=== PATIENT | male | born 1940 | race Caucasian/White ===

== ENCOUNTER 2016-03-19 05:48 | Inpatient (IN) | payer MEDICARE, BC ==
[~2016-03-19] VITALS: Ht 172.7 cm; Wt 49.9 kg
[2016-03-19] VITALS (36 sets, daily range): BP systolic 84–161; BP diastolic 51–104
[2016-03-19] MEDS ORDERED: NS 1000ml 1,900 ML IVLG ONE (06:00)
--- NOTE | 2016-03-19 06:05 | Emergency Room Report ---
History of Present Illness General Chief Complaint: Dyspnea/Respdistress Source: Medical Record, EMS Present Illness HPI Is a 76-year-old male coming from a long-term. He had recent abdominal surgery. He presents with chief complaint of first or distress and altered mental status. Unable to get any history from this patient. Per EMS, he was very toxic. They placed him on a nonrebreather and assists his breathing. No other history from patient Allergies: Coded Allergies: PENICILLINS (Verified Allergy, Unknown, 03/19/16) SULFA (SULFONAMIDE ANTIBIOTICS) (Verified Allergy, Unknown, 03/19/16) Patient History Past Medical History: see triage record, old chart reviewed Past Surgical History: other Pertinent Family History: none Social History: Denies: smoking Immunizations: other Reviewed Nursing Documentation: PMH: Agreed, PSxH: Agreed Nursing Documentation-PMH Hx Hypertension: Yes - Fall, osteoarthritis, vp corporate development shunt, cad, s/p 3 stents Review of Systems Respiratory: Reports: shortness of breath All Other Systems: limited - Secondary to his condition Physical Exam Vital Signs Date Time Temp Pulse Resp B/P Pulse Ox O2 Delivery O2 Flow Rate FiO2 03/19/16 05:37 133 41 86/63 93 Ambu-Bag 15.0 vitals with fever and tachycardia Sp02 EP Interpretation: reviewed, abnormal General Appearance: severe distress, cachetic, Chronically Ill Head: normocephalic, atraumatic Eyes: bilateral eye EOMI, bilateral eye PERRL ENT: dry mucus membranes Neck: full range of motion, supple, no meningismus Respiratory: chest non-tender, respiratory distress, decreased breath sounds, accessory muscle use, crackles Cardiovascular #1: regular rate, rhythm, no murmur, tachycardia Gastrointestinal: normal bowel sounds, non tender, no organomegaly, no bruit, non-distended, other - Midline abdominal surgical wound Musculoskeletal: normal range of motion Psychiatric: mood/affect normal Skin: warm/dry Procedures Critical Care Time Critical Care Time Critical care is mandated in this patient who presented with respiratory failure and septic shock from pneumonia. Patient require my urgent intervention to attenuate the risks of metabolic collapse which may lead to cardiovascular collapse and . Critical care time is 75 minutes excluding any reportable procedure. Critical care time included evaluation, multiple reevaluation, looking at old charts, interpreting laboratory and diagnostic data , discussing case with patient and family and consultants, and charting. Intubation Intubation : Consent: Emergent Intubation Method: orotracheal Tube Size (cm): 7.5 Breath Sounds after Intubation: equal Intubation Complications: no complications Post Intubation Xray: Yes Progress/Xray Impression: ETT in good position Attempts: One Patient Tolerated: Well Complications: None Medical Decision Making Diagnostic Impression: Primary Impression: Respiratory failure requiring intubation Additional Impressions: Septic shock Pneumonia Qualified Codes: J18.9 - Pneumonia, unspecified organism Renal failure Dehydration Multiple organ system failure ER Course Patient presents with severe sepsis/septic shock secondary to pneumonia. He is in renal failure also. He is intubated. Extremely cachectic. Patient will be admitted to ICU. Prognosis is very poor. Lab Results Impression labs showed multiple abnormality. EKG Diagnostic Results Rate: tachycardiac Rhythm: NSR, other - diffuse ST changes ST Segments: no acute changes Rhythm Strip Diag. Results EP Interpretation: yes Rate: 120 Rhythm: NSR, no PVC's, no ectopy Chest X-Ray Diagnostic Results EP Interpretation: Yes Findings: no effusion, no pneumothorax, other - Bilateral infiltrates Number of Views: 1 Last Vital Signs Date Time Temp Pulse Resp B/P Pulse Ox O2 Delivery O2 Flow Rate FiO2 03/19/16 05:37 133 41 86/63 93 Ambu-Bag 15.0 Status: improved Disposition: ADMITTED INPATIENT Condition: Critical MERLENE ROSE M.D. Mar 19, 2016 06:05
[2016-03-19 06:24] LABS: MEAN CORPUSCULAR HEMOGLOBIN 29.7 PG (27.0-31.0); MEAN CORPUSCULAR HGB CONC 31.8 G/DL (32.0-36.0); MEAN CORPUSCULAR VOLUME 93 FL (80-99); MEAN PLATELET VOLUME 8.8 FL (6.5-10.1); PLATELET COUNT 296 K/UL (150-450); RED BLOOD COUNT 6.28 M/UL (4.70-6.10); RED CELL DISTRIBUTION WIDTH 13.1 % (11.6-14.8); WHITE BLOOD COUNT 16.3 K/UL (4.8-10.8)
[2016-03-19 06:27] LABS: ALANINE AMINOTRANSFERASE 102 U/L (3-41); ALBUMIN/GLOBULIN RATIO 0.7 (1.0-2.7); ANION GAP 26 (5-15); ASPARTATE AMINO TRANSFERASE 153 U/L (5-40); CARBON DIOXIDE 27 mEQ/L (20-30); CHLORIDE 105 mEQ/L (98-107); CREATININE 3.1 mg/dL (0.7-1.2); HEMOLYSIS 7; POTASSIUM 3.7 mEQ/L (3.4-4.9); SODIUM 158 mEQ/L (135-145); TOTAL PROTEIN 8.3 g/dL (6.6-8.7)
[2016-03-19 06:32] LABS: REFLEX LACTIC ACID YES OR NO YES
[2016-03-19 06:37] LABS: INR 1.3 (0.9-1.1); PROTHROMBIN TIME 13.2 SEC (9.30-11.50)
[2016-03-19] MEDS ORDERED: Tubing IV Cassette IV ONE (06:39)
[2016-03-19] MEDS ORDERED: Cefepime 1gm vial ONE (06:39)
[2016-03-19] MEDS ORDERED: NS 55 ML IV ONE (06:39)
[2016-03-19] MEDS ORDERED: Cefepime HCl 1 GM in D5W 55 ML IVPB ONE (06:45)
[2016-03-19] MEDS ORDERED: ASPIRIN81 MG ORAL (06:59)
[2016-03-19] MEDS ORDERED: CLOPIDOGREL75 MG ORAL (06:59)
[2016-03-19] MEDS ORDERED: TYLENOL EXTRA500 MG ORAL ×2 (06:59)
[2016-03-19 07:08] LABS: BILIRUBIN,DIRECT 0.4 mg/dL (0.1-0.3)
[2016-03-19] MEDS ORDERED: LOVENOX10 MG SUBQ (07:13)
[2016-03-19] MEDS ORDERED: KADIAN60 MG PO (07:13)
[2016-03-19] MEDS ORDERED: LASIX80 MG ORAL (07:13)
[2016-03-19] MEDS ORDERED: NORCO 5-325 TA1 EAC1 ORAL (07:13)
[2016-03-19] MEDS ORDERED: GABAPENTIN600 MG ORAL (07:13)
[2016-03-19] MEDS ORDERED: METOPROLOL SUCC25 MG ORAL (07:13)
[2016-03-19] MEDS ORDERED: NORCO 10-325 T1 EACH ORAL (07:13)
[2016-03-19] MEDS ORDERED: Acetaminophen 650 MG SUPP RECTAL ONE (07:15)
[2016-03-19 07:19] LABS: ABG PCO2 48.9 mmHg (35.0-45.0)
[2016-03-19 07:20] LABS: ABG ALLEN TEST POSITIVE; ABG BASE EXCESS 0.9
[2016-03-19 07:30] LABS: CKMB < 1.5 ng/mL (< 6.7)
[2016-03-19] MEDS ORDERED: Levophed 4mg/4mL Inj IV ONE (07:50)
[2016-03-19] MEDS ORDERED: Lidocaine 1% MPF 10mg/ml 5ml ONE (07:51)
[2016-03-19 08:15] LABS: APPEARANCE,URINE SLIGHTLY CLOUDY; KETONES,URINE NEGATIVE (NEGATIVE); LEUKOCYTE ESTERASE ,URINE NEGATIVE (NEGATIVE); NITRITE,URINE NEGATIVE (NEGATIVE); PH,URINE 5 (4.5-8.0); PROTEIN,URINE 2+ (NEGATIVE); UROBILINOGEN,URINE NORMAL MG/DL (0.0-1.0)
[2016-03-19 08:27] LABS: AMORPHOUS SEDIMENT,UR FEW /LPF; BACTERIA,URINE FEW /HPF; HYALINE CASTS, URINE 0-2 /LPF; SQUAMOUS EPITHELIAL CELL,UR OCCASIONAL /LPF (NONE/OCC); WBC,URINE 0-2 /HPF (0 - 0)
--- NOTE | 2016-03-19 08:30 | Diagnostic Imaging Report ---
Indications: Shortness of breath Technique: Portable AP chest Findings: Comparison: None Endotracheal tube has been placed, tip 5 cm above maximino. Ventriculoperitoneal shunt tube descends over the mediastinum and midline upper abdomen. Catheter appears focally kinked just above and discontinuous just below the level of the right clavicle. Increased interstitial markings are present throughout both lungs. Focal hazy alveolar opacity medial right lung base. No pleural abnormalities. Heart size within normal limits. Pulmonary vasculature obscured. Aortic arch calcified and mildly elongated. IMPRESSION: Endotracheal tube in good position Ventricular peritoneal shunt tube in place, apparently fractured Bilateral interstitial infiltrates, nonspecific, acuity indeterminate Right lung base alveolar opacity may represent same process as interstitial infiltrate. Superimposed pneumonia must be considered Aortosclerosis
[2016-03-19 08:49] LABS: BAND NEUTROPHILS % (MANUAL) 2 % (0-8); BASOPHILS % (MANUAL) 0 % (0-2); EOSINOPHILS % (MANUAL) 0 % (0-3); LYMPHOCYTES % (MANUAL) 8 % (20-45); NEUTROPHILS % (MANUAL) 87 % (45-75); PLATELET ESTIMATE ADEQUATE; PLATELET MORPHOLOGY NORMAL; TOTAL CELLS COUNTED 100
--- NOTE | 2016-03-19 08:52 | Emergency Room Report ---
History of Present Illness General Chief Complaint: Dyspnea/Respdistress Source: Medical Record, EMS Present Illness Allergies: Coded Allergies: PENICILLINS (Verified Allergy, Unknown, 03/19/16) SULFA (SULFONAMIDE ANTIBIOTICS) (Verified Allergy, Unknown, 03/19/16) Nursing Documentation-PMH Hx Hypertension: Yes - Fall, osteoarthritis, vp respiratory shunt, cad, s/p 3 stents Physical Exam Vital Signs Date Time Temp Pulse Resp B/P Pulse Ox O2 Delivery O2 Flow Rate FiO2 03/19/16 05:37 101.8 133 41 86/63 93 Ambu-Bag 15.0 03/19/16 06:05 100 Procedures Critical Care Time Critical Care Time 75 minutes of critical care time, to include time with review of labs, records, discussion with attending emergency physician, evaluation of treatment and resuscitation. As well as discussion with family. This excludes time for procedures. Central Line Central Line : Consent: Emergent Central Line Lumen: triple Maximal Sterile Barrier Tech: yes cap, yes mask, yes sterile gown, yes sterile gloves, yes large sterile sheet, yes hand hygiene, yes chlorhexidine prep Central Line Postion: internal jugular (R) Complications: none Central Line Post Position: sutured, good blood return, position confirmed w / CXR Attempts: One Patient Tolerated: Well Complications: None Medical Decision Making Diagnostic Impression: Primary Impression: Respiratory failure requiring intubation Additional Impressions: Multiple organ system failure Septic shock Renal failure Pneumonia Qualified Codes: J18.9 - Pneumonia, unspecified organism Dehydration ER Course Patient signed out to me by ENT for sepsis, respiratory failure. Reviewing of labs and trending lactate is performed. Critical care as required, patient lost access of EJ and I placed a central line in the right internal jugular. Patient given and ICU level care, I initiated the beginning of IV pressors for blood pressure support. Last Vital Signs Date Time Temp Pulse Resp B/P Pulse Ox O2 Delivery O2 Flow Rate FiO2 03/19/16 08:30 91 20 40 03/19/16 07:56 94/59 97 Room Air 03/19/16 07:54 99.0 03/19/16 07:35 15.0 Disposition: ADMITTED INPATIENT Condition: Critical Referrals: MAURO NOLAN (PCP) [place] MD Mar 19, 2016 08:52
--- NOTE | 2016-03-19 09:27 | Infectious Diseases Prog Note ---
Assessment/Plan Problems: (1) HCAP (healthcare-associated pneumonia) Assessment & Plan: with RLL infiltrates, will start zyvox and meropenem empiric therapy, send blood and sputum culture, will screen for influenza (2) Respiratory failure requiring intubation Assessment & Plan: due to pneumonia and sepsis, pulmonary is following (3) Septic shock Assessment & Plan: due to pneumonia, complicated with organs failure, will start wide spectrum antibiotics , and send blood culture (4) Elevated transaminase level Assessment & Plan: suspect liver shock due to sepsis , avoid hepatotoxic meds, monitor LFT, screen for hepatitis (5) Dehydration Assessment & Plan: continue IVF monitor UOP (6) Renal failure Assessment & Plan: due to sepsis, continue IVF and pressors, to keep SBP >100, nephrology is following (7) Multiple organ system failure Assessment & Plan: due to sepsis (8) ICH (intracerebral hemorrhage) Assessment & Plan: unclear whether he had recent trauma or fall, recommend neurology eval, and surgical consultation Subjective Allergies: Coded Allergies: PENICILLINS (Verified Allergy, Unknown, 03/19/16) SULFA (SULFONAMIDE ANTIBIOTICS) (Verified Allergy, Unknown, 03/19/16) Objective Vital Signs Last 24 Hour Vital Signs Date Time Temp Pulse Resp B/P Pulse Ox O2 Delivery O2 Flow Rate FiO2 03/19/16 08:54 98.2 96 20 129/83 96 Room Air 03/19/16 08:30 91 20 40 03/19/16 07:56 93 22 94/59 97 Room Air 03/19/16 07:54 99.0 109 20 84/51 96 Mechanical Ventilator 41 03/19/16 07:50 99.5 03/19/16 07:35 15.0 40 03/19/16 07:30 100 22 120/74 99 Mechanical Ventilator 03/19/16 07:10 94 24 100 03/19/16 06:48 101.9 97 15 139/81 100 Endotracheal Tube 100 03/19/16 06:20 90 15 100 03/19/16 06:05 100 03/19/16 05:50 133 41 Ambu-Bag 15.0 03/19/16 05:37 101.8 133 41 86/63 93 Ambu-Bag 15.0 Height (Feet): 5 Height (Inches): 9.00 Weight (Pounds): 140 Laboratory Tests Test 03/19/16 05:50 03/19/16 07:54 03/19/16 08:12 White Blood Count 16.3 K/UL (4.8-10.8) H Red Blood Count 6.28 M/UL (4.70-6.10) H Hemoglobin 18.6 G/DL (14.2-18.0) *H Hematocrit 58.6 % (42.0-52.0) H Mean Corpuscular Volume 93 FL (80-99) Mean Corpuscular Hemoglobin 29.7 PG (27.0-31.0) Mean Corpuscular Hemoglobin Concent 31.8 G/DL (32.0-36.0) L Red Cell Distribution Width 13.1 % (11.6-14.8) Platelet Count 296 K/UL (150-450) Mean Platelet Volume 8.8 FL (6.5-10.1) Neutrophils (%) (Auto) % (45.0-75.0) Lymphocytes (%) (Auto) % (20.0-45.0) Monocytes (%) (Auto) % (1.0-10.0) Eosinophils (%) (Auto) % (0.0-3.0) Basophils (%) (Auto) % (0.0-2.0) Differential Total Cells Counted 100 Neutrophils % (Manual) 87 % (45-75) H Lymphocytes % (Manual) 8 % (20-45) L Monocytes % (Manual) 3 % (1-10) Eosinophils % (Manual) 0 % (0-3) Basophils % (Manual) 0 % (0-2) Band Neutrophils 2 % (0-8) Platelet Estimate Adequate Platelet Morphology Normal Red Blood Cell Morphology Normal Prothrombin Time 13.2 SEC (9.30-11.50) H Prothromb Time International Ratio 1.3 (0.9-1.1) H Activated Partial Thromboplast Time 31 SEC (23-33) Arterial Blood pH 7.362 (7.350-7.450) Arterial Blood Partial Pressure CO2 48.9 mmHg (35.0-45.0) H Arterial Blood Partial Pressure O2 223.3 mmHg (75.0-100.0) H Arterial Blood HCO3 27.1 mmol/L (22.0-26.0) H Arterial Blood Oxygen Saturation 98.8 % (92.0-98.0) H Arterial Blood Base Excess 0.9 Vicente Test Positive Sodium Level 158 mEQ/L (135-145) H Potassium Level 3.7 mEQ/L (3.4-4.9) Chloride Level 105 mEQ/L (98-107) Carbon Dioxide Level 27 mEQ/L (20-30) Anion Gap 26 (5-15) H Blood Urea Nitrogen 119 mg/dL (7-23) H Creatinine 3.1 mg/dL (0.7-1.2) H Estimat Glomerular Filtration Rate mL/min (>60) Glucose Level 185 mg/dL (74-106) H Lactic Acid Level 5.70 mmol/L (0.66-2.22) H 1.50 mmol/L (0.66-2.22) Calcium Level 11.0 mg/dL (8.6-10.2) H Total Bilirubin 1.3 mg/dL (0.0-1.2) H Direct Bilirubin 0.4 mg/dL (0.1-0.3) H Aspartate Amino Transf (AST/SGOT) 153 U/L (5-40) H Alanine Aminotransferase (ALT/SGPT) 102 U/L (3-41) H Alkaline Phosphatase 98 U/L (40-129) Total Creatine Kinase 19 U/L (38-174) L Creatine Kinase MB < 1.5 ng/mL (< 6.7) Creatine Kinase MB Relative Index Troponin I 0.40 ng/mL (<=0.30) *H Pro-B-Type Natriuretic Peptide 7150 pg/mL (0-450) H Total Protein 8.3 g/dL (6.6-8.7) Albumin 3.6 g/dL (3.5-5.2) Globulin 4.7 g/dL Albumin/Globulin Ratio 0.7 (1.0-2.7) L Urine Color Yellow Urine Appearance Slightly cloudy Urine pH 5 (4.5-8.0) Urine Specific [place] 1.015 (1.005-1.035) Urine Protein 2+ (NEGATIVE) H Urine Glucose (UA) Negative (NEGATIVE) Urine Ketones Negative (NEGATIVE) Urine Occult Blood 1+ (NEGATIVE) H Urine Nitrite Negative (NEGATIVE) Urine Bilirubin Negative (NEGATIVE) Urine Urobilinogen Normal MG/DL (0.0-1.0) Urine Leukocyte Esterase Negative (NEGATIVE) Urine RBC 2-4 /HPF (0 - 0) H Urine WBC 0-2 /HPF (0 - 0) Urine Squamous Epithelial Cells Occasional /LPF Urine Amorphous Sediment Few /LPF (NONE) H Urine Bacteria Few /HPF (NONE) Urine Hyaline Casts 0-2 /LPF (NONE) H Urine Granular Casts 2-4 /LPF (NONE) H Current Medications Medications (Trade) Dose Ordered Sig/Lovely Route PRN Reason Start Time Stop Time Status Last Admin Dose Admin Acetaminophen (Tylenol) 650 mg Q4H PRN ORAL fever 03/19/16 07:15 04/18/16 07:14 UNV Albuterol/ Ipratropium (DuoNeb 0.5-3(2.5)mg/3ml) 3 ml EVERY 4 HOURS PRN HHN Shortness of Breath 03/19/16 07:15 03/24/16 07:14 UNV Heparin Sodium (Porcine) (Heparin 5000 units/ml) 5,000 units EVERY 12 HOURS SUBQ 03/19/16 09:00 04/18/16 08:59 UNV Linezolid 300 ml @ 300 mls/hr Q12HR IVPB 03/19/16 09:00 03/26/16 08:59 UNV Lorazepam 2 mg 2 mg EVERY 2 HOURS PRN IV For Anxiety 03/19/16 07:15 03/26/16 07:14 UNV Meropenem 1 gm/ Sodium Chloride 110 ml @ 220 mls/hr Q24HRS IVPB 03/19/16 08:45 03/24/16 08:44 UNV Morphine Sulfate (Morphine Sulfate) 4 mg EVERY 4 HOURS PRN IVP Severe Pain (Pain Scale 7-10) 03/19/16 07:15 03/26/16 07:14 UNV Norepinephrine Bitartrate 4 mg/ Dextrose 250 ml @ 0 mls/hr Q24H IV 03/19/16 09:15 04/18/16 09:14 Norepinephrine Bitartrate 4 mg/ Dextrose 254 ml @ 0 mls/hr Q24H IV 03/19/16 07:15 04/18/16 07:14 UNV Ondansetron HCl (Zofran) 4 mg Q6H PRN IVP Nausea & Vomiting 03/19/16 07:15 04/18/16 07:14 UNV Polyethylene Glycol (Miralax) 17 gm DAILYPRN PRN ORAL Constipation 2/8/17 07:15 04/18/16 07:14 UNV Sodium Chloride (Sodium Chloride 1000ml bag) 1,000 ml @ 100 mls/hr Q10H IVLG 03/19/16 23:39 04/18/16 23:38 UNV Sodium Chloride (Sodium Chloride 1000ml bag) 1,000 ml @ 999 mls/hr Q1H1M ONCE IV 03/19/16 09:15 03/19/16 10:15 Chantell Vera M.D. Mar 19, 2016 09:27
--- NOTE | 2016-03-19 11:17 | History and Physical Report ---
DATE OF ADMISSION: 03/19/2016 History Of Present Illness: I saw the patient this morning around 9:15 a.m. The patient is intubated, , septic shock most likely hypernatremia, severe dehydration, elevated LFTs, very critical patient at this point. The patient is also cachetic. Very poor prognosis. PAST MEDICAL HISTORY: Organic brain syndrome and GERD. History of BPH. History of hypertension. PAST SURGICAL HISTORY: Unable to obtain. MEDICATIONS: Unable to obtain. [facility] to sent the list of medications to the hospital. ALLERGIES: Unable to obtain. SOCIAL HISTORY: Unable to obtain. REVIEW OF SYSTEMS: Unable to obtain. PHYSICAL EXAMINATION: VITAL SIGNS: Temperature is 97.2 degrees, pulse is 72, and blood pressure is 95/55. HEENT: Pupils are reactive. CHEST: Bibasilar rales. CARDIOVASCULAR: Regular rate. GASTROINTESTINAL: Soft. Positive bowel sounds. No organomegaly. NEUROLOGIC: The patient is cachetic, unable to neurological examination. The patient is intubated. Reflexes are equal on both sides. LABORATORY AND DIAGNOSTIC DATA: WBC of 16.3, hemoglobin 18.6, and platelets 296,000. Sodium 158, potassium 3.7, chloride 105, BUN 119, creatinine 3.1, and glucose 185. Total bilirubin 1.3. AST of 153, ALT of 101, and alkaline phosphatase of 98. Troponin 0.4. ASSESSMENT AND PLAN: 1. Elevated troponin most likely due to renal leak from kidney failure. 2. Septic shock. 3. Severe dehydration. 4. Respiratory failure. 5. Elevated liver function tests. 6. Rule out pneumonia. 7. Sepsis. 8. Acute renal failure. 9. Benign prostatic hypertrophy. PLAN: I have asked Dr. Murray, Dr. Crews, Dr. Mcleod, , Dr. Vera, , and will see the patient for the malnutrition and the above-mentioned diagnosis and treatment. Nahed Pizarro M.D. DR: Nereyda JOB#: [id number] CC:
[2016-03-19] MEDS ORDERED: LORazepam Inj 2mg/ml 1ml IV PRN (12:00)
[2016-03-19] MEDS ORDERED: DuoNeb 0.5-3(2.5)mg/3ml neb HHN PRN (12:00)
[2016-03-19] MEDS ORDERED: Miralax 17gm pkt ORAL PRN (12:00)
[2016-03-19] MEDS ORDERED: Morphine Sulfate 4mg/ml Inj IVP PRN (12:00)
--- NOTE | 2016-03-19 12:38 | Diagnostic Imaging Report ---
Indications: Altered level of consciousness Technique: Continuous helical CT imaging of the brain was performed with automatic exposure control on a Siemens sensation [address] scanner. Axial and coronal images were reconstructed at 5 mm slice thickness and interval. CTDI volume(s): 70 mGy Total DLP: 1386 mGy-cm Findings: Comparison: None. 1.7 cm mildly hyperattenuating hematoma surrounds a portion of the intraparenchymal segment of the indwelling ventriculoperitoneal shunt tube. The hematoma surrounded by a small amount of edema. Hyperattenuating blood is also present within the left lateral ventricle. The intracranial portion of the ventriculoperitoneal shunt traverses the frontal horn and body of the left lateral ventricle, tip in the left thalamus. Small focus of low attenuation resides adjacent to the tube tip. Confluent low attenuation bilateral cerebral periventricular white matter. Ventricles, cisterns, sulci are diffusely prominent. Lateral ventricles appear mildly dilated out of proportion to peripheral sulci.. No evidence of mass, other attenuation abnormality, mass effect, midline shift, or increased intracranial pressure. Bone window images demonstrate right frontal craniotomy defect in association with ventricular peritoneal shunt, are otherwise unremarkable. Visualized paranasal sinuses and mastoid air cells are clear. IMPRESSION: Small acute to subacute intraparenchymal hematoma right frontal deep white matter surrounding ventriculoperitoneal shunt tube. Additional small amount of left lateral intraventricular hemorrhage with mild hydrocephalus. Ventriculoperitoneal shunt tube tip in left thalamus. Adjacent focal low-attenuation likely chronic encephalomalacia Bilateral cerebral periventricular white matter low attenuation, nonspecific, likely chronic microvascular ischemic in nature Atrophy Critical results discussed with ER physician, , by telephone at time of this dictation The CT scanner at [facility] is accredited by the [employer] and the scans are performed using protocols designed to limit radiation exposure to as low as reasonably achievable to attain images of sufficient resolution adequate for diagnostic evaluation.
[2016-03-19 12:57] LABS: PATH BLOOD SMEAR/OMC SENT TO PATHOLOGIST
--- NOTE | 2016-03-19 13:52 | Cardiac Electrophysiology PN ---
Subjective Subjective [id number] Objective Last 24 Hour Vital Signs Date Time Temp Pulse Resp B/P Pulse Ox O2 Delivery O2 Flow Rate FiO2 03/19/16 12:51 88 22 50 03/19/16 12:49 98.4 85 23 126/79 96 Mechanical Ventilator 15.0 50 03/19/16 12:48 85 23 126/79 96 Mechanical Ventilator 50 03/19/16 11:55 88 22 120/74 96 Mechanical Ventilator 50 03/19/16 11:33 98.4 90 24 128/83 97 Mechanical Ventilator 50 03/19/16 11:01 98.4 85 22 129/85 99 Mechanical Ventilator 50 03/19/16 10:50 118/75 03/19/16 10:40 121/81 03/19/16 10:32 93 24 40 03/19/16 10:30 133/78 03/19/16 10:20 134/87 03/19/16 10:10 134/87 03/19/16 10:00 113/78 03/19/16 10:00 98.2 102 22 117/80 99 Mechanical Ventilator 40 03/19/16 09:45 94/71 03/19/16 09:40 111/66 03/19/16 09:30 106/70 03/19/16 09:20 113/71 03/19/16 09:10 124/76 03/19/16 09:00 140/80 03/19/16 08:55 142/85 03/19/16 08:54 98.2 96 20 129/83 96 Room Air 03/19/16 08:45 72/48 03/19/16 08:39 77/49 03/19/16 08:30 91 20 40 03/19/16 07:56 93 22 94/59 97 Room Air 03/19/16 07:54 99.0 109 20 84/51 96 Mechanical Ventilator 41 03/19/16 07:50 99.5 03/19/16 07:35 15.0 40 03/19/16 07:30 100 22 120/74 99 Mechanical Ventilator 03/19/16 07:10 94 24 100 03/19/16 06:48 101.9 97 15 139/81 100 Endotracheal Tube 100 03/19/16 06:20 90 15 100 03/19/16 06:05 100 03/19/16 05:50 133 41 Ambu-Bag 15.0 03/19/16 05:37 101.8 133 41 86/63 93 Ambu-Bag 15.0 Laboratory Tests Test 03/19/16 05:50 03/19/16 07:54 03/19/16 08:12 White Blood Count 16.3 K/UL (4.8-10.8) H Red Blood Count 6.28 M/UL (4.70-6.10) H Hemoglobin 18.6 G/DL (14.2-18.0) *H Hematocrit 58.6 % (42.0-52.0) H Mean Corpuscular Volume 93 FL (80-99) Mean Corpuscular Hemoglobin 29.7 PG (27.0-31.0) Mean Corpuscular Hemoglobin Concent 31.8 G/DL (32.0-36.0) L Red Cell Distribution Width 13.1 % (11.6-14.8) Platelet Count 296 K/UL (150-450) Mean Platelet Volume 8.8 FL (6.5-10.1) Neutrophils (%) (Auto) % (45.0-75.0) Lymphocytes (%) (Auto) % (20.0-45.0) Monocytes (%) (Auto) % (1.0-10.0) Eosinophils (%) (Auto) % (0.0-3.0) Basophils (%) (Auto) % (0.0-2.0) Differential Total Cells Counted 100 Neutrophils % (Manual) 87 % (45-75) H Lymphocytes % (Manual) 8 % (20-45) L Monocytes % (Manual) 3 % (1-10) Eosinophils % (Manual) 0 % (0-3) Basophils % (Manual) 0 % (0-2) Band Neutrophils 2 % (0-8) Platelet Estimate Adequate Platelet Morphology Normal Red Blood Cell Morphology Normal Prothrombin Time 13.2 SEC (9.30-11.50) H Prothromb Time International Ratio 1.3 (0.9-1.1) H Activated Partial Thromboplast Time 31 SEC (23-33) Jak2 V617F Mutation Detection Pending JAK2 V617F Mutation Background Pending JAK2 V617F Reviewed By Pending Arterial Blood pH 7.362 (7.350-7.450) Arterial Blood Partial Pressure CO2 48.9 mmHg (35.0-45.0) H Arterial Blood Partial Pressure O2 223.3 mmHg (75.0-100.0) H Arterial Blood HCO3 27.1 mmol/L (22.0-26.0) H Arterial Blood Oxygen Saturation 98.8 % (92.0-98.0) H Arterial Blood Base Excess 0.9 Vicente Test Positive Sodium Level 158 mEQ/L (135-145) H Potassium Level 3.7 mEQ/L (3.4-4.9) Chloride Level 105 mEQ/L (98-107) Carbon Dioxide Level 27 mEQ/L (20-30) Anion Gap 26 (5-15) H Blood Urea Nitrogen 119 mg/dL (7-23) H Creatinine 3.1 mg/dL (0.7-1.2) H Estimat Glomerular Filtration Rate mL/min (>60) Glucose Level 185 mg/dL (74-106) H Lactic Acid Level 5.70 mmol/L (0.66-2.22) H 1.50 mmol/L (0.66-2.22) Calcium Level 11.0 mg/dL (8.6-10.2) H Total Bilirubin 1.3 mg/dL (0.0-1.2) H Direct Bilirubin 0.4 mg/dL (0.1-0.3) H Aspartate Amino Transf (AST/SGOT) 153 U/L (5-40) H Alanine Aminotransferase (ALT/SGPT) 102 U/L (3-41) H Alkaline Phosphatase 98 U/L (40-129) Total Creatine Kinase 19 U/L (38-174) L Creatine Kinase MB < 1.5 ng/mL (< 6.7) Creatine Kinase MB Relative Index Troponin I 0.40 ng/mL (<=0.30) *H Pro-B-Type Natriuretic Peptide 7150 pg/mL (0-450) H Total Protein 8.3 g/dL (6.6-8.7) Albumin 3.6 g/dL (3.5-5.2) Globulin 4.7 g/dL Albumin/Globulin Ratio 0.7 (1.0-2.7) L Urine Color Yellow Urine Appearance Slightly cloudy Urine pH 5 (4.5-8.0) Urine Specific [place] 1.015 (1.005-1.035) Urine Protein 2+ (NEGATIVE) H Urine Glucose (UA) Negative (NEGATIVE) Urine Ketones Negative (NEGATIVE) Urine Occult Blood 1+ (NEGATIVE) H Urine Nitrite Negative (NEGATIVE) Urine Bilirubin Negative (NEGATIVE) Urine Urobilinogen Normal MG/DL (0.0-1.0) Urine Leukocyte Esterase Negative (NEGATIVE) Urine RBC 2-4 /HPF (0 - 0) H Urine WBC 0-2 /HPF (0 - 0) Urine Squamous Epithelial Cells Occasional /LPF Urine Amorphous Sediment Few /LPF (NONE) H Urine Bacteria Few /HPF (NONE) Urine Hyaline Casts 0-2 /LPF (NONE) H Urine Granular Casts 2-4 /LPF (NONE) H Microbiology Date/Time Source Procedure Growth Status 03/19/16 11:09 Nasopharynx Influenza Types A,B Antigen (YANELY) - Final Complete ESTEE BREEN Mar 19, 2016 13:52
[2016-03-19] MEDS ORDERED: Meropenem 1 GM in NS 110 ML IVPB ONE (14:00)
[2016-03-19] MEDS ORDERED: Digoxin 0.5mg/2ml Inj IVP ONE (14:15)
--- NOTE | 2016-03-19 17:52 | Pulmonolgy Critical Care Note ---
Critical Care - Asmt/Plan Problems: (1) Septic shock (2) Dehydration (3) Renal failure (4) Pneumonia (5) Multiple organ system failure (6) HCAP (healthcare-associated pneumonia) Respiratory: monitor respiratory rate, adjust FIO2 Cardiac: continue to monitor HR/BP Renal: F/U I&O, keep IV fluid, check electrolytes Infectious Disease: check cultures, continue antibiotics Gastrointestinal: continue feedings/current rate Endocrine: monitor blood sugar, continue sliding scale insulin Hematologic: monitor H/H, transfuse if hgb<8.5 Neurologic: PRN Ativan, keep patient comfortable Affect: PRN ativan Prophylaxis: Protonix, Heparin Time Spent (Minutes): 40 Notes Reviewed: battery container finishing hand, cardio Discussed with: nurses, consultants, cyanide case hardenermanager banquet - Objective Last 24 Hour Vital Signs Date Time Temp Pulse Resp B/P Pulse Ox O2 Delivery O2 Flow Rate FiO2 03/19/16 17:30 83 22 151/88 97 Mechanical Ventilator 50 03/19/16 17:15 86 22 130/82 97 Mechanical Ventilator 50 03/19/16 17:00 87 22 132/81 97 Mechanical Ventilator 50 03/19/16 16:45 89 24 119/81 97 Mechanical Ventilator 50 03/19/16 16:30 89 25 135/83 97 Mechanical Ventilator 50 03/19/16 16:30 84 23 50 03/19/16 16:15 86 21 144/89 98 Mechanical Ventilator 50 03/19/16 16:00 97.4 85 20 158/91 98 Mechanical Ventilator 50 03/19/16 16:00 50 03/19/16 16:00 83 03/19/16 15:45 86 21 161/86 98 Mechanical Ventilator 50 03/19/16 15:30 85 21 135/76 97 Mechanical Ventilator 50 03/19/16 15:15 85 21 125/78 97 Mechanical Ventilator 50 03/19/16 15:00 84 21 138/79 97 Mechanical Ventilator 50 03/19/16 15:00 121/76 03/19/16 14:45 83 22 128/77 97 Mechanical Ventilator 50 03/19/16 14:30 85 21 50 03/19/16 14:30 82 22 111/78 97 Mechanical Ventilator 50 03/19/16 14:15 82 22 131/83 97 Mechanical Ventilator 50 03/19/16 14:11 81 03/19/16 14:11 131/104 03/19/16 14:00 82 21 111/75 96 Mechanical Ventilator 50 03/19/16 13:45 83 22 131/104 96 Mechanical Ventilator 50 03/19/16 13:30 82 22 114/75 96 Mechanical Ventilator 50 03/19/16 13:15 83 22 131/65 95 Mechanical Ventilator 50 03/19/16 13:00 97.4 83 22 122/74 95 Mechanical Ventilator 50 03/19/16 12:51 88 22 50 03/19/16 12:49 98.4 85 23 126/79 96 Mechanical Ventilator 15.0 50 03/19/16 12:48 85 23 126/79 96 Mechanical Ventilator 50 03/19/16 11:55 88 22 120/74 96 Mechanical Ventilator 50 03/19/16 11:33 98.4 90 24 128/83 97 Mechanical Ventilator 50 03/19/16 11:01 98.4 85 22 129/85 99 Mechanical Ventilator 50 03/19/16 10:50 118/75 03/19/16 10:40 121/81 03/19/16 10:32 93 24 40 03/19/16 10:30 133/78 03/19/16 10:20 134/87 03/19/16 10:10 134/87 03/19/16 10:00 113/78 03/19/16 10:00 98.2 102 22 117/80 99 Mechanical Ventilator 40 03/19/16 09:45 94/71 03/19/16 09:40 111/66 03/19/16 09:30 106/70 03/19/16 09:20 113/71 03/19/16 09:10 124/76 03/19/16 09:00 140/80 03/19/16 08:55 142/85 03/19/16 08:54 98.2 96 20 129/83 96 Room Air 03/19/16 08:45 72/48 03/19/16 08:39 77/49 03/19/16 08:30 91 20 40 03/19/16 07:56 93 22 94/59 97 Room Air 03/19/16 07:54 99.0 109 20 84/51 96 Mechanical Ventilator 41 03/19/16 07:50 99.5 03/19/16 07:35 15.0 40 03/19/16 07:30 100 22 120/74 99 Mechanical Ventilator 03/19/16 07:10 94 24 100 03/19/16 06:48 101.9 97 15 139/81 100 Endotracheal Tube 100 03/19/16 06:20 90 15 100 03/19/16 06:05 100 03/19/16 05:50 133 41 Ambu-Bag 15.0 03/19/16 05:37 101.8 133 41 86/63 93 Ambu-Bag 15.0 Status: awake Condition: critical HEENT: atraumatic Lungs: clear, chest wall tender Heart: HR/BP unstable Abdomen: non-tender, active bowel sounds Extremities: edema Decubiti: location Micro: Microbiology Date/Time Source Procedure Growth Status 03/19/16 11:09 Nasopharynx Influenza Types A,B Antigen (YANELY) - Final Complete Critical Care - Subjective ROS Limited/Unobtainable: Yes ICU Day: 1 Intubation Day: 1 Interval Events: 76-year-old male coming from a [facility] with WRAPPING MACHINE TENDER shunt, recent abdominal surgery presented with chief complaint of respiratory distress and altered mental status. Patient was in respiratory failure in ER and was intubated. His cxr showed right lower lobe infiltrate. He is urrently sedated and can't give any history. His base line mental status in unclear. FI02: 50 Vent Support Breath Rate: 16 Vent Support Mode: AC Vent Tidal Volume: 500 Sputum Amount: None PEEP: 5.0 PIP: 20 Fluids: d5 w 100 cc.hour CXR: Rll infiltrate ET-Tube: 7.5 ET Position: 22 Labs: Laboratory Tests Test 03/19/16 05:50 03/19/16 07:54 03/19/16 08:12 White Blood Count 16.3 K/UL (4.8-10.8) H Red Blood Count 6.28 M/UL (4.70-6.10) H Hemoglobin 18.6 G/DL (14.2-18.0) *H Hematocrit 58.6 % (42.0-52.0) H Mean Corpuscular Volume 93 FL (80-99) Mean Corpuscular Hemoglobin 29.7 PG (27.0-31.0) Mean Corpuscular Hemoglobin Concent 31.8 G/DL (32.0-36.0) L Red Cell Distribution Width 13.1 % (11.6-14.8) Platelet Count 296 K/UL (150-450) Mean Platelet Volume 8.8 FL (6.5-10.1) Neutrophils (%) (Auto) % (45.0-75.0) Lymphocytes (%) (Auto) % (20.0-45.0) Monocytes (%) (Auto) % (1.0-10.0) Eosinophils (%) (Auto) % (0.0-3.0) Basophils (%) (Auto) % (0.0-2.0) Differential Total Cells Counted 100 Neutrophils % (Manual) 87 % (45-75) H Lymphocytes % (Manual) 8 % (20-45) L Monocytes % (Manual) 3 % (1-10) Eosinophils % (Manual) 0 % (0-3) Basophils % (Manual) 0 % (0-2) Band Neutrophils 2 % (0-8) Platelet Estimate Adequate Platelet Morphology Normal Red Blood Cell Morphology Normal Prothrombin Time 13.2 SEC (9.30-11.50) H Prothromb Time International Ratio 1.3 (0.9-1.1) H Activated Partial Thromboplast Time 31 SEC (23-33) Jak2 V617F Mutation Detection Pending JAK2 V617F Mutation Background Pending JAK2 V617F Reviewed By Pending Arterial Blood pH 7.362 (7.350-7.450) Arterial Blood Partial Pressure CO2 48.9 mmHg (35.0-45.0) H Arterial Blood Partial Pressure O2 223.3 mmHg (75.0-100.0) H Arterial Blood HCO3 27.1 mmol/L (22.0-26.0) H Arterial Blood Oxygen Saturation 98.8 % (92.0-98.0) H Arterial Blood Base Excess 0.9 Vicente Test Positive Sodium Level 158 mEQ/L (135-145) H Potassium Level 3.7 mEQ/L (3.4-4.9) Chloride Level 105 mEQ/L (98-107) Carbon Dioxide Level 27 mEQ/L (20-30) Anion Gap 26 (5-15) H Blood Urea Nitrogen 119 mg/dL (7-23) H Creatinine 3.1 mg/dL (0.7-1.2) H Estimat Glomerular Filtration Rate mL/min (>60) Glucose Level 185 mg/dL (74-106) H Lactic Acid Level 5.70 mmol/L (0.66-2.22) H 1.50 mmol/L (0.66-2.22) Calcium Level 11.0 mg/dL (8.6-10.2) H Total Bilirubin 1.3 mg/dL (0.0-1.2) H Direct Bilirubin 0.4 mg/dL (0.1-0.3) H Aspartate Amino Transf (AST/SGOT) 153 U/L (5-40) H Alanine Aminotransferase (ALT/SGPT) 102 U/L (3-41) H Alkaline Phosphatase 98 U/L (40-129) Total Creatine Kinase 19 U/L (38-174) L Creatine Kinase MB < 1.5 ng/mL (< 6.7) Creatine Kinase MB Relative Index Troponin I 0.40 ng/mL (<=0.30) *H Pro-B-Type Natriuretic Peptide 7150 pg/mL (0-450) H Total Protein 8.3 g/dL (6.6-8.7) Albumin 3.6 g/dL (3.5-5.2) Globulin 4.7 g/dL Albumin/Globulin Ratio 0.7 (1.0-2.7) L Urine Color Yellow Urine Appearance Slightly cloudy Urine pH 5 (4.5-8.0) Urine Specific Apollo 1.015 (1.005-1.035) Urine Protein 2+ (NEGATIVE) H Urine Glucose (UA) Negative (NEGATIVE) Urine Ketones Negative (NEGATIVE) Urine Occult Blood 1+ (NEGATIVE) H Urine Nitrite Negative (NEGATIVE) Urine Bilirubin Negative (NEGATIVE) Urine Urobilinogen Normal MG/DL (0.0-1.0) Urine Leukocyte Esterase Negative (NEGATIVE) Urine RBC 2-4 /HPF (0 - 0) H Urine WBC 0-2 /HPF (0 - 0) Urine Squamous Epithelial Cells Occasional /LPF Urine Amorphous Sediment Few /LPF (NONE) H Urine Bacteria Few /HPF (NONE) Urine Hyaline Casts 0-2 /LPF (NONE) H Urine Granular Casts 2-4 /LPF (NONE) H CAROLINA TORREZ Mar 19, 2016 17:52
--- NOTE | 2016-03-19 20:57 | Consultation ---
DATE OF CONSULTATION: 03/19/2016 CARDIOLOGY CONSULTATION CONSULTING PHYSICIAN: Zander Chinchilla M.D. REFERRING PHYSICIAN: Nahed Pizarro M.D. REASON FOR CONSULTATION: Shock, atrial fibrillation, and rapid ventricular response. HISTORY OF PRESENT ILLNESS: The patient is a 76-year-old, gentleman with history of coronary artery disease with history of prior three stents placement, who was brought to the emergency room from [facility] for altered mental status. Per EMS, the patient was very hypoxic and placed him on non-rebreather as he has difficulty breathing. The patient reported he had recent abdominal surgery. The patient's blood pressure in the ER was 86/63 with a pulse of 133. He was in atrial fibrillation with rapid ventricular response. Due to respiratory failure, the patient was then subsequently intubated and was brought to intensive care unit. The patient's EKG by paramedics showed atrial fibrillation with rapid ventricular response of 177 beats per minute with underlying right bundle-branch block. Chest x-ray in the emergency room showed no pneumothorax or effusion, however, showed bilateral infiltrate. The patient was also evaluated by Dr. Vera from Infectious Disease and was started on broad-spectrum IV antibiotics. PAST MEDICAL HISTORY: Includes, 1. Hypertension. 2. Coronary artery disease. 3. History of three prior stents placement. 4. Osteoarthritis. 5. Status post INTEGRATION SPECIALIST shunt. 6. Right rib fracture. PHYSICAL EXAMINATION: VITAL SIGNS: Shows blood pressure of 126/79, pulse is 96, respirations are 22, and temperature 98.4 degrees. HEENT: He is orally intubated with NG tube. LUNGS: Coarse rhonchi bilaterally. CARDIOVASCULAR: Shows regular S1 and S2 with no gallop or murmur. ABDOMEN: Soft. EXTREMITIES: No pitting edema. REVIEW OF SYSTEMS: Cannot be obtained. DIAGNOSTIC DATA: His EKG as mentioned, atrial fibrillation with rapid ventricular response of 177 beats per minute. LABORATORY DATA: White count of 16.2, hemoglobin 18.6, hematocrit 58.6, and platelet count of 296,000. Sodium is 158, potassium 3.7, BUN of 19, creatinine 3.1, and glucose of 185. Troponin is 0.4. BNP 7150. INR is 1.3. His blood gas showed a pH of 7.3, pCO2 of 48, pO2 of 223, and bicarbonate of 27. ASSESSMENT AND PLAN: 1. Troponin elevation in a patient with three coronary stents in the past. We will completely rule out myocardial infarction protocol. The elevated troponin is likely due to demand ischemia in view of the patient's atrial fibrillation, rapid ventricular response, as well as the patients severe dehydration and azotemia. Obviously in view of the patient's hypotension and septic shock, not a candidate for beta fallon. We will hydrate the patient for now. When blood pressure stabilizes, we may be able to give small dose of beta-fallon, but not at this time. 2. Septic shock. The patient is on Levophed, on broad-spectrum intravenous antibiotic with Linezolid and meropenem and managed by Dr. Vera. 3. Atrial fibrillation with rapid ventricular response. I will treat the patient with 0.25 mg intravenous digoxin. Cannot use beta fallon or calcium channel fallon. We will get an echocardiogram to evaluate for ejection fraction and wall motion abnormality. 4. Severe dehydration with hypernatremia and azotemia. The patient is on intravenous fluid per Dr. Mcleod. 5. Respiratory failure, on the ventilator. 6. Healthcare-associated pneumonia with right lower lobe infiltrate, on meropenem and Zyvox antibiotic therapy and the patient will be screened for influenza. Intravenous antibiotics managed by Dr. Vera. 7. Elevated transaminase level. 8. Multiorgan failure due to sepsis. Thank you very much, Dr. Pizarro, for allowing me to participate in the care of this critical patient. Please do not hesitate to contact me for any questions regarding my evaluation. Time spent in management of this critical patient was for one hour. Zander Chinchilla M.D. DR: OPAL JOB#: [id number] CC:
[2016-03-19] MEDS: Heparin 5000 units/ml inj SUBQ SCH (21:01)
--- NOTE | 2016-03-19 21:28 | Consultation ---
DATE OF CONSULTATION: INFECTIOUS DISEASE CONSULTATION REQUESTING PHYSICIAN: Nahed Pizarro M.D. REASON FOR CONSULTATION: Sepsis, pneumonia, acute respiratory failure. Recommendation for antibiotics therapy. The patient is allergic to penicillin and sulfa. HISTORY OF PRESENT ILLNESS: The patient is a 76-year-old male with history of ADVERTISING COPY WRITER shunt and coronary artery disease status post stents x3, was sent from senior care due to altered mental status and shortness of breath. The patient was encephalopathic in the emergency room, desaturating on nonrebreathable mask, so he was intubated in the emergency room. Chest x-ray showed right lower lobe infiltration. The patient was septic and tachycardic with leukocytosis. He was admitted to the intensive cardiac care unit for further evaluation and management. No other history obtained since the patient is intubated. History was mainly obtained from the medical record and the nursing staff. PAST MEDICAL HISTORY: Significant for failure to thrive, hypertension, osteoarthritis, ADVERTISING COPY WRITER shunt, and coronary artery disease status post three stents. PAST SURGICAL HISTORY: He had ADVERTISING COPY WRITER shunt placement and cardiac bypass surgery x3. MEDICATIONS: The patient received levofloxacin and cefepime in the emergency room. For the rest of his medications, please refer to the MAR. ALLERGIES: He is allergic to penicillin and sulfa. SOCIAL HISTORY: He was in senior care. No recent drugs, tobacco, or alcohol. FAMILY HISTORY: Unable to obtain. REVIEW OF SYSTEMS: Unable to obtain at this point. PHYSICAL EXAMINATION: GENERAL: The patient is an elderly male, lying in bed, intubated on mechanical ventilation, not in distress, on pressor. VITAL SIGNS: Temperature 97.4 degrees, pulse 84, respirations 21, blood pressure 121/76, and O2 saturation 97% on ventilator with FiO2 of 50%. HEENT: Normocephalic and atraumatic. Pupils reactive to light. Pale sclera. Moist oral mucosa. No exudate or thrush. NECK: Supple. No lymphadenopathy. CARDIOVASCULAR: Tachycardic. S1 and S2 positive. No gallop. LUNGS: He had diminished breathing sound at the bases. No wheezing or rhonchi. Positive crackles. ABDOMEN: Soft, nontender, and nondistended. Positive bowel sounds. No hepatosplenomegaly. No ascites. EXTREMITIES: Atrophy in both upper and lower extremities. SKIN: No rash. No hives. LABORATORY AND DIAGNOSTIC DATA: White count 14, hemoglobin 18.6, and platelet count 296,000. BUN 119 and creatinine 3.1. Lactic acid 5.7. AST of 153 and ALT of 102. Troponin 0.40. Urinalysis showed few bacteria. Negative leukocyte esterase. Microbiology, influenza screening was negative. Imaging, chest x-ray showed endotracheal tube in good position. Ventricular peritoneal shunt tube in place, apparently fractured bilateral interstitial infiltrates, nonspecific right lung base alveolar opacity represents interstitial infiltrate superimposed pneumonia can be considered. Head CT scan showed small acute to subacute intraparenchymal hematoma, right frontal deep white matter surrounding ventricular peritoneal shunt tube, additional small amount of left lateral intraventricular hemorrhage with mild hydrocephalus. Ventricular peritoneal shunt tube tip in left thalamus. Bilateral cerebral periventricular white matter low attenuation, nonspecific and atrophy. ASSESSMENT AND PLAN: 1. Healthcare-acquired pneumonia with right lower lobe infiltrate. We will start Zyvox and meropenem, empiric treatment. Send blood and sputum culture. We will screen for influenza. 2. Respiratory failure, required intubation. The patient on mechanical ventilation due to pneumonia with sepsis. Continue weaning trials. Pulmonary is following. 3. Septic shock due to pneumonia with multiple organ failure. Continue wide-spectrum antibiotics with meropenem and Zyvox, and await culture results. 4. Elevated transaminase level due to the sepsis and liver shock. Monitor liver function test. Screen for hepatitis. Avoid hepatotoxic medicine. 5. Dehydration due to poor oral intake. Continue intravenous fluids. Monitor urine output. 6. Acute renal failure due to sepsis. Continue hydration, intravenous fluid to keep systolic more than 100, and Nephrology is following. 7. Multiple organ failure due to sepsis. Avoid toxic medication. Maintain blood pressure with systolic more than 100. Continue pressor as needed. Thank you. Chantell Vera M.D. DR: VAHID JOB#: [id number] CC: JB
[2016-03-19] MEDS: Meropenem 500mg/NS 55ml IVPB SCH ×2 (22:44)
[2016-03-19] MEDS ORDERED: Ertapenem 1 GM in NS 55 ML IV SCH (23:45)
[2016-03-19] MEDS ORDERED: Vancomycin 1 GM in D5W 275 ML IV SCH (23:45)
[2016-03-19] MEDS ORDERED: Amikacin 0 MG in NS 110 ML IV SCH (23:45)
[2016-03-20] VITALS (35 sets, daily range): BP systolic 89–174; BP diastolic 58–91
[2016-03-20 03:48] LABS: ABG ALLEN TEST POSITIVE; ABG BASE EXCESS 7.4; ABG PCO2 39.1 mmHg (35.0-45.0)
[2016-03-20 06:02] LABS: MEAN CORPUSCULAR HGB CONC 33.3 G/DL (32.0-36.0); MEAN CORPUSCULAR VOLUME 93 FL (80-99); MEAN PLATELET VOLUME 9.8 FL (6.5-10.1); PLATELET COUNT 170 K/UL (150-450); RED BLOOD COUNT 4.62 M/UL (4.70-6.10); RED CELL DISTRIBUTION WIDTH 13.1 % (11.6-14.8); WHITE BLOOD COUNT 18.5 K/UL (4.8-10.8)
[2016-03-20 06:55] LABS: ALANINE AMINOTRANSFERASE 120 U/L (3-41); ALBUMIN/GLOBULIN RATIO 0.6 (1.0-2.7); ASPARTATE AMINO TRANSFERASE 137 U/L (5-40); CALCIUM 9.6 mg/dL (8.6-10.2); CARBON DIOXIDE 30 mEQ/L (20-30); CHLORIDE 114 mEQ/L (98-107); CREATININE 1.6 mg/dL (0.7-1.2); HEMOLYSIS 7; SODIUM 159 mEQ/L (135-145); TOTAL PROTEIN 6.1 g/dL (6.6-8.7)
[2016-03-20 07:02] LABS: ANION GAP 15 (5-15)
[2016-03-20 07:12] LABS: POTASSIUM 2.4 mEQ/L (3.4-4.9)
[2016-03-20 07:18] LABS: BILIRUBIN,DIRECT 0.2 mg/dL (0.1-0.3)
[2016-03-20 07:28] LABS: DIGOXIN 0.8 ng/mL (0.5-2.0); THYROID STIMULATING HORMONE 1.15 uIU/mL (0.300-4.500); TROPONIN I < 0.30 ng/mL (<=0.30)
[2016-03-20 07:31] LABS: ABG BASE EXCESS 7
[2016-03-20 08:21] LABS: BAND NEUTROPHILS % (MANUAL) 6 % (0-8); BASOPHILS % (MANUAL) 0 % (0-2); EOSINOPHILS % (MANUAL) 0 % (0-3); LYMPHOCYTES % (MANUAL) 4 % (20-45); NEUTROPHILS % (MANUAL) 88 % (45-75); PLATELET ESTIMATE ADEQUATE; PLATELET MORPHOLOGY NORMAL; TOTAL CELLS COUNTED 100
[2016-03-20] MEDS ORDERED: Digoxin 0.5mg/2ml Inj IVP ONE (08:45)
[2016-03-20] MEDS: Meropenem 500mg/NS 55ml IVPB SCH ×4 (08:49→21:20)
[2016-03-20] MEDS: Heparin 5000 units/ml inj SUBQ SCH ×2 (08:50→21:21)
--- NOTE | 2016-03-20 10:52 | Diagnostic Imaging Report ---
Indication: Post nasogastric tube placement Technique: Supine view of the abdomen Comparison: none Findings: There is a Dobbhoff weighted feeding tube, which is coiled above the diaphragm behind the heart, presumably within a hiatal hernia. There is a right jugular central venous catheter again demonstrated, tip deep within the right atrium. There is ventriculoperitoneal shunt tubing noted the right of midline. Bowel gas pattern is unremarkable. Right hip surgical hardware is noted Impression: Weighted feeding tube is coiled within presumably a hiatal hernia above the diaphragm Deep position of central venous catheter again demonstrated. Ventriculoperitoneal shunt tubing incidentally noted Findings discussed by phone with nurse Gee in the ICU at the time of interpretation
--- NOTE | 2016-03-20 10:56 | General Progress Note ---
Assessment/Plan Problem List: (1) Septic shock ICD Codes: A41.9 - Sepsis, unspecified organism; R65.21 - Severe sepsis with septic shock SNOMED: 98325748 (2) Dehydration ICD Codes: E86.0 - Dehydration SNOMED: 85101042 (3) Renal failure ICD Codes: N19 - Unspecified kidney failure; R65.21 - Severe sepsis with septic shock SNOMED: 38174532 (4) Pneumonia ICD Codes: J18.9 - Pneumonia, unspecified organism SNOMED: 606269113 Qualifiers: Qualified Codes: J18.9 - Pneumonia, unspecified organism (5) Multiple organ system failure SNOMED: 25622821 (6) Respiratory failure requiring intubation ICD Codes: J96.90 - Respiratory failure, unspecified, unspecified whether with hypoxia or hypercapnia; R65.21 - Severe sepsis with septic shock SNOMED: 274871379 (7) Elevated transaminase level ICD Codes: R74.0 - Nonspecific elevation of levels of transaminase and lactic acid dehydrogenase [LDH] SNOMED: 052032279, 970407355 Status: unchanged Assessment/Plan resp failure intubated septic shock severe dehyration hypernatremia arf multi organ failure very poor prognosis Subjective ROS Limited/Unobtainable: Yes Allergies: Coded Allergies: PENICILLINS (Verified Allergy, Unknown, 03/19/16) SULFA (SULFONAMIDE ANTIBIOTICS) (Verified Allergy, Unknown, 03/19/16) Objective Last 24 Hour Vital Signs Date Time Temp Pulse Resp B/P Pulse Ox O2 Delivery O2 Flow Rate FiO2 03/20/16 10:41 132 100/62 03/20/16 10:01 135 19 89/63 98 Nasal Cannula 3.0 03/20/16 09:00 138 18 116/67 99 Nasal Cannula 3.0 03/20/16 08:45 152 03/20/16 08:00 97.4 145 17 103/77 97 Nasal Cannula 3.0 03/20/16 08:00 145 03/20/16 07:02 74 20 Nasal Cannula 3.0 32 03/20/16 07:02 98 Nasal Cannula 3.0 32 03/20/16 07:02 Nasal Cannula 3.0 32 03/20/16 07:00 74 19 160/86 98 Nasal Cannula 3.0 03/20/16 06:00 81 18 142/72 100 Nasal Cannula 3.0 03/20/16 05:24 57 20 32 03/20/16 05:00 69 14 141/91 100 Nasal Cannula 3.0 03/20/16 04:00 97.9 75 15 174/86 100 Nasal Cannula 3.0 03/20/16 04:00 50 03/20/16 04:00 65 03/20/16 03:07 Nasal Cannula 3.0 32 03/20/16 03:00 77 16 149/83 99 Nasal Cannula 3.0 03/20/16 02:00 78 18 148/85 99 Mechanical Ventilator 50 03/20/16 01:24 72 18 50 03/20/16 01:00 74 18 159/87 99 Mechanical Ventilator 50 03/20/16 00:00 80 21 142/89 99 Mechanical Ventilator 50 03/20/16 00:00 50 03/20/16 00:00 77 03/19/16 23:00 97.4 80 20 134/82 98 Mechanical Ventilator 50 03/19/16 22:58 84 25 50 03/19/16 22:00 77 21 105/62 99 Mechanical Ventilator 50 03/19/16 21:11 79 23 50 03/19/16 21:00 77 17 133/73 100 Mechanical Ventilator 50 03/19/16 20:00 97.7 84 20 145/89 98 Mechanical Ventilator 50 03/19/16 20:00 50 03/19/16 20:00 84 03/19/16 19:30 82 23 50 03/19/16 19:00 77 20 102/64 98 Mechanical Ventilator 50 03/19/16 18:00 86 18 113/88 97 Mechanical Ventilator 50 03/19/16 17:45 81 19 117/65 97 Mechanical Ventilator 50 03/19/16 17:30 83 22 151/88 97 Mechanical Ventilator 50 03/19/16 17:15 86 22 130/82 97 Mechanical Ventilator 50 03/19/16 17:00 87 22 132/81 97 Mechanical Ventilator 50 03/19/16 16:45 89 24 119/81 97 Mechanical Ventilator 50 03/19/16 16:30 89 25 135/83 97 Mechanical Ventilator 50 03/19/16 16:30 84 23 50 03/19/16 16:15 86 21 144/89 98 Mechanical Ventilator 50 03/19/16 16:00 97.4 85 20 158/91 98 Mechanical Ventilator 50 03/19/16 16:00 50 03/19/16 16:00 83 03/19/16 15:45 86 21 161/86 98 Mechanical Ventilator 50 03/19/16 15:30 85 21 135/76 97 Mechanical Ventilator 50 03/19/16 15:15 85 21 125/78 97 Mechanical Ventilator 50 03/19/16 15:00 84 21 138/79 97 Mechanical Ventilator 50 03/19/16 15:00 121/76 03/19/16 14:45 83 22 128/77 97 Mechanical Ventilator 50 03/19/16 14:30 85 21 50 03/19/16 14:30 82 22 111/78 97 Mechanical Ventilator 50 03/19/16 14:15 82 22 131/83 97 Mechanical Ventilator 50 03/19/16 14:11 81 03/19/16 14:11 131/104 03/19/16 14:00 82 21 111/75 96 Mechanical Ventilator 50 03/19/16 13:45 83 22 131/104 96 Mechanical Ventilator 50 03/19/16 13:30 82 22 114/75 96 Mechanical Ventilator 50 03/19/16 13:15 83 22 131/65 95 Mechanical Ventilator 50 03/19/16 13:00 97.4 83 22 122/74 95 Mechanical Ventilator 50 03/19/16 12:51 88 22 50 03/19/16 12:49 98.4 85 23 126/79 96 Mechanical Ventilator 15.0 50 03/19/16 12:48 85 23 126/79 96 Mechanical Ventilator 50 03/19/16 11:55 88 22 120/74 96 Mechanical Ventilator 50 03/19/16 11:33 98.4 90 24 128/83 97 Mechanical Ventilator 50 03/19/16 11:01 98.4 85 22 129/85 99 Mechanical Ventilator 50 Intake and Output 03/19/16 03/20/16 19:00 07:00 Intake Total 3818.26 ml 1400 ml Output Total 580 ml 940 ml Balance 3238.26 ml 460 ml Intake IV Total 3818.26 ml 1400 ml Output Urine Total 580 ml 940 ml # Bowel Movements 2 Laboratory Tests 03/20/16 03:30: Arterial Blood pH 7.514H, Arterial Blood Partial Pressure CO2 39.1, Arterial Blood Partial Pressure O2 111.4H, Arterial Blood HCO3 30.8H, Arterial Blood Oxygen Saturation 98.2H, Arterial Blood Base Excess 7.4, Vicente Test Positive 03/20/16 04:00: White Blood Count 18.5H, Red Blood Count 4.62L, Hemoglobin 14.3, Hematocrit 43.0 , Mean Corpuscular Volume 93, Mean Corpuscular Hemoglobin 31.0, Mean Corpuscular Hemoglobin Concent 33.3, Red Cell Distribution Width 13.1, Platelet Count 170, Mean Platelet Volume 9.8, Neutrophils (%) (Auto) , Lymphocytes (%) ( Auto) , Monocytes (%) (Auto) , Eosinophils (%) (Auto) , Basophils (%) (Auto) , Differential Total Cells Counted 100, Neutrophils % (Manual) 88H, Lymphocytes % (Manual) 4L, Monocytes % (Manual) 2, Eosinophils % (Manual) 0, Basophils % ( Manual) 0, Band Neutrophils 6, Platelet Estimate Adequate, Platelet Morphology Normal, Red Blood Cell Morphology Normal, Sodium Level 159H, Potassium Level 2.4 *L, Chloride Level 114H, Carbon Dioxide Level 30, Anion Gap 15, Blood Urea Nitrogen 93#H, Creatinine 1.6H, Estimat Glomerular Filtration Rate , Glucose Level 170H, Calcium Level 9.6, Total Bilirubin 1.0, Direct Bilirubin 0.2, Aspartate Amino Transf (AST/SGOT) 137H, Alanine Aminotransferase (ALT/SGPT) 120H , Alkaline Phosphatase 133H, Troponin I < 0.30, Pro-B-Type Natriuretic Peptide 2654H, Total Protein 6.1L, Albumin 2.4L, Globulin 3.7, Albumin/Globulin Ratio 0.6L, Thyroid Stimulating Hormone (TSH) 1.150, Free Thyroxine 0.89, Digoxin Level 0.8 03/20/16 07:19: Arterial Blood pH 7.510H, Arterial Blood Partial Pressure CO2 39.0, Arterial Blood Partial Pressure O2 103.0H, Arterial Blood HCO3 30.2H, Arterial Blood Oxygen Saturation 98.0, Arterial Blood Base Excess 7, Vicente Test Height (Feet): 5 Height (Inches): 9.00 Weight (Pounds): 140 General Appearance: lethargic Respiratory/Chest: crackles/rales Abdomen: soft Nahed Pizarro MD Mar 20, 2016 10:56
--- NOTE | 2016-03-20 11:02 | Pulmonolgy Critical Care Note ---
Critical Care - Asmt/Plan Problems: (1) Septic shock (2) Dehydration (3) Renal failure (4) Pneumonia (5) Multiple organ system failure (6) HCAP (healthcare-associated pneumonia) Respiratory: monitor respiratory rate, adjust FIO2 Cardiac: continue to monitor HR/BP Renal: F/U I&O, decrease IV fluid, check electrolytes - k supplement Infectious Disease: check cultures Gastrointestinal: continue feedings/current rate Endocrine: monitor blood sugar, check TSH, continue sliding scale insulin Hematologic: monitor H/H, transfuse if hgb<8.5 Neurologic: PRN Ativan, keep patient comfortable Affect: PRN ativan Prophylaxis: Protonix Time Spent (Minutes): 40 Notes Reviewed: stapler hand, cardio Discussed with: nurses, consultants, window caserfinance effectiveness manager - Objective Last 24 Hour Vital Signs Date Time Temp Pulse Resp B/P Pulse Ox O2 Delivery O2 Flow Rate FiO2 03/20/16 10:41 132 100/62 03/20/16 10:01 135 19 89/63 98 Nasal Cannula 3.0 03/20/16 09:00 138 18 116/67 99 Nasal Cannula 3.0 03/20/16 08:45 152 03/20/16 08:00 97.4 145 17 103/77 97 Nasal Cannula 3.0 03/20/16 08:00 145 03/20/16 07:02 74 20 Nasal Cannula 3.0 32 03/20/16 07:02 98 Nasal Cannula 3.0 32 03/20/16 07:02 Nasal Cannula 3.0 32 03/20/16 07:00 74 19 160/86 98 Nasal Cannula 3.0 03/20/16 06:00 81 18 142/72 100 Nasal Cannula 3.0 03/20/16 05:24 57 20 32 03/20/16 05:00 69 14 141/91 100 Nasal Cannula 3.0 03/20/16 04:00 97.9 75 15 174/86 100 Nasal Cannula 3.0 03/20/16 04:00 50 03/20/16 04:00 65 03/20/16 03:07 Nasal Cannula 3.0 32 03/20/16 03:00 77 16 149/83 99 Nasal Cannula 3.0 03/20/16 02:00 78 18 148/85 99 Mechanical Ventilator 50 03/20/16 01:24 72 18 50 03/20/16 01:00 74 18 159/87 99 Mechanical Ventilator 50 03/20/16 00:00 80 21 142/89 99 Mechanical Ventilator 50 17 00:00 50 17 00:00 77 03/19/16 23:00 97.4 80 20 134/82 98 Mechanical Ventilator 50 8/17 22:58 84 25 50 8/17 22:00 77 21 105/62 99 Mechanical Ventilator 50 817 21:11 79 23 50 8/17 21:00 77 17 133/73 100 Mechanical Ventilator 50 817 20:00 97.7 84 20 145/89 98 Mechanical Ventilator 50 03/19/16 20:00 50 8 20:00 84 03/19/16 19:30 82 23 50 03/19/16 19:00 77 20 102/64 98 Mechanical Ventilator 50 817 18:00 86 18 113/88 97 Mechanical Ventilator 50 17 17:45 81 19 117/65 97 Mechanical Ventilator 50 17 17:30 83 22 151/88 97 Mechanical Ventilator 50 03/19/16 17:15 86 22 130/82 97 Mechanical Ventilator 50 03/19/16 17:00 87 22 132/81 97 Mechanical Ventilator 50 17 16:45 89 24 119/81 97 Mechanical Ventilator 50 17 16:30 89 25 135/83 97 Mechanical Ventilator 50 817 16:30 84 23 50 8/17 16:15 86 21 144/89 98 Mechanical Ventilator 50 17 16:00 97.4 85 20 158/91 98 Mechanical Ventilator 50 17 16:00 50 817 16:00 83 8/17 15:45 86 21 161/86 98 Mechanical Ventilator 50 8/17 15:30 85 21 135/76 97 Mechanical Ventilator 50 8/17 15:15 85 21 125/78 97 Mechanical Ventilator 50 8/17 15:00 84 21 138/79 97 Mechanical Ventilator 50 8/17 15:00 121/76 2817 14:45 83 22 128/77 97 Mechanical Ventilator 50 28/17 14:30 85 21 50 8/17 14:30 82 22 111/78 97 Mechanical Ventilator 50 8/17 14:15 82 22 131/83 97 Mechanical Ventilator 50 03/19/16 14:11 81 03/19/16 14:11 131/104 03/19/16 14:00 82 21 111/75 96 Mechanical Ventilator 50 03/19/16 13:45 83 22 131/104 96 Mechanical Ventilator 50 03/19/16 13:30 82 22 114/75 96 Mechanical Ventilator 50 03/19/16 13:15 83 22 131/65 95 Mechanical Ventilator 50 03/19/16 13:00 97.4 83 22 122/74 95 Mechanical Ventilator 50 03/19/16 12:51 88 22 50 03/19/16 12:49 98.4 85 23 126/79 96 Mechanical Ventilator 15.0 50 03/19/16 12:48 85 23 126/79 96 Mechanical Ventilator 50 03/19/16 11:55 88 22 120/74 96 Mechanical Ventilator 50 03/19/16 11:33 98.4 90 24 128/83 97 Mechanical Ventilator 50 03/19/16 11:01 98.4 85 22 129/85 99 Mechanical Ventilator 50 Status: awake Condition: critical HEENT: atraumatic Neck: full ROM Lungs: clear Heart: HR/BP stable, HR/BP unstable Abdomen: soft, non-tender, feeding tube Extremities: no C/C/E, edema Micro: Microbiology Date/Time Source Procedure Growth Status 03/19/16 11:09 Nasopharynx Influenza Types A,B Antigen (YANELY) - Final Complete Critical Care - Subjective ROS Limited/Unobtainable: Yes ICU Day: 2 Intubation Day: self extubated EKG Rhythm: Atrial Fibrillation FI02: 32 Vent Support Breath Rate: 16 Vent Support Mode: AC Vent Tidal Volume: 500 Sputum Amount: None PEEP: 5.0 PIP: 18 Fluids: 1/2 NS at 100 cc/hour Drips: cardizem drip I&O: Intake and Output 03/19/16 03/20/16 19:00 07:00 Intake Total 3818.26 ml 1400 ml Output Total 580 ml 940 ml Balance 3238.26 ml 460 ml Intake IV Total 3818.26 ml 1400 ml Output Urine Total 580 ml 940 ml # Bowel Movements 2 CXR: RLL infiltrate ET-Tube: 7.5 ET Position: 22 Labs: Laboratory Tests Test 03/20/16 03:30 03/20/16 04:03/20/16 07:19 Arterial Blood pH 7.514 (7.350-7.450) 7.510 (7.350-7.450) Arterial Blood Partial Pressure CO2 39.1 mmHg (35.0-45.0) 39.0 mmHg (35.0-45.0) Arterial Blood Partial Pressure O2 111.4 mmHg (75.0-100.0) H 103.0 mmHg (75.0-100.0) H Arterial Blood HCO3 30.8 mmol/L (22.0-26.0) H 30.2 mmol/L (22.0-26.0) H Arterial Blood Oxygen Saturation 98.2 % (92.0-98.0) H 98.0 % (92.0-98.0) Arterial Blood Base Excess 7.4 7 Vicente Test Positive White Blood Count 18.5 K/UL (4.8-10.8) H Red Blood Count 4.62 M/UL (4.70-6.10) L Hemoglobin 14.3 G/DL (14.2-18.0) Hematocrit 43.0 % (42.0-52.0) Mean Corpuscular Volume 93 FL (80-99) Mean Corpuscular Hemoglobin 31.0 PG (27.0-31.0) Mean Corpuscular Hemoglobin Concent 33.3 G/DL (32.0-36.0) Red Cell Distribution Width 13.1 % (11.6-14.8) Platelet Count 170 K/UL (150-450) Mean Platelet Volume 9.8 FL (6.5-10.1) Neutrophils (%) (Auto) % (45.0-75.0) Lymphocytes (%) (Auto) % (20.0-45.0) Monocytes (%) (Auto) % (1.0-10.0) Eosinophils (%) (Auto) % (0.0-3.0) Basophils (%) (Auto) % (0.0-2.0) Differential Total Cells Counted 100 Neutrophils % (Manual) 88 % (45-75) H Lymphocytes % (Manual) 4 % (20-45) L Monocytes % (Manual) 2 % (1-10) Eosinophils % (Manual) 0 % (0-3) Basophils % (Manual) 0 % (0-2) Band Neutrophils 6 % (0-8) Platelet Estimate Adequate Platelet Morphology Normal Red Blood Cell Morphology Normal Sodium Level 159 mEQ/L (135-145) H Potassium Level 2.4 mEQ/L (3.4-4.9) *L Chloride Level 114 mEQ/L (98-107) H Carbon Dioxide Level 30 mEQ/L (20-30) Anion Gap 15 (5-15) Blood Urea Nitrogen 93 mg/dL (7-23) #H Creatinine 1.6 mg/dL (0.7-1.2) H Estimat Glomerular Filtration Rate mL/min (>60) Glucose Level 170 mg/dL (74-106) H Calcium Level 9.6 mg/dL (8.6-10.2) Total Bilirubin 1.0 mg/dL (0.0-1.2) Direct Bilirubin 0.2 mg/dL (0.1-0.3) Aspartate Amino Transf (AST/SGOT) 137 U/L (5-40) H Alanine Aminotransferase (ALT/SGPT) 120 U/L (3-41) H Alkaline Phosphatase 133 U/L (40-129) H Troponin I < 0.30 ng/mL (<=0.30) Pro-B-Type Natriuretic Peptide 2654 pg/mL (0-450) H Total Protein 6.1 g/dL (6.6-8.7) L Albumin 2.4 g/dL (3.5-5.2) L Globulin 3.7 g/dL Albumin/Globulin Ratio 0.6 (1.0-2.7) L Thyroid Stimulating Hormone (TSH) 1.150 uIU/mL (0.300-4.500) Free Thyroxine 0.89 ng/dL (0.86-1.85) Digoxin Level 0.8 ng/mL (0.5-2.0) CAROLINA TORREZ Mar 20, 2016 11:02
--- NOTE | 2016-03-20 12:07 | Consultation ---
Consult Note Consult Note asked to evaluate for renal failure The patient is a 76-year-old male with history of YEAST PUMPER shunt and coronary artery disease status post stents x3, was sent from residential due to altered mental status and shortness of breath. The patient was encephalopathic in the emergency room, desaturating on nonrebreathable mask, so he was intubated in the emergency room. Chest x-ray showed right lower lobe infiltration. The patient was septic and tachycardic with leukocytosis. He was admitted to the intensive cardiac care unit for further evaluation and management. No other history obtained since the patient is intubated. History was mainly obtained from the medical record and the nursing staff. PAST MEDICAL HISTORY: failure to thrive, hypertension, osteoarthritis, YEAST PUMPER shunt, and coronary artery disease status post three stents. PAST SURGICAL HISTORY: He had YEAST PUMPER shunt placement and cardiac bypass surgery x3. . Assessment/Plan Status; - Acute Renal Failure- - Septic shock - Dehydration - Pneumonia - Multiple organ system failure - HCAP (healthcare-associated pneumonia) Plan: Hydrate- D5W Albumin bollous Antibiotics- Monitor renal parameters- Avoid nephrotoxics urine studies CLINT CARMEN Mar 20, 2016 12:07
[2016-03-20] MEDS ORDERED: Tubing IV Secondary IV ONE (14:27)
--- NOTE | 2016-03-20 15:12 | General Progress Note ---
Assessment/Plan Assessment/Plan Assessment: # Leukocytosis - is likely related to medication v underlying infection # Erythrocytosis was likely related to dehydration # Healthcare-acquired pneumonia with right lower lobe infiltrate. On abx # Respiratory failure, required intubation. on a mechanical ventilator-->self- extubated # Septic shock due to pneumonia # Multiorgan system failure # Elevated transaminase level due to the sepsis and liver shock. # Dehydration due to poor oral intake. # Acute renal failure due to sepsis. Recommendations: - Monitor counts - Peripheral smear reviewed - Followup on ID, pulm, nephro recs - Abx as needed - DVT ppx with SCDs - GI ppx as needed - Vasopressor support - JAK2 pending - DW Staff Thank you, Jarod Keller MD Subjective Allergies: Coded Allergies: PENICILLINS (Verified Allergy, Unknown, 03/19/16) SULFA (SULFONAMIDE ANTIBIOTICS) (Verified Allergy, Unknown, 03/19/16) Subjective no events overnight, hands/fingers covered in fecal material, nonverbal.self- extubated Objective Last 24 Hour Vital Signs Date Time Temp Pulse Resp B/P Pulse Ox O2 Delivery O2 Flow Rate FiO2 03/20/16 15:00 83 15 117/76 100 Nasal Cannula 3.0 03/20/16 14:30 86 16 134/64 100 Nasal Cannula 3.0 03/20/16 14:00 132 16 123/84 100 Nasal Cannula 3.0 03/20/16 13:55 106/47 03/20/16 13:30 129 14 94/67 100 Nasal Cannula 3.0 03/20/16 13:00 132 14 113/67 100 Nasal Cannula 3.0 03/20/16 12:30 134 17 105/65 99 Nasal Cannula 3.0 03/20/16 12:00 131 03/20/16 12:00 97.3 130 19 103/66 100 Nasal Cannula 3.0 03/20/16 11:30 138 19 117/58 99 Nasal Cannula 3.0 03/20/16 11:00 137 18 89/62 100 Nasal Cannula 3.0 03/20/16 10:41 132 100/62 03/20/16 10:01 135 19 89/63 98 Nasal Cannula 3.0 03/20/16 09:00 138 18 116/67 99 Nasal Cannula 3.0 03/20/16 08:45 152 03/20/16 08:00 97.4 145 17 103/77 97 Nasal Cannula 3.0 03/20/16 08:00 145 03/20/16 07:02 74 20 Nasal Cannula 3.0 32 03/20/16 07:02 98 Nasal Cannula 3.0 32 03/20/16 07:02 Nasal Cannula 3.0 32 03/20/16 07:00 74 19 160/86 98 Nasal Cannula 3.0 03/20/16 06:00 81 18 142/72 100 Nasal Cannula 3.0 03/20/16 05:24 57 20 32 03/20/16 05:00 69 14 141/91 100 Nasal Cannula 3.0 03/20/16 04:00 97.9 75 15 174/86 100 Nasal Cannula 3.0 03/20/16 04:00 50 03/20/16 04:00 65 03/20/16 03:07 Nasal Cannula 3.0 32 03/20/16 03:00 77 16 149/83 99 Nasal Cannula 3.0 03/20/16 02:00 78 18 148/85 99 Mechanical Ventilator 50 03/20/16 01:24 72 18 50 03/20/16 01:00 74 18 159/87 99 Mechanical Ventilator 50 03/20/16 00:00 80 21 142/89 99 Mechanical Ventilator 50 03/20/16 00:00 50 03/20/16 00:00 77 03/19/16 23:00 97.4 80 20 134/82 98 Mechanical Ventilator 50 03/19/16 22:58 84 25 50 03/19/16 22:00 77 21 105/62 99 Mechanical Ventilator 50 03/19/16 21:11 79 23 50 03/19/16 21:00 77 17 133/73 100 Mechanical Ventilator 50 03/19/16 20:00 97.7 84 20 145/89 98 Mechanical Ventilator 50 03/19/16 20:00 50 03/19/16 20:00 84 03/19/16 19:30 82 23 50 03/19/16 19:00 77 20 102/64 98 Mechanical Ventilator 50 03/19/16 18:00 86 18 113/88 97 Mechanical Ventilator 50 03/19/16 17:45 81 19 117/65 97 Mechanical Ventilator 50 03/19/16 17:30 83 22 151/88 97 Mechanical Ventilator 50 03/19/16 17:15 86 22 130/82 97 Mechanical Ventilator 50 03/19/16 17:00 87 22 132/81 97 Mechanical Ventilator 50 03/19/16 16:45 89 24 119/81 97 Mechanical Ventilator 50 03/19/16 16:30 89 25 135/83 97 Mechanical Ventilator 50 03/19/16 16:30 84 23 50 03/19/16 16:15 86 21 144/89 98 Mechanical Ventilator 50 03/19/16 16:00 97.4 85 20 158/91 98 Mechanical Ventilator 50 03/19/16 16:00 50 03/19/16 16:00 83 03/19/16 15:45 86 21 161/86 98 Mechanical Ventilator 50 03/19/16 15:30 85 21 135/76 97 Mechanical Ventilator 50 03/19/16 15:15 85 21 125/78 97 Mechanical Ventilator 50 Intake and Output 03/19/16 03/20/16 19:00 07:00 Intake Total 3818.26 ml 1400 ml Output Total 580 ml 940 ml Balance 3238.26 ml 460 ml Intake IV Total 3818.26 ml 1400 ml Output Urine Total 580 ml 940 ml # Bowel Movements 2 Laboratory Tests 03/20/16 03:30: Arterial Blood pH 7.514H, Arterial Blood Partial Pressure CO2 39.1, Arterial Blood Partial Pressure O2 111.4H, Arterial Blood HCO3 30.8H, Arterial Blood Oxygen Saturation 98.2H, Arterial Blood Base Excess 7.4, Vicente Test Positive 03/20/16 04:00: White Blood Count 18.5H, Red Blood Count 4.62L, Hemoglobin 14.3, Hematocrit 43.0 , Mean Corpuscular Volume 93, Mean Corpuscular Hemoglobin 31.0, Mean Corpuscular Hemoglobin Concent 33.3, Red Cell Distribution Width 13.1, Platelet Count 170, Mean Platelet Volume 9.8, Neutrophils (%) (Auto) , Lymphocytes (%) ( Auto) , Monocytes (%) (Auto) , Eosinophils (%) (Auto) , Basophils (%) (Auto) , Differential Total Cells Counted 100, Neutrophils % (Manual) 88H, Lymphocytes % (Manual) 4L, Monocytes % (Manual) 2, Eosinophils % (Manual) 0, Basophils % ( Manual) 0, Band Neutrophils 6, Platelet Estimate Adequate, Platelet Morphology Normal, Red Blood Cell Morphology Normal, Sodium Level 159H, Potassium Level 2.4 *L, Chloride Level 114H, Carbon Dioxide Level 30, Anion Gap 15, Blood Urea Nitrogen 93#H, Creatinine 1.6H, Estimat Glomerular Filtration Rate , Glucose Level 170H, Calcium Level 9.6, Total Bilirubin 1.0, Direct Bilirubin 0.2, Aspartate Amino Transf (AST/SGOT) 137H, Alanine Aminotransferase (ALT/SGPT) 120H , Alkaline Phosphatase 133H, Troponin I < 0.30, Pro-B-Type Natriuretic Peptide 2654H, Total Protein 6.1L, Albumin 2.4L, Globulin 3.7, Albumin/Globulin Ratio 0.6L, Thyroid Stimulating Hormone (TSH) 1.150, Free Thyroxine 0.89, Digoxin Level 0.8 03/20/16 07:19: Arterial Blood pH 7.510H, Arterial Blood Partial Pressure CO2 39.0, Arterial Blood Partial Pressure O2 103.0H, Arterial Blood HCO3 30.2H, Arterial Blood Oxygen Saturation 98.0, Arterial Blood Base Excess 7, Vicente Test Height (Feet): 5 Height (Inches): 9.00 Weight (Pounds): 140 General Appearance: no apparent distress EENT: TMs normal Neck: supple Cardiovascular: regular rhythm Respiratory/Chest: normal breath sounds Abdomen: no organomegaly Extremities: non-tender Edema: 1+ Leg (L), 1+ Leg (R) Edema: mild edema Neurologic: alert Skin: warm/dry Jarod Keller Mar 20, 2016 15:12
--- NOTE | 2016-03-20 16:54 | Cardiac Electrophysiology PN ---
Assessment/Plan Assessment/Plan 1. Troponin elevation in a patient with three coronary stents in the past. Follow up troponin is negative. 2. Septic shock. Now off Levophed, on broad-spectrum abx 3. Atrial fibrillation with rapid ventricular response. Got total of 0.75 mg iv Digoxin. Now on Cardizem drip 2.5 mg/hr. Dig level tomorrow pending. Echo EF 60- 65% 4. Severe dehydration with hypernatremia and azotemia. D5W at 100 cc/hr 5. Respiratory failure, on the ventilator.Self extubated. 6. Healthcare-associated pneumonia with right lower lobe infiltrate, on meropenem and Zyvox by Dr. Vera. 7. Elevated transaminase level. 8. Multiorgan failure due to sepsis. HEATHER RN Subjective Subjective In ICU on Cardizem drip now. Self extubated at 3 am today. Off Levophed since 6 pm yesterday.Lethargic but off vent. Objective Last 24 Hour Vital Signs Date Time Temp Pulse Resp B/P Pulse Ox O2 Delivery O2 Flow Rate FiO2 03/20/16 16:30 68 14 119/64 100 Nasal Cannula 3.0 03/20/16 16:00 97.1 61 13 137/68 100 Nasal Cannula 3.0 03/20/16 16:00 65 03/20/16 15:30 76 16 120/63 100 Nasal Cannula 3.0 03/20/16 15:00 83 15 117/76 100 Nasal Cannula 3.0 03/20/16 14:30 86 16 134/64 100 Nasal Cannula 3.0 03/20/16 14:00 132 16 123/84 100 Nasal Cannula 3.0 03/20/16 13:55 106/47 03/20/16 13:30 129 14 94/67 100 Nasal Cannula 3.0 03/20/16 13:00 132 14 113/67 100 Nasal Cannula 3.0 03/20/16 12:30 134 17 105/65 99 Nasal Cannula 3.0 03/20/16 12:00 131 03/20/16 12:00 97.3 130 19 103/66 100 Nasal Cannula 3.0 03/20/16 11:30 138 19 117/58 99 Nasal Cannula 3.0 03/20/16 11:00 137 18 89/62 100 Nasal Cannula 3.0 03/20/16 10:41 132 100/62 03/20/16 10:01 135 19 89/63 98 Nasal Cannula 3.0 03/20/16 09:00 138 18 116/67 99 Nasal Cannula 3.0 03/20/16 08:45 152 03/20/16 08:00 97.4 145 17 103/77 97 Nasal Cannula 3.0 03/20/16 08:00 145 03/20/16 07:02 74 20 Nasal Cannula 3.0 32 03/20/16 07:02 98 Nasal Cannula 3.0 32 03/20/16 07:02 Nasal Cannula 3.0 32 03/20/16 07:00 74 19 160/86 98 Nasal Cannula 3.0 03/20/16 06:00 81 18 142/72 100 Nasal Cannula 3.0 03/20/16 05:24 57 20 32 03/20/16 05:00 69 14 141/91 100 Nasal Cannula 3.0 03/20/16 04:00 97.9 75 15 174/86 100 Nasal Cannula 3.0 03/20/16 04:00 50 03/20/16 04:00 65 03/20/16 03:07 Nasal Cannula 3.0 32 03/20/16 03:00 77 16 149/83 99 Nasal Cannula 3.0 03/20/16 02:00 78 18 148/85 99 Mechanical Ventilator 50 03/20/16 01:24 72 18 50 03/20/16 01:00 74 18 159/87 99 Mechanical Ventilator 50 03/20/16 00:00 80 21 142/89 99 Mechanical Ventilator 50 03/20/16 00:00 50 03/20/16 00:00 77 03/19/16 23:00 97.4 80 20 134/82 98 Mechanical Ventilator 50 03/19/16 22:58 84 25 50 03/19/16 22:00 77 21 105/62 99 Mechanical Ventilator 50 03/19/16 21:11 79 23 50 03/19/16 21:00 77 17 133/73 100 Mechanical Ventilator 50 03/19/16 20:00 97.7 84 20 145/89 98 Mechanical Ventilator 50 03/19/16 20:00 50 03/19/16 20:00 84 03/19/16 19:30 82 23 50 03/19/16 19:00 77 20 102/64 98 Mechanical Ventilator 50 03/19/16 18:00 86 18 113/88 97 Mechanical Ventilator 50 03/19/16 17:45 81 19 117/65 97 Mechanical Ventilator 50 03/19/16 17:30 83 22 151/88 97 Mechanical Ventilator 50 03/19/16 17:15 86 22 130/82 97 Mechanical Ventilator 50 03/19/16 17:00 87 22 132/81 97 Mechanical Ventilator 50 03/19/16 16:45 89 24 119/81 97 Mechanical Ventilator 50 Intake and Output 03/19/16 03/20/16 19:00 07:00 Intake Total 3818.26 ml 1400 ml Output Total 580 ml 940 ml Balance 3238.26 ml 460 ml Intake IV Total 3818.26 ml 1400 ml Output Urine Total 580 ml 940 ml # Bowel Movements 2 Laboratory Tests Test 03/20/16 03:30 03/20/16 04:00 03/20/16 07:19 Arterial Blood pH 7.514 (7.350-7.450) 7.510 (7.350-7.450) Arterial Blood Partial Pressure CO2 39.1 mmHg (35.0-45.0) 39.0 mmHg (35.0-45.0) Arterial Blood Partial Pressure O2 111.4 mmHg (75.0-100.0) H 103.0 mmHg (75.0-100.0) H Arterial Blood HCO3 30.8 mmol/L (22.0-26.0) H 30.2 mmol/L (22.0-26.0) H Arterial Blood Oxygen Saturation 98.2 % (92.0-98.0) H 98.0 % (92.0-98.0) Arterial Blood Base Excess 7.4 7 Vicente Test Positive White Blood Count 18.5 K/UL (4.8-10.8) H Red Blood Count 4.62 M/UL (4.70-6.10) L Hemoglobin 14.3 G/DL (14.2-18.0) Hematocrit 43.0 % (42.0-52.0) Mean Corpuscular Volume 93 FL (80-99) Mean Corpuscular Hemoglobin 31.0 PG (27.0-31.0) Mean Corpuscular Hemoglobin Concent 33.3 G/DL (32.0-36.0) Red Cell Distribution Width 13.1 % (11.6-14.8) Platelet Count 170 K/UL (150-450) Mean Platelet Volume 9.8 FL (6.5-10.1) Neutrophils (%) (Auto) % (45.0-75.0) Lymphocytes (%) (Auto) % (20.0-45.0) Monocytes (%) (Auto) % (1.0-10.0) Eosinophils (%) (Auto) % (0.0-3.0) Basophils (%) (Auto) % (0.0-2.0) Differential Total Cells Counted 100 Neutrophils % (Manual) 88 % (45-75) H Lymphocytes % (Manual) 4 % (20-45) L Monocytes % (Manual) 2 % (1-10) Eosinophils % (Manual) 0 % (0-3) Basophils % (Manual) 0 % (0-2) Band Neutrophils 6 % (0-8) Platelet Estimate Adequate Platelet Morphology Normal Red Blood Cell Morphology Normal Sodium Level 159 mEQ/L (135-145) H Potassium Level 2.4 mEQ/L (3.4-4.9) *L Chloride Level 114 mEQ/L (98-107) H Carbon Dioxide Level 30 mEQ/L (20-30) Anion Gap 15 (5-15) Blood Urea Nitrogen 93 mg/dL (7-23) #H Creatinine 1.6 mg/dL (0.7-1.2) H Estimat Glomerular Filtration Rate mL/min (>60) Glucose Level 170 mg/dL (74-106) H Calcium Level 9.6 mg/dL (8.6-10.2) Total Bilirubin 1.0 mg/dL (0.0-1.2) Direct Bilirubin 0.2 mg/dL (0.1-0.3) Aspartate Amino Transf (AST/SGOT) 137 U/L (5-40) H Alanine Aminotransferase (ALT/SGPT) 120 U/L (3-41) H Alkaline Phosphatase 133 U/L (40-129) H Troponin I < 0.30 ng/mL (<=0.30) Pro-B-Type Natriuretic Peptide 2654 pg/mL (0-450) H Total Protein 6.1 g/dL (6.6-8.7) L Albumin 2.4 g/dL (3.5-5.2) L Globulin 3.7 g/dL Albumin/Globulin Ratio 0.6 (1.0-2.7) L Thyroid Stimulating Hormone (TSH) 1.150 uIU/mL (0.300-4.500) Free Thyroxine 0.89 ng/dL (0.86-1.85) Digoxin Level 0.8 ng/mL (0.5-2.0) Microbiology Date/Time Source Procedure Growth Status 03/19/16 11:09 Nasopharynx Influenza Types A,B Antigen (YANELY) - Final Complete Objective HEENT: NG tube but no feeding. LUNGS: Coarse rhonchi bilaterally. CARDIOVASCULAR: Regular S1 and S2 with no gallop or murmur. ABDOMEN: Soft. EXTREMITIES: No pitting edema. ESTEE BREEN Mar 20, 2016 16:54
--- NOTE | 2016-03-20 17:29 | Infectious Diseases Prog Note ---
Assessment/Plan Problems: (1) HCAP (healthcare-associated pneumonia) Assessment & Plan: with RLL infiltrates, will continue zyvox and meropenem empiric therapy, await blood and sputum culture, screening for influenza is negative (2) Respiratory failure requiring intubation Assessment & Plan: due to pneumonia and sepsis, pulmonary is following (3) Septic shock Assessment & Plan: due to pneumonia, complicated with organs failure, will start wide spectrum antibiotics , and send blood culture (4) Elevated transaminase level Assessment & Plan: suspect liver shock due to sepsis , avoid hepatotoxic meds, monitor LFT, screen for hepatitis (5) Dehydration Assessment & Plan: continue IVF monitor UOP (6) Renal failure Assessment & Plan: due to sepsis, continue IVF and pressors, to keep SBP >100, nephrology is following (7) Multiple organ system failure Assessment & Plan: due to sepsis (8) ICH (intracerebral hemorrhage) Assessment & Plan: unclear whether he had recent trauma or fall, recommend neurology eval, and surgical consultation Subjective ROS Limited/Unobtainable: Yes Allergies: Coded Allergies: PENICILLINS (Verified Allergy, Unknown, 03/19/16) SULFA (SULFONAMIDE ANTIBIOTICS) (Verified Allergy, Unknown, 03/19/16) Subjective he self extubated himself, nen verbal, lying in bed, afebrile. Objective Vital Signs Last 24 Hour Vital Signs Date Time Temp Pulse Resp B/P Pulse Ox O2 Delivery O2 Flow Rate FiO2 03/20/16 17:00 78 15 108/65 99 Nasal Cannula 3.0 03/20/16 16:30 68 14 119/64 100 Nasal Cannula 3.0 03/20/16 16:00 97.1 61 13 137/68 100 Nasal Cannula 3.0 03/20/16 16:00 65 03/20/16 15:30 76 16 120/63 100 Nasal Cannula 3.0 03/20/16 15:00 83 15 117/76 100 Nasal Cannula 3.0 03/20/16 14:30 86 16 134/64 100 Nasal Cannula 3.0 03/20/16 14:00 132 16 123/84 100 Nasal Cannula 3.0 03/20/16 13:55 106/47 03/20/16 13:30 129 14 94/67 100 Nasal Cannula 3.0 03/20/16 13:00 132 14 113/67 100 Nasal Cannula 3.0 03/20/16 12:30 134 17 105/65 99 Nasal Cannula 3.0 03/20/16 12:00 131 03/20/16 12:00 97.3 130 19 103/66 100 Nasal Cannula 3.0 03/20/16 11:30 138 19 117/58 99 Nasal Cannula 3.0 03/20/16 11:00 137 18 89/62 100 Nasal Cannula 3.0 03/20/16 10:41 132 100/62 03/20/16 10:01 135 19 89/63 98 Nasal Cannula 3.0 03/20/16 09:00 138 18 116/67 99 Nasal Cannula 3.0 03/20/16 08:45 152 03/20/16 08:00 97.4 145 17 103/77 97 Nasal Cannula 3.0 03/20/16 08:00 145 03/20/16 07:02 74 20 Nasal Cannula 3.0 32 03/20/16 07:02 98 Nasal Cannula 3.0 32 03/20/16 07:02 Nasal Cannula 3.0 32 03/20/16 07:00 74 19 160/86 98 Nasal Cannula 3.0 03/20/16 06:00 81 18 142/72 100 Nasal Cannula 3.0 03/20/16 05:24 57 20 32 03/20/16 05:00 69 14 141/91 100 Nasal Cannula 3.0 03/20/16 04:00 97.9 75 15 174/86 100 Nasal Cannula 3.0 03/20/16 04:00 50 03/20/16 04:00 65 03/20/16 03:07 Nasal Cannula 3.0 32 03/20/16 03:00 77 16 149/83 99 Nasal Cannula 3.0 03/20/16 02:00 78 18 148/85 99 Mechanical Ventilator 50 03/20/16 01:24 72 18 50 03/20/16 01:00 74 18 159/87 99 Mechanical Ventilator 50 03/20/16 00:00 80 21 142/89 99 Mechanical Ventilator 50 03/20/16 00:00 50 03/20/16 00:00 77 03/19/16 23:00 97.4 80 20 134/82 98 Mechanical Ventilator 50 03/19/16 22:58 84 25 50 03/19/16 22:00 77 21 105/62 99 Mechanical Ventilator 50 03/19/16 21:11 79 23 50 03/19/16 21:00 77 17 133/73 100 Mechanical Ventilator 50 03/19/16 20:00 97.7 84 20 145/89 98 Mechanical Ventilator 50 03/19/16 20:00 50 03/19/16 20:00 84 03/19/16 19:30 82 23 50 03/19/16 19:00 77 20 102/64 98 Mechanical Ventilator 50 03/19/16 18:00 86 18 113/88 97 Mechanical Ventilator 50 03/19/16 17:45 81 19 117/65 97 Mechanical Ventilator 50 03/19/16 17:30 83 22 151/88 97 Mechanical Ventilator 50 Height (Feet): 5 Height (Inches): 9.00 Weight (Pounds): 140 General Appearance: WD/WN, no acute distress HEENT: normocephalic, atraumatic, anicteric Respiratory/Chest: chest wall non-tender, normal breath sounds, no respiratory distress, no accessory muscle use, decreased breath sounds, crackles/rales Cardiovascular: normal peripheral pulses, normal rate, regular rhythm, no gallop/murmur Abdomen: normal bowel sounds, soft, non tender, no organomegaly, non distended , no mass, no scars Extremities: no cyanosis, no clubbing Skin: no rash, no lesions Microbiology Date/Time Source Procedure Growth Status 03/19/16 11:09 Nasopharynx Influenza Types A,B Antigen (YANELY) - Final Complete Laboratory Tests Test 03/20/16 03:30 03/20/16 04:00 03/20/16 07:19 Arterial Blood pH 7.514 (7.350-7.450) 7.510 (7.350-7.450) Arterial Blood Partial Pressure CO2 39.1 mmHg (35.0-45.0) 39.0 mmHg (35.0-45.0) Arterial Blood Partial Pressure O2 111.4 mmHg (75.0-100.0) H 103.0 mmHg (75.0-100.0) H Arterial Blood HCO3 30.8 mmol/L (22.0-26.0) H 30.2 mmol/L (22.0-26.0) H Arterial Blood Oxygen Saturation 98.2 % (92.0-98.0) H 98.0 % (92.0-98.0) Arterial Blood Base Excess 7.4 7 Vicente Test Positive White Blood Count 18.5 K/UL (4.8-10.8) H Red Blood Count 4.62 M/UL (4.70-6.10) L Hemoglobin 14.3 G/DL (14.2-18.0) Hematocrit 43.0 % (42.0-52.0) Mean Corpuscular Volume 93 FL (80-99) Mean Corpuscular Hemoglobin 31.0 PG (27.0-31.0) Mean Corpuscular Hemoglobin Concent 33.3 G/DL (32.0-36.0) Red Cell Distribution Width 13.1 % (11.6-14.8) Platelet Count 170 K/UL (150-450) Mean Platelet Volume 9.8 FL (6.5-10.1) Neutrophils (%) (Auto) % (45.0-75.0) Lymphocytes (%) (Auto) % (20.0-45.0) Monocytes (%) (Auto) % (1.0-10.0) Eosinophils (%) (Auto) % (0.0-3.0) Basophils (%) (Auto) % (0.0-2.0) Differential Total Cells Counted 100 Neutrophils % (Manual) 88 % (45-75) H Lymphocytes % (Manual) 4 % (20-45) L Monocytes % (Manual) 2 % (1-10) Eosinophils % (Manual) 0 % (0-3) Basophils % (Manual) 0 % (0-2) Band Neutrophils 6 % (0-8) Platelet Estimate Adequate Platelet Morphology Normal Red Blood Cell Morphology Normal Sodium Level 159 mEQ/L (135-145) H Potassium Level 2.4 mEQ/L (3.4-4.9) *L Chloride Level 114 mEQ/L (98-107) H Carbon Dioxide Level 30 mEQ/L (20-30) Anion Gap 15 (5-15) Blood Urea Nitrogen 93 mg/dL (7-23) #H Creatinine 1.6 mg/dL (0.7-1.2) H Estimat Glomerular Filtration Rate mL/min (>60) Glucose Level 170 mg/dL (74-106) H Calcium Level 9.6 mg/dL (8.6-10.2) Total Bilirubin 1.0 mg/dL (0.0-1.2) Direct Bilirubin 0.2 mg/dL (0.1-0.3) Aspartate Amino Transf (AST/SGOT) 137 U/L (5-40) H Alanine Aminotransferase (ALT/SGPT) 120 U/L (3-41) H Alkaline Phosphatase 133 U/L (40-129) H Troponin I < 0.30 ng/mL (<=0.30) Pro-B-Type Natriuretic Peptide 2654 pg/mL (0-450) H Total Protein 6.1 g/dL (6.6-8.7) L Albumin 2.4 g/dL (3.5-5.2) L Globulin 3.7 g/dL Albumin/Globulin Ratio 0.6 (1.0-2.7) L Thyroid Stimulating Hormone (TSH) 1.150 uIU/mL (0.300-4.500) Free Thyroxine 0.89 ng/dL (0.86-1.85) Digoxin Level 0.8 ng/mL (0.5-2.0) Current Medications Medications (Trade) Dose Ordered Sig/Lovely Route PRN Reason Start Time Stop Time Status Last Admin Dose Admin Acetaminophen (Tylenol) 650 mg Q4H PRN ORAL T>100.5 03/19/16 12:00 04/18/16 11:59 Albuterol/ Ipratropium (DuoNeb 0.5-3(2.5)mg/3ml) 3 ml Q4H PRN HHN Shortness of Breath 03/19/16 12:00 03/24/16 11:59 Diltiazem HCl 125 mg/Dextrose 125 ml @ 0 mls/hr Q24H IV 03/20/16 10:00 03/21/16 09:59 03/20/16 10:41 Heparin Sodium (Porcine) (Heparin 5000 units/ml) 5,000 units EVERY 12 HOURS SUBQ 03/19/16 21:00 04/18/16 20:59 03/20/16 08:50 Linezolid 300 ml @ 300 mls/hr Q12HR@0500,1700 IVPB 03/19/16 15:00 03/26/16 14:59 03/20/16 17:14 Lorazepam 2 mg 2 mg Q2H PRN IV For Anxiety 03/19/16 12:00 03/26/16 11:59 Meropenem 500 mg/ Sodium Chloride 55 ml @ 110 mls/hr Q12HR IVPB 03/19/16 23:00 03/24/16 22:59 03/20/16 08:49 Morphine Sulfate (Morphine Sulfate) 4 mg Q4H PRN IVP Severe Pain (Pain Scale 7-10) 03/19/16 12:00 03/26/16 11:59 Norepinephrine Bitartrate 4 mg/ Dextrose 254 ml @ 0 mls/hr Q24H IV 03/19/16 14:00 04/18/16 13:59 03/19/16 14:11 Ondansetron HCl (Zofran) 4 mg Q6H PRN IVP Nausea & Vomiting 03/19/16 12:00 04/18/16 11:59 Polyethylene Glycol (Miralax) 17 gm DAILYPRN PRN ORAL Constipation 03/19/16 12:00 04/18/16 11:59 Potassium Chloride/Dextrose (KCl/D5W 1000ml) 1,010 ml @ 100 mls/hr Q10H6M IV 03/20/16 14:00 04/19/16 13:59 03/20/16 14:01 Potassium Chloride 100 ml @ 50 mls/hr Q2H IVPB 03/20/16 08:00 03/20/16 19:59 03/20/16 16:13 Chantell Vera M.D. Mar 20, 2016 17:29
--- NOTE | 2016-03-20 19:38 | Consultation ---
DATE OF CONSULTATION: 03/20/2016 GASTROLOGY CONSULTATION CONSULTING PHYSICIAN: Mayelin Rodriguez M.D. CHIEF COMPLAINT: I was asked to see this patient for evaluation of cachexia. HISTORY OF PRESENT ILLNESS: The patient is a debilitated 76-year-old man with multiple medical problems, who [place] in a state of dehydration and altered mental status. The patient was hypoxic and was transferred to ICU. He has been seen by multiple consultants. He has had a recent abdominal surgery with a scar on his abdomen, but the chart records did not have any clarity as to what the procedure was. The patient is somewhat hypertensive and tachycardic with atrial fibrillation. He has had an order for nasogastric tube, which I placed myself at bedside given the difficulties nurses had yesterday and last night. The patient himself is unable to provide any history. Most of the information is only available from the chart. PAST MEDICAL HISTORY: History of hypertension, coronary artery disease, status post three prior cardiac stents, osteoarthritis, status post ventriculoperitoneal shunt, and history of right hip fracture. MEDICATIONS: See chart for details. SOCIAL HISTORY: The patient resides in a jail. There has been no recent history of smoking or drinking. FAMILY HISTORY: Noncontributory. REVIEW OF SYSTEMS: Otherwise negative. PHYSICAL EXAMINATION: GENERAL: The patient is a debilitated cachectic white man, seen in ICU with the nurse at bedside. HEENT: Normocephalic and atraumatic. There is temporal wasting. The ventriculoperitoneal shunt is seen. NECK: Supple. Central line was put in place. CHEST: Coarse breath sounds. CARDIOVASCULAR: Revealed a tachycardic heart rate. ABDOMEN: Soft and flat. Good bowel sounds. There is a horizontal surgical incision noted. EXTREMITIES: With no edema. LABORATORY DATA: Laboratory data were noted. ASSESSMENT: This patient presents with hypotension, dehydration, and tachycardia. He has been well hydrated and he is improving. The type and nature of the abdominal surgery is unclear. I will ask the primary physician whether there is any more data on this. In the meantime, the nasogastric tube can be used for medications. In addition, the patient also can have a CT scan with contrast given that there is . Should his condition worsen, a further evaluation will be necessary. I will order a CT scan of the abdomen and pelvis as well. RECOMMENDATIONS: Per above discussion and per orders written in the chart. Thank you for asking me to participate in the care of this patient. Mayelin Rodriguez M.D. DR: ANANDA JOB#: [id number] CC:
[2016-03-21] VITALS (28 sets, daily range): BP systolic 101–180; BP diastolic 63–95
[2016-03-21 06:16] LABS: MEAN CORPUSCULAR HEMOGLOBIN 30.7 PG (27.0-31.0); MEAN CORPUSCULAR VOLUME 93 FL (80-99); MEAN PLATELET VOLUME 10.5 FL (6.5-10.1); PLATELET COUNT 153 K/UL (150-450); RED BLOOD COUNT 4.33 M/UL (4.70-6.10); RED CELL DISTRIBUTION WIDTH 12.9 % (11.6-14.8); WHITE BLOOD COUNT 17.6 K/UL (4.8-10.8)
[2016-03-21 06:54] LABS: HEMOGLOBIN A1C 5.8 % (< 6.0)
[2016-03-21 07:01] LABS: CRP QUANT 9.3 mg/dL (< 0.5); URIC ACID 7.9 mg/dL (3.0-7.5)
[2016-03-21 07:02] LABS: ALANINE AMINOTRANSFERASE 145 U/L (3-41); ALBUMIN/GLOBULIN RATIO 0.9 (1.0-2.7); ANION GAP 13 (5-15); ASPARTATE AMINO TRANSFERASE 157 U/L (5-40); CARBON DIOXIDE 27 mEQ/L (20-30); CHLORIDE 109 mEQ/L (98-107); CREATININE 0.9 mg/dL (0.7-1.2); HEMOLYSIS 8; POTASSIUM 3.8 mEQ/L (3.4-4.9); SODIUM 149 mEQ/L (135-145); TOTAL PROTEIN 5.9 g/dL (6.6-8.7)
[2016-03-21 07:06] LABS: DIGOXIN 1.1 ng/mL (0.5-2.0)
[2016-03-21 07:24] LABS: PHOSPHORUS 0.9 mg/dL (2.5-4.8)
[2016-03-21 07:27] LABS: ABG ALLEN TEST POSITIVE; ABG BASE EXCESS 5.7; ABG PCO2 37.5 mmHg (35.0-45.0)
[2016-03-21] MEDS: Meropenem 500mg/NS 55ml IVPB SCH ×2 (09:15)
[2016-03-21] MEDS: Heparin 5000 units/ml inj SUBQ SCH ×2 (09:17→21:25)
[2016-03-21] MEDS ORDERED: Sodium Phosphate 30 MM in NS 275 ML IVPB ONE ×2 (10:00→17:00)
--- NOTE | 2016-03-21 10:54 | Diagnostic Imaging Report ---
Indication: DYSPNEA Technique: One view of the chest Comparison: 03/20/2016 Findings: Weighted Dobbhoff feeding tube is now in deeper in the stomach, loops within the subdiaphragmatic portion of stomach although the tip may still be supradiaphragmatic, within hiatal hernia sac. There is slightly decreased consolidation in the right lung base. Consolidation persists, however, as does bilateral generalized interstitial disease. The heart remains borderline enlarged. Right jugular central venous catheter is again demonstrated, tip projected deep within the right atrium. Right-sided ventriculoperitoneal shunt tubing is again demonstrated Impression: Improved position of Dobbhoff weighted feeding tube, although suspect tip is still supra-diaphragmatic within intrathoracic portion of the hiatal hernia Persistent malposition of central venous catheter, deep within the right atrium. Recommend withdrawal by about 4 cm. This was discussed with patient's nurse at the time of interpretation Slight improvement of pulmonary parenchymal disease, over one day
--- NOTE | 2016-03-21 11:27 | Pulmonolgy Critical Care Note ---
Critical Care - Asmt/Plan Problems: (1) Septic shock (2) Dehydration (3) Renal failure (4) Pneumonia (5) Multiple organ system failure (6) HCAP (healthcare-associated pneumonia) Respiratory: monitor respiratory rate, adjust FIO2, CXR Cardiac: continue to monitor HR/BP Renal: F/U I&O, keep IV fluid, check electrolytes Infectious Disease: check cultures, continue antibiotics Gastrointestinal: continue feedings/current rate Endocrine: monitor blood sugar, check TSH, check HgA1C Hematologic: monitor H/H Neurologic: PRN Ativan, PRN Morphine Affect: PRN ativan Prophylaxis: Protonix Disposition: transfer to Notes Reviewed: cassandra developer, cardio Discussed with: nurses, consultants - telemetry Critical Care - Objective Last 24 Hour Vital Signs Date Time Temp Pulse Resp B/P Pulse Ox O2 Delivery O2 Flow Rate FiO2 03/21/16 10:00 67 15 142/82 98 Nasal Cannula 3.0 03/21/16 09:30 62 17 140/93 98 Nasal Cannula 3.0 03/21/16 09:00 68 17 146/77 98 Nasal Cannula 3.0 03/21/16 08:30 67 16 124/77 98 Nasal Cannula 3.0 03/21/16 08:00 97.7 62 15 180/79 98 Nasal Cannula 3.0 03/21/16 08:00 70 03/21/16 07:30 69 17 158/78 96 Nasal Cannula 3.0 03/21/16 07:00 65 15 149/77 98 Nasal Cannula 3.0 03/21/16 06:30 71 16 113/95 97 Nasal Cannula 3.0 03/21/16 06:00 73 16 101/75 97 Nasal Cannula 3.0 03/21/16 05:30 73 16 101/75 97 Nasal Cannula 3.0 03/21/16 05:00 63 16 129/90 99 Nasal Cannula 3.0 03/21/16 04:30 58 14 117/78 100 Nasal Cannula 3.0 03/21/16 04:00 56 13 133/91 100 Nasal Cannula 3.0 03/21/16 04:00 59 03/21/16 03:30 57 14 155/70 100 Nasal Cannula 3.0 03/21/16 03:00 60 16 149/78 100 Nasal Cannula 3.0 03/21/16 02:30 60 16 149/78 100 Nasal Cannula 3.0 03/21/16 02:00 61 16 140/74 98 Nasal Cannula 3.0 03/21/16 01:30 66 16 123/70 98 Nasal Cannula 3.0 03/21/16 01:00 64 15 123/70 99 Nasal Cannula 3.0 03/21/16 00:30 55 15 111/68 100 Nasal Cannula 3.0 03/21/16 00:00 97.9 58 14 135/75 93 Nasal Cannula 3.0 03/21/16 00:00 86 03/20/16 23:30 64 16 135/75 99 Nasal Cannula 3.0 03/20/16 23:00 58 14 135/75 93 Nasal Cannula 3.0 03/20/16 22:00 63 14 135/69 93 Nasal Cannula 3.0 03/20/16 21:30 72 15 114/67 99 Nasal Cannula 3.0 03/20/16 21:00 60 15 135/61 99 Nasal Cannula 3.0 03/20/16 20:30 59 15 129/63 100 Nasal Cannula 3.0 03/20/16 20:00 78 18 133/77 99 Nasal Cannula 3.0 03/20/16 20:00 86 03/20/16 19:41 Nasal Cannula 3.0 32 03/20/16 19:41 98 Nasal Cannula 3.0 32 03/20/16 19:40 77 20 Nasal Cannula 3.0 32 03/20/16 19:30 80 18 127/71 99 Nasal Cannula 3.0 03/20/16 19:00 98.4 76 18 130/67 99 Nasal Cannula 3.0 03/20/16 18:30 69 16 122/64 97 Nasal Cannula 3.0 03/20/16 18:00 74 15 132/66 97 Nasal Cannula 3.0 03/20/16 17:00 78 15 108/65 99 Nasal Cannula 3.0 03/20/16 16:30 68 14 119/64 100 Nasal Cannula 3.0 03/20/16 16:00 97.1 61 13 137/68 100 Nasal Cannula 3.0 03/20/16 16:00 65 03/20/16 15:30 76 16 120/63 100 Nasal Cannula 3.0 03/20/16 15:00 83 15 117/76 100 Nasal Cannula 3.0 03/20/16 14:30 86 16 134/64 100 Nasal Cannula 3.0 03/20/16 14:00 132 16 123/84 100 Nasal Cannula 3.0 03/20/16 13:55 106/47 03/20/16 13:30 129 14 94/67 100 Nasal Cannula 3.0 03/20/16 13:00 132 14 113/67 100 Nasal Cannula 3.0 03/20/16 12:30 134 17 105/65 99 Nasal Cannula 3.0 03/20/16 12:00 131 03/20/16 12:00 97.3 130 19 103/66 100 Nasal Cannula 3.0 03/20/16 11:30 138 19 117/58 99 Nasal Cannula 3.0 Status: awake, sedated Condition: critical HEENT: atraumatic Neck: full ROM Lungs: clear, chest wall tender Heart: HR/BP stable, HR/BP unstable Abdomen: soft, non-tender Extremities: no C/C/E, edema Micro: Microbiology Date/Time Source Procedure Growth Status 03/19/16 05:50 Blood Blood Culture - Preliminary NO GROWTH AFTER 48 HOURS Resulted 03/19/16 05:35 Blood Blood Culture - Preliminary NO GROWTH AFTER 48 HOURS Resulted 03/19/16 11:09 Nasopharynx Influenza Types A,B Antigen (YANELY) - Final Complete 03/19/16 06:55 Nasal Nares MRSA Culture - Final NO METHICILLIN RESISTANT STAPH AUREUS... Complete 03/19/16 06:55 Rectum VRE Culture - Final NO VANCOMYCIN RESISTANT ENTEROCOCCUS ... Complete Critical Care - Subjective ROS Limited/Unobtainable: Yes ICU Day: 3 Intubation Day: 3 FI02: 32 Vent Support Breath Rate: 16 Vent Support Mode: AC Vent Tidal Volume: 500 Sputum Amount: None PEEP: 5.0 PIP: 18 Fluids: ns100 cc/hour I&O: Intake and Output 03/20/16 03/21/16 19:00 07:00 Intake Total 1330.0 ml 1330.0 ml Output Total 960 ml 735 ml Balance 370.0 ml 595.0 ml Intake IV Total 1330.0 ml 1330.0 ml Output Urine Total 960 ml 735 ml # Bowel Movements 2 2 CXR: RLL infiltrate ET-Tube: 7.5 ET Position: 22 Labs: Laboratory Tests Test 03/21/16 05:10 03/21/16 06:00 03/21/16 07:20 White Blood Count 17.6 K/UL (4.8-10.8) H Red Blood Count 4.33 M/UL (4.70-6.10) L Hemoglobin 13.3 G/DL (14.2-18.0) L Hematocrit 40.3 % (42.0-52.0) L Mean Corpuscular Volume 93 FL (80-99) Mean Corpuscular Hemoglobin 30.7 PG (27.0-31.0) Mean Corpuscular Hemoglobin Concent 33.0 G/DL (32.0-36.0) Red Cell Distribution Width 12.9 % (11.6-14.8) Platelet Count 153 K/UL (150-450) Mean Platelet Volume 10.5 FL (6.5-10.1) H Neutrophils (%) (Auto) % (45.0-75.0) Lymphocytes (%) (Auto) % (20.0-45.0) Monocytes (%) (Auto) % (1.0-10.0) Eosinophils (%) (Auto) % (0.0-3.0) Basophils (%) (Auto) % (0.0-2.0) Sodium Level 149 mEQ/L (135-145) H Potassium Level 3.8 mEQ/L (3.4-4.9) # Chloride Level 109 mEQ/L (98-107) H Carbon Dioxide Level 27 mEQ/L (20-30) Anion Gap 13 (5-15) Blood Urea Nitrogen 49 mg/dL (7-23) #H Creatinine 0.9 mg/dL (0.7-1.2) Estimat Glomerular Filtration Rate mL/min (>60) Glucose Level 108 mg/dL (74-106) H Hemoglobin A1c 5.8 % (< 6.0) Uric Acid 7.9 mg/dL (3.0-7.5) H Calcium Level 9.0 mg/dL (8.6-10.2) Phosphorus Level 0.9 mg/dL (2.5-4.8) *L Magnesium Level 2.0 mg/dL (1.7-2.5) Total Bilirubin 1.0 mg/dL (0.0-1.2) Gamma Glutamyl Transpeptidase 15 U/L (8-61) Aspartate Amino Transf (AST/SGOT) 157 U/L (5-40) H Alanine Aminotransferase (ALT/SGPT) 145 U/L (3-41) H Alkaline Phosphatase 97 U/L (40-129) Total Creatine Kinase 49 U/L (38-174) C-Reactive Protein, Quantitative 9.3 mg/dL (< 0.5) H Pro-B-Type Natriuretic Peptide 2289 pg/mL (0-450) H Total Protein 5.9 g/dL (6.6-8.7) L Albumin 2.8 g/dL (3.5-5.2) L Globulin 3.1 g/dL Albumin/Globulin Ratio 0.9 (1.0-2.7) L Thyroid Stimulating Hormone (TSH) 2.070 uIU/mL (0.300-4.500) Digoxin Level 1.1 ng/mL (0.5-2.0) Urine Random Sodium 41 mmol/L Arterial Blood pH 7.505 (7.350-7.450) Arterial Blood Partial Pressure CO2 37.5 mmHg (35.0-45.0) Arterial Blood Partial Pressure O2 84.7 mmHg (75.0-100.0) Arterial Blood HCO3 28.9 mmol/L (22.0-26.0) H Arterial Blood Oxygen Saturation 96.8 % (92.0-98.0) Arterial Blood Base Excess 5.7 Vicente Test Positive CAROLINA TORREZ Mar 21, 2016 11:26
[2016-03-21] MEDS ORDERED: D5W w/KCl 20mEq 1,000 ML IV SCH (12:00)
[2016-03-21] MEDS ORDERED: LORazepam Inj 2mg/ml 1ml IV PRN (14:00)
[2016-03-21] MEDS ORDERED: DuoNeb 0.5-3(2.5)mg/3ml neb HHN PRN (14:00)
[2016-03-21] MEDS ORDERED: Miralax 17gm pkt ORAL PRN (14:00)
--- NOTE | 2016-03-21 14:47 | General Progress Note ---
Assessment/Plan Status: stable Assessment/Plan Status; - Acute Renal Failure- improved - Septic shock - Dehydration - Pneumonia - Multiple organ system failure - HCAP (healthcare-associated pneumonia) Plan: Phos supplement- Lower Hydrate- D5W Albumin bollous Antibiotics- Monitor renal parameters- Avoid nephrotoxics urine studies Subjective ROS Limited/Unobtainable: No Constitutional: Reports: malaise, weakness Allergies: Coded Allergies: PENICILLINS (Verified Allergy, Unknown, 03/19/16) SULFA (SULFONAMIDE ANTIBIOTICS) (Verified Allergy, Unknown, 03/19/16) Objective Last 24 Hour Vital Signs Date Time Temp Pulse Resp B/P Pulse Ox O2 Delivery O2 Flow Rate FiO2 03/21/16 13:00 98.8 69 20 132/78 93 Nasal Cannula 2.0 66 03/21/16 12:20 98.8 69 20 132/78 93 Nasal Cannula 2.0 66 03/21/16 12:03 60 03/21/16 12:00 97.8 60 14 159/70 100 Nasal Cannula 3.0 03/21/16 11:30 62 15 155/73 100 Nasal Cannula 3.0 03/21/16 10:00 67 15 142/82 98 Nasal Cannula 3.0 03/21/16 09:30 62 17 140/93 98 Nasal Cannula 3.0 03/21/16 09:00 68 17 146/77 98 Nasal Cannula 3.0 03/21/16 08:30 67 16 124/77 98 Nasal Cannula 3.0 03/21/16 08:00 97.7 62 15 180/79 98 Nasal Cannula 3.0 03/21/16 08:00 70 03/21/16 07:30 69 17 158/78 96 Nasal Cannula 3.0 03/21/16 07:15 Nasal Cannula 3.0 32 03/21/16 07:15 97 Nasal Cannula 3.0 32 03/21/16 07:15 68 18 Nasal Cannula 3.0 32 03/21/16 07:00 65 15 149/77 98 Nasal Cannula 3.0 03/21/16 06:30 71 16 113/95 97 Nasal Cannula 3.0 03/21/16 06:00 73 16 101/75 97 Nasal Cannula 3.0 03/21/16 05:30 73 16 101/75 97 Nasal Cannula 3.0 03/21/16 05:00 63 16 129/90 99 Nasal Cannula 3.0 03/21/16 04:30 58 14 117/78 100 Nasal Cannula 3.0 03/21/16 04:00 56 13 133/91 100 Nasal Cannula 3.0 03/21/16 04:00 59 03/21/16 03:30 57 14 155/70 100 Nasal Cannula 3.0 03/21/16 03:00 60 16 149/78 100 Nasal Cannula 3.0 03/21/16 02:30 60 16 149/78 100 Nasal Cannula 3.0 03/21/16 02:00 61 16 140/74 98 Nasal Cannula 3.0 03/21/16 01:30 66 16 123/70 98 Nasal Cannula 3.0 03/21/16 01:00 64 15 123/70 99 Nasal Cannula 3.0 03/21/16 00:30 55 15 111/68 100 Nasal Cannula 3.0 03/21/16 00:00 97.9 58 14 135/75 93 Nasal Cannula 3.0 03/21/16 00:00 86 03/20/16 23:30 64 16 135/75 99 Nasal Cannula 3.0 03/20/16 23:00 58 14 135/75 93 Nasal Cannula 3.0 03/20/16 22:00 63 14 135/69 93 Nasal Cannula 3.0 03/20/16 21:30 72 15 114/67 99 Nasal Cannula 3.0 03/20/16 21:00 60 15 135/61 99 Nasal Cannula 3.0 03/20/16 20:30 59 15 129/63 100 Nasal Cannula 3.0 03/20/16 20:00 78 18 133/77 99 Nasal Cannula 3.0 03/20/16 20:00 86 03/20/16 19:41 Nasal Cannula 3.0 32 03/20/16 19:41 98 Nasal Cannula 3.0 32 03/20/16 19:40 77 20 Nasal Cannula 3.0 32 03/20/16 19:30 80 18 127/71 99 Nasal Cannula 3.0 03/20/16 19:00 98.4 76 18 130/67 99 Nasal Cannula 3.0 03/20/16 18:30 69 16 122/64 97 Nasal Cannula 3.0 03/20/16 18:00 74 15 132/66 97 Nasal Cannula 3.0 03/20/16 17:00 78 15 108/65 99 Nasal Cannula 3.0 03/20/16 16:30 68 14 119/64 100 Nasal Cannula 3.0 03/20/16 16:00 97.1 61 13 137/68 100 Nasal Cannula 3.0 03/20/16 16:00 65 03/20/16 15:30 76 16 120/63 100 Nasal Cannula 3.0 03/20/16 15:00 83 15 117/76 100 Nasal Cannula 3.0 Intake and Output 03/20/16 03/21/16 19:00 07:00 Intake Total 1330.0 ml 1330.0 ml Output Total 960 ml 735 ml Balance 370.0 ml 595.0 ml Intake IV Total 1330.0 ml 1330.0 ml Output Urine Total 960 ml 735 ml # Bowel Movements 2 2 Laboratory Tests 03/21/16 05:10: White Blood Count 17.6H, Red Blood Count 4.33L, Hemoglobin 13.3L, Hematocrit 40.3L, Mean Corpuscular Volume 93, Mean Corpuscular Hemoglobin 30.7, Mean Corpuscular Hemoglobin Concent 33.0, Red Cell Distribution Width 12.9, Platelet Count 153, Mean Platelet Volume 10.5H, Neutrophils (%) (Auto) , Lymphocytes (%) (Auto) , Monocytes (%) (Auto) , Eosinophils (%) (Auto) , Basophils (%) (Auto) , Sodium Level 149H, Potassium Level 3.8#, Chloride Level 109H, Carbon Dioxide Level 27, Anion Gap 13, Blood Urea Nitrogen 49#H, Creatinine 0.9, Estimat Glomerular Filtration Rate , Glucose Level 108H, Hemoglobin A1c 5.8, Uric Acid 7.9H, Calcium Level 9.0, Phosphorus Level 0.9*L, Magnesium Level 2.0, Total Bilirubin 1.0, Gamma Glutamyl Transpeptidase 15, Aspartate Amino Transf (AST/ SGOT) 157H, Alanine Aminotransferase (ALT/SGPT) 145H, Alkaline Phosphatase 97, Total Creatine Kinase 49, C-Reactive Protein, Quantitative 9.3H, Pro-B-Type Natriuretic Peptide 2289H, Total Protein 5.9L, Albumin 2.8L, Globulin 3.1, Albumin/Globulin Ratio 0.9L, Thyroid Stimulating Hormone (TSH) 2.070, Digoxin Level 1.1 03/21/16 06:00: Urine Random Sodium 41 2/10/17 07:20: Arterial Blood pH 7.505H, Arterial Blood Partial Pressure CO2 37.5, Arterial Blood Partial Pressure O2 84.7, Arterial Blood HCO3 28.9H, Arterial Blood Oxygen Saturation 96.8, Arterial Blood Base Excess 5.7, Vicente Test Positive Height (Feet): 5 Height (Inches): 9.00 Weight (Pounds): 140 General Appearance: no apparent distress Cardiovascular: normal rate Respiratory/Chest: decreased breath sounds Objective physical exam not changed CLINT CARMEN Mar 21, 2016 14:47
[2016-03-21] MEDS: D5W w/KCl 20mEq 1,000 ML IV SCH (14:59)
--- NOTE | 2016-03-21 16:54 | Infectious Diseases Prog Note ---
Assessment/Plan Problems: (1) HCAP (healthcare-associated pneumonia) Assessment & Plan: with RLL infiltrates, continue zyvox and meropenem for now empiric therapy, await blood and sputum culture, screening for influenza is negative (2) Respiratory failure requiring intubation Assessment & Plan: due to pneumonia and sepsis, pulmonary is following (3) Septic shock Assessment & Plan: due to pneumonia, complicated with organs failure, will start wide spectrum antibiotics , and send blood culture (4) Elevated transaminase level Assessment & Plan: suspect liver shock due to sepsis , avoid hepatotoxic meds, monitor LFT, screen for hepatitis (5) Dehydration Assessment & Plan: continue IVF monitor UOP (6) Renal failure Assessment & Plan: due to sepsis, continue IVF and pressors, to keep SBP >100, nephrology is following (7) Multiple organ system failure Assessment & Plan: due to sepsis (8) ICH (intracerebral hemorrhage) Assessment & Plan: unclear whether he had recent trauma or fall, recommend neurology eval, and surgical consultation Subjective ROS Limited/Unobtainable: Yes Allergies: Coded Allergies: PENICILLINS (Verified Allergy, Unknown, 03/19/16) SULFA (SULFONAMIDE ANTIBIOTICS) (Verified Allergy, Unknown, 03/19/16) Subjective he was up in bed, nonverbal, dosen't follow commands, not in distress , afebrile. Objective Vital Signs Last 24 Hour Vital Signs Date Time Temp Pulse Resp B/P Pulse Ox O2 Delivery O2 Flow Rate FiO2 03/21/16 14:00 68 136/74 03/21/16 14:00 98.0 72 20 136/74 93 Nasal Cannula 2.0 68 03/21/16 13:00 98.8 69 20 132/78 93 Nasal Cannula 2.0 66 03/21/16 12:20 98.8 69 20 132/78 93 Nasal Cannula 2.0 66 03/21/16 12:03 60 03/21/16 12:00 97.8 60 14 159/70 100 Nasal Cannula 3.0 03/21/16 11:30 62 15 155/73 100 Nasal Cannula 3.0 03/21/16 10:00 67 15 142/82 98 Nasal Cannula 3.0 03/21/16 09:30 62 17 140/93 98 Nasal Cannula 3.0 03/21/16 09:00 68 17 146/77 98 Nasal Cannula 3.0 03/21/16 08:30 67 16 124/77 98 Nasal Cannula 3.0 03/21/16 08:00 97.7 62 15 180/79 98 Nasal Cannula 3.0 03/21/16 08:00 70 03/21/16 07:30 69 17 158/78 96 Nasal Cannula 3.0 03/21/16 07:15 Nasal Cannula 3.0 32 03/21/16 07:15 97 Nasal Cannula 3.0 32 03/21/16 07:15 68 18 Nasal Cannula 3.0 32 03/21/16 07:00 65 15 149/77 98 Nasal Cannula 3.0 03/21/16 06:30 71 16 113/95 97 Nasal Cannula 3.0 03/21/16 06:00 73 16 101/75 97 Nasal Cannula 3.0 03/21/16 05:30 73 16 101/75 97 Nasal Cannula 3.0 03/21/16 05:00 63 16 129/90 99 Nasal Cannula 3.0 03/21/16 04:30 58 14 117/78 100 Nasal Cannula 3.0 03/21/16 04:00 56 13 133/91 100 Nasal Cannula 3.0 03/21/16 04:00 59 03/21/16 03:30 57 14 155/70 100 Nasal Cannula 3.0 03/21/16 03:00 60 16 149/78 100 Nasal Cannula 3.0 03/21/16 02:30 60 16 149/78 100 Nasal Cannula 3.0 03/21/16 02:00 61 16 140/74 98 Nasal Cannula 3.0 03/21/16 01:30 66 16 123/70 98 Nasal Cannula 3.0 03/21/16 01:00 64 15 123/70 99 Nasal Cannula 3.0 03/21/16 00:30 55 15 111/68 100 Nasal Cannula 3.0 03/21/16 00:00 97.9 58 14 135/75 93 Nasal Cannula 3.0 03/21/16 00:00 86 03/20/16 23:30 64 16 135/75 99 Nasal Cannula 3.0 03/20/16 23:00 58 14 135/75 93 Nasal Cannula 3.0 03/20/16 22:00 63 14 135/69 93 Nasal Cannula 3.0 03/20/16 21:30 72 15 114/67 99 Nasal Cannula 3.0 03/20/16 21:00 60 15 135/61 99 Nasal Cannula 3.0 03/20/16 20:30 59 15 129/63 100 Nasal Cannula 3.0 03/20/16 20:00 78 18 133/77 99 Nasal Cannula 3.0 03/20/16 20:00 86 03/20/16 19:41 Nasal Cannula 3.0 32 03/20/16 19:41 98 Nasal Cannula 3.0 32 03/20/16 19:40 77 20 Nasal Cannula 3.0 32 03/20/16 19:30 80 18 127/71 99 Nasal Cannula 3.0 03/20/16 19:00 98.4 76 18 130/67 99 Nasal Cannula 3.0 03/20/16 18:30 69 16 122/64 97 Nasal Cannula 3.0 03/20/16 18:00 74 15 132/66 97 Nasal Cannula 3.0 03/20/16 17:00 78 15 108/65 99 Nasal Cannula 3.0 Height (Feet): 5 Height (Inches): 9.00 Weight (Pounds): 140 General Appearance: WD/WN, no acute distress HEENT: normocephalic, atraumatic, anicteric Respiratory/Chest: lungs clear, normal breath sounds, no respiratory distress, no accessory muscle use Cardiovascular: normal peripheral pulses, normal rate, regular rhythm, no gallop/murmur, no JVD Abdomen: normal bowel sounds, soft, non tender, no organomegaly, non distended , no mass, no scars Extremities: no cyanosis, no clubbing Skin: no rash, no lesions, no ulcers Microbiology Date/Time Source Procedure Growth Status 03/19/16 05:50 Blood Blood Culture - Preliminary NO GROWTH AFTER 48 HOURS Resulted 03/19/16 05:35 Blood Blood Culture - Preliminary NO GROWTH AFTER 48 HOURS Resulted 03/19/16 11:09 Nasopharynx Influenza Types A,B Antigen (YANELY) - Final Complete 03/19/16 06:55 Nasal Nares MRSA Culture - Final NO METHICILLIN RESISTANT STAPH AUREUS... Complete 03/19/16 06:55 Rectum VRE Culture - Final NO VANCOMYCIN RESISTANT ENTEROCOCCUS ... Complete Laboratory Tests Test 03/21/16 05:10 03/21/16 06:00 03/21/16 07:20 White Blood Count 17.6 K/UL (4.8-10.8) H Red Blood Count 4.33 M/UL (4.70-6.10) L Hemoglobin 13.3 G/DL (14.2-18.0) L Hematocrit 40.3 % (42.0-52.0) L Mean Corpuscular Volume 93 FL (80-99) Mean Corpuscular Hemoglobin 30.7 PG (27.0-31.0) Mean Corpuscular Hemoglobin Concent 33.0 G/DL (32.0-36.0) Red Cell Distribution Width 12.9 % (11.6-14.8) Platelet Count 153 K/UL (150-450) Mean Platelet Volume 10.5 FL (6.5-10.1) H Neutrophils (%) (Auto) % (45.0-75.0) Lymphocytes (%) (Auto) % (20.0-45.0) Monocytes (%) (Auto) % (1.0-10.0) Eosinophils (%) (Auto) % (0.0-3.0) Basophils (%) (Auto) % (0.0-2.0) Sodium Level 149 mEQ/L (135-145) H Potassium Level 3.8 mEQ/L (3.4-4.9) # Chloride Level 109 mEQ/L (98-107) H Carbon Dioxide Level 27 mEQ/L (20-30) Anion Gap 13 (5-15) Blood Urea Nitrogen 49 mg/dL (7-23) #H Creatinine 0.9 mg/dL (0.7-1.2) Estimat Glomerular Filtration Rate mL/min (>60) Glucose Level 108 mg/dL (74-106) H Hemoglobin A1c 5.8 % (< 6.0) Uric Acid 7.9 mg/dL (3.0-7.5) H Calcium Level 9.0 mg/dL (8.6-10.2) Phosphorus Level 0.9 mg/dL (2.5-4.8) *L Magnesium Level 2.0 mg/dL (1.7-2.5) Total Bilirubin 1.0 mg/dL (0.0-1.2) Gamma Glutamyl Transpeptidase 15 U/L (8-61) Aspartate Amino Transf (AST/SGOT) 157 U/L (5-40) H Alanine Aminotransferase (ALT/SGPT) 145 U/L (3-41) H Alkaline Phosphatase 97 U/L (40-129) Total Creatine Kinase 49 U/L (38-174) C-Reactive Protein, Quantitative 9.3 mg/dL (< 0.5) H Pro-B-Type Natriuretic Peptide 2289 pg/mL (0-450) H Total Protein 5.9 g/dL (6.6-8.7) L Albumin 2.8 g/dL (3.5-5.2) L Globulin 3.1 g/dL Albumin/Globulin Ratio 0.9 (1.0-2.7) L Thyroid Stimulating Hormone (TSH) 2.070 uIU/mL (0.300-4.500) Digoxin Level 1.1 ng/mL (0.5-2.0) Urine Random Sodium 41 mmol/L Arterial Blood pH 7.505 (7.350-7.450) Arterial Blood Partial Pressure CO2 37.5 mmHg (35.0-45.0) Arterial Blood Partial Pressure O2 84.7 mmHg (75.0-100.0) Arterial Blood HCO3 28.9 mmol/L (22.0-26.0) H Arterial Blood Oxygen Saturation 96.8 % (92.0-98.0) Arterial Blood Base Excess 5.7 Vicente Test Positive Current Medications Medications (Trade) Dose Ordered Sig/Lovely Route PRN Reason Start Time Stop Time Status Last Admin Dose Admin Acetaminophen (Tylenol) 650 mg Q4H PRN ORAL T>100.5 03/21/16 14:00 04/20/16 13:59 Albuterol/ Ipratropium (DuoNeb 0.5-3(2.5)mg/3ml) 3 ml Q4H PRN HHN Shortness of Breath 03/21/16 14:00 03/26/16 13:59 Dextrose/ Electrolytes 1,000 ml @ 50 mls/hr Q20H IV 03/21/16 14:30 04/20/16 14:29 03/21/16 14:59 Diltiazem HCl (Cardizem) 30 mg Q8HR NG 03/21/16 14:00 04/20/16 13:59 Heparin Sodium (Porcine) (Heparin 5000 units/ml) 5,000 units EVERY 12 HOURS SUBQ 03/21/16 21:00 04/20/16 20:59 Linezolid 300 ml @ 300 mls/hr Q12HR@0500,1700 IVPB 03/21/16 17:00 03/28/16 16:59 Lorazepam (Ativan 2mg/ml 1ml) 2 mg Q2H PRN IV For Anxiety 03/21/16 14:00 03/28/16 13:59 Meropenem/Sodium Chloride (Merrem/Sodium Chloride) 110 ml @ 220 mls/hr Q12HR IVPB 03/21/16 21:00 03/26/16 20:59 Morphine Sulfate (Morphine Sulfate) 4 mg Q4H PRN IVP Severe Pain (Pain Scale 7-10) 03/21/16 14:00 03/28/16 13:59 Ondansetron HCl (Zofran) 4 mg Q6H PRN IVP Nausea & Vomiting 03/21/16 14:00 04/20/16 13:59 Polyethylene Glycol 17 gm 17 gm DAILYPRN PRN ORAL Constipation 03/21/16 14:00 04/20/16 13:59 Sodium Phosphate/ Sodium Chloride (NaPO4/Sodium Chloride) 285 ml @ 47.5 mls/hr ONCE ONCE IVPB 03/21/16 17:00 03/21/16 22:59 Chantell Vera M.D. Mar 21, 2016 16:53
--- NOTE | 2016-03-21 17:19 | Cardiac Electrophysiology PN ---
Assessment/Plan Assessment/Plan 1. Troponin elevation in a patient with three coronary stents. Follow up troponins are negative. 2. Septic shock. Off pressors, on broad-spectrum abx 3. Atrial fibrillation with rapid ventricular response. Cardizem drip changed to Cardizem 30 mg NG q 8hours. Echo EF 60-65% 4. Severe dehydration with hypernatremia and azotemia. Better on D5W and KCL. 5. Respiratory failure, on the ventilator.Self extubated. 6. Healthcare-associated pneumonia with right lower lobe infiltrate, on meropenem and Zyvox by Dr. Vera. 7. Elevated transaminase level. 8. Dysphagia. Failed swallow eval and getting Video swallow Thursday. HEATHER RN Subjective Subjective Transferred out of ICU.Cardizem drip DCed. Converted to SR.Lethargic in restraint. NG was removed as it was not in good position. Objective Last 24 Hour Vital Signs Date Time Temp Pulse Resp B/P Pulse Ox O2 Delivery O2 Flow Rate FiO2 03/21/16 16:00 97.7 65 19 150/75 Nasal Cannula 2.0 93 03/21/16 14:00 68 136/74 03/21/16 14:00 98.0 72 20 136/74 93 Nasal Cannula 2.0 68 03/21/16 13:00 98.8 69 20 132/78 93 Nasal Cannula 2.0 66 03/21/16 12:20 98.8 69 20 132/78 93 Nasal Cannula 2.0 66 03/21/16 12:03 60 03/21/16 12:00 97.8 60 14 159/70 100 Nasal Cannula 3.0 03/21/16 11:30 62 15 155/73 100 Nasal Cannula 3.0 03/21/16 10:00 67 15 142/82 98 Nasal Cannula 3.0 03/21/16 09:30 62 17 140/93 98 Nasal Cannula 3.0 03/21/16 09:00 68 17 146/77 98 Nasal Cannula 3.0 03/21/16 08:30 67 16 124/77 98 Nasal Cannula 3.0 03/21/16 08:00 97.7 62 15 180/79 98 Nasal Cannula 3.0 03/21/16 08:00 70 03/21/16 07:30 69 17 158/78 96 Nasal Cannula 3.0 03/21/16 07:15 Nasal Cannula 3.0 32 2/10/17 07:15 97 Nasal Cannula 3.0 32 03/21/16 07:15 68 18 Nasal Cannula 3.0 32 03/21/16 07:00 65 15 149/77 98 Nasal Cannula 3.0 03/21/16 06:30 71 16 113/95 97 Nasal Cannula 3.0 03/21/16 06:00 73 16 101/75 97 Nasal Cannula 3.0 03/21/16 05:30 73 16 101/75 97 Nasal Cannula 3.0 03/21/16 05:00 63 16 129/90 99 Nasal Cannula 3.0 03/21/16 04:30 58 14 117/78 100 Nasal Cannula 3.0 03/21/16 04:00 56 13 133/91 100 Nasal Cannula 3.0 03/21/16 04:00 59 03/21/16 03:30 57 14 155/70 100 Nasal Cannula 3.0 03/21/16 03:00 60 16 149/78 100 Nasal Cannula 3.0 03/21/16 02:30 60 16 149/78 100 Nasal Cannula 3.0 03/21/16 02:00 61 16 140/74 98 Nasal Cannula 3.0 03/21/16 01:30 66 16 123/70 98 Nasal Cannula 3.0 03/21/16 01:00 64 15 123/70 99 Nasal Cannula 3.0 03/21/16 00:30 55 15 111/68 100 Nasal Cannula 3.0 03/21/16 00:00 97.9 58 14 135/75 93 Nasal Cannula 3.0 03/21/16 00:00 86 03/20/16 23:30 64 16 135/75 99 Nasal Cannula 3.0 03/20/16 23:00 58 14 135/75 93 Nasal Cannula 3.0 03/20/16 22:00 63 14 135/69 93 Nasal Cannula 3.0 03/20/16 21:30 72 15 114/67 99 Nasal Cannula 3.0 03/20/16 21:00 60 15 135/61 99 Nasal Cannula 3.0 03/20/16 20:30 59 15 129/63 100 Nasal Cannula 3.0 03/20/16 20:00 78 18 133/77 99 Nasal Cannula 3.0 03/20/16 20:00 86 03/20/16 19:41 Nasal Cannula 3.0 32 03/20/16 19:41 98 Nasal Cannula 3.0 32 03/20/16 19:40 77 20 Nasal Cannula 3.0 32 03/20/16 19:30 80 18 127/71 99 Nasal Cannula 3.0 03/20/16 19:00 98.4 76 18 130/67 99 Nasal Cannula 3.0 03/20/16 18:30 69 16 122/64 97 Nasal Cannula 3.0 03/20/16 18:00 74 15 132/66 97 Nasal Cannula 3.0 Intake and Output 03/20/16 03/21/16 19:00 07:00 Intake Total 1330.0 ml 1330.0 ml Output Total 960 ml 735 ml Balance 370.0 ml 595.0 ml Intake IV Total 1330.0 ml 1330.0 ml Output Urine Total 960 ml 735 ml # Bowel Movements 2 2 Laboratory Tests Test 03/21/16 05:10 03/21/16 06:00 03/21/16 07:20 White Blood Count 17.6 K/UL (4.8-10.8) H Red Blood Count 4.33 M/UL (4.70-6.10) L Hemoglobin 13.3 G/DL (14.2-18.0) L Hematocrit 40.3 % (42.0-52.0) L Mean Corpuscular Volume 93 FL (80-99) Mean Corpuscular Hemoglobin 30.7 PG (27.0-31.0) Mean Corpuscular Hemoglobin Concent 33.0 G/DL (32.0-36.0) Red Cell Distribution Width 12.9 % (11.6-14.8) Platelet Count 153 K/UL (150-450) Mean Platelet Volume 10.5 FL (6.5-10.1) H Neutrophils (%) (Auto) % (45.0-75.0) Lymphocytes (%) (Auto) % (20.0-45.0) Monocytes (%) (Auto) % (1.0-10.0) Eosinophils (%) (Auto) % (0.0-3.0) Basophils (%) (Auto) % (0.0-2.0) Sodium Level 149 mEQ/L (135-145) H Potassium Level 3.8 mEQ/L (3.4-4.9) # Chloride Level 109 mEQ/L (98-107) H Carbon Dioxide Level 27 mEQ/L (20-30) Anion Gap 13 (5-15) Blood Urea Nitrogen 49 mg/dL (7-23) #H Creatinine 0.9 mg/dL (0.7-1.2) Estimat Glomerular Filtration Rate mL/min (>60) Glucose Level 108 mg/dL (74-106) H Hemoglobin A1c 5.8 % (< 6.0) Uric Acid 7.9 mg/dL (3.0-7.5) H Calcium Level 9.0 mg/dL (8.6-10.2) Phosphorus Level 0.9 mg/dL (2.5-4.8) *L Magnesium Level 2.0 mg/dL (1.7-2.5) Total Bilirubin 1.0 mg/dL (0.0-1.2) Gamma Glutamyl Transpeptidase 15 U/L (8-61) Aspartate Amino Transf (AST/SGOT) 157 U/L (5-40) H Alanine Aminotransferase (ALT/SGPT) 145 U/L (3-41) H Alkaline Phosphatase 97 U/L (40-129) Total Creatine Kinase 49 U/L (38-174) C-Reactive Protein, Quantitative 9.3 mg/dL (< 0.5) H Pro-B-Type Natriuretic Peptide 2289 pg/mL (0-450) H Total Protein 5.9 g/dL (6.6-8.7) L Albumin 2.8 g/dL (3.5-5.2) L Globulin 3.1 g/dL Albumin/Globulin Ratio 0.9 (1.0-2.7) L Thyroid Stimulating Hormone (TSH) 2.070 uIU/mL (0.300-4.500) Digoxin Level 1.1 ng/mL (0.5-2.0) Urine Random Sodium 41 mmol/L Arterial Blood pH 7.505 (7.350-7.450) Arterial Blood Partial Pressure CO2 37.5 mmHg (35.0-45.0) Arterial Blood Partial Pressure O2 84.7 mmHg (75.0-100.0) Arterial Blood HCO3 28.9 mmol/L (22.0-26.0) H Arterial Blood Oxygen Saturation 96.8 % (92.0-98.0) Arterial Blood Base Excess 5.7 Vicente Test Positive Microbiology Date/Time Source Procedure Growth Status 03/19/16 05:50 Blood Blood Culture - Preliminary NO GROWTH AFTER 48 HOURS Resulted 03/19/16 05:35 Blood Blood Culture - Preliminary NO GROWTH AFTER 48 HOURS Resulted 03/19/16 11:09 Nasopharynx Influenza Types A,B Antigen (YANELY) - Final Complete 03/19/16 06:55 Nasal Nares MRSA Culture - Final NO METHICILLIN RESISTANT STAPH AUREUS... Complete 03/19/16 06:55 Rectum VRE Culture - Final NO VANCOMYCIN RESISTANT ENTEROCOCCUS ... Complete Objective HEENT: NG tube but no feeding. LUNGS: Coarse rhonchi bilaterally. CARDIOVASCULAR: Regular S1 and S2 with no gallop or murmur. ABDOMEN: Soft. EXTREMITIES: No pitting edema. ESTEE BREEN Mar 21, 2016 17:19
[2016-03-21] MEDS ORDERED: Meropenem 500 MG in NS 110 ML IVPB SCH (21:00)
[2016-03-21] MEDS: Meropenem 500 MG in NS 110 ML IVPB SCH (21:20)
[2016-03-21] MEDS: Metoprolol 5mg/5ml Inj IVP SCH (21:20)
--- NOTE | 2016-03-21 23:04 | General Progress Note ---
Assessment/Plan Assessment/Plan Assessment - Malnutrition - cachexia - dysphagia - dehydration , low phos - PNA - Large HH --> difficult NGT placement Recommendations - Hold po diet - video swallow Thursday - May need PEG, if fails swallow - Abx - IVF - replace lytes - per renal Subjective Allergies: Coded Allergies: PENICILLINS (Verified Allergy, Unknown, 03/19/16) SULFA (SULFONAMIDE ANTIBIOTICS) (Verified Allergy, Unknown, 03/19/16) Subjective out of ICU did not pass bedside swallow video swallow scheduled for Thursday Objective Last 24 Hour Vital Signs Date Time Temp Pulse Resp B/P Pulse Ox O2 Delivery O2 Flow Rate FiO2 03/21/16 21:20 87 124/63 03/21/16 20:00 95.9 87 19 124/63 95 Room Air 03/21/16 19:40 70 18 Nasal Cannula 3.0 32 03/21/16 19:40 98 Nasal Cannula 3.0 32 03/21/16 19:40 Nasal Cannula 3.0 32 03/21/16 19:02 76 03/21/16 16:00 60 03/21/16 16:00 97.7 65 19 150/75 Nasal Cannula 2.0 93 03/21/16 14:00 68 136/74 03/21/16 14:00 98.0 72 20 136/74 93 Nasal Cannula 2.0 68 03/21/16 13:00 98.8 69 20 132/78 93 Nasal Cannula 2.0 66 03/21/16 12:20 98.8 69 20 132/78 93 Nasal Cannula 2.0 66 03/21/16 12:03 60 03/21/16 12:00 97.8 60 14 159/70 100 Nasal Cannula 3.0 03/21/16 11:30 62 15 155/73 100 Nasal Cannula 3.0 03/21/16 10:00 67 15 142/82 98 Nasal Cannula 3.0 03/21/16 09:30 62 17 140/93 98 Nasal Cannula 3.0 03/21/16 09:00 68 17 146/77 98 Nasal Cannula 3.0 03/21/16 08:30 67 16 124/77 98 Nasal Cannula 3.0 03/21/16 08:00 97.7 62 15 180/79 98 Nasal Cannula 3.0 03/21/16 08:00 70 03/21/16 07:30 69 17 158/78 96 Nasal Cannula 3.0 03/21/16 07:15 Nasal Cannula 3.0 32 03/21/16 07:15 97 Nasal Cannula 3.0 32 03/21/16 07:15 68 18 Nasal Cannula 3.0 32 03/21/16 07:00 65 15 149/77 98 Nasal Cannula 3.0 03/21/16 06:30 71 16 113/95 97 Nasal Cannula 3.0 03/21/16 06:00 73 16 101/75 97 Nasal Cannula 3.0 03/21/16 05:30 73 16 101/75 97 Nasal Cannula 3.0 03/21/16 05:00 63 16 129/90 99 Nasal Cannula 3.0 03/21/16 04:30 58 14 117/78 100 Nasal Cannula 3.0 03/21/16 04:00 56 13 133/91 100 Nasal Cannula 3.0 03/21/16 04:00 59 03/21/16 03:30 57 14 155/70 100 Nasal Cannula 3.0 03/21/16 03:00 60 16 149/78 100 Nasal Cannula 3.0 03/21/16 02:30 60 16 149/78 100 Nasal Cannula 3.0 03/21/16 02:00 61 16 140/74 98 Nasal Cannula 3.0 03/21/16 01:30 66 16 123/70 98 Nasal Cannula 3.0 03/21/16 01:00 64 15 123/70 99 Nasal Cannula 3.0 03/21/16 00:30 55 15 111/68 100 Nasal Cannula 3.0 03/21/16 00:00 97.9 58 14 135/75 93 Nasal Cannula 3.0 03/21/16 00:00 86 03/20/16 23:30 64 16 135/75 99 Nasal Cannula 3.0 Intake and Output 03/20/16 03/21/16 19:00 07:00 Intake Total 1330.0 ml 1330.0 ml Output Total 960 ml 735 ml Balance 370.0 ml 595.0 ml Intake IV Total 1330.0 ml 1330.0 ml Output Urine Total 960 ml 735 ml # Bowel Movements 2 2 Laboratory Tests 03/21/16 05:10: White Blood Count 17.6H, Red Blood Count 4.33L, Hemoglobin 13.3L, Hematocrit 40.3L, Mean Corpuscular Volume 93, Mean Corpuscular Hemoglobin 30.7, Mean Corpuscular Hemoglobin Concent 33.0, Red Cell Distribution Width 12.9, Platelet Count 153, Mean Platelet Volume 10.5H, Neutrophils (%) (Auto) , Lymphocytes (%) (Auto) , Monocytes (%) (Auto) , Eosinophils (%) (Auto) , Basophils (%) (Auto) , Sodium Level 149H, Potassium Level 3.8#, Chloride Level 109H, Carbon Dioxide Level 27, Anion Gap 13, Blood Urea Nitrogen 49#H, Creatinine 0.9, Estimat Glomerular Filtration Rate , Glucose Level 108H, Hemoglobin A1c 5.8, Uric Acid 7.9H, Calcium Level 9.0, Phosphorus Level 0.9*L, Magnesium Level 2.0, Total Bilirubin 1.0, Gamma Glutamyl Transpeptidase 15, Aspartate Amino Transf (AST/ SGOT) 157H, Alanine Aminotransferase (ALT/SGPT) 145H, Alkaline Phosphatase 97, Total Creatine Kinase 49, C-Reactive Protein, Quantitative 9.3H, Pro-B-Type Natriuretic Peptide 2289H, Total Protein 5.9L, Albumin 2.8L, Globulin 3.1, Albumin/Globulin Ratio 0.9L, Thyroid Stimulating Hormone (TSH) 2.070, Digoxin Level 1.1 03/21/16 06:00: Urine Random Sodium 41 03/21/16 07:20: Arterial Blood pH 7.505H, Arterial Blood Partial Pressure CO2 37.5, Arterial Blood Partial Pressure O2 84.7, Arterial Blood HCO3 28.9H, Arterial Blood Oxygen Saturation 96.8, Arterial Blood Base Excess 5.7, Vicente Test Positive Height (Feet): 5 Height (Inches): 9.00 Weight (Pounds): 140 Objective Thin WM NCAT supple CTA RRR Soft NT ND No edema OBS MAHNAZ GRIMES Mar 21, 2016 23:04
[2016-03-22] VITALS: BP 143/74
[2016-03-22 04:00] VITALS: BP 145/90
[2016-03-22 07:29] LABS: MEAN CORPUSCULAR HEMOGLOBIN 30.6 PG (27.0-31.0); MEAN CORPUSCULAR HGB CONC 33.4 G/DL (32.0-36.0); MEAN CORPUSCULAR VOLUME 92 FL (80-99); MEAN PLATELET VOLUME 9.5 FL (6.5-10.1); PLATELET COUNT 154 K/UL (150-450); RED CELL DISTRIBUTION WIDTH 12.3 % (11.6-14.8); WHITE BLOOD COUNT 14.3 K/UL (4.8-10.8)
[2016-03-22 07:43] LABS: ABG ALLEN TEST POSITIVE; ABG BASE EXCESS 5.1
[2016-03-22 07:56] LABS: ALANINE AMINOTRANSFERASE 130 U/L (3-41); ALBUMIN/GLOBULIN RATIO 0.9 (1.0-2.7); ANION GAP 13 (5-15); ASPARTATE AMINO TRANSFERASE 105 U/L (5-40); CALCIUM 8.4 mg/dL (8.6-10.2); CARBON DIOXIDE 29 mEQ/L (20-30); CHLORIDE 104 mEQ/L (98-107); CREATININE 0.7 mg/dL (0.7-1.2); HEMOLYSIS 7; MAGNESIUM 1.8 mg/dL (1.7-2.5); PHOSPHORUS 2.5 mg/dL (2.5-4.8); SODIUM 146 mEQ/L (135-145); TOTAL PROTEIN 5.7 g/dL (6.6-8.7)
[2016-03-22 07:57] LABS: CRP QUANT 6.3 mg/dL (< 0.5); URIC ACID 5.3 mg/dL (3.0-7.5)
[2016-03-22 08:05] VITALS: BP 178/80
[2016-03-22] MEDS: Meropenem 500 MG in NS 110 ML IVPB SCH (08:35)
[2016-03-22] MEDS: D5W w/KCl 20mEq 1,000 ML IV SCH (08:35)
[2016-03-22] MEDS: Metoprolol 5mg/5ml Inj IVP SCH ×3 (08:36→20:55)
[2016-03-22] MEDS: Heparin 5000 units/ml inj SUBQ SCH ×2 (08:37→20:58)
--- NOTE | 2016-03-22 08:37 | General Progress Note ---
Assessment/Plan Status: stable - from renal stand Status Narrative Renal parameters normalized Assessment/Plan Status; - Acute Renal Failure- improved - Septic shock - Dehydration - Pneumonia - Multiple organ system failure - HCAP (healthcare-associated pneumonia) Plan: K supplement- Lower Hydrate- D5W Antibiotics- Monitor renal parameters- Avoid nephrotoxics urine studies per consultants- Subjective ROS Limited/Unobtainable: No Constitutional: Reports: malaise, weakness Allergies: Coded Allergies: PENICILLINS (Verified Allergy, Unknown, 03/19/16) SULFA (SULFONAMIDE ANTIBIOTICS) (Verified Allergy, Unknown, 03/19/16) Objective Last 24 Hour Vital Signs Date Time Temp Pulse Resp B/P Pulse Ox O2 Delivery O2 Flow Rate FiO2 03/22/16 08:05 97.2 72 20 178/80 98 Nasal Cannula 2.0 03/22/16 07:37 Nasal Cannula 3.0 03/22/16 07:34 96 Nasal Cannula 3.0 03/22/16 07:32 73 16 Nasal Cannula 3.0 03/22/16 04:00 60 03/22/16 04:00 97.6 64 16 145/90 97 Nasal Cannula 03/22/16 00:00 63 03/22/16 00:00 98.0 59 18 143/74 95 Room Air 03/21/16 21:20 87 124/63 03/21/16 20:00 95.9 87 19 124/63 95 Room Air 03/21/16 19:40 70 18 Nasal Cannula 3.0 32 03/21/16 19:40 98 Nasal Cannula 3.0 32 03/21/16 19:40 Nasal Cannula 3.0 32 03/21/16 19:02 76 03/21/16 16:00 60 03/21/16 16:00 97.7 65 19 150/75 Nasal Cannula 2.0 93 03/21/16 14:00 68 136/74 03/21/16 14:00 98.0 72 20 136/74 93 Nasal Cannula 2.0 68 03/21/16 13:00 98.8 69 20 132/78 93 Nasal Cannula 2.0 66 03/21/16 12:20 98.8 69 20 132/78 93 Nasal Cannula 2.0 66 03/21/16 12:03 60 03/21/16 12:00 97.8 60 14 159/70 100 Nasal Cannula 3.0 03/21/16 11:30 62 15 155/73 100 Nasal Cannula 3.0 03/21/16 10:00 67 15 142/82 98 Nasal Cannula 3.0 03/21/16 09:30 62 17 140/93 98 Nasal Cannula 3.0 03/21/16 09:00 68 17 146/77 98 Nasal Cannula 3.0 Intake and Output 03/21/16 03/22/16 19:00 07:00 Intake Total 255 ml 1695 ml Output Total 817 ml 400 ml Balance -562 ml 1295 ml Intake IV Total 255 ml 1695 ml Output Urine Total 815 ml 400 ml Stool Total 2 ml # Bowel Movements 20 2 Laboratory Tests 03/22/16 06:15: White Blood Count 14.3H, Red Blood Count 4.70, Hemoglobin 14.4, Hematocrit 43.1 , Mean Corpuscular Volume 92, Mean Corpuscular Hemoglobin 30.6, Mean Corpuscular Hemoglobin Concent 33.4, Red Cell Distribution Width 12.3, Platelet Count 154, Mean Platelet Volume 9.5, Neutrophils (%) (Auto) , Lymphocytes (%) ( Auto) , Monocytes (%) (Auto) , Eosinophils (%) (Auto) , Basophils (%) (Auto) , Neutrophils % (Manual) [Pending], Lymphocytes % (Manual) [Pending], Platelet Estimate [Pending], Platelet Morphology [Pending], Sodium Level 146H, Potassium Level 3.0L, Chloride Level 104, Carbon Dioxide Level 29, Anion Gap 13, Blood Urea Nitrogen 23#, Creatinine 0.7, Estimat Glomerular Filtration Rate , Glucose Level 132H, Uric Acid 5.3, Calcium Level 8.4L, Phosphorus Level 2.5, Magnesium Level 1.8, Total Bilirubin 0.9, Gamma Glutamyl Transpeptidase 13, Aspartate Amino Transf (AST/SGOT) 105H, Alanine Aminotransferase (ALT/SGPT) 130H, Alkaline Phosphatase 91, C-Reactive Protein, Quantitative 6.3H, Pro-B-Type Natriuretic Peptide 3030H, Total Protein 5.7L, Albumin 2.7L, Globulin 3.0, Albumin/Globulin Ratio 0.9L, Digoxin Level 0.7 03/22/16 07:35: Arterial Blood pH 7.530H, Arterial Blood Partial Pressure CO2 33.0L, Arterial Blood Partial Pressure O2 67.5L, Arterial Blood HCO3 27.3H, Arterial Blood Oxygen Saturation 94.5, Arterial Blood Base Excess 5.1, Vicente Test Positive Height (Feet): 5 Height (Inches): 9.00 Weight (Pounds): 140 General Appearance: no apparent distress Cardiovascular: arrhythmia, other - variable rate Respiratory/Chest: decreased breath sounds Abdomen: soft Objective physical exam not changed CLINT CARMEN Mar 22, 2016 08:37
[2016-03-22] MEDS ORDERED: Digoxin 0.5mg/2ml Inj IVP SCH (09:00)
[2016-03-22] MEDS ORDERED: Sodium Phosphate 30 MM in NS 275 ML IVPB ONE (10:00)
[2016-03-22 10:56] LABS: BAND NEUTROPHILS % (MANUAL) 0 % (0-8); BASOPHILS % (MANUAL) 0 % (0-2); EOSINOPHILS % (MANUAL) 0 % (0-3); LYMPHOCYTES % (MANUAL) 9 % (20-45); NEUTROPHILS % (MANUAL) 86 % (45-75); PLATELET ESTIMATE ADEQUATE; PLATELET MORPHOLOGY NORMAL; TOTAL CELLS COUNTED 100
--- NOTE | 2016-03-22 11:35 | Pulmonology Progress Note ---
Assessment/Plan Problems: (1) Respiratory failure requiring intubation (2) Pneumonia (3) Atrial fibrillation (4) Hypertension (5) Septic shock (6) Dehydration Assessment/Plan improving bc negative no sputum yet npo swallow study pending in and out of Afib on digoxin Subjective ROS Limited/Unobtainable: Yes Interval Events: awake, not communicating Allergies: Coded Allergies: PENICILLINS (Verified Allergy, Unknown, 03/19/16) SULFA (SULFONAMIDE ANTIBIOTICS) (Verified Allergy, Unknown, 03/19/16) Objective Last 24 Hour Vital Signs Date Time Temp Pulse Resp B/P Pulse Ox O2 Delivery O2 Flow Rate FiO2 03/22/16 09:10 72 178/80 03/22/16 08:36 72 03/22/16 08:05 97.2 72 20 178/80 98 Nasal Cannula 2.0 03/22/16 08:00 69 03/22/16 07:37 Nasal Cannula 3.0 03/22/16 07:34 96 Nasal Cannula 3.0 03/22/16 07:32 73 16 Nasal Cannula 3.0 03/22/16 04:00 60 03/22/16 04:00 97.6 64 16 145/90 97 Nasal Cannula 03/22/16 00:00 63 03/22/16 00:00 98.0 59 18 143/74 95 Room Air 03/21/16 21:20 87 124/63 03/21/16 20:00 95.9 87 19 124/63 95 Room Air 03/21/16 19:40 70 18 Nasal Cannula 3.0 32 03/21/16 19:40 98 Nasal Cannula 3.0 32 03/21/16 19:40 Nasal Cannula 3.0 32 03/21/16 19:02 76 03/21/16 16:00 60 03/21/16 16:00 97.7 65 19 150/75 Nasal Cannula 2.0 93 03/21/16 14:00 68 136/74 03/21/16 14:00 98.0 72 20 136/74 93 Nasal Cannula 2.0 68 03/21/16 13:00 98.8 69 20 132/78 93 Nasal Cannula 2.0 66 03/21/16 12:20 98.8 69 20 132/78 93 Nasal Cannula 2.0 66 03/21/16 12:03 60 03/21/16 12:00 97.8 60 14 159/70 100 Nasal Cannula 3.0 Intake and Output 03/21/16 03/22/16 19:00 07:00 Intake Total 255 ml 1695 ml Output Total 817 ml 400 ml Balance -562 ml 1295 ml Intake IV Total 255 ml 1695 ml Output Urine Total 815 ml 400 ml Stool Total 2 ml # Bowel Movements 20 2 General Appearance: WD/WN HEENT: normocephalic Respiratory/Chest: chest wall non-tender, lungs clear Cardiovascular: normal peripheral pulses, normal rate Abdomen: normal bowel sounds, no organomegaly Genitourinary: normal external genitalia Extremities: no cyanosis Neurologic/Psychiatric: surgical aide II-XII grossly normal Laboratory Tests 03/22/16 06:15: White Blood Count 14.3H, Red Blood Count 4.70, Hemoglobin 14.4, Hematocrit 43.1 , Mean Corpuscular Volume 92, Mean Corpuscular Hemoglobin 30.6, Mean Corpuscular Hemoglobin Concent 33.4, Red Cell Distribution Width 12.3, Platelet Count 154, Mean Platelet Volume 9.5, Neutrophils (%) (Auto) , Lymphocytes (%) ( Auto) , Monocytes (%) (Auto) , Eosinophils (%) (Auto) , Basophils (%) (Auto) , Differential Total Cells Counted 100, Neutrophils % (Manual) 86H, Lymphocytes % (Manual) 9L, Monocytes % (Manual) 5, Eosinophils % (Manual) 0, Basophils % ( Manual) 0, Band Neutrophils 0, Platelet Estimate Adequate, Platelet Morphology Normal, Red Blood Cell Morphology Normal, Sodium Level 146H, Potassium Level 3.0L, Chloride Level 104, Carbon Dioxide Level 29, Anion Gap 13, Blood Urea Nitrogen 23#, Creatinine 0.7, Estimat Glomerular Filtration Rate , Glucose Level 132H, Uric Acid 5.3, Calcium Level 8.4L, Phosphorus Level 2.5, Magnesium Level 1.8, Total Bilirubin 0.9, Gamma Glutamyl Transpeptidase 13, Aspartate Amino Transf (AST/SGOT) 105H, Alanine Aminotransferase (ALT/SGPT) 130H, Alkaline Phosphatase 91, C-Reactive Protein, Quantitative 6.3H, Pro-B-Type Natriuretic Peptide 3030H, Total Protein 5.7L, Albumin 2.7L, Globulin 3.0, Albumin/Globulin Ratio 0.9L, Digoxin Level 0.7 03/22/16 07:35: Arterial Blood pH 7.530H, Arterial Blood Partial Pressure CO2 33.0L, Arterial Blood Partial Pressure O2 67.5L, Arterial Blood HCO3 27.3H, Arterial Blood Oxygen Saturation 94.5, Arterial Blood Base Excess 5.1, Vicente Test Positive Current Medications Medications (Trade) Dose Ordered Sig/Lovely Route PRN Reason Start Time Stop Time Status Last Admin Dose Admin Acetaminophen (Tylenol) 650 mg Q4H PRN ORAL T>100.5 03/21/16 14:00 04/20/16 13:59 Albuterol/ Ipratropium (DuoNeb 0.5-3(2.5)mg/3ml) 3 ml Q4H PRN HHN Shortness of Breath 03/21/16 14:00 03/26/16 13:59 Dextrose/ Electrolytes 1,000 ml @ 50 mls/hr Q20H IV 03/21/16 14:30 04/20/16 14:29 03/22/16 08:35 Digoxin (Lanoxin) 0.125 mg DAILY IVP 03/22/16 09:00 04/21/16 08:59 03/22/16 08:36 Heparin Sodium (Porcine) (Heparin 5000 units/ml) 5,000 units EVERY 12 HOURS SUBQ 03/21/16 21:00 04/20/16 20:59 03/22/16 08:37 Linezolid 300 ml @ 300 mls/hr Q12HR@0500,1700 IVPB 03/21/16 17:00 03/28/16 16:59 03/22/16 04:49 Lorazepam (Ativan 2mg/ml 1ml) 2 mg Q2H PRN IV For Anxiety 03/21/16 14:00 03/28/16 13:59 Meropenem/Sodium Chloride (Merrem/Sodium Chloride) 110 ml @ 220 mls/hr Q12HR IVPB 03/21/16 21:00 03/26/16 20:59 03/22/16 08:35 Metoprolol Tartrate 5 mg 5 mg EVERY 12 HOURS IVP 03/21/16 21:00 04/20/16 20:59 03/22/16 09:10 Morphine Sulfate (Morphine Sulfate) 4 mg Q4H PRN IVP Severe Pain (Pain Scale 7-10) 03/21/16 14:00 03/28/16 13:59 Ondansetron HCl (Zofran) 4 mg Q6H PRN IVP Nausea & Vomiting 03/21/16 14:00 04/20/16 13:59 Polyethylene Glycol (Miralax) 17 gm DAILYPRN PRN ORAL Constipation 03/21/16 14:00 04/20/16 13:59 Potassium Chloride/Sodium Chloride (KCl/NS) 520 ml @ 130 mls/hr ONCE ONCE IV 03/22/16 10:00 03/22/16 13:59 03/22/16 10:02 CAROLINA TORREZ Mar 22, 2016 11:35
[2016-03-22 12:08] VITALS: BP 142/78
--- NOTE | 2016-03-22 12:35 | General Progress Note ---
Assessment/Plan Problem List: (1) Septic shock ICD Codes: A41.9 - Sepsis, unspecified organism; R65.21 - Severe sepsis with septic shock SNOMED: 41423414 (2) Dehydration ICD Codes: E86.0 - Dehydration SNOMED: 80890125 (3) Renal failure ICD Codes: N19 - Unspecified kidney failure; R65.21 - Severe sepsis with septic shock SNOMED: 25608528 (4) Pneumonia ICD Codes: J18.9 - Pneumonia, unspecified organism SNOMED: 596529806 Qualifiers: Qualified Codes: J18.9 - Pneumonia, unspecified organism (5) Multiple organ system failure SNOMED: 90349809 (6) Respiratory failure requiring intubation ICD Codes: J96.90 - Respiratory failure, unspecified, unspecified whether with hypoxia or hypercapnia; R65.21 - Severe sepsis with septic shock SNOMED: 273413367 (7) Elevated transaminase level ICD Codes: R74.0 - Nonspecific elevation of levels of transaminase and lactic acid dehydrogenase [LDH] SNOMED: 376767815, 356355941 Status: progressing Assessment/Plan resp failure extubated feeding route decision per dr espinosa septic shock severe dehyration hypernatremia arf Subjective ROS Limited/Unobtainable: Yes Allergies: Coded Allergies: PENICILLINS (Verified Allergy, Unknown, 03/19/16) SULFA (SULFONAMIDE ANTIBIOTICS) (Verified Allergy, Unknown, 03/19/16) Objective Last 24 Hour Vital Signs Date Time Temp Pulse Resp B/P Pulse Ox O2 Delivery O2 Flow Rate FiO2 03/22/16 12:08 98.1 61 20 142/78 96 Nasal Cannula 2.0 03/22/16 09:10 72 178/80 03/22/16 08:36 72 03/22/16 08:05 97.2 72 20 178/80 98 Nasal Cannula 2.0 03/22/16 08:00 69 03/22/16 07:37 Nasal Cannula 3.0 03/22/16 07:34 96 Nasal Cannula 3.0 03/22/16 07:32 73 16 Nasal Cannula 3.0 03/22/16 04:00 60 03/22/16 04:00 97.6 64 16 145/90 97 Nasal Cannula 03/22/16 00:00 63 03/22/16 00:00 98.0 59 18 143/74 95 Room Air 03/21/16 21:20 87 124/63 03/21/16 20:00 95.9 87 19 124/63 95 Room Air 03/21/16 19:40 70 18 Nasal Cannula 3.0 32 03/21/16 19:40 98 Nasal Cannula 3.0 32 03/21/16 19:40 Nasal Cannula 3.0 32 03/21/16 19:02 76 03/21/16 16:00 60 03/21/16 16:00 97.7 65 19 150/75 Nasal Cannula 2.0 93 03/21/16 14:00 68 136/74 03/21/16 14:00 98.0 72 20 136/74 93 Nasal Cannula 2.0 68 03/21/16 13:00 98.8 69 20 132/78 93 Nasal Cannula 2.0 66 Intake and Output 03/21/16 03/22/16 18:59 06:59 Intake Total 355 ml 1645 ml Output Total 897 ml 400 ml Balance -542 ml 1245 ml Intake IV Total 355 ml 1645 ml Output Urine Total 895 ml 400 ml Stool Total 2 ml # Bowel Movements 20 2 Laboratory Tests 03/22/16 06:15: White Blood Count 14.3H, Red Blood Count 4.70, Hemoglobin 14.4, Hematocrit 43.1 , Mean Corpuscular Volume 92, Mean Corpuscular Hemoglobin 30.6, Mean Corpuscular Hemoglobin Concent 33.4, Red Cell Distribution Width 12.3, Platelet Count 154, Mean Platelet Volume 9.5, Neutrophils (%) (Auto) , Lymphocytes (%) ( Auto) , Monocytes (%) (Auto) , Eosinophils (%) (Auto) , Basophils (%) (Auto) , Differential Total Cells Counted 100, Neutrophils % (Manual) 86H, Lymphocytes % (Manual) 9L, Monocytes % (Manual) 5, Eosinophils % (Manual) 0, Basophils % ( Manual) 0, Band Neutrophils 0, Platelet Estimate Adequate, Platelet Morphology Normal, Red Blood Cell Morphology Normal, Sodium Level 146H, Potassium Level 3.0L, Chloride Level 104, Carbon Dioxide Level 29, Anion Gap 13, Blood Urea Nitrogen 23#, Creatinine 0.7, Estimat Glomerular Filtration Rate , Glucose Level 132H, Uric Acid 5.3, Calcium Level 8.4L, Phosphorus Level 2.5, Magnesium Level 1.8, Total Bilirubin 0.9, Gamma Glutamyl Transpeptidase 13, Aspartate Amino Transf (AST/SGOT) 105H, Alanine Aminotransferase (ALT/SGPT) 130H, Alkaline Phosphatase 91, C-Reactive Protein, Quantitative 6.3H, Pro-B-Type Natriuretic Peptide 3030H, Total Protein 5.7L, Albumin 2.7L, Globulin 3.0, Albumin/Globulin Ratio 0.9L, Digoxin Level 0.7 03/22/16 07:35: Arterial Blood pH 7.530H, Arterial Blood Partial Pressure CO2 33.0L, Arterial Blood Partial Pressure O2 67.5L, Arterial Blood HCO3 27.3H, Arterial Blood Oxygen Saturation 94.5, Arterial Blood Base Excess 5.1, Vicente Test Positive Height (Feet): 5 Height (Inches): 9.00 Weight (Pounds): 140 General Appearance: confused Respiratory/Chest: rhonchi - bilaterally Abdomen: soft Nahed Pizarro MD Mar 22, 2016 12:35
--- NOTE | 2016-03-22 14:32 | Cardiac Electrophysiology PN ---
Assessment/Plan Assessment/Plan 1. Troponin elevation in a patient with three coronary stents. Follow up troponins are negative. No chest pain. On Betablocker. 2. Septic shock. Off pressors, on broad-spectrum abx 3. Atrial fibrillation with rapid ventricular response. NPO. DC IV Digoxin as was bradycardic. Continue Lopressor 5 mg iv q12 hr.Echo EF 60-65% 4. Severe dehydration with hypernatremia and azotemia. Better on D5W and KCL. 5. Respiratory failure, on the ventilator.Self extubated. 6. Healthcare-associated pneumonia with right lower lobe infiltrate, on meropenem and Zyvox by Dr. Vera. 7. Elevated transaminase level. 8. Dysphagia. Failed swallow eval and getting Video swallow Thursday. HEATHER RN Subjective Subjective Remained in SR.Lethargic in restraint. Getting iv dig and Metoprolol. Objective Last 24 Hour Vital Signs Date Time Temp Pulse Resp B/P Pulse Ox O2 Delivery O2 Flow Rate FiO2 03/22/16 12:08 98.1 61 20 142/78 96 Nasal Cannula 2.0 03/22/16 12:00 59 03/22/16 09:10 72 178/80 03/22/16 08:36 72 03/22/16 08:05 97.2 72 20 178/80 98 Nasal Cannula 2.0 03/22/16 08:00 69 03/22/16 07:37 Nasal Cannula 3.0 03/22/16 07:34 96 Nasal Cannula 3.0 03/22/16 07:32 73 16 Nasal Cannula 3.0 03/22/16 04:00 60 03/22/16 04:00 97.6 64 16 145/90 97 Nasal Cannula 03/22/16 00:00 63 03/22/16 00:00 98.0 59 18 143/74 95 Room Air 03/21/16 21:20 87 124/63 03/21/16 20:00 95.9 87 19 124/63 95 Room Air 03/21/16 19:40 70 18 Nasal Cannula 3.0 32 03/21/16 19:40 98 Nasal Cannula 3.0 32 03/21/16 19:40 Nasal Cannula 3.0 32 03/21/16 19:02 76 03/21/16 16:00 60 03/21/16 16:00 97.7 65 19 150/75 Nasal Cannula 2.0 93 Intake and Output 03/21/16 03/22/16 19:00 07:00 Intake Total 255 ml 1695 ml Output Total 817 ml 400 ml Balance -562 ml 1295 ml Intake IV Total 255 ml 1695 ml Output Urine Total 815 ml 400 ml Stool Total 2 ml # Bowel Movements 20 2 Laboratory Tests Test 03/22/16 06:15 03/22/16 07:35 White Blood Count 14.3 K/UL (4.8-10.8) H Red Blood Count 4.70 M/UL (4.70-6.10) Hemoglobin 14.4 G/DL (14.2-18.0) Hematocrit 43.1 % (42.0-52.0) Mean Corpuscular Volume 92 FL (80-99) Mean Corpuscular Hemoglobin 30.6 PG (27.0-31.0) Mean Corpuscular Hemoglobin Concent 33.4 G/DL (32.0-36.0) Red Cell Distribution Width 12.3 % (11.6-14.8) Platelet Count 154 K/UL (150-450) Mean Platelet Volume 9.5 FL (6.5-10.1) Neutrophils (%) (Auto) % (45.0-75.0) Lymphocytes (%) (Auto) % (20.0-45.0) Monocytes (%) (Auto) % (1.0-10.0) Eosinophils (%) (Auto) % (0.0-3.0) Basophils (%) (Auto) % (0.0-2.0) Differential Total Cells Counted 100 Neutrophils % (Manual) 86 % (45-75) H Lymphocytes % (Manual) 9 % (20-45) L Monocytes % (Manual) 5 % (1-10) Eosinophils % (Manual) 0 % (0-3) Basophils % (Manual) 0 % (0-2) Band Neutrophils 0 % (0-8) Platelet Estimate Adequate Platelet Morphology Normal Red Blood Cell Morphology Normal Sodium Level 146 mEQ/L (135-145) H Potassium Level 3.0 mEQ/L (3.4-4.9) L Chloride Level 104 mEQ/L (98-107) Carbon Dioxide Level 29 mEQ/L (20-30) Anion Gap 13 (5-15) Blood Urea Nitrogen 23 mg/dL (7-23) # Creatinine 0.7 mg/dL (0.7-1.2) Estimat Glomerular Filtration Rate mL/min (>60) Glucose Level 132 mg/dL (74-106) H Uric Acid 5.3 mg/dL (3.0-7.5) Calcium Level 8.4 mg/dL (8.6-10.2) L Phosphorus Level 2.5 mg/dL (2.5-4.8) Magnesium Level 1.8 mg/dL (1.7-2.5) Total Bilirubin 0.9 mg/dL (0.0-1.2) Gamma Glutamyl Transpeptidase 13 U/L (8-61) Aspartate Amino Transf (AST/SGOT) 105 U/L (5-40) H Alanine Aminotransferase (ALT/SGPT) 130 U/L (3-41) H Alkaline Phosphatase 91 U/L (40-129) C-Reactive Protein, Quantitative 6.3 mg/dL (< 0.5) H Pro-B-Type Natriuretic Peptide 3030 pg/mL (0-450) H Total Protein 5.7 g/dL (6.6-8.7) L Albumin 2.7 g/dL (3.5-5.2) L Globulin 3.0 g/dL Albumin/Globulin Ratio 0.9 (1.0-2.7) L Digoxin Level 0.7 ng/mL (0.5-2.0) Arterial Blood pH 7.530 (7.350-7.450) Arterial Blood Partial Pressure CO2 33.0 mmHg (35.0-45.0) L Arterial Blood Partial Pressure O2 67.5 mmHg (75.0-100.0) L Arterial Blood HCO3 27.3 mmol/L (22.0-26.0) H Arterial Blood Oxygen Saturation 94.5 % (92.0-98.0) Arterial Blood Base Excess 5.1 Vicente Test Positive Objective HEENT: NG tube out. No JVD LUNGS: Coarse rhonchi bilaterally. CARDIOVASCULAR: Regular S1 and S2 with no gallop or murmur. ABDOMEN: Soft. EXTREMITIES: No pitting edema. ESTEE BREEN Mar 22, 2016 14:32
--- NOTE | 2016-03-22 15:27 | Infectious Diseases Prog Note ---
Assessment/Plan Problems: (1) HCAP (healthcare-associated pneumonia) Assessment & Plan: with RLL infiltrates, improving on zyvox and meropenem empiric therapy, await blood and sputum culture, screening for influenza is negative (2) Respiratory failure requiring intubation Assessment & Plan: improving, S/P self extubation , due to pneumonia and sepsis , pulmonary is following (3) Septic shock Assessment & Plan: due to pneumonia, complicated with organs failure, will start wide spectrum antibiotics , and send blood culture (4) Elevated transaminase level Assessment & Plan: suspect liver shock due to sepsis , avoid hepatotoxic meds, monitor LFT, screen for hepatitis (5) Renal failure Assessment & Plan: due to sepsis, continue IVF and pressors, to keep SBP >100, nephrology is following (6) Multiple organ system failure Assessment & Plan: due to sepsis (7) ICH (intracerebral hemorrhage) Assessment & Plan: unclear whether he had recent trauma or fall, recommend neurology eval, and surgical consultation Subjective Constitutional: Denies: anorexia, chills, drenching sweats, fatigue, fever, no symptoms, other HEENT: Denies: congestion, coryza, dysphagia, hearing change, no symptoms, other, visual change Respiratory: Reports: dry cough Cardiovascular: Denies: chest pain, dyspnea on exertion, no symptoms, other, palpitations Gastrointestinal/Abdominal: Reports: constipation Genitourinary: Denies: dysuria, frequency, hematuria, no symptoms, nocturia, other Neurologic: Reports: confusion, weakness Allergies: Coded Allergies: PENICILLINS (Verified Allergy, Unknown, 03/19/16) SULFA (SULFONAMIDE ANTIBIOTICS) (Verified Allergy, Unknown, 03/19/16) Subjective more awake and alert, family st the bedside Objective Vital Signs Last 24 Hour Vital Signs Date Time Temp Pulse Resp B/P Pulse Ox O2 Delivery O2 Flow Rate FiO2 03/22/16 12:08 98.1 61 20 142/78 96 Nasal Cannula 2.0 03/22/16 12:00 59 03/22/16 09:10 72 178/80 03/22/16 08:36 72 03/22/16 08:05 97.2 72 20 178/80 98 Nasal Cannula 2.0 03/22/16 08:00 69 03/22/16 07:37 Nasal Cannula 3.0 03/22/16 07:34 96 Nasal Cannula 3.0 03/22/16 07:32 73 16 Nasal Cannula 3.0 03/22/16 04:00 60 03/22/16 04:00 97.6 64 16 145/90 97 Nasal Cannula 03/22/16 00:00 63 03/22/16 00:00 98.0 59 18 143/74 95 Room Air 03/21/16 21:20 87 124/63 03/21/16 20:00 95.9 87 19 124/63 95 Room Air 03/21/16 19:40 70 18 Nasal Cannula 3.0 32 03/21/16 19:40 98 Nasal Cannula 3.0 32 03/21/16 19:40 Nasal Cannula 3.0 32 03/21/16 19:02 76 03/21/16 16:00 60 03/21/16 16:00 97.7 65 19 150/75 Nasal Cannula 2.0 93 Height (Feet): 5 Height (Inches): 9.00 Weight (Pounds): 140 General Appearance: WD/WN, no acute distress HEENT: normocephalic, atraumatic, anicteric, mucous membranes moist Respiratory/Chest: chest wall non-tender, no respiratory distress, no accessory muscle use, decreased breath sounds, crackles/rales Cardiovascular: normal peripheral pulses, normal rate, regular rhythm, no gallop/murmur Abdomen: normal bowel sounds, soft, non tender, no organomegaly, non distended , no mass Extremities: no cyanosis, no clubbing Skin: no rash, no lesions Laboratory Tests Test 03/22/16 06:15 03/22/16 07:35 White Blood Count 14.3 K/UL (4.8-10.8) H Red Blood Count 4.70 M/UL (4.70-6.10) Hemoglobin 14.4 G/DL (14.2-18.0) Hematocrit 43.1 % (42.0-52.0) Mean Corpuscular Volume 92 FL (80-99) Mean Corpuscular Hemoglobin 30.6 PG (27.0-31.0) Mean Corpuscular Hemoglobin Concent 33.4 G/DL (32.0-36.0) Red Cell Distribution Width 12.3 % (11.6-14.8) Platelet Count 154 K/UL (150-450) Mean Platelet Volume 9.5 FL (6.5-10.1) Neutrophils (%) (Auto) % (45.0-75.0) Lymphocytes (%) (Auto) % (20.0-45.0) Monocytes (%) (Auto) % (1.0-10.0) Eosinophils (%) (Auto) % (0.0-3.0) Basophils (%) (Auto) % (0.0-2.0) Differential Total Cells Counted 100 Neutrophils % (Manual) 86 % (45-75) H Lymphocytes % (Manual) 9 % (20-45) L Monocytes % (Manual) 5 % (1-10) Eosinophils % (Manual) 0 % (0-3) Basophils % (Manual) 0 % (0-2) Band Neutrophils 0 % (0-8) Platelet Estimate Adequate Platelet Morphology Normal Red Blood Cell Morphology Normal Sodium Level 146 mEQ/L (135-145) H Potassium Level 3.0 mEQ/L (3.4-4.9) L Chloride Level 104 mEQ/L (98-107) Carbon Dioxide Level 29 mEQ/L (20-30) Anion Gap 13 (5-15) Blood Urea Nitrogen 23 mg/dL (7-23) # Creatinine 0.7 mg/dL (0.7-1.2) Estimat Glomerular Filtration Rate mL/min (>60) Glucose Level 132 mg/dL (74-106) H Uric Acid 5.3 mg/dL (3.0-7.5) Calcium Level 8.4 mg/dL (8.6-10.2) L Phosphorus Level 2.5 mg/dL (2.5-4.8) Magnesium Level 1.8 mg/dL (1.7-2.5) Total Bilirubin 0.9 mg/dL (0.0-1.2) Gamma Glutamyl Transpeptidase 13 U/L (8-61) Aspartate Amino Transf (AST/SGOT) 105 U/L (5-40) H Alanine Aminotransferase (ALT/SGPT) 130 U/L (3-41) H Alkaline Phosphatase 91 U/L (40-129) C-Reactive Protein, Quantitative 6.3 mg/dL (< 0.5) H Pro-B-Type Natriuretic Peptide 3030 pg/mL (0-450) H Total Protein 5.7 g/dL (6.6-8.7) L Albumin 2.7 g/dL (3.5-5.2) L Globulin 3.0 g/dL Albumin/Globulin Ratio 0.9 (1.0-2.7) L Digoxin Level 0.7 ng/mL (0.5-2.0) Arterial Blood pH 7.530 (7.350-7.450) Arterial Blood Partial Pressure CO2 33.0 mmHg (35.0-45.0) L Arterial Blood Partial Pressure O2 67.5 mmHg (75.0-100.0) L Arterial Blood HCO3 27.3 mmol/L (22.0-26.0) H Arterial Blood Oxygen Saturation 94.5 % (92.0-98.0) Arterial Blood Base Excess 5.1 Vicente Test Positive Current Medications Medications (Trade) Dose Ordered Sig/Lovely Route PRN Reason Start Time Stop Time Status Last Admin Dose Admin Acetaminophen (Tylenol) 650 mg Q4H PRN ORAL T>100.5 03/21/16 14:00 04/20/16 13:59 Albuterol/ Ipratropium (DuoNeb 0.5-3(2.5)mg/3ml) 3 ml Q4H PRN HHN Shortness of Breath 03/21/16 14:00 03/26/16 13:59 Dextrose/ Electrolytes 1,000 ml @ 50 mls/hr Q20H IV 03/21/16 14:30 04/20/16 14:29 03/22/16 08:35 Heparin Sodium (Porcine) (Heparin 5000 units/ml) 5,000 units EVERY 12 HOURS SUBQ 03/21/16 21:00 04/20/16 20:59 03/22/16 08:37 Linezolid (Zyvox) 300 ml @ 300 mls/hr Q12HR@0500,1700 IVPB 03/21/16 17:00 03/28/16 16:59 03/22/16 04:49 Lorazepam (Ativan 2mg/ml 1ml) 2 mg Q2H PRN IV For Anxiety 03/21/16 14:00 03/28/16 13:59 Meropenem/Sodium Chloride (Merrem/Sodium Chloride) 110 ml @ 220 mls/hr Q12HR IVPB 03/22/16 21:00 03/27/16 20:59 Metoprolol Tartrate 5 mg 5 mg EVERY 12 HOURS IVP 03/21/16 21:00 04/20/16 20:59 03/22/16 09:10 Morphine Sulfate (Morphine Sulfate) 4 mg Q4H PRN IVP Severe Pain (Pain Scale 7-10) 03/21/16 14:00 03/28/16 13:59 Ondansetron HCl (Zofran) 4 mg Q6H PRN IVP Nausea & Vomiting 03/21/16 14:00 04/20/16 13:59 Polyethylene Glycol (Miralax) 17 gm DAILYPRN PRN ORAL Constipation 03/21/16 14:00 04/20/16 13:59 Chantell Vera M.D. Mar 22, 2016 15:27
[2016-03-22 16:14] VITALS: BP 154/88
--- NOTE | 2016-03-22 16:21 | General Progress Note ---
Assessment/Plan Assessment/Plan Assessment: # Leukocytosis - is likely related to medication v underlying infection # Erythrocytosis was likely related to dehydration # Healthcare-acquired pneumonia with right lower lobe infiltrate. On abx # Respiratory failure, required intubation. on a mechanical ventilator-->self- extubated # Septic shock due to pneumonia # Multiorgan system failure # Elevated transaminase level due to the sepsis and liver shock. # Dehydration due to poor oral intake. # Acute renal failure due to sepsis. Recommendations: - Monitor counts - Peripheral smear reviewed - Followup on ID, pulm, nephro recs - Abx as needed - DVT ppx with SCDs - GI ppx as needed - Vasopressor support - JAK2 pending - DW Staff Thank you, Tyrone Keller MD Subjective Constitutional: Reports: no symptoms HEENT: Reports: no symptoms Cardiovascular: Reports: no symptoms Respiratory: Reports: no symptoms Gastrointestinal/Abdominal: Reports: no symptoms Genitourinary: Reports: no symptoms Neurologic/Psychiatric: Reports: no symptoms Endocrine: Reports: no symptoms Hematologic/Lymphatic: Reports: no symptoms Allergies: Coded Allergies: PENICILLINS (Verified Allergy, Unknown, 03/19/16) SULFA (SULFONAMIDE ANTIBIOTICS) (Verified Allergy, Unknown, 03/19/16) Objective Last 24 Hour Vital Signs Date Time Temp Pulse Resp B/P Pulse Ox O2 Delivery O2 Flow Rate FiO2 03/22/16 12:08 98.1 61 20 142/78 96 Nasal Cannula 2.0 03/22/16 12:00 59 03/22/16 09:10 72 178/80 03/22/16 08:36 72 03/22/16 08:05 97.2 72 20 178/80 98 Nasal Cannula 2.0 03/22/16 08:00 69 03/22/16 07:37 Nasal Cannula 3.0 03/22/16 07:34 96 Nasal Cannula 3.0 03/22/16 07:32 73 16 Nasal Cannula 3.0 03/22/16 04:00 60 03/22/16 04:00 97.6 64 16 145/90 97 Nasal Cannula 03/22/16 00:00 63 03/22/16 00:00 98.0 59 18 143/74 95 Room Air 03/21/16 21:20 87 124/63 03/21/16 20:00 95.9 87 19 124/63 95 Room Air 03/21/16 19:40 70 18 Nasal Cannula 3.0 32 03/21/16 19:40 98 Nasal Cannula 3.0 32 03/21/16 19:40 Nasal Cannula 3.0 32 03/21/16 19:02 76 Intake and Output 03/21/16 03/22/16 19:00 07:00 Intake Total 255 ml 1695 ml Output Total 817 ml 400 ml Balance -562 ml 1295 ml Intake IV Total 255 ml 1695 ml Output Urine Total 815 ml 400 ml Stool Total 2 ml # Bowel Movements 20 2 Laboratory Tests 03/22/16 06:15: White Blood Count 14.3H, Red Blood Count 4.70, Hemoglobin 14.4, Hematocrit 43.1 , Mean Corpuscular Volume 92, Mean Corpuscular Hemoglobin 30.6, Mean Corpuscular Hemoglobin Concent 33.4, Red Cell Distribution Width 12.3, Platelet Count 154, Mean Platelet Volume 9.5, Neutrophils (%) (Auto) , Lymphocytes (%) ( Auto) , Monocytes (%) (Auto) , Eosinophils (%) (Auto) , Basophils (%) (Auto) , Differential Total Cells Counted 100, Neutrophils % (Manual) 86H, Lymphocytes % (Manual) 9L, Monocytes % (Manual) 5, Eosinophils % (Manual) 0, Basophils % ( Manual) 0, Band Neutrophils 0, Platelet Estimate Adequate, Platelet Morphology Normal, Red Blood Cell Morphology Normal, Sodium Level 146H, Potassium Level 3.0L, Chloride Level 104, Carbon Dioxide Level 29, Anion Gap 13, Blood Urea Nitrogen 23#, Creatinine 0.7, Estimat Glomerular Filtration Rate , Glucose Level 132H, Uric Acid 5.3, Calcium Level 8.4L, Phosphorus Level 2.5, Magnesium Level 1.8, Total Bilirubin 0.9, Gamma Glutamyl Transpeptidase 13, Aspartate Amino Transf (AST/SGOT) 105H, Alanine Aminotransferase (ALT/SGPT) 130H, Alkaline Phosphatase 91, C-Reactive Protein, Quantitative 6.3H, Pro-B-Type Natriuretic Peptide 3030H, Total Protein 5.7L, Albumin 2.7L, Globulin 3.0, Albumin/Globulin Ratio 0.9L, Digoxin Level 0.7 03/22/16 07:35: Arterial Blood pH 7.530H, Arterial Blood Partial Pressure CO2 33.0L, Arterial Blood Partial Pressure O2 67.5L, Arterial Blood HCO3 27.3H, Arterial Blood Oxygen Saturation 94.5, Arterial Blood Base Excess 5.1, Vicente Test Positive Height (Feet): 5 Height (Inches): 9.00 Weight (Pounds): 140 General Appearance: no apparent distress EENT: normal ENT inspection Neck: normal alignment Cardiovascular: regular rhythm Respiratory/Chest: normal breath sounds Abdomen: soft Genitourinary/Rectal: normal rectal exam Edema: no edema noted Arm (L), no edema noted Arm (R), no edema noted Leg (L), no edema noted Leg (R), no edema noted Pedal (L), no edema noted Pedal (R), no edema noted Generalized Edema: mild edema Neurologic: oriented x 3 Skin: warm/dry Lymphatic: normal anterior cervical (L), normal anterior cervical (R), normal axillary (L), normal axillary (R), normal inguinal (L), normal inguinal (R), normal other, normal posterior cervical (L), normal posterior cervical (R), normal submandibular (L), normal submandibular (R), normal supraclavicular (L), normal supraclavicular (R) TYRONE KELLER Mar 22, 2016 16:21
--- NOTE | 2016-03-22 19:33 | General Progress Note ---
Assessment/Plan Assessment/Plan Assessment - Malnutrition - cachexia - dysphagia - dehydration , low phos - PNA - Large HH --> difficult NGT placement Recommendations - Hold po diet - video swallow Thursday - May need PEG, if fails swallow - Abx - IVF - replace lytes - per renal Subjective Allergies: Coded Allergies: PENICILLINS (Verified Allergy, Unknown, 03/19/16) SULFA (SULFONAMIDE ANTIBIOTICS) (Verified Allergy, Unknown, 03/19/16) Subjective non interactive video swallow scheduled for Thursday discussed with DTR at bedside Objective Last 24 Hour Vital Signs Date Time Temp Pulse Resp B/P Pulse Ox O2 Delivery O2 Flow Rate FiO2 03/22/16 16:14 98.2 63 20 154/88 97 Nasal Cannula 2.0 03/22/16 12:08 98.1 61 20 142/78 96 Nasal Cannula 2.0 03/22/16 12:00 59 03/22/16 09:10 72 178/80 03/22/16 08:36 72 03/22/16 08:05 97.2 72 20 178/80 98 Nasal Cannula 2.0 03/22/16 08:00 69 03/22/16 07:37 Nasal Cannula 3.0 03/22/16 07:34 96 Nasal Cannula 3.0 03/22/16 07:32 73 16 Nasal Cannula 3.0 03/22/16 04:00 60 03/22/16 04:00 97.6 64 16 145/90 97 Nasal Cannula 03/22/16 00:00 63 03/22/16 00:00 98.0 59 18 143/74 95 Room Air 03/21/16 21:20 87 124/63 03/21/16 20:00 95.9 87 19 124/63 95 Room Air 03/21/16 19:40 70 18 Nasal Cannula 3.0 32 03/21/16 19:40 98 Nasal Cannula 3.0 32 03/21/16 19:40 Nasal Cannula 3.0 32 Intake and Output 03/21/16 03/22/16 19:00 07:00 Intake Total 255 ml 1695 ml Output Total 817 ml 400 ml Balance -562 ml 1295 ml Intake IV Total 255 ml 1695 ml Output Urine Total 815 ml 400 ml Stool Total 2 ml # Bowel Movements 20 2 Laboratory Tests 03/22/16 06:15: White Blood Count 14.3H, Red Blood Count 4.70, Hemoglobin 14.4, Hematocrit 43.1 , Mean Corpuscular Volume 92, Mean Corpuscular Hemoglobin 30.6, Mean Corpuscular Hemoglobin Concent 33.4, Red Cell Distribution Width 12.3, Platelet Count 154, Mean Platelet Volume 9.5, Neutrophils (%) (Auto) , Lymphocytes (%) ( Auto) , Monocytes (%) (Auto) , Eosinophils (%) (Auto) , Basophils (%) (Auto) , Differential Total Cells Counted 100, Neutrophils % (Manual) 86H, Lymphocytes % (Manual) 9L, Monocytes % (Manual) 5, Eosinophils % (Manual) 0, Basophils % ( Manual) 0, Band Neutrophils 0, Platelet Estimate Adequate, Platelet Morphology Normal, Red Blood Cell Morphology Normal, Sodium Level 146H, Potassium Level 3.0L, Chloride Level 104, Carbon Dioxide Level 29, Anion Gap 13, Blood Urea Nitrogen 23#, Creatinine 0.7, Estimat Glomerular Filtration Rate , Glucose Level 132H, Uric Acid 5.3, Calcium Level 8.4L, Phosphorus Level 2.5, Magnesium Level 1.8, Total Bilirubin 0.9, Gamma Glutamyl Transpeptidase 13, Aspartate Amino Transf (AST/SGOT) 105H, Alanine Aminotransferase (ALT/SGPT) 130H, Alkaline Phosphatase 91, C-Reactive Protein, Quantitative 6.3H, Pro-B-Type Natriuretic Peptide 3030H, Total Protein 5.7L, Albumin 2.7L, Globulin 3.0, Albumin/Globulin Ratio 0.9L, Digoxin Level 0.7 03/22/16 07:35: Arterial Blood pH 7.530H, Arterial Blood Partial Pressure CO2 33.0L, Arterial Blood Partial Pressure O2 67.5L, Arterial Blood HCO3 27.3H, Arterial Blood Oxygen Saturation 94.5, Arterial Blood Base Excess 5.1, Vicente Test Positive Height (Feet): 5 Height (Inches): 9.00 Weight (Pounds): 140 Objective Thin WM NCAT supple CTA RRR Soft NT ND No edema OBS MAHNAZ GRIMES Mar 22, 2016 19:33
[2016-03-22 20:00] VITALS: BP 159/94
[2016-03-22] MEDS: Meropenem 1gm in NS 110ml IVPB SCH (20:56)
[2016-03-23] VITALS: BP 163/83
[2016-03-23 04:25] VITALS: BP 146/90
[2016-03-23] MEDS: D5W w/KCl 20mEq 1,000 ML IV SCH (05:31)
[2016-03-23 08:08] VITALS: BP 117/76
[2016-03-23] MEDS: Meropenem 1gm in NS 110ml IVPB SCH ×2 (08:24→21:00)
[2016-03-23] MEDS: Metoprolol 5mg/5ml Inj IVP SCH ×2 (08:24→20:15)
[2016-03-23] MEDS: Heparin 5000 units/ml inj SUBQ SCH ×2 (08:26→23:05)
[2016-03-23 11:29] VITALS: BP 144/71
--- NOTE | 2016-03-23 13:00 | General Progress Note ---
Assessment/Plan Assessment/Plan Assessment: # Leukocytosis - is likely related to medication v underlying infection, better # Erythrocytosis was likely related to dehydration # Healthcare-acquired pneumonia with right lower lobe infiltrate. On abx # Respiratory failure, required intubation. on a mechanical ventilator-->self- extubated # Septic shock due to pna # Multiorgan system failure # Elevated transaminase level due to the sepsis and liver shock. # Dehydration due to poor oral intake. # Acute renal failure due to sepsis. Recommendations: - Monitor counts - Peripheral smear reviewed - Followup on ID, pulm, nephro recs - Abx as needed - DVT ppx with SCDs - GI ppx as needed - Now in tele, transferred out of ICU - JAK2 pending - Staff Thank you, Jarod Keller MD Subjective Constitutional: Reports: no symptoms HEENT: Reports: no symptoms Cardiovascular: Reports: no symptoms Respiratory: Reports: no symptoms Gastrointestinal/Abdominal: Reports: poor appetite Genitourinary: Reports: no symptoms Neurologic/Psychiatric: Reports: no symptoms Endocrine: Reports: no symptoms Hematologic/Lymphatic: Reports: anemia Allergies: Coded Allergies: PENICILLINS (Verified Allergy, Unknown, 03/19/16) SULFA (SULFONAMIDE ANTIBIOTICS) (Verified Allergy, Unknown, 03/19/16) Subjective no events overnight, in tele now, cbc better Objective Last 24 Hour Vital Signs Date Time Temp Pulse Resp B/P Pulse Ox O2 Delivery O2 Flow Rate FiO2 03/23/16 11:29 97.9 53 20 144/71 94 Nasal Cannula 2.0 03/23/16 08:24 63 117/76 03/23/16 08:08 98.1 63 20 117/76 94 Nasal Cannula 2.0 03/23/16 08:00 63 03/23/16 07:51 97 Nasal Cannula 3.0 32 03/23/16 07:51 69 16 Nasal Cannula 3.0 32 03/23/16 07:51 Nasal Cannula 3.0 32 03/23/16 04:25 97.0 92 20 146/90 94 Nasal Cannula 2.0 03/23/16 04:00 63 03/23/16 00:00 61 03/23/16 00:00 97.6 60 20 163/83 92 Room Air 03/22/16 20:30 97 Nasal Cannula 3.0 32 03/22/16 20:30 63 16 Nasal Cannula 3.0 32 03/22/16 20:30 Nasal Cannula 3.0 32 03/22/16 20:00 97.9 67 20 159/94 94 03/22/16 16:14 98.2 63 20 154/88 97 Nasal Cannula 2.0 03/22/16 16:00 63 Intake and Output 03/22/16 03/23/16 19:00 07:00 Intake Total 1590 ml 1045 ml Output Total 450 ml Balance 1140 ml 1045 ml Intake IV Total 1590 ml 1045 ml Output Urine Total 450 ml # Bowel Movements 1 Height (Feet): 5 Height (Inches): 9.00 Weight (Pounds): 140 General Appearance: no apparent distress EENT: TMs normal Neck: supple Cardiovascular: regular rhythm Respiratory/Chest: normal breath sounds Abdomen: no organomegaly Extremities: non-tender Edema: 1+ Arm (L), 1+ Arm (R), 1+ Leg (L), 1+ Leg (R) Edema: mild edema Neurologic: alert Skin: warm/dry Jarod Keller Mar 23, 2016 13:00
--- NOTE | 2016-03-23 13:17 | Pulmonology Progress Note ---
Assessment/Plan Problems: (1) Respiratory failure requiring intubation (2) Pneumonia (3) Atrial fibrillation (4) Hypertension (5) Septic shock (6) Dehydration Assessment/Plan improving bc negative no sputum yet, ordered induction again npo swallow study pending in and out of Afib on digoxin keep in teli Subjective ROS Limited/Unobtainable: No Interval Events: rhythym is sinus now, but was rapid afib earlier this morning Constitutional: Reports: no symptoms HEENT: Repors: no symptoms Allergies: Coded Allergies: PENICILLINS (Verified Allergy, Unknown, 03/19/16) SULFA (SULFONAMIDE ANTIBIOTICS) (Verified Allergy, Unknown, 03/19/16) Objective Last 24 Hour Vital Signs Date Time Temp Pulse Resp B/P Pulse Ox O2 Delivery O2 Flow Rate FiO2 03/23/16 11:29 97.9 53 20 144/71 94 Nasal Cannula 2.0 03/23/16 08:24 63 117/76 03/23/16 08:08 98.1 63 20 117/76 94 Nasal Cannula 2.0 03/23/16 08:00 63 03/23/16 07:51 97 Nasal Cannula 3.0 32 03/23/16 07:51 69 16 Nasal Cannula 3.0 32 03/23/16 07:51 Nasal Cannula 3.0 32 03/23/16 04:25 97.0 92 20 146/90 94 Nasal Cannula 2.0 03/23/16 04:00 63 03/23/16 00:00 61 03/23/16 00:00 97.6 60 20 163/83 92 Room Air 03/22/16 20:30 97 Nasal Cannula 3.0 32 03/22/16 20:30 63 16 Nasal Cannula 3.0 32 03/22/16 20:30 Nasal Cannula 3.0 32 03/22/16 20:00 97.9 67 20 159/94 94 03/22/16 16:14 98.2 63 20 154/88 97 Nasal Cannula 2.0 03/22/16 16:00 63 Intake and Output 03/22/16 03/23/16 19:00 07:00 Intake Total 1590 ml 1045 ml Output Total 450 ml Balance 1140 ml 1045 ml Intake IV Total 1590 ml 1045 ml Output Urine Total 450 ml # Bowel Movements 1 General Appearance: WD/WN HEENT: normocephalic, atraumatic Respiratory/Chest: chest wall non-tender, lungs clear Cardiovascular: normal peripheral pulses, normal rate Abdomen: normal bowel sounds, no organomegaly Genitourinary: normal external genitalia Extremities: no cyanosis Skin: no rash 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, no motor/sensory deficits Lymphatic: no neck adenopathy Current Medications Medications (Trade) Dose Ordered Sig/Lovely Route PRN Reason Start Time Stop Time Status Last Admin Dose Admin Acetaminophen (Tylenol) 650 mg Q4H PRN ORAL T>100.5 03/21/16 14:00 04/20/16 13:59 Albuterol/ Ipratropium (DuoNeb 0.5-3(2.5)mg/3ml) 3 ml Q4H PRN HHN Shortness of Breath 03/21/16 14:00 03/26/16 13:59 Dextrose/ Electrolytes 1,000 ml @ 50 mls/hr Q20H IV 03/21/16 14:30 04/20/16 14:29 03/23/16 05:31 Heparin Sodium (Porcine) (Heparin 5000 units/ml) 5,000 units EVERY 12 HOURS SUBQ 03/21/16 21:00 04/20/16 20:59 03/23/16 08:26 Hydralazine HCl (Apresoline) 10 mg Q4H PRN IV For High Blood Pressure 03/22/16 21:30 04/21/16 21:29 Linezolid (Zyvox) 300 ml @ 300 mls/hr Q12HR@0500,1700 IVPB 03/21/16 17:00 03/28/16 16:59 03/23/16 04:46 Lorazepam (Ativan 2mg/ml 1ml) 2 mg Q2H PRN IV For Anxiety 03/21/16 14:00 03/28/16 13:59 Meropenem/Sodium Chloride (Merrem/Sodium Chloride) 110 ml @ 220 mls/hr Q12HR IVPB 03/22/16 21:00 03/27/16 20:59 03/23/16 08:24 Metoprolol Tartrate 5 mg 5 mg EVERY 12 HOURS IVP 03/21/16 21:00 04/20/16 20:59 03/23/16 08:24 Morphine Sulfate (Morphine Sulfate) 4 mg Q4H PRN IVP Severe Pain (Pain Scale 7-10) 03/21/16 14:00 03/28/16 13:59 Ondansetron HCl (Zofran) 4 mg Q6H PRN IVP Nausea & Vomiting 03/21/16 14:00 04/20/16 13:59 Polyethylene Glycol (Miralax) 17 gm DAILYPRN PRN ORAL Constipation 03/21/16 14:00 04/20/16 13:59 CAROLINA TORREZ Mar 23, 2016 13:17
--- NOTE | 2016-03-23 14:12 | General Progress Note ---
Assessment/Plan Status: stable Assessment/Plan Status; - Acute Renal Failure- improved - Septic shock - Dehydration - Pneumonia - Multiple organ system failure - HCAP (healthcare-associated pneumonia) Plan: no labs today K supplement- Lower Hydrate- D5W Antibiotics- Monitor renal parameters- Avoid nephrotoxics urine studies per consultants- Subjective ROS Limited/Unobtainable: No Constitutional: Reports: malaise Allergies: Coded Allergies: PENICILLINS (Verified Allergy, Unknown, 03/19/16) SULFA (SULFONAMIDE ANTIBIOTICS) (Verified Allergy, Unknown, 03/19/16) Objective Last 24 Hour Vital Signs Date Time Temp Pulse Resp B/P Pulse Ox O2 Delivery O2 Flow Rate FiO2 03/23/16 12:00 60 03/23/16 11:29 97.9 53 20 144/71 94 Nasal Cannula 2.0 03/23/16 08:24 63 117/76 03/23/16 08:08 98.1 63 20 117/76 94 Nasal Cannula 2.0 03/23/16 08:00 63 03/23/16 07:51 97 Nasal Cannula 3.0 32 03/23/16 07:51 69 16 Nasal Cannula 3.0 32 03/23/16 07:51 Nasal Cannula 3.0 32 03/23/16 04:25 97.0 92 20 146/90 94 Nasal Cannula 2.0 03/23/16 04:00 63 03/23/16 00:00 61 03/23/16 00:00 97.6 60 20 163/83 92 Room Air 03/22/16 20:30 97 Nasal Cannula 3.0 32 03/22/16 20:30 63 16 Nasal Cannula 3.0 32 03/22/16 20:30 Nasal Cannula 3.0 32 03/22/16 20:00 97.9 67 20 159/94 94 03/22/16 16:14 98.2 63 20 154/88 97 Nasal Cannula 2.0 03/22/16 16:00 63 Intake and Output 03/22/16 03/23/16 19:00 07:00 Intake Total 1590 ml 1045 ml Output Total 450 ml Balance 1140 ml 1045 ml Intake IV Total 1590 ml 1045 ml Output Urine Total 450 ml # Bowel Movements 1 Height (Feet): 5 Height (Inches): 9.00 Weight (Pounds): 140 General Appearance: no apparent distress Objective physical exam not changed FOULADIAN,CLINT Mar 23, 2016 14:12
--- NOTE | 2016-03-23 15:25 | General Progress Note ---
Assessment/Plan Assessment/Plan Assessment - Malnutrition - cachexia - dysphagia - dehydration , low phos - PNA - Large HH --> difficult NGT placement Recommendations - Hold po diet - video swallow Thursday - May need PEG, if fails swallow - Abx - IVF - replace lytes - per renal Subjective Allergies: Coded Allergies: PENICILLINS (Verified Allergy, Unknown, 03/19/16) SULFA (SULFONAMIDE ANTIBIOTICS) (Verified Allergy, Unknown, 03/19/16) Subjective non interactive video swallow scheduled for Thursday Objective Last 24 Hour Vital Signs Date Time Temp Pulse Resp B/P Pulse Ox O2 Delivery O2 Flow Rate FiO2 03/23/16 12:00 60 03/23/16 11:29 97.9 53 20 144/71 94 Nasal Cannula 2.0 03/23/16 08:24 63 117/76 03/23/16 08:08 98.1 63 20 117/76 94 Nasal Cannula 2.0 03/23/16 08:00 63 03/23/16 07:51 97 Nasal Cannula 3.0 32 03/23/16 07:51 69 16 Nasal Cannula 3.0 32 03/23/16 07:51 Nasal Cannula 3.0 32 03/23/16 04:25 97.0 92 20 146/90 94 Nasal Cannula 2.0 03/23/16 04:00 63 03/23/16 00:00 61 03/23/16 00:00 97.6 60 20 163/83 92 Room Air 03/22/16 20:30 97 Nasal Cannula 3.0 32 03/22/16 20:30 63 16 Nasal Cannula 3.0 32 03/22/16 20:30 Nasal Cannula 3.0 32 03/22/16 20:00 97.9 67 20 159/94 94 03/22/16 16:14 98.2 63 20 154/88 97 Nasal Cannula 2.0 03/22/16 16:00 63 Intake and Output 03/22/16 03/23/16 19:00 07:00 Intake Total 1590 ml 1045 ml Output Total 450 ml Balance 1140 ml 1045 ml Intake IV Total 1590 ml 1045 ml Output Urine Total 450 ml # Bowel Movements 1 Height (Feet): 5 Height (Inches): 9.00 Weight (Pounds): 140 Objective Thin WM NCAT supple CTA RRR Soft NT ND No edema OBS MAHNAZ GRIMES Mar 23, 2016 15:25
[2016-03-23 16:31] VITALS: BP 151/78
[2016-03-23] MEDS ORDERED: Tubing IV Secondary IV ONE ×2 (17:42→22:29)
[2016-03-23 20:00] VITALS: BP 154/79
[2016-03-23] MEDS ORDERED: NS 275ml ONE (22:29)
[2016-03-24 00:05] VITALS: BP 137/77
[2016-03-24] MEDS: D5W w/KCl 20mEq 1,000 ML IV SCH ×2 (02:31→22:29)
[2016-03-24 04:10] VITALS: BP 147/77
[2016-03-24 08:00] VITALS: BP 152/75
[2016-03-24 08:21] LABS: MEAN CORPUSCULAR HEMOGLOBIN 30.4 PG (27.0-31.0); MEAN CORPUSCULAR HGB CONC 33.5 G/DL (32.0-36.0); MEAN CORPUSCULAR VOLUME 91 FL (80-99); MEAN PLATELET VOLUME 8.3 FL (6.5-10.1); PLATELET COUNT 158 K/UL (150-450); RED BLOOD COUNT 4.94 M/UL (4.70-6.10); RED CELL DISTRIBUTION WIDTH 12.2 % (11.6-14.8); WHITE BLOOD COUNT 14.3 K/UL (4.8-10.8)
[2016-03-24] MEDS: Meropenem 1gm in NS 110ml IVPB SCH ×2 (08:31→22:29)
[2016-03-24] MEDS: Metoprolol 5mg/5ml Inj IVP SCH ×2 (08:35→22:29)
[2016-03-24] MEDS: Heparin 5000 units/ml inj SUBQ SCH ×2 (08:37→22:34)
[2016-03-24 08:39] LABS: ALANINE AMINOTRANSFERASE 70 U/L (3-41); ALBUMIN/GLOBULIN RATIO 0.7 (1.0-2.7); ANION GAP 14 (5-15); ASPARTATE AMINO TRANSFERASE 56 U/L (5-40); CALCIUM 8.4 mg/dL (8.6-10.2); CARBON DIOXIDE 28 mEQ/L (20-30); CHLORIDE 97 mEQ/L (98-107); CREATININE 0.6 mg/dL (0.7-1.2); HEMOLYSIS 7; MAGNESIUM 1.7 mg/dL (1.7-2.5); PHOSPHORUS 1.8 mg/dL (2.5-4.8); POTASSIUM 3.5 mEQ/L (3.4-4.9); SODIUM 139 mEQ/L (135-145); TOTAL PROTEIN 6.1 g/dL (6.6-8.7); URIC ACID 3.2 mg/dL (3.0-7.5)
[2016-03-24] MEDS: Morphine Sulfate 4mg/ml Inj IVP PRN (08:50)
[2016-03-24 09:36] LABS: BILIRUBIN,DIRECT 0.2 mg/dL (0.1-0.3)
--- NOTE | 2016-03-24 10:59 | General Progress Note ---
Assessment/Plan Assessment/Plan Assessment: # Leukocytosis - is likely related to medication v underlying infection, improved # Erythrocytosis was likely related to dehydration # Healthcare-acquired pneumonia with right lower lobe infiltrate. On abx # Respiratory failure, required intubation. on a mechanical ventilator --> self- extubated # Septic shock due to pna # Multiorgan system failure # Elevated transaminase level due to the sepsis and liver shock. # Dehydration due to poor oral intake. # Acute renal failure due to sepsis. Recommendations: - Monitor counts - Peripheral smear reviewed - Followup on ID, pulm, nephro recs - Abx as needed - DVT ppx with SCDs - GI ppx as needed - JAK2 pending - DW Staff Thank you, Jarod Keller MD Subjective Constitutional: Reports: no symptoms HEENT: Reports: no symptoms Cardiovascular: Reports: no symptoms Respiratory: Reports: no symptoms Gastrointestinal/Abdominal: Reports: no symptoms Genitourinary: Reports: no symptoms Neurologic/Psychiatric: Reports: anxiety Endocrine: Reports: no symptoms Hematologic/Lymphatic: Reports: anemia Allergies: Coded Allergies: PENICILLINS (Verified Allergy, Unknown, 03/19/16) SULFA (SULFONAMIDE ANTIBIOTICS) (Verified Allergy, Unknown, 03/19/16) Subjective no events overnight, no bleeding, no hematochezia Objective Last 24 Hour Vital Signs Date Time Temp Pulse Resp B/P Pulse Ox O2 Delivery O2 Flow Rate FiO2 03/24/16 08:35 62 03/24/16 08:00 96.1 64 20 152/75 92 Room Air 03/24/16 06:40 65 18 Nasal Cannula 2.0 28 03/24/16 06:40 95 Nasal Cannula 2.0 28 03/24/16 06:40 Nasal Cannula 2.0 28 03/24/16 04:10 97.0 61 20 147/77 91 Nasal Cannula 2.0 03/24/16 03:55 72 03/24/16 00:13 60 03/24/16 00:05 97.0 64 18 137/77 92 Nasal Cannula 2.0 03/23/16 20:15 59 151/78 03/23/16 20:00 61 03/23/16 20:00 97.0 66 18 154/79 Room Air 94 03/23/16 16:31 98.9 59 20 151/78 97 Nasal Cannula 2.0 03/23/16 16:00 61 03/23/16 12:00 60 03/23/16 11:29 97.9 53 20 144/71 94 Nasal Cannula 2.0 Intake and Output 03/23/16 03/24/16 19:00 07:00 Intake Total 620 ml 450 ml Output Total 700 ml 450 ml Balance -80 ml 0 ml Intake IV Total 620 ml 450 ml Output Urine Total 700 ml 450 ml # Bowel Movements 2 Laboratory Tests 03/24/16 08:05: White Blood Count 14.3H, Red Blood Count 4.94, Hemoglobin 15.0, Hematocrit 44.9 , Mean Corpuscular Volume 91, Mean Corpuscular Hemoglobin 30.4, Mean Corpuscular Hemoglobin Concent 33.5, Red Cell Distribution Width 12.2, Platelet Count 158, Mean Platelet Volume 8.3, Neutrophils (%) (Auto) , Lymphocytes (%) ( Auto) , Monocytes (%) (Auto) , Eosinophils (%) (Auto) , Basophils (%) (Auto) , Neutrophils % (Manual) [Pending], Lymphocytes % (Manual) [Pending], Platelet Estimate [Pending], Platelet Morphology [Pending], Sodium Level 139, Potassium Level 3.5, Chloride Level 97L, Carbon Dioxide Level 28, Anion Gap 14, Blood Urea Nitrogen 11, Creatinine 0.6L, Estimat Glomerular Filtration Rate , Glucose Level 106, Uric Acid 3.2, Calcium Level 8.4L, Phosphorus Level 1.8L, Magnesium Level 1.7, Total Bilirubin 1.2, Direct Bilirubin 0.2, Gamma Glutamyl Transpeptidase 20, Aspartate Amino Transf (AST/SGOT) 56H, Alanine Aminotransferase (ALT/SGPT) 70H, Alkaline Phosphatase 87, Total Creatine Kinase 31L, Total Protein 6.1L, Albumin 2.7L, Globulin 3.4, Albumin/Globulin Ratio 0.7L Height (Feet): 5 Height (Inches): 9.00 Weight (Pounds): 140 General Appearance: no apparent distress EENT: TMs normal Neck: normal alignment Cardiovascular: regular rhythm Respiratory/Chest: lungs clear Abdomen: soft Extremities: non-tender Edema: 1+ Leg (L), 1+ Leg (R) Edema: mild edema Neurologic: alert Skin: warm/dry Jarod Keller Mar 24, 2016 10:59
[2016-03-24] MEDS ORDERED: Potassium Phosphate 30 MM in NS 275 ML IV ONE (11:00)
--- NOTE | 2016-03-24 11:03 | Diagnostic Imaging Report ---
Indication: Chest pain Technique: XRAY CHEST 1 V Comparison: 03/21/16 Findings: Right internal jugular central line is unchanged. Cardiomediastinal silhouette is stable. Mixed perihilar and basilar interstitial and airspace opacities are again noted, right greater than left. Osseous structures are stable. Impression: No significant change from 03/21/16.
--- NOTE | 2016-03-24 11:03 | Cardiology Report ---
APPROVED REPORT EXAM: Two-dimensional and M-mode echocardiogram with Doppler and color Doppler. INDICATION Left ventricular function Technically difficult study due to poor acoustic windows. Limited study due to lack of parasternal and apical windows. M-mode measurements not obtainable due to cardiac structure. Study quality precludes accurate assessment of regional wall motion. Normal left ventricular chamber size, systolic function and wall motion. Left ventricular ejection fraction estimated to be 60-65 % to extend visualized. No evidence of pericardial fat or effusion.
--- NOTE | 2016-03-24 11:25 | General Progress Note ---
Assessment/Plan Status: stable - from renal stand Assessment/Plan Status: - Acute Renal Failure- improved - Septic shock - Dehydration - Pneumonia - Multiple organ system failure - HCAP (healthcare-associated pneumonia) Plan: K & Phos supplement- as needed Lower Hydrate- D5W Antibiotics- Monitor renal parameters- Avoid nephrotoxics urine studies per consultants- Subjective ROS Limited/Unobtainable: No Constitutional: Reports: malaise, weakness Allergies: Coded Allergies: PENICILLINS (Verified Allergy, Unknown, 03/19/16) SULFA (SULFONAMIDE ANTIBIOTICS) (Verified Allergy, Unknown, 03/19/16) Objective Last 24 Hour Vital Signs Date Time Temp Pulse Resp B/P Pulse Ox O2 Delivery O2 Flow Rate FiO2 03/24/16 08:35 62 03/24/16 08:00 96.1 64 20 152/75 92 Room Air 03/24/16 08:00 69 03/24/16 06:40 65 18 Nasal Cannula 2.0 28 03/24/16 06:40 95 Nasal Cannula 2.0 28 03/24/16 06:40 Nasal Cannula 2.0 28 03/24/16 04:10 97.0 61 20 147/77 91 Nasal Cannula 2.0 03/24/16 03:55 72 03/24/16 00:13 60 03/24/16 00:05 97.0 64 18 137/77 92 Nasal Cannula 2.0 03/23/16 20:15 59 151/78 03/23/16 20:00 61 03/23/16 20:00 97.0 66 18 154/79 Room Air 94 03/23/16 16:31 98.9 59 20 151/78 97 Nasal Cannula 2.0 03/23/16 16:00 61 03/23/16 12:00 60 03/23/16 11:29 97.9 53 20 144/71 94 Nasal Cannula 2.0 Intake and Output 03/23/16 03/24/16 19:00 07:00 Intake Total 620 ml 450 ml Output Total 700 ml 450 ml Balance -80 ml 0 ml Intake IV Total 620 ml 450 ml Output Urine Total 700 ml 450 ml # Bowel Movements 2 Laboratory Tests 03/24/16 08:05: White Blood Count 14.3H, Red Blood Count 4.94, Hemoglobin 15.0, Hematocrit 44.9 , Mean Corpuscular Volume 91, Mean Corpuscular Hemoglobin 30.4, Mean Corpuscular Hemoglobin Concent 33.5, Red Cell Distribution Width 12.2, Platelet Count 158, Mean Platelet Volume 8.3, Neutrophils (%) (Auto) , Lymphocytes (%) ( Auto) , Monocytes (%) (Auto) , Eosinophils (%) (Auto) , Basophils (%) (Auto) , Neutrophils % (Manual) [Pending], Lymphocytes % (Manual) [Pending], Platelet Estimate [Pending], Platelet Morphology [Pending], Sodium Level 139, Potassium Level 3.5, Chloride Level 97L, Carbon Dioxide Level 28, Anion Gap 14, Blood Urea Nitrogen 11, Creatinine 0.6L, Estimat Glomerular Filtration Rate , Glucose Level 106, Uric Acid 3.2, Calcium Level 8.4L, Phosphorus Level 1.8L, Magnesium Level 1.7, Total Bilirubin 1.2, Direct Bilirubin 0.2, Gamma Glutamyl Transpeptidase 20, Aspartate Amino Transf (AST/SGOT) 56H, Alanine Aminotransferase (ALT/SGPT) 70H, Alkaline Phosphatase 87, Total Creatine Kinase 31L, Total Protein 6.1L, Albumin 2.7L, Globulin 3.4, Albumin/Globulin Ratio 0.7L Height (Feet): 5 Height (Inches): 9.00 Weight (Pounds): 140 General Appearance: no apparent distress Objective physical exam not changed CLINT CARMEN Mar 24, 2016 11:25
[2016-03-24 12:00] VITALS: BP 108/62
[2016-03-24 12:16] LABS: EOSINOPHILS % (MANUAL) 1 % (0-3); LYMPHOCYTES % (MANUAL) 3 % (20-45); NEUTROPHILS % (MANUAL) 92 % (45-75); TOTAL CELLS COUNTED 100
[2016-03-24 12:17] LABS: BAND NEUTROPHILS % (MANUAL) 0 % (0-8); BASOPHILS % (MANUAL) 0 % (0-2); PLATELET ESTIMATE ADEQUATE; PLATELET MORPHOLOGY NORMAL
--- NOTE | 2016-03-24 12:29 | General Progress Note ---
Assessment/Plan Problem List: (1) Septic shock ICD Codes: A41.9 - Sepsis, unspecified organism; R65.21 - Severe sepsis with septic shock SNOMED: 05649846 (2) Dehydration ICD Codes: E86.0 - Dehydration SNOMED: 96462456 (3) Renal failure ICD Codes: N19 - Unspecified kidney failure; R65.21 - Severe sepsis with septic shock SNOMED: 19818999 (4) Pneumonia ICD Codes: J18.9 - Pneumonia, unspecified organism SNOMED: 397808409 Qualifiers: Qualified Codes: J18.9 - Pneumonia, unspecified organism (5) Multiple organ system failure SNOMED: 91412873 (6) Respiratory failure requiring intubation ICD Codes: J96.90 - Respiratory failure, unspecified, unspecified whether with hypoxia or hypercapnia; R65.21 - Severe sepsis with septic shock SNOMED: 527404307 (7) Elevated transaminase level ICD Codes: R74.0 - Nonspecific elevation of levels of transaminase and lactic acid dehydrogenase [LDH] SNOMED: 597297943, 997405027 Status: progressing Assessment/Plan resp failure pna and sepsis abx per id agitated ordered sitter arf lyte abnormality sepsis uti bph Subjective ROS Limited/Unobtainable: Yes Constitutional: Reports: no symptoms Allergies: Coded Allergies: PENICILLINS (Verified Allergy, Unknown, 03/19/16) SULFA (SULFONAMIDE ANTIBIOTICS) (Verified Allergy, Unknown, 03/19/16) Objective Last 24 Hour Vital Signs Date Time Temp Pulse Resp B/P Pulse Ox O2 Delivery O2 Flow Rate FiO2 03/24/16 08:35 62 03/24/16 08:00 96.1 64 20 152/75 92 Room Air 03/24/16 08:00 69 03/24/16 06:40 65 18 Nasal Cannula 2.0 28 03/24/16 06:40 95 Nasal Cannula 2.0 28 03/24/16 06:40 Nasal Cannula 2.0 28 03/24/16 04:10 97.0 61 20 147/77 91 Nasal Cannula 2.0 03/24/16 03:55 72 03/24/16 00:13 60 03/24/16 00:05 97.0 64 18 137/77 92 Nasal Cannula 2.0 03/23/16 20:15 59 151/78 03/23/16 20:00 61 03/23/16 20:00 97.0 66 18 154/79 Room Air 94 03/23/16 16:31 98.9 59 20 151/78 97 Nasal Cannula 2.0 03/23/16 16:00 61 Intake and Output 03/23/16 03/24/16 19:00 07:00 Intake Total 620 ml 450 ml Output Total 700 ml 450 ml Balance -80 ml 0 ml Intake IV Total 620 ml 450 ml Output Urine Total 700 ml 450 ml # Bowel Movements 2 Laboratory Tests 03/24/16 08:05: White Blood Count 14.3H, Red Blood Count 4.94, Hemoglobin 15.0, Hematocrit 44.9 , Mean Corpuscular Volume 91, Mean Corpuscular Hemoglobin 30.4, Mean Corpuscular Hemoglobin Concent 33.5, Red Cell Distribution Width 12.2, Platelet Count 158, Mean Platelet Volume 8.3, Neutrophils (%) (Auto) , Lymphocytes (%) ( Auto) , Monocytes (%) (Auto) , Eosinophils (%) (Auto) , Basophils (%) (Auto) , Differential Total Cells Counted 100, Neutrophils % (Manual) 92H, Lymphocytes % (Manual) 3L, Monocytes % (Manual) 4, Eosinophils % (Manual) 1, Basophils % ( Manual) 0, Band Neutrophils 0, Platelet Estimate Adequate, Platelet Morphology Normal, Red Blood Cell Morphology Normal, Sodium Level 139, Potassium Level 3.5 , Chloride Level 97L, Carbon Dioxide Level 28, Anion Gap 14, Blood Urea Nitrogen 11, Creatinine 0.6L, Estimat Glomerular Filtration Rate , Glucose Level 106, Uric Acid 3.2, Calcium Level 8.4L, Phosphorus Level 1.8L, Magnesium Level 1.7, Total Bilirubin 1.2, Direct Bilirubin 0.2, Gamma Glutamyl Transpeptidase 20, Aspartate Amino Transf (AST/SGOT) 56H, Alanine Aminotransferase (ALT/SGPT) 70H, Alkaline Phosphatase 87, Total Creatine Kinase 31L, Total Protein 6.1L, Albumin 2.7L, Globulin 3.4, Albumin/Globulin Ratio 0.7L Height (Feet): 5 Height (Inches): 9.00 Weight (Pounds): 140 EENT: PERRL/EOMI Neck: supple Cardiovascular: normal rate Respiratory/Chest: lungs clear Abdomen: soft Nahed Pizarro MD Mar 24, 2016 12:29
--- NOTE | 2016-03-24 12:41 | Cardiology Report ---
APPROVED REPORT EKG Measurement Heart [id number] HI 100P [id number] Sinus tachycardia with short HI with premature atrial complexes Right bundle branch block Marked ST abnormality, possible anterior subendocardial injury Abnormal ECG
--- NOTE | 2016-03-24 13:55 | Cardiac Electrophysiology PN ---
Assessment/Plan Assessment/Plan 1. Troponin elevation , s/p three coronary stents. Follow up troponins were negative. No chest pain. On Betablocker. 2. Septic shock. Off pressors, on broad-spectrum abx 3. Atrial fibrillation with rapid ventricular response. NPO. Continue Lopressor 5 mg iv q12 hr.Echo EF 60-65% 4. Severe dehydration with hypernatremia and azotemia. Better on D5W and KCL. 5. Respiratory failure, on the ventilator.Self extubated. 6. Healthcare-associated pneumonia with right lower lobe infiltrate, on meropenem and Zyvox by Dr. Vera. 7. Elevated transaminase level. 8. Dysphagia. Failed swallow eval and getting Video swallow today pending. HEATHER RN Subjective Subjective Remained in SR in restraint. On iv dig and Metoprolol. Objective Last 24 Hour Vital Signs Date Time Temp Pulse Resp B/P Pulse Ox O2 Delivery O2 Flow Rate FiO2 03/24/16 12:00 98.2 71 16 108/62 95 Room Air 03/24/16 08:35 62 03/24/16 08:00 96.1 64 20 152/75 92 Room Air 03/24/16 08:00 69 03/24/16 06:40 65 18 Nasal Cannula 2.0 28 03/24/16 06:40 95 Nasal Cannula 2.0 28 03/24/16 06:40 Nasal Cannula 2.0 28 03/24/16 04:10 97.0 61 20 147/77 91 Nasal Cannula 2.0 03/24/16 03:55 72 03/24/16 00:13 60 03/24/16 00:05 97.0 64 18 137/77 92 Nasal Cannula 2.0 03/23/16 20:15 59 151/78 03/23/16 20:00 61 03/23/16 20:00 97.0 66 18 154/79 Room Air 94 03/23/16 16:31 98.9 59 20 151/78 97 Nasal Cannula 2.0 03/23/16 16:00 61 Intake and Output 03/23/16 03/24/16 18:59 06:59 Intake Total 670 ml 400 ml Output Total 700 ml 450 ml Balance -30 ml -50 ml Intake IV Total 670 ml 400 ml Output Urine Total 700 ml 450 ml # Bowel Movements 2 Laboratory Tests Test 03/24/16 08:05 White Blood Count 14.3 K/UL (4.8-10.8) H Red Blood Count 4.94 M/UL (4.70-6.10) Hemoglobin 15.0 G/DL (14.2-18.0) Hematocrit 44.9 % (42.0-52.0) Mean Corpuscular Volume 91 FL (80-99) Mean Corpuscular Hemoglobin 30.4 PG (27.0-31.0) Mean Corpuscular Hemoglobin Concent 33.5 G/DL (32.0-36.0) Red Cell Distribution Width 12.2 % (11.6-14.8) Platelet Count 158 K/UL (150-450) Mean Platelet Volume 8.3 FL (6.5-10.1) Neutrophils (%) (Auto) % (45.0-75.0) Lymphocytes (%) (Auto) % (20.0-45.0) Monocytes (%) (Auto) % (1.0-10.0) Eosinophils (%) (Auto) % (0.0-3.0) Basophils (%) (Auto) % (0.0-2.0) Differential Total Cells Counted 100 Neutrophils % (Manual) 92 % (45-75) H Lymphocytes % (Manual) 3 % (20-45) L Monocytes % (Manual) 4 % (1-10) Eosinophils % (Manual) 1 % (0-3) Basophils % (Manual) 0 % (0-2) Band Neutrophils 0 % (0-8) Platelet Estimate Adequate Platelet Morphology Normal Red Blood Cell Morphology Normal Sodium Level 139 mEQ/L (135-145) Potassium Level 3.5 mEQ/L (3.4-4.9) Chloride Level 97 mEQ/L (98-107) L Carbon Dioxide Level 28 mEQ/L (20-30) Anion Gap 14 (5-15) Blood Urea Nitrogen 11 mg/dL (7-23) Creatinine 0.6 mg/dL (0.7-1.2) L Estimat Glomerular Filtration Rate mL/min (>60) Glucose Level 106 mg/dL (74-106) Uric Acid 3.2 mg/dL (3.0-7.5) Calcium Level 8.4 mg/dL (8.6-10.2) L Phosphorus Level 1.8 mg/dL (2.5-4.8) L Magnesium Level 1.7 mg/dL (1.7-2.5) Total Bilirubin 1.2 mg/dL (0.0-1.2) Direct Bilirubin 0.2 mg/dL (0.1-0.3) Gamma Glutamyl Transpeptidase 20 U/L (8-61) Aspartate Amino Transf (AST/SGOT) 56 U/L (5-40) H Alanine Aminotransferase (ALT/SGPT) 70 U/L (3-41) H Alkaline Phosphatase 87 U/L (40-129) Total Creatine Kinase 31 U/L (38-174) L Total Protein 6.1 g/dL (6.6-8.7) L Albumin 2.7 g/dL (3.5-5.2) L Globulin 3.4 g/dL Albumin/Globulin Ratio 0.7 (1.0-2.7) L Objective HEENT: NG tube out. No JVD LUNGS: Coarse rhonchi bilaterally. CARDIOVASCULAR: Regular S1 and S2 with no gallop or murmur. ABDOMEN: Soft. EXTREMITIES: No pitting edema. ESTEE BREEN Mar 24, 2016 13:55
[2016-03-24] MEDS ORDERED: Tubing IV Secondary IV ONE (14:19)
[2016-03-24] MEDS ORDERED: NS 275ml ONE (14:19)
--- NOTE | 2016-03-24 14:56 | Pulmonology Progress Note ---
Assessment/Plan Problems: (1) Respiratory failure requiring intubation (2) Pneumonia (3) Atrial fibrillation (4) Hypertension (5) Septic shock (6) Dehydration Assessment/Plan improving bc negative no sputum yet, ordered induction again npo wideow swallow study in and out of Afib on IV lopresor on digoxin keep in teli Subjective ROS Limited/Unobtainable: No Interval Events: more alert, still npo Allergies: Coded Allergies: PENICILLINS (Verified Allergy, Unknown, 03/19/16) SULFA (SULFONAMIDE ANTIBIOTICS) (Verified Allergy, Unknown, 03/19/16) Objective Last 24 Hour Vital Signs Date Time Temp Pulse Resp B/P Pulse Ox O2 Delivery O2 Flow Rate FiO2 03/24/16 12:00 66 03/24/16 12:00 98.2 71 16 108/62 95 Room Air 03/24/16 08:35 62 03/24/16 08:00 96.1 64 20 152/75 92 Room Air 03/24/16 08:00 69 03/24/16 06:40 65 18 Nasal Cannula 2.0 28 03/24/16 06:40 95 Nasal Cannula 2.0 28 03/24/16 06:40 Nasal Cannula 2.0 28 03/24/16 04:10 97.0 61 20 147/77 91 Nasal Cannula 2.0 03/24/16 03:55 72 03/24/16 00:13 60 03/24/16 00:05 97.0 64 18 137/77 92 Nasal Cannula 2.0 03/23/16 20:15 59 151/78 03/23/16 20:00 61 03/23/16 20:00 97.0 66 18 154/79 Room Air 94 03/23/16 16:31 98.9 59 20 151/78 97 Nasal Cannula 2.0 03/23/16 16:00 61 Intake and Output 03/23/16 03/24/16 19:00 07:00 Intake Total 620 ml 450 ml Output Total 700 ml 450 ml Balance -80 ml 0 ml Intake IV Total 620 ml 450 ml Output Urine Total 700 ml 450 ml # Bowel Movements 2 General Appearance: cachetic HEENT: normocephalic, atraumatic Respiratory/Chest: chest wall non-tender, lungs clear Cardiovascular: normal peripheral pulses, normal rate Abdomen: normal bowel sounds, soft, non tender Genitourinary: normal external genitalia Skin: no rash, no ulcers Laboratory Tests 03/24/16 08:05: White Blood Count 14.3H, Red Blood Count 4.94, Hemoglobin 15.0, Hematocrit 44.9 , Mean Corpuscular Volume 91, Mean Corpuscular Hemoglobin 30.4, Mean Corpuscular Hemoglobin Concent 33.5, Red Cell Distribution Width 12.2, Platelet Count 158, Mean Platelet Volume 8.3, Neutrophils (%) (Auto) , Lymphocytes (%) ( Auto) , Monocytes (%) (Auto) , Eosinophils (%) (Auto) , Basophils (%) (Auto) , Differential Total Cells Counted 100, Neutrophils % (Manual) 92H, Lymphocytes % (Manual) 3L, Monocytes % (Manual) 4, Eosinophils % (Manual) 1, Basophils % ( Manual) 0, Band Neutrophils 0, Platelet Estimate Adequate, Platelet Morphology Normal, Red Blood Cell Morphology Normal, Sodium Level 139, Potassium Level 3.5 , Chloride Level 97L, Carbon Dioxide Level 28, Anion Gap 14, Blood Urea Nitrogen 11, Creatinine 0.6L, Estimat Glomerular Filtration Rate , Glucose Level 106, Uric Acid 3.2, Calcium Level 8.4L, Phosphorus Level 1.8L, Magnesium Level 1.7, Total Bilirubin 1.2, Direct Bilirubin 0.2, Gamma Glutamyl Transpeptidase 20, Aspartate Amino Transf (AST/SGOT) 56H, Alanine Aminotransferase (ALT/SGPT) 70H, Alkaline Phosphatase 87, Total Creatine Kinase 31L, Total Protein 6.1L, Albumin 2.7L, Globulin 3.4, Albumin/Globulin Ratio 0.7L Current Medications Medications (Trade) Dose Ordered Sig/Lovely Route PRN Reason Start Time Stop Time Status Last Admin Dose Admin Acetaminophen (Tylenol) 650 mg Q4H PRN ORAL T>100.5 03/21/16 14:00 04/20/16 13:59 Albuterol/ Ipratropium (DuoNeb 0.5-3(2.5)mg/3ml) 3 ml Q4H PRN HHN Shortness of Breath 03/21/16 14:00 03/26/16 13:59 Dextrose/ Electrolytes (D5W w/KCl 20mEq) 1,000 ml @ 50 mls/hr Q20H IV 03/21/16 14:30 04/20/16 14:29 03/24/16 02:31 Heparin Sodium (Porcine) (Heparin 5000 units/ml) 5,000 units EVERY 12 HOURS SUBQ 03/21/16 21:00 04/20/16 20:59 03/24/16 08:37 Hydralazine HCl 10 mg 10 mg Q4H PRN IV For High Blood Pressure 03/22/16 21:30 04/21/16 21:29 Linezolid 300 ml @ 300 mls/hr Q12HR@0800,2000 IVPB 03/23/16 20:00 03/30/16 19:59 03/24/16 08:31 Lorazepam (Ativan 2mg/ml 1ml) 2 mg Q2H PRN IV For Anxiety 03/21/16 14:00 03/28/16 13:59 Meropenem/Sodium Chloride (Merrem/Sodium Chloride) 110 ml @ 220 mls/hr Q12HR IVPB 03/22/16 21:00 03/27/16 20:59 03/24/16 08:31 Metoprolol Tartrate 5 mg 5 mg EVERY 12 HOURS IVP 03/21/16 21:00 04/20/16 20:59 03/23/16 20:15 Morphine Sulfate (Morphine Sulfate) 4 mg Q4H PRN IVP Severe Pain (Pain Scale 7-10) 03/21/16 14:00 03/28/16 13:59 03/24/16 08:50 Ondansetron HCl (Zofran) 4 mg Q6H PRN IVP Nausea & Vomiting 03/21/16 14:00 04/20/16 13:59 Polyethylene Glycol (Miralax) 17 gm DAILYPRN PRN ORAL Constipation 03/21/16 14:00 04/20/16 13:59 Potassium Phosphate/Sodium Chloride (Potassium Phosphate/Sodium Chloride) 285 ml @ 47.5 mls/hr ONCE ONCE IV 03/24/16 11:00 03/24/16 16:59 03/24/16 10:45 CAROLINA TORREZ Mar 24, 2016 14:56
[2016-03-24 16:00] VITALS: BP 169/73
--- NOTE | 2016-03-24 16:15 | Infectious Diseases Prog Note ---
Assessment/Plan Problems: (1) HCAP (healthcare-associated pneumonia) Assessment & Plan: with RLL infiltrates, improving on zyvox and meropenem empiric therapy, will treat for 10 days , blood culture and sputum culture are nrgative so far , screening for influenza is negative (2) Respiratory failure requiring intubation Assessment & Plan: improving, S/P self extubation , due to pneumonia and sepsis , pulmonary is following (3) Septic shock Assessment & Plan: due to pneumonia, complicated with organs failure, improved , on wide spectrum antibiotics therapy, blood culture is negative (4) Elevated transaminase level Assessment & Plan: improving, suspect liver shock due to sepsis , avoid hepatotoxic meds, monitor LFT, screen for hepatitis (5) Renal failure Assessment & Plan: due to sepsis, continue IVF and pressors, to keep SBP >100, nephrology is following (6) Multiple organ system failure Assessment & Plan: due to sepsis (7) ICH (intracerebral hemorrhage) Assessment & Plan: unclear whether he had recent trauma or fall, recommend neurology eval, and surgical consultation Subjective ROS Limited/Unobtainable: Yes Allergies: Coded Allergies: PENICILLINS (Verified Allergy, Unknown, 03/19/16) SULFA (SULFONAMIDE ANTIBIOTICS) (Verified Allergy, Unknown, 03/19/16) Subjective he was comfortable, up in bed, on restrains , more awake and alert, not in distress Objective Vital Signs Last 24 Hour Vital Signs Date Time Temp Pulse Resp B/P Pulse Ox O2 Delivery O2 Flow Rate FiO2 03/24/16 12:00 66 03/24/16 12:00 98.2 71 16 108/62 95 Room Air 03/24/16 08:35 62 03/24/16 08:00 96.1 64 20 152/75 92 Room Air 03/24/16 08:00 69 03/24/16 06:40 65 18 Nasal Cannula 2.0 28 03/24/16 06:40 95 Nasal Cannula 2.0 28 03/24/16 06:40 Nasal Cannula 2.0 28 03/24/16 04:10 97.0 61 20 147/77 91 Nasal Cannula 2.0 03/24/16 03:55 72 03/24/16 00:13 60 03/24/16 00:05 97.0 64 18 137/77 92 Nasal Cannula 2.0 03/23/16 20:15 59 151/78 03/23/16 20:00 61 03/23/16 20:00 97.0 66 18 154/79 Room Air 94 03/23/16 16:31 98.9 59 20 151/78 97 Nasal Cannula 2.0 Height (Feet): 5 Height (Inches): 9.00 Weight (Pounds): 140 General Appearance: WD/WN, no acute distress HEENT: normocephalic, atraumatic, anicteric, mucous membranes moist Respiratory/Chest: chest wall non-tender, normal breath sounds, no respiratory distress, no accessory muscle use, decreased breath sounds, crackles/rales Cardiovascular: normal peripheral pulses, normal rate, regular rhythm, no gallop/murmur, no JVD Abdomen: normal bowel sounds, soft, non tender, no organomegaly, non distended , no mass Extremities: no cyanosis, no clubbing Skin: no rash, no lesions Laboratory Tests Test 03/24/16 08:05 White Blood Count 14.3 K/UL (4.8-10.8) H Red Blood Count 4.94 M/UL (4.70-6.10) Hemoglobin 15.0 G/DL (14.2-18.0) Hematocrit 44.9 % (42.0-52.0) Mean Corpuscular Volume 91 FL (80-99) Mean Corpuscular Hemoglobin 30.4 PG (27.0-31.0) Mean Corpuscular Hemoglobin Concent 33.5 G/DL (32.0-36.0) Red Cell Distribution Width 12.2 % (11.6-14.8) Platelet Count 158 K/UL (150-450) Mean Platelet Volume 8.3 FL (6.5-10.1) Neutrophils (%) (Auto) % (45.0-75.0) Lymphocytes (%) (Auto) % (20.0-45.0) Monocytes (%) (Auto) % (1.0-10.0) Eosinophils (%) (Auto) % (0.0-3.0) Basophils (%) (Auto) % (0.0-2.0) Differential Total Cells Counted 100 Neutrophils % (Manual) 92 % (45-75) H Lymphocytes % (Manual) 3 % (20-45) L Monocytes % (Manual) 4 % (1-10) Eosinophils % (Manual) 1 % (0-3) Basophils % (Manual) 0 % (0-2) Band Neutrophils 0 % (0-8) Platelet Estimate Adequate Platelet Morphology Normal Red Blood Cell Morphology Normal Sodium Level 139 mEQ/L (135-145) Potassium Level 3.5 mEQ/L (3.4-4.9) Chloride Level 97 mEQ/L (98-107) L Carbon Dioxide Level 28 mEQ/L (20-30) Anion Gap 14 (5-15) Blood Urea Nitrogen 11 mg/dL (7-23) Creatinine 0.6 mg/dL (0.7-1.2) L Estimat Glomerular Filtration Rate mL/min (>60) Glucose Level 106 mg/dL (74-106) Uric Acid 3.2 mg/dL (3.0-7.5) Calcium Level 8.4 mg/dL (8.6-10.2) L Phosphorus Level 1.8 mg/dL (2.5-4.8) L Magnesium Level 1.7 mg/dL (1.7-2.5) Total Bilirubin 1.2 mg/dL (0.0-1.2) Direct Bilirubin 0.2 mg/dL (0.1-0.3) Gamma Glutamyl Transpeptidase 20 U/L (8-61) Aspartate Amino Transf (AST/SGOT) 56 U/L (5-40) H Alanine Aminotransferase (ALT/SGPT) 70 U/L (3-41) H Alkaline Phosphatase 87 U/L (40-129) Total Creatine Kinase 31 U/L (38-174) L Total Protein 6.1 g/dL (6.6-8.7) L Albumin 2.7 g/dL (3.5-5.2) L Globulin 3.4 g/dL Albumin/Globulin Ratio 0.7 (1.0-2.7) L Current Medications Medications (Trade) Dose Ordered Sig/Lovely Route PRN Reason Start Time Stop Time Status Last Admin Dose Admin Acetaminophen (Tylenol) 650 mg Q4H PRN ORAL T>100.5 03/21/16 14:00 04/20/16 13:59 Albuterol/ Ipratropium (DuoNeb 0.5-3(2.5)mg/3ml) 3 ml Q4H PRN HHN Shortness of Breath 03/21/16 14:00 03/26/16 13:59 Dextrose/ Electrolytes (D5W w/KCl 20mEq) 1,000 ml @ 50 mls/hr Q20H IV 03/21/16 14:30 04/20/16 14:29 03/24/16 02:31 Heparin Sodium (Porcine) (Heparin 5000 units/ml) 5,000 units EVERY 12 HOURS SUBQ 03/21/16 21:00 04/20/16 20:59 03/24/16 08:37 Hydralazine HCl 10 mg 10 mg Q4H PRN IV For High Blood Pressure 03/22/16 21:30 04/21/16 21:29 Linezolid 300 ml @ 300 mls/hr Q12HR@0800,2000 IVPB 03/23/16 20:00 03/30/16 19:59 03/24/16 08:31 Lorazepam (Ativan 2mg/ml 1ml) 2 mg Q2H PRN IV For Anxiety 03/21/16 14:00 03/28/16 13:59 Meropenem/Sodium Chloride (Merrem/Sodium Chloride) 110 ml @ 220 mls/hr Q12HR IVPB 03/22/16 21:00 03/27/16 20:59 03/24/16 08:31 Metoprolol Tartrate 5 mg 5 mg EVERY 12 HOURS IVP 03/21/16 21:00 04/20/16 20:59 03/23/16 20:15 Morphine Sulfate (Morphine Sulfate) 4 mg Q4H PRN IVP Severe Pain (Pain Scale 7-10) 03/21/16 14:00 03/28/16 13:59 03/24/16 08:50 Ondansetron HCl (Zofran) 4 mg Q6H PRN IVP Nausea & Vomiting 03/21/16 14:00 04/20/16 13:59 Polyethylene Glycol (Miralax) 17 gm DAILYPRN PRN ORAL Constipation 03/21/16 14:00 04/20/16 13:59 Potassium Phosphate/Sodium Chloride (Potassium Phosphate/Sodium Chloride) 285 ml @ 47.5 mls/hr ONCE ONCE IV 03/24/16 11:00 03/24/16 16:59 03/24/16 10:45 Chantell Vera M.D. Mar 24, 2016 16:15
[2016-03-24 20:00] VITALS: BP 133/73
--- NOTE | 2016-03-24 22:48 | General Progress Note ---
Assessment/Plan Assessment/Plan Assessment - Malnutrition - cachexia - dysphagia - dehydration , low phos - PNA - Large HH --> difficult NGT placement Recommendations - Hold po diet - video swallow - await results - May need PEG, if fails swallow - Abx - IVF - replace lytes - per renal Subjective Allergies: Coded Allergies: PENICILLINS (Verified Allergy, Unknown, 03/19/16) SULFA (SULFONAMIDE ANTIBIOTICS) (Verified Allergy, Unknown, 03/19/16) Subjective non interactive video swallow not yet done Objective Last 24 Hour Vital Signs Date Time Temp Pulse Resp B/P Pulse Ox O2 Delivery O2 Flow Rate FiO2 03/24/16 22:29 72 133/73 03/24/16 20:00 97.5 72 19 133/73 100 Room Air 03/24/16 19:30 98 Nasal Cannula 3.0 32 03/24/16 19:30 70 20 Nasal Cannula 3.0 32 03/24/16 19:30 Nasal Cannula 3.0 32 03/24/16 16:00 97.3 82 18 169/73 96 Room Air 03/24/16 12:00 66 03/24/16 12:00 98.2 71 16 108/62 95 Room Air 03/24/16 08:35 62 03/24/16 08:00 96.1 64 20 152/75 92 Room Air 03/24/16 08:00 69 03/24/16 06:40 65 18 Nasal Cannula 2.0 28 03/24/16 06:40 95 Nasal Cannula 2.0 28 03/24/16 06:40 Nasal Cannula 2.0 28 03/24/16 04:10 97.0 61 20 147/77 91 Nasal Cannula 2.0 03/24/16 03:55 72 03/24/16 00:13 60 03/24/16 00:05 97.0 64 18 137/77 92 Nasal Cannula 2.0 Intake and Output 03/23/16 03/24/16 19:00 07:00 Intake Total 620 ml 450 ml Output Total 700 ml 450 ml Balance -80 ml 0 ml Intake IV Total 620 ml 450 ml Output Urine Total 700 ml 450 ml # Bowel Movements 2 Laboratory Tests 03/24/16 08:05: White Blood Count 14.3H, Red Blood Count 4.94, Hemoglobin 15.0, Hematocrit 44.9 , Mean Corpuscular Volume 91, Mean Corpuscular Hemoglobin 30.4, Mean Corpuscular Hemoglobin Concent 33.5, Red Cell Distribution Width 12.2, Platelet Count 158, Mean Platelet Volume 8.3, Neutrophils (%) (Auto) , Lymphocytes (%) ( Auto) , Monocytes (%) (Auto) , Eosinophils (%) (Auto) , Basophils (%) (Auto) , Differential Total Cells Counted 100, Neutrophils % (Manual) 92H, Lymphocytes % (Manual) 3L, Monocytes % (Manual) 4, Eosinophils % (Manual) 1, Basophils % ( Manual) 0, Band Neutrophils 0, Platelet Estimate Adequate, Platelet Morphology Normal, Red Blood Cell Morphology Normal, Sodium Level 139, Potassium Level 3.5 , Chloride Level 97L, Carbon Dioxide Level 28, Anion Gap 14, Blood Urea Nitrogen 11, Creatinine 0.6L, Estimat Glomerular Filtration Rate , Glucose Level 106, Uric Acid 3.2, Calcium Level 8.4L, Phosphorus Level 1.8L, Magnesium Level 1.7, Total Bilirubin 1.2, Direct Bilirubin 0.2, Gamma Glutamyl Transpeptidase 20, Aspartate Amino Transf (AST/SGOT) 56H, Alanine Aminotransferase (ALT/SGPT) 70H, Alkaline Phosphatase 87, Total Creatine Kinase 31L, Total Protein 6.1L, Albumin 2.7L, Globulin 3.4, Albumin/Globulin Ratio 0.7L Height (Feet): 5 Height (Inches): 9.00 Weight (Pounds): 140 Objective Thin WM NCAT supple CTA RRR Soft NT ND No edema OBS MAHNAZ GRIMES Mar 24, 2016 22:48
[2016-03-25] VITALS: BP 137/71
[2016-03-25 04:00] VITALS: BP 130/62
[2016-03-25] MEDS: Meropenem 1gm in NS 110ml IVPB SCH ×2 (08:28→21:48)
[2016-03-25] MEDS: Metoprolol 5mg/5ml Inj IVP SCH ×2 (08:39→21:48)
[2016-03-25] MEDS: Heparin 5000 units/ml inj SUBQ SCH ×2 (08:40→21:50)
[2016-03-25 08:46] VITALS: BP 137/75
[2016-03-25 11:49] VITALS: BP 135/75
--- NOTE | 2016-03-25 11:55 | General Progress Note ---
Assessment/Plan Problem List: (1) Septic shock ICD Codes: A41.9 - Sepsis, unspecified organism; R65.21 - Severe sepsis with septic shock SNOMED: 93655012 (2) Dehydration ICD Codes: E86.0 - Dehydration SNOMED: 93245449 (3) Renal failure ICD Codes: N19 - Unspecified kidney failure; R65.21 - Severe sepsis with septic shock SNOMED: 29614298 (4) Pneumonia ICD Codes: J18.9 - Pneumonia, unspecified organism SNOMED: 061200646 Qualifiers: Qualified Codes: J18.9 - Pneumonia, unspecified organism (5) Multiple organ system failure SNOMED: 11030414 (6) Respiratory failure requiring intubation ICD Codes: J96.90 - Respiratory failure, unspecified, unspecified whether with hypoxia or hypercapnia; R65.21 - Severe sepsis with septic shock SNOMED: 933396395 (7) Elevated transaminase level ICD Codes: R74.0 - Nonspecific elevation of levels of transaminase and lactic acid dehydrogenase [LDH] SNOMED: 784901802, 293576001 Status: progressing Assessment/Plan resp failure pna and sepsis no change lyte abnormality is improved afebrile sepsis uti bph Subjective ROS Limited/Unobtainable: Yes Constitutional: Reports: no symptoms Allergies: Coded Allergies: PENICILLINS (Verified Allergy, Unknown, 03/19/16) SULFA (SULFONAMIDE ANTIBIOTICS) (Verified Allergy, Unknown, 03/19/16) Objective Last 24 Hour Vital Signs Date Time Temp Pulse Resp B/P Pulse Ox O2 Delivery O2 Flow Rate FiO2 03/25/16 11:49 97.5 69 20 135/75 95 Room Air 03/25/16 08:46 97.0 58 20 137/75 95 Room Air 03/25/16 08:00 57 03/25/16 07:45 96 Room Air 21 03/25/16 07:44 58 20 Room Air 21 03/25/16 07:43 Room Air 03/25/16 04:00 97.5 65 18 130/62 94 Nasal Cannula 03/25/16 00:12 54 03/25/16 00:00 97.9 57 19 137/71 100 Room Air 03/24/16 22:29 72 133/73 03/24/16 20:00 97.5 72 19 133/73 100 Room Air 03/24/16 20:00 70 03/24/16 19:30 98 Nasal Cannula 3.0 32 03/24/16 19:30 70 20 Nasal Cannula 3.0 32 03/24/16 19:30 Nasal Cannula 3.0 32 03/24/16 16:00 61 03/24/16 16:00 97.3 82 18 169/73 96 Room Air 03/24/16 12:00 66 03/24/16 12:00 98.2 71 16 108/62 95 Room Air Intake and Output 03/24/16 03/25/16 19:00 07:00 Intake Total 950.0 ml 300 ml Balance 950.0 ml 300 ml Intake IV Total 950.0 ml 300 ml Height (Feet): 5 Height (Inches): 9.00 Weight (Pounds): 140 EENT: PERRL/EOMI Neck: supple Cardiovascular: normal rate Respiratory/Chest: lungs clear Abdomen: soft Nahed Pizarro MD Mar 25, 2016 11:55
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
--- NOTE | 2016-03-25 12:35 | General Progress Note ---
Assessment/Plan Status: stable Assessment/Plan Status: - Acute Renal Failure- improved - Septic shock - Dehydration - Pneumonia - Multiple organ system failure - HCAP (healthcare-associated pneumonia) Plan: no labs todaay K & Phos supplement- as needed Lower Hydrate- D5W Antibiotics- Monitor renal parameters- Avoid nephrotoxics urine studies per consultants- Subjective ROS Limited/Unobtainable: No Constitutional: Reports: malaise Allergies: Coded Allergies: PENICILLINS (Verified Allergy, Unknown, 03/19/16) SULFA (SULFONAMIDE ANTIBIOTICS) (Verified Allergy, Unknown, 03/19/16) Objective Last 24 Hour Vital Signs Date Time Temp Pulse Resp B/P Pulse Ox O2 Delivery O2 Flow Rate FiO2 03/25/16 11:49 97.5 69 20 135/75 95 Room Air 03/25/16 08:46 97.0 58 20 137/75 95 Room Air 03/25/16 08:00 57 03/25/16 07:45 96 Room Air 21 03/25/16 07:44 58 20 Room Air 21 03/25/16 07:43 Room Air 03/25/16 04:00 97.5 65 18 130/62 94 Nasal Cannula 03/25/16 00:12 54 03/25/16 00:00 97.9 57 19 137/71 100 Room Air 03/24/16 22:29 72 133/73 03/24/16 20:00 97.5 72 19 133/73 100 Room Air 03/24/16 20:00 70 03/24/16 19:30 98 Nasal Cannula 3.0 32 03/24/16 19:30 70 20 Nasal Cannula 3.0 32 03/24/16 19:30 Nasal Cannula 3.0 32 03/24/16 16:00 61 03/24/16 16:00 97.3 82 18 169/73 96 Room Air Intake and Output 03/24/16 03/25/16 19:00 07:00 Intake Total 950.0 ml 300 ml Balance 950.0 ml 300 ml Intake IV Total 950.0 ml 300 ml Height (Feet): 5 Height (Inches): 9.00 Weight (Pounds): 140 General Appearance: no apparent distress Objective physical exam not changed CLINT CARMEN Mar 25, 2016 12:35
--- NOTE | 2016-03-25 12:58 | Pulmonology Progress Note ---
Assessment/Plan Problems: (1) Respiratory failure requiring intubation (2) Pneumonia (3) Atrial fibrillation (4) Hypertension (5) Septic shock (6) Dehydration Assessment/Plan improving bc negative no sputum yet, ordered induction again npo wideow swallow study noted, pt failed Peg is planned for med/surg when ok with Cardio in and out of Afib on IV lopresor on digoxin Subjective ROS Limited/Unobtainable: No Allergies: Coded Allergies: PENICILLINS (Verified Allergy, Unknown, 03/19/16) SULFA (SULFONAMIDE ANTIBIOTICS) (Verified Allergy, Unknown, 03/19/16) Objective Last 24 Hour Vital Signs Date Time Temp Pulse Resp B/P Pulse Ox O2 Delivery O2 Flow Rate FiO2 03/25/16 11:49 97.5 69 20 135/75 95 Room Air 03/25/16 08:46 97.0 58 20 137/75 95 Room Air 03/25/16 08:00 57 03/25/16 07:45 96 Room Air 21 03/25/16 07:44 58 20 Room Air 21 03/25/16 07:43 Room Air 03/25/16 04:00 97.5 65 18 130/62 94 Nasal Cannula 03/25/16 00:12 54 03/25/16 00:00 97.9 57 19 137/71 100 Room Air 03/24/16 22:29 72 133/73 03/24/16 20:00 97.5 72 19 133/73 100 Room Air 03/24/16 20:00 70 03/24/16 19:30 98 Nasal Cannula 3.0 32 03/24/16 19:30 70 20 Nasal Cannula 3.0 32 03/24/16 19:30 Nasal Cannula 3.0 32 03/24/16 16:00 61 03/24/16 16:00 97.3 82 18 169/73 96 Room Air Intake and Output 03/24/16 03/25/16 19:00 07:00 Intake Total 950.0 ml 300 ml Balance 950.0 ml 300 ml Intake IV Total 950.0 ml 300 ml Objective General Appearance: WD/WN Lines, tubes and drains: peripheral HEENT: normocephalic, atraumatic Neck: non-tender, normal alignment Respiratory/Chest: chest wall non-tender, rhonchi - left, rhonchi - right Cardiovascular/Chest: normal peripheral pulses, normal rate Abdomen: normal bowel sounds, non tender Genitourinary/Rectal: normal genital exam Extremities: normal range of motion, non-tender, normal inspection, no calf tenderness, normal capillary refill Skin Exam: normal pigmentation 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 Current Medications Medications (Trade) Dose Ordered Sig/Lovely Route PRN Reason Start Time Stop Time Status Last Admin Dose Admin Acetaminophen (Tylenol) 650 mg Q4H PRN ORAL T>100.5 03/21/16 14:00 04/20/16 13:59 Albuterol/ Ipratropium (DuoNeb 0.5-3(2.5)mg/3ml) 3 ml Q4H PRN HHN Shortness of Breath 03/21/16 14:00 03/26/16 13:59 Dextrose/ Electrolytes (D5W w/KCl 20mEq) 1,000 ml @ 50 mls/hr Q20H IV 03/21/16 14:30 04/20/16 14:29 03/24/16 22:29 Heparin Sodium (Porcine) (Heparin 5000 units/ml) 5,000 units EVERY 12 HOURS SUBQ 03/21/16 21:00 04/20/16 20:59 03/24/16 22:34 Hydralazine HCl 10 mg 10 mg Q4H PRN IV For High Blood Pressure 03/22/16 21:30 04/21/16 21:29 Linezolid (Zyvox) 300 ml @ 300 mls/hr Q12HR@0800,2000 IVPB 03/23/16 20:00 03/30/16 19:59 03/25/16 08:28 Lorazepam (Ativan 2mg/ml 1ml) 2 mg Q2H PRN IV For Anxiety 03/21/16 14:00 03/28/16 13:59 Meropenem/Sodium Chloride (Merrem/Sodium Chloride) 110 ml @ 220 mls/hr Q12HR IVPB 03/22/16 21:00 03/27/16 20:59 03/25/16 08:28 Metoprolol Tartrate 5 mg 5 mg EVERY 12 HOURS IVP 03/21/16 21:00 04/20/16 20:59 03/24/16 22:29 Morphine Sulfate (Morphine Sulfate) 4 mg Q4H PRN IVP Severe Pain (Pain Scale 7-10) 03/21/16 14:00 03/28/16 13:59 03/24/16 08:50 Ondansetron HCl (Zofran) 4 mg Q6H PRN IVP Nausea & Vomiting 03/21/16 14:00 04/20/16 13:59 Polyethylene Glycol (Miralax) 17 gm DAILYPRN PRN ORAL Constipation 03/21/16 14:00 04/20/16 13:59 CAROLINA TORREZ Mar 25, 2016 12:58
--- NOTE | 2016-03-25 14:41 | General Progress Note ---
Assessment/Plan Assessment/Plan Assessment: # Leukocytosis - is likely related to medication v underlying infection, has improved # Erythrocytosis was likely related to dehydration # Healthcare-acquired pneumonia with right lower lobe infiltrate. On abx # Respiratory failure, required intubation. was on a mechanical ventilator --> self-extubated # Septic shock due to pna # Multiorgan system failure # Elevated transaminase level due to the sepsis and liver shock. # Dehydration due to poor oral intake. # Acute renal failure due to sepsis. Recommendations: - Monitor counts - Peripheral smear reviewed - Followup on ID, pulm, nephro recs - Abx as needed - DVT ppx with SCDs - GI ppx as needed - Peg for thurs - Staff Thank you, Jarod Keller MD Subjective Allergies: Coded Allergies: PENICILLINS (Verified Allergy, Unknown, 03/19/16) SULFA (SULFONAMIDE ANTIBIOTICS) (Verified Allergy, Unknown, 03/19/16) Subjective no events overnight, no bleeding, no hematochezia Objective Last 24 Hour Vital Signs Date Time Temp Pulse Resp B/P Pulse Ox O2 Delivery O2 Flow Rate FiO2 03/25/16 12:00 64 03/25/16 11:49 97.5 69 20 135/75 95 Room Air 03/25/16 08:46 97.0 58 20 137/75 95 Room Air 03/25/16 08:00 57 03/25/16 07:45 96 Room Air 21 03/25/16 07:44 58 20 Room Air 21 03/25/16 07:43 Room Air 03/25/16 04:00 97.5 65 18 130/62 94 Nasal Cannula 03/25/16 00:12 54 03/25/16 00:00 97.9 57 19 137/71 100 Room Air 03/24/16 22:29 72 133/73 03/24/16 20:00 97.5 72 19 133/73 100 Room Air 03/24/16 20:00 70 03/24/16 19:30 98 Nasal Cannula 3.0 32 03/24/16 19:30 70 20 Nasal Cannula 3.0 32 03/24/16 19:30 Nasal Cannula 3.0 32 03/24/16 16:00 61 03/24/16 16:00 97.3 82 18 169/73 96 Room Air Intake and Output 03/24/16 03/25/16 19:00 07:00 Intake Total 950.0 ml 300 ml Balance 950.0 ml 300 ml Intake IV Total 950.0 ml 300 ml Height (Feet): 5 Height (Inches): 9.00 Weight (Pounds): 140 Jarod Keller Mar 25, 2016 14:41
--- NOTE | 2016-03-25 15:24 | General Progress Note ---
Assessment/Plan Assessment/Plan Assessment - Malnutrition - cachexia - dysphagia - dehydration , low phos - PNA - Large HH --> difficult NGT placement Recommendations - Hold po diet - video swallow - failed - Will place PEG Th am - Abx - IVF - replace lytes - per renal Subjective Allergies: Coded Allergies: PENICILLINS (Verified Allergy, Unknown, 03/19/16) SULFA (SULFONAMIDE ANTIBIOTICS) (Verified Allergy, Unknown, 03/19/16) Subjective received call from RN patient failed VSS today no events overnight Objective Last 24 Hour Vital Signs Date Time Temp Pulse Resp B/P Pulse Ox O2 Delivery O2 Flow Rate FiO2 03/25/16 12:00 64 03/25/16 11:49 97.5 69 20 135/75 95 Room Air 03/25/16 08:46 97.0 58 20 137/75 95 Room Air 03/25/16 08:00 57 03/25/16 07:45 96 Room Air 21 03/25/16 07:44 58 20 Room Air 21 03/25/16 07:43 Room Air 03/25/16 04:00 97.5 65 18 130/62 94 Nasal Cannula 03/25/16 00:12 54 03/25/16 00:00 97.9 57 19 137/71 100 Room Air 03/24/16 22:29 72 133/73 03/24/16 20:00 97.5 72 19 133/73 100 Room Air 03/24/16 20:00 70 03/24/16 19:30 98 Nasal Cannula 3.0 32 03/24/16 19:30 70 20 Nasal Cannula 3.0 32 03/24/16 19:30 Nasal Cannula 3.0 32 03/24/16 16:00 61 03/24/16 16:00 97.3 82 18 169/73 96 Room Air Intake and Output 03/24/16 03/25/16 18:59 06:59 Intake Total 1000.0 ml 300 ml Balance 1000.0 ml 300 ml Intake IV Total 1000.0 ml 300 ml Height (Feet): 5 Height (Inches): 9.00 Weight (Pounds): 140 Objective Thin WM NCAT supple CTA RRR Soft NT ND No edema OBS MAHNAZ GRIMES Mar 25, 2016 15:24
--- NOTE | 2016-03-25 15:31 | Cardiac Electrophysiology PN ---
Assessment/Plan Assessment/Plan 1. Troponin elevation , s/p three coronary stents. Follow up troponins were negative. No chest pain. On Betablocker. 2. Septic shock. Off pressors, on broad-spectrum abx 3. Atrial fibrillation with rapid ventricular response. NPO. Continue Lopressor 5 mg iv q12 hr until gets PEG.Echo EF 60-65% 4. Severe dehydration with hypernatremia and azotemia. Better on D5W and KCL. 5. S/P Respiratory failure.Self extubated. 6. Healthcare-associated pneumonia with right lower lobe infiltrate, on meropenem and Zyvox by Dr. Vera. 7. Elevated transaminase level. 8. Dysphagia. Failed swallow eval. PEG on DW RN Subjective Subjective Remained in SR in restraint. On iv Metoprolol. Scheduled for PEG on . Occasional PVC. Objective Last 24 Hour Vital Signs Date Time Temp Pulse Resp B/P Pulse Ox O2 Delivery O2 Flow Rate FiO2 03/25/16 12:00 64 03/25/16 11:49 97.5 69 20 135/75 95 Room Air 03/25/16 08:46 97.0 58 20 137/75 95 Room Air 03/25/16 08:00 57 03/25/16 07:45 96 Room Air 21 03/25/16 07:44 58 20 Room Air 21 03/25/16 07:43 Room Air 03/25/16 04:00 97.5 65 18 130/62 94 Nasal Cannula 03/25/16 00:12 54 03/25/16 00:00 97.9 57 19 137/71 100 Room Air 03/24/16 22:29 72 133/73 03/24/16 20:00 97.5 72 19 133/73 100 Room Air 03/24/16 20:00 70 03/24/16 19:30 98 Nasal Cannula 3.0 32 03/24/16 19:30 70 20 Nasal Cannula 3.0 32 03/24/16 19:30 Nasal Cannula 3.0 32 03/24/16 16:00 61 03/24/16 16:00 97.3 82 18 169/73 96 Room Air Intake and Output 03/24/16 03/25/16 19:00 07:00 Intake Total 950.0 ml 350 ml Balance 950.0 ml 350 ml Intake IV Total 950.0 ml 350 ml Labs Test 03/24/16 08:05 White Blood Count 14.3 K/UL (4.8-10.8) Red Blood Count 4.94 M/UL (4.70-6.10) Hemoglobin 15.0 G/DL (14.2-18.0) Hematocrit 44.9 % (42.0-52.0) Mean Corpuscular Volume 91 FL (80-99) Mean Corpuscular Hemoglobin 30.4 PG (27.0-31.0) Mean Corpuscular Hemoglobin Concent 33.5 G/DL (32.0-36.0) Red Cell Distribution Width 12.2 % (11.6-14.8) Platelet Count 158 K/UL (150-450) Mean Platelet Volume 8.3 FL (6.5-10.1) Neutrophils (%) (Auto) % (45.0-75.0) Lymphocytes (%) (Auto) % (20.0-45.0) Monocytes (%) (Auto) % (1.0-10.0) Eosinophils (%) (Auto) % (0.0-3.0) Basophils (%) (Auto) % (0.0-2.0) Differential Total Cells Counted 100 Neutrophils % (Manual) 92 % (45-75) Lymphocytes % (Manual) 3 % (20-45) Monocytes % (Manual) 4 % (1-10) Eosinophils % (Manual) 1 % (0-3) Basophils % (Manual) 0 % (0-2) Band Neutrophils 0 % (0-8) Platelet Estimate Adequate Platelet Morphology Normal Red Blood Cell Morphology Normal Sodium Level 139 mEQ/L (135-145) Potassium Level 3.5 mEQ/L (3.4-4.9) Chloride Level 97 mEQ/L (98-107) Carbon Dioxide Level 28 mEQ/L (20-30) Anion Gap 14 (5-15) Blood Urea Nitrogen 11 mg/dL (7-23) Creatinine 0.6 mg/dL (0.7-1.2) Estimat Glomerular Filtration Rate mL/min (>60) Glucose Level 106 mg/dL (74-106) Uric Acid 3.2 mg/dL (3.0-7.5) Calcium Level 8.4 mg/dL (8.6-10.2) Phosphorus Level 1.8 mg/dL (2.5-4.8) Magnesium Level 1.7 mg/dL (1.7-2.5) Total Bilirubin 1.2 mg/dL (0.0-1.2) Direct Bilirubin 0.2 mg/dL (0.1-0.3) Gamma Glutamyl Transpeptidase 20 U/L (8-61) Aspartate Amino Transf (AST/SGOT) 56 U/L (5-40) Alanine Aminotransferase (ALT/SGPT) 70 U/L (3-41) Alkaline Phosphatase 87 U/L (40-129) Total Creatine Kinase 31 U/L (38-174) Total Protein 6.1 g/dL (6.6-8.7) Albumin 2.7 g/dL (3.5-5.2) Globulin 3.4 g/dL Albumin/Globulin Ratio 0.7 (1.0-2.7) Objective HEENT: NG tube out. No JVD LUNGS: Coarse rhonchi bilaterally. CARDIOVASCULAR: Regular S1 and S2 with no gallop or murmur. ABDOMEN: Soft. EXTREMITIES: No pitting edema. ESTEE BREEN Mar 25, 2016 15:31
[2016-03-25] MEDS: Morphine Sulfate 4mg/ml Inj IVP PRN (15:35)
[2016-03-25 16:00] VITALS: BP 137/82
[2016-03-25] MEDS: D5W w/KCl 20mEq 1,000 ML IV SCH (18:31)
[2016-03-25 20:00] VITALS: BP 119/69
--- NOTE | 2016-03-25 22:21 | Infectious Diseases Prog Note ---
Assessment/Plan Problems: (1) HCAP (healthcare-associated pneumonia) Assessment & Plan: with RLL infiltrates,possible aspiration related, improved on zyvox and meropenem , recieved 7 days already, will D/C antibiotics , blood culture and sputum culture are negative so far , screening for influenza is negative . for PEG tube by GI in am. (2) Respiratory failure requiring intubation Assessment & Plan: improving, S/P self extubation , due to pneumonia and sepsis , pulmonary is following (3) Septic shock Assessment & Plan: due to pneumonia, complicated with organs failure, improved , on wide spectrum antibiotics therapy, blood culture is negative (4) Elevated transaminase level Assessment & Plan: improving, suspect liver shock due to sepsis , avoid hepatotoxic meds, monitor LFT, screen for hepatitis (5) Renal failure Assessment & Plan: due to sepsis, continue IVF and pressors, to keep SBP >100, nephrology is following (6) Multiple organ system failure Assessment & Plan: due to sepsis (7) ICH (intracerebral hemorrhage) Assessment & Plan: unclear whether he had recent trauma or fall, recommend neurology eval, and surgical consultation Subjective ROS Limited/Unobtainable: Yes Allergies: Coded Allergies: PENICILLINS (Verified Allergy, Unknown, 03/19/16) SULFA (SULFONAMIDE ANTIBIOTICS) (Verified Allergy, Unknown, 03/19/16) Subjective he was comfortable, up in bed, on restrains , more awake and alert, not in distress Objective Vital Signs Last 24 Hour Vital Signs Date Time Temp Pulse Resp B/P Pulse Ox O2 Delivery O2 Flow Rate FiO2 03/25/16 21:48 63 119/69 03/25/16 20:00 97.3 63 17 119/69 96 Room Air 03/25/16 19:30 95 Room Air 21 03/25/16 19:30 Room Air 21 03/25/16 19:30 60 20 Room Air 21 03/25/16 16:05 97.3 03/25/16 16:00 64 03/25/16 16:00 97.3 62 16 137/82 95 Room Air 03/25/16 12:00 64 03/25/16 11:49 97.5 69 20 135/75 95 Room Air 03/25/16 08:46 97.0 58 20 137/75 95 Room Air 03/25/16 08:00 57 03/25/16 07:45 96 Room Air 21 03/25/16 07:44 58 20 Room Air 21 03/25/16 07:43 Room Air 03/25/16 04:00 97.5 65 18 130/62 94 Nasal Cannula 03/25/16 00:12 54 03/25/16 00:00 97.9 57 19 137/71 100 Room Air 03/24/16 22:29 72 133/73 Height (Feet): 5 Height (Inches): 9.00 Weight (Pounds): 140 General Appearance: no acute distress HEENT: normocephalic, atraumatic, anicteric, mucous membranes moist Respiratory/Chest: chest wall non-tender, lungs clear, normal breath sounds, no respiratory distress, no accessory muscle use Cardiovascular: normal peripheral pulses, normal rate, regular rhythm Abdomen: normal bowel sounds, soft, non tender, no organomegaly, non distended , no mass, no scars Extremities: no cyanosis, no clubbing Skin: no rash, no lesions Current Medications Medications (Trade) Dose Ordered Sig/Lovely Route PRN Reason Start Time Stop Time Status Last Admin Dose Admin Acetaminophen (Tylenol) 650 mg Q4H PRN ORAL T>100.5 03/21/16 14:00 04/20/16 13:59 Albuterol/ Ipratropium (DuoNeb 0.5-3(2.5)mg/3ml) 3 ml Q4H PRN HHN Shortness of Breath 03/21/16 14:00 03/26/16 13:59 Cefazolin Sodium/ Dextrose (Ancef/D5W) 55 ml @ 110 mls/hr ONCE ONCE IV 03/27/16 07:00 03/27/16 07:29 Dextrose/ Electrolytes (D5W w/KCl 20mEq) 1,000 ml @ 50 mls/hr Q20H IV 03/21/16 14:30 04/20/16 14:29 03/25/16 18:31 Heparin Sodium (Porcine) (Heparin 5000 units/ml) 5,000 units EVERY 12 HOURS SUBQ 03/21/16 21:00 04/20/16 20:59 03/25/16 21:50 Hydralazine HCl 10 mg 10 mg Q4H PRN IV For High Blood Pressure 03/22/16 21:30 04/21/16 21:29 Linezolid 300 ml @ 300 mls/hr Q12HR@0800,2000 IVPB 03/23/16 20:00 03/30/16 19:59 03/25/16 19:00 Lorazepam (Ativan 2mg/ml 1ml) 2 mg Q2H PRN IV For Anxiety 03/21/16 14:00 03/28/16 13:59 Meropenem/Sodium Chloride (Merrem/Sodium Chloride) 110 ml @ 220 mls/hr Q12HR IVPB 03/22/16 21:00 03/27/16 20:59 03/25/16 21:48 Metoprolol Tartrate 5 mg 5 mg EVERY 12 HOURS IVP 03/21/16 21:00 04/20/16 20:59 03/25/16 21:48 Morphine Sulfate (Morphine Sulfate) 4 mg Q4H PRN IVP Severe Pain (Pain Scale 7-10) 03/21/16 14:00 03/28/16 13:59 03/25/16 15:35 Ondansetron HCl (Zofran) 4 mg Q6H PRN IVP Nausea & Vomiting 03/21/16 14:00 04/20/16 13:59 Polyethylene Glycol (Miralax) 17 gm DAILYPRN PRN ORAL Constipation 03/21/16 14:00 04/20/16 13:59 Chantell Vera M.D. Mar 25, 2016 22:21
[2016-03-26] VITALS: BP 137/73
[2016-03-26 04:00] VITALS: BP 131/74
[2016-03-26 06:37] LABS: MEAN CORPUSCULAR HEMOGLOBIN 30.6 PG (27.0-31.0); MEAN CORPUSCULAR HGB CONC 33.5 G/DL (32.0-36.0); MEAN CORPUSCULAR VOLUME 92 FL (80-99); MEAN PLATELET VOLUME 6.7 FL (6.5-10.1); PLATELET COUNT 201 K/UL (150-450); RED BLOOD COUNT 4.37 M/UL (4.70-6.10); RED CELL DISTRIBUTION WIDTH 11.8 % (11.6-14.8); WHITE BLOOD COUNT 11.9 K/UL (4.8-10.8)
[2016-03-26 07:41] LABS: ALANINE AMINOTRANSFERASE 45 U/L (3-41); ALBUMIN/GLOBULIN RATIO 0.9 (1.0-2.7); ANION GAP 13 (5-15); ASPARTATE AMINO TRANSFERASE 31 U/L (5-40); CALCIUM 8.1 mg/dL (8.6-10.2); CARBON DIOXIDE 26 mEQ/L (20-30); CHLORIDE 98 mEQ/L (98-107); CREATININE 0.5 mg/dL (0.7-1.2); CRP QUANT 5.7 mg/dL (< 0.5); HEMOLYSIS 4; MAGNESIUM 1.8 mg/dL (1.7-2.5); PHOSPHORUS 1.7 mg/dL (2.5-4.8); POTASSIUM 3.7 mEQ/L (3.4-4.9); SODIUM 137 mEQ/L (135-145); TOTAL PROTEIN 5.5 g/dL (6.6-8.7)
[2016-03-26 08:26] VITALS: BP 164/88
[2016-03-26] MEDS: Morphine Sulfate 4mg/ml Inj IVP PRN (08:47)
[2016-03-26] MEDS: Metoprolol 5mg/5ml Inj IVP SCH ×2 (08:47→21:13)
[2016-03-26] MEDS: Heparin 5000 units/ml inj SUBQ SCH ×2 (08:48→21:06)
--- NOTE | 2016-03-26 10:56 | General Progress Note ---
Assessment/Plan Problem List: (1) Septic shock ICD Codes: A41.9 - Sepsis, unspecified organism; R65.21 - Severe sepsis with septic shock SNOMED: 82780404 (2) Dehydration ICD Codes: E86.0 - Dehydration SNOMED: 03716630 (3) Renal failure ICD Codes: N19 - Unspecified kidney failure; R65.21 - Severe sepsis with septic shock SNOMED: 14327078 (4) Pneumonia ICD Codes: J18.9 - Pneumonia, unspecified organism SNOMED: 151710031 Qualifiers: Qualified Codes: J18.9 - Pneumonia, unspecified organism (5) Multiple organ system failure SNOMED: 03494493 (6) Respiratory failure requiring intubation ICD Codes: J96.90 - Respiratory failure, unspecified, unspecified whether with hypoxia or hypercapnia; R65.21 - Severe sepsis with septic shock SNOMED: 965141946 (7) Elevated transaminase level ICD Codes: R74.0 - Nonspecific elevation of levels of transaminase and lactic acid dehydrogenase [LDH] SNOMED: 188706516, 136132202 Status: progressing Assessment/Plan sepsis arf dehyration improved abx per id reviewed chart and labs Subjective ROS Limited/Unobtainable: Yes Allergies: Coded Allergies: PENICILLINS (Verified Allergy, Unknown, 03/19/16) SULFA (SULFONAMIDE ANTIBIOTICS) (Verified Allergy, Unknown, 03/19/16) Objective Last 24 Hour Vital Signs Date Time Temp Pulse Resp B/P Pulse Ox O2 Delivery O2 Flow Rate FiO2 03/26/16 08:47 62 164/88 03/26/16 08:26 97.5 62 20 164/88 95 Room Air 03/26/16 07:55 Room Air 21 03/26/16 07:54 95 Room Air 21 03/26/16 07:53 62 20 Room Air 21 03/26/16 04:00 63 03/26/16 04:00 97.0 55 16 131/74 90 Room Air 03/26/16 00:00 53 03/26/16 00:00 97.2 54 16 137/73 92 Room Air 03/25/16 21:48 63 119/69 03/25/16 20:00 62 03/25/16 20:00 97.3 63 17 119/69 96 Room Air 03/25/16 19:30 95 Room Air 21 03/25/16 19:30 Room Air 21 03/25/16 19:30 60 20 Room Air 21 03/25/16 16:05 97.3 03/25/16 16:00 64 03/25/16 16:00 97.3 62 16 137/82 95 Room Air 03/25/16 12:00 64 03/25/16 11:49 97.5 69 20 135/75 95 Room Air Intake and Output 03/25/16 03/26/16 19:00 07:00 Intake Total 760 ml 350 ml Output Total 300 ml 1100 ml Balance 460 ml -750 ml Intake IV Total 760 ml 350 ml Output Urine Total 300 ml 1100 ml Laboratory Tests 03/26/16 05:45: White Blood Count 11.9H, Red Blood Count 4.37L, Hemoglobin 13.4L, Hematocrit 40.0L, Mean Corpuscular Volume 92, Mean Corpuscular Hemoglobin 30.6, Mean Corpuscular Hemoglobin Concent 33.5, Red Cell Distribution Width 11.8, Platelet Count 201, Mean Platelet Volume 6.7, Neutrophils (%) (Auto) , Lymphocytes (%) ( Auto) , Monocytes (%) (Auto) , Eosinophils (%) (Auto) , Basophils (%) (Auto) , Sodium Level 137, Potassium Level 3.7, Chloride Level 98, Carbon Dioxide Level 26, Anion Gap 13, Blood Urea Nitrogen 7, Creatinine 0.5L, Estimat Glomerular Filtration Rate , Glucose Level 101, Uric Acid 3.0, Calcium Level 8.1L, Phosphorus Level 1.7L, Magnesium Level 1.8, Total Bilirubin 0.8, Aspartate Amino Transf (AST/SGOT) 31, Alanine Aminotransferase (ALT/SGPT) 45H, Alkaline Phosphatase 87, C-Reactive Protein, Quantitative 5.7H, Pro-B-Type Natriuretic Peptide 856H, Total Protein 5.5L, Albumin 2.7L, Globulin 2.8, Albumin/Globulin Ratio 0.9L Height (Feet): 5 Height (Inches): 9.00 Weight (Pounds): 140 General Appearance: lethargic, confused Cardiovascular: normal rate Respiratory/Chest: lungs clear Nahed Pizarro MD Mar 26, 2016 10:56
[2016-03-26 11:39] VITALS: BP 144/79
--- NOTE | 2016-03-26 12:43 | General Progress Note ---
Assessment/Plan Status: unchanged Assessment/Plan Status: - Acute Renal Failure- improved - Septic shock - Dehydration - Pneumonia - Multiple organ system failure - HCAP (healthcare-associated pneumonia) Plan: K & Phos supplement- as needed DC IV fluid Antibiotics- Monitor renal parameters- Avoid nephrotoxics urine studies per consultants- Subjective ROS Limited/Unobtainable: No Constitutional: Reports: malaise, weakness Allergies: Coded Allergies: PENICILLINS (Verified Allergy, Unknown, 03/19/16) SULFA (SULFONAMIDE ANTIBIOTICS) (Verified Allergy, Unknown, 03/19/16) Objective Last 24 Hour Vital Signs Date Time Temp Pulse Resp B/P Pulse Ox O2 Delivery O2 Flow Rate FiO2 03/26/16 11:39 98.2 68 20 144/79 97 Room Air 03/26/16 08:47 62 164/88 03/26/16 08:26 97.5 62 20 164/88 95 Room Air 03/26/16 08:00 62 03/26/16 07:55 Room Air 21 03/26/16 07:54 95 Room Air 21 03/26/16 07:53 62 20 Room Air 21 03/26/16 04:00 63 03/26/16 04:00 97.0 55 16 131/74 90 Room Air 03/26/16 00:00 53 03/26/16 00:00 97.2 54 16 137/73 92 Room Air 03/25/16 21:48 63 119/69 03/25/16 20:00 62 03/25/16 20:00 97.3 63 17 119/69 96 Room Air 03/25/16 19:30 95 Room Air 21 03/25/16 19:30 Room Air 21 03/25/16 19:30 60 20 Room Air 21 03/25/16 16:05 97.3 03/25/16 16:00 64 03/25/16 16:00 97.3 62 16 137/82 95 Room Air Intake and Output 03/25/16 03/26/16 19:00 07:00 Intake Total 760 ml 350 ml Output Total 300 ml 1100 ml Balance 460 ml -750 ml Intake IV Total 760 ml 350 ml Output Urine Total 300 ml 1100 ml Laboratory Tests 03/26/16 05:45: White Blood Count 11.9H, Red Blood Count 4.37L, Hemoglobin 13.4L, Hematocrit 40.0L, Mean Corpuscular Volume 92, Mean Corpuscular Hemoglobin 30.6, Mean Corpuscular Hemoglobin Concent 33.5, Red Cell Distribution Width 11.8, Platelet Count 201, Mean Platelet Volume 6.7, Neutrophils (%) (Auto) , Lymphocytes (%) ( Auto) , Monocytes (%) (Auto) , Eosinophils (%) (Auto) , Basophils (%) (Auto) , Sodium Level 137, Potassium Level 3.7, Chloride Level 98, Carbon Dioxide Level 26, Anion Gap 13, Blood Urea Nitrogen 7, Creatinine 0.5L, Estimat Glomerular Filtration Rate , Glucose Level 101, Uric Acid 3.0, Calcium Level 8.1L, Phosphorus Level 1.7L, Magnesium Level 1.8, Total Bilirubin 0.8, Aspartate Amino Transf (AST/SGOT) 31, Alanine Aminotransferase (ALT/SGPT) 45H, Alkaline Phosphatase 87, C-Reactive Protein, Quantitative 5.7H, Pro-B-Type Natriuretic Peptide 856H, Total Protein 5.5L, Albumin 2.7L, Globulin 2.8, Albumin/Globulin Ratio 0.9L Height (Feet): 5 Height (Inches): 9.00 Weight (Pounds): 140 General Appearance: lethargic Cardiovascular: regular rhythm Respiratory/Chest: decreased breath sounds Abdomen: soft Objective physical exam not changed CLINT CARMEN Mar 26, 2016 12:43
[2016-03-26] MEDS ORDERED: Potassium Phosphate 30 MM in NS 275 ML IV ONE (14:00)
--- NOTE | 2016-03-26 15:23 | Cardiac Electrophysiology PN ---
Assessment/Plan Assessment/Plan 1. Troponin elevation , s/p three coronary stents. Follow up troponin were negative. No chest pain. On Betablocker. 2. Septic shock. Off pressors, on broad-spectrum abx 3. Atrial fibrillation with rapid ventricular response. NPO.In SR today. Change Lopressor 5 mg iv q12 hr to po after gets PEG.Echo EF 60-65% 4. Severe dehydration with hypernatremia and azotemia. Better on D5W and KCL. 5. S/P Respiratory failure.Self extubated. 6. Healthcare-associated pneumonia with right lower lobe infiltrate, on meropenem and Zyvox by Dr. Vera. 7. Elevated transaminase level. 8. Dysphagia. Failed swallow eval. PEG Tomorrow HEATHER RN Subjective Subjective Remained in SR. Confused in restraint. On iv Metoprolol. Scheduled for PEG tomorrow. Occasional PVC. Objective Last 24 Hour Vital Signs Date Time Temp Pulse Resp B/P Pulse Ox O2 Delivery O2 Flow Rate FiO2 03/26/16 12:00 68 03/26/16 11:39 98.2 68 20 144/79 97 Room Air 03/26/16 08:47 62 164/88 03/26/16 08:26 97.5 62 20 164/88 95 Room Air 03/26/16 08:00 62 03/26/16 07:55 Room Air 21 03/26/16 07:54 95 Room Air 21 03/26/16 07:53 62 20 Room Air 21 03/26/16 04:00 63 03/26/16 04:00 97.0 55 16 131/74 90 Room Air 03/26/16 00:00 53 03/26/16 00:00 97.2 54 16 137/73 92 Room Air 03/25/16 21:48 63 119/69 03/25/16 20:00 62 03/25/16 20:00 97.3 63 17 119/69 96 Room Air 03/25/16 19:30 95 Room Air 21 03/25/16 19:30 Room Air 21 03/25/16 19:30 60 20 Room Air 21 03/25/16 16:05 97.3 03/25/16 16:00 64 03/25/16 16:00 97.3 62 16 137/82 95 Room Air Intake and Output 03/25/16 03/26/16 19:00 07:00 Intake Total 760 ml 400 ml Output Total 300 ml 1100 ml Balance 460 ml -700 ml Intake IV Total 760 ml 400 ml Output Urine Total 300 ml 1100 ml Laboratory Tests Test 03/26/16 05:45 White Blood Count 11.9 K/UL (4.8-10.8) H Red Blood Count 4.37 M/UL (4.70-6.10) L Hemoglobin 13.4 G/DL (14.2-18.0) L Hematocrit 40.0 % (42.0-52.0) L Mean Corpuscular Volume 92 FL (80-99) Mean Corpuscular Hemoglobin 30.6 PG (27.0-31.0) Mean Corpuscular Hemoglobin Concent 33.5 G/DL (32.0-36.0) Red Cell Distribution Width 11.8 % (11.6-14.8) Platelet Count 201 K/UL (150-450) Mean Platelet Volume 6.7 FL (6.5-10.1) Neutrophils (%) (Auto) % (45.0-75.0) Lymphocytes (%) (Auto) % (20.0-45.0) Monocytes (%) (Auto) % (1.0-10.0) Eosinophils (%) (Auto) % (0.0-3.0) Basophils (%) (Auto) % (0.0-2.0) Sodium Level 137 mEQ/L (135-145) Potassium Level 3.7 mEQ/L (3.4-4.9) Chloride Level 98 mEQ/L (98-107) Carbon Dioxide Level 26 mEQ/L (20-30) Anion Gap 13 (5-15) Blood Urea Nitrogen 7 mg/dL (7-23) Creatinine 0.5 mg/dL (0.7-1.2) L Estimat Glomerular Filtration Rate mL/min (>60) Glucose Level 101 mg/dL (74-106) Uric Acid 3.0 mg/dL (3.0-7.5) Calcium Level 8.1 mg/dL (8.6-10.2) L Phosphorus Level 1.7 mg/dL (2.5-4.8) L Magnesium Level 1.8 mg/dL (1.7-2.5) Total Bilirubin 0.8 mg/dL (0.0-1.2) Aspartate Amino Transf (AST/SGOT) 31 U/L (5-40) Alanine Aminotransferase (ALT/SGPT) 45 U/L (3-41) H Alkaline Phosphatase 87 U/L (40-129) C-Reactive Protein, Quantitative 5.7 mg/dL (< 0.5) H Pro-B-Type Natriuretic Peptide 856 pg/mL (0-450) H Total Protein 5.5 g/dL (6.6-8.7) L Albumin 2.7 g/dL (3.5-5.2) L Globulin 2.8 g/dL Albumin/Globulin Ratio 0.9 (1.0-2.7) L Objective HEENT: NG tube out. No JVD LUNGS: Coarse rhonchi bilaterally. CARDIOVASCULAR: Regular S1 and S2 with no gallop or murmur. ABDOMEN: Soft. EXTREMITIES: No pitting edema. ESTEE BREEN Mar 26, 2016 15:23
[2016-03-26 16:00] VITALS: BP 122/63
--- NOTE | 2016-03-26 17:32 | Infectious Diseases Prog Note ---
Assessment/Plan Problems: (1) HCAP (healthcare-associated pneumonia) Assessment & Plan: with RLL infiltrates,possible aspiration related, improved on zyvox and meropenem , recieved 7 days already, off antibiotics now , blood culture and sputum culture are negative so far , screening for influenza is negative . for PEG tube placement today by GI (2) Respiratory failure requiring intubation Assessment & Plan: improving, S/P self extubation , due to pneumonia and sepsis , pulmonary is following (3) Septic shock Assessment & Plan: due to pneumonia, complicated with organs failure, improved , on wide spectrum antibiotics therapy, blood culture is negative (4) Elevated transaminase level Assessment & Plan: improving, suspect liver shock due to sepsis , avoid hepatotoxic meds, monitor LFT, screen for hepatitis (5) Renal failure Assessment & Plan: due to sepsis, continue IVF and pressors, to keep SBP >100, nephrology is following (6) Multiple organ system failure Assessment & Plan: due to sepsis (7) ICH (intracerebral hemorrhage) Assessment & Plan: unclear whether he had recent trauma or fall, recommend neurology eval, and surgical consultation Subjective ROS Limited/Unobtainable: Yes Allergies: Coded Allergies: PENICILLINS (Verified Allergy, Unknown, 03/19/16) SULFA (SULFONAMIDE ANTIBIOTICS) (Verified Allergy, Unknown, 03/19/16) Subjective he was comfortable, up in bed, on restrains , more awake and alert, not in distress Objective Vital Signs Last 24 Hour Vital Signs Date Time Temp Pulse Resp B/P Pulse Ox O2 Delivery O2 Flow Rate FiO2 03/26/16 16:00 97.4 66 20 122/63 97 Nasal Cannula 2.0 03/26/16 12:00 68 03/26/16 11:39 98.2 68 20 144/79 97 Room Air 03/26/16 08:47 62 164/88 03/26/16 08:26 97.5 62 20 164/88 95 Room Air 03/26/16 08:00 62 03/26/16 07:55 Room Air 21 03/26/16 07:54 95 Room Air 21 03/26/16 07:53 62 20 Room Air 21 03/26/16 04:00 63 03/26/16 04:00 97.0 55 16 131/74 90 Room Air 03/26/16 00:00 53 03/26/16 00:00 97.2 54 16 137/73 92 Room Air 03/25/16 21:48 63 119/69 03/25/16 20:00 62 03/25/16 20:00 97.3 63 17 119/69 96 Room Air 03/25/16 19:30 95 Room Air 21 03/25/16 19:30 Room Air 21 03/25/16 19:30 60 20 Room Air 21 Height (Feet): 5 Height (Inches): 9.00 Weight (Pounds): 140 General Appearance: WD/WN, no acute distress HEENT: normocephalic, atraumatic, anicteric, mucous membranes moist Respiratory/Chest: chest wall non-tender, lungs clear, normal breath sounds, no respiratory distress, no accessory muscle use Cardiovascular: normal peripheral pulses, normal rate, regular rhythm, no gallop/murmur Abdomen: normal bowel sounds, soft, non tender, no organomegaly, non distended , no mass, no scars Extremities: no cyanosis, no clubbing Skin: no rash, no lesions, no ulcers Laboratory Tests Test 03/26/16 05:45 White Blood Count 11.9 K/UL (4.8-10.8) H Red Blood Count 4.37 M/UL (4.70-6.10) L Hemoglobin 13.4 G/DL (14.2-18.0) L Hematocrit 40.0 % (42.0-52.0) L Mean Corpuscular Volume 92 FL (80-99) Mean Corpuscular Hemoglobin 30.6 PG (27.0-31.0) Mean Corpuscular Hemoglobin Concent 33.5 G/DL (32.0-36.0) Red Cell Distribution Width 11.8 % (11.6-14.8) Platelet Count 201 K/UL (150-450) Mean Platelet Volume 6.7 FL (6.5-10.1) Neutrophils (%) (Auto) % (45.0-75.0) Lymphocytes (%) (Auto) % (20.0-45.0) Monocytes (%) (Auto) % (1.0-10.0) Eosinophils (%) (Auto) % (0.0-3.0) Basophils (%) (Auto) % (0.0-2.0) Sodium Level 137 mEQ/L (135-145) Potassium Level 3.7 mEQ/L (3.4-4.9) Chloride Level 98 mEQ/L (98-107) Carbon Dioxide Level 26 mEQ/L (20-30) Anion Gap 13 (5-15) Blood Urea Nitrogen 7 mg/dL (7-23) Creatinine 0.5 mg/dL (0.7-1.2) L Estimat Glomerular Filtration Rate mL/min (>60) Glucose Level 101 mg/dL (74-106) Uric Acid 3.0 mg/dL (3.0-7.5) Calcium Level 8.1 mg/dL (8.6-10.2) L Phosphorus Level 1.7 mg/dL (2.5-4.8) L Magnesium Level 1.8 mg/dL (1.7-2.5) Total Bilirubin 0.8 mg/dL (0.0-1.2) Aspartate Amino Transf (AST/SGOT) 31 U/L (5-40) Alanine Aminotransferase (ALT/SGPT) 45 U/L (3-41) H Alkaline Phosphatase 87 U/L (40-129) C-Reactive Protein, Quantitative 5.7 mg/dL (< 0.5) H Pro-B-Type Natriuretic Peptide 856 pg/mL (0-450) H Total Protein 5.5 g/dL (6.6-8.7) L Albumin 2.7 g/dL (3.5-5.2) L Globulin 2.8 g/dL Albumin/Globulin Ratio 0.9 (1.0-2.7) L Current Medications Medications (Trade) Dose Ordered Sig/Lovely Route PRN Reason Start Time Stop Time Status Last Admin Dose Admin Acetaminophen (Tylenol) 650 mg Q4H PRN ORAL T>100.5 03/21/16 14:00 04/20/16 13:59 Heparin Sodium (Porcine) (Heparin 5000 units/ml) 5,000 units EVERY 12 HOURS SUBQ 03/21/16 21:00 04/20/16 20:59 03/26/16 08:48 Hydralazine HCl 10 mg 10 mg Q4H PRN IV For High Blood Pressure 03/22/16 21:30 04/21/16 21:29 Lorazepam (Ativan 2mg/ml 1ml) 2 mg Q2H PRN IV For Anxiety 03/21/16 14:00 03/28/16 13:59 Metoprolol Tartrate (Lopressor) 5 mg EVERY 12 HOURS IVP 03/21/16 21:00 04/20/16 20:59 03/25/16 21:48 Morphine Sulfate (Morphine Sulfate) 4 mg Q4H PRN IVP Severe Pain (Pain Scale 7-10) 03/21/16 14:00 03/28/16 13:59 03/26/16 08:47 Ondansetron HCl (Zofran) 4 mg Q6H PRN IVP Nausea & Vomiting 03/21/16 14:00 04/20/16 13:59 Polyethylene Glycol (Miralax) 17 gm DAILYPRN PRN ORAL Constipation 03/21/16 14:00 04/20/16 13:59 Potassium Phosphate 30 mm/ Sodium Chloride 285 ml @ 47.5 mls/hr ONCE ONCE IV 03/26/16 14:00 03/26/16 19:59 03/26/16 13:56 Vancomycin HCl/ Dextrose (Vancomycin/D5W) 110 ml @ 110 mls/hr ONCE ONCE IVPB 03/27/16 07:00 03/27/16 07:59 Chantell Vera M.D. Mar 26, 2016 17:32
--- NOTE | 2016-03-26 17:35 | General Progress Note ---
Assessment/Plan Assessment/Plan Assessment: # Leukocytosis - is likely related to medication v underlying infection, has improved # Erythrocytosis was likely related to dehydration # Healthcare-acquired pneumonia with right lower lobe infiltrate. On abx # Respiratory failure, required intubation. was on a mechanical ventilator -> self-extubated # Septic shock due to pna # Multiorgan system failure # Elevated transaminase level due to the sepsis and liver shock # Dehydration due to poor oral intake. # Acute renal failure due to sepsis. Recommendations: - Monitor counts - Peripheral smear reviewed - Followup on ID, pulm, cards, nephro recs - Abx as needed - DVT ppx with SCDs - GI ppx as needed - Peg for thurs - Staff Thank you, Jarod Keller MD Subjective Constitutional: Reports: no symptoms HEENT: Reports: no symptoms Cardiovascular: Reports: no symptoms Respiratory: Reports: no symptoms Gastrointestinal/Abdominal: Reports: poor appetite Genitourinary: Reports: no symptoms Neurologic/Psychiatric: Reports: no symptoms Endocrine: Reports: no symptoms Hematologic/Lymphatic: Reports: anemia Allergies: Coded Allergies: PENICILLINS (Verified Allergy, Unknown, 03/19/16) SULFA (SULFONAMIDE ANTIBIOTICS) (Verified Allergy, Unknown, 03/19/16) Subjective no events overnight, no bleeding, no hematochezia - peg tomorrow Objective Last 24 Hour Vital Signs Date Time Temp Pulse Resp B/P Pulse Ox O2 Delivery O2 Flow Rate FiO2 03/26/16 16:00 97.4 66 20 122/63 97 Nasal Cannula 2.0 03/26/16 12:00 68 03/26/16 11:39 98.2 68 20 144/79 97 Room Air 03/26/16 08:47 62 164/88 03/26/16 08:26 97.5 62 20 164/88 95 Room Air 03/26/16 08:00 62 03/26/16 07:55 Room Air 21 03/26/16 07:54 95 Room Air 21 03/26/16 07:53 62 20 Room Air 21 03/26/16 04:00 63 03/26/16 04:00 97.0 55 16 131/74 90 Room Air 03/26/16 00:00 53 03/26/16 00:00 97.2 54 16 137/73 92 Room Air 03/25/16 21:48 63 119/69 03/25/16 20:00 62 03/25/16 20:00 97.3 63 17 119/69 96 Room Air 03/25/16 19:30 95 Room Air 21 03/25/16 19:30 Room Air 21 03/25/16 19:30 60 20 Room Air 21 Intake and Output 03/25/16 03/26/16 19:00 07:00 Intake Total 760 ml 400 ml Output Total 300 ml 1100 ml Balance 460 ml -700 ml Intake IV Total 760 ml 400 ml Output Urine Total 300 ml 1100 ml Laboratory Tests 03/26/16 05:45: White Blood Count 11.9H, Red Blood Count 4.37L, Hemoglobin 13.4L, Hematocrit 40.0L, Mean Corpuscular Volume 92, Mean Corpuscular Hemoglobin 30.6, Mean Corpuscular Hemoglobin Concent 33.5, Red Cell Distribution Width 11.8, Platelet Count 201, Mean Platelet Volume 6.7, Neutrophils (%) (Auto) , Lymphocytes (%) ( Auto) , Monocytes (%) (Auto) , Eosinophils (%) (Auto) , Basophils (%) (Auto) , Sodium Level 137, Potassium Level 3.7, Chloride Level 98, Carbon Dioxide Level 26, Anion Gap 13, Blood Urea Nitrogen 7, Creatinine 0.5L, Estimat Glomerular Filtration Rate , Glucose Level 101, Uric Acid 3.0, Calcium Level 8.1L, Phosphorus Level 1.7L, Magnesium Level 1.8, Total Bilirubin 0.8, Aspartate Amino Transf (AST/SGOT) 31, Alanine Aminotransferase (ALT/SGPT) 45H, Alkaline Phosphatase 87, C-Reactive Protein, Quantitative 5.7H, Pro-B-Type Natriuretic Peptide 856H, Total Protein 5.5L, Albumin 2.7L, Globulin 2.8, Albumin/Globulin Ratio 0.9L Height (Feet): 5 Height (Inches): 9.00 Weight (Pounds): 140 General Appearance: no apparent distress EENT: TMs normal Neck: supple Cardiovascular: regular rhythm Respiratory/Chest: lungs clear Abdomen: no mass Extremities: non-tender Edema: 1+ Leg (L), 1+ Leg (R) Edema: mild edema Neurologic: alert Skin: warm/dry Jarod Keller Mar 26, 2016 17:35
--- NOTE | 2016-03-26 18:00 | Pulmonology Progress Note ---
Assessment/Plan Problems: (1) Respiratory failure requiring intubation (2) Pneumonia (3) Atrial fibrillation (4) Hypertension (5) Septic shock (6) Dehydration Assessment/Plan improving bc negative no sputum yet, ordered induction again npo wideow swallow study noted, pt failed Peg is planned for med/surg when ok with Cardio in and out of Afib on IV lopresor on digoxin Subjective Allergies: Coded Allergies: PENICILLINS (Verified Allergy, Unknown, 03/19/16) SULFA (SULFONAMIDE ANTIBIOTICS) (Verified Allergy, Unknown, 03/19/16) Objective Last 24 Hour Vital Signs Date Time Temp Pulse Resp B/P Pulse Ox O2 Delivery O2 Flow Rate FiO2 03/26/16 16:00 97.4 66 20 122/63 97 Nasal Cannula 2.0 03/26/16 12:00 68 03/26/16 11:39 98.2 68 20 144/79 97 Room Air 03/26/16 08:47 62 164/88 03/26/16 08:26 97.5 62 20 164/88 95 Room Air 03/26/16 08:00 62 03/26/16 07:55 Room Air 21 03/26/16 07:54 95 Room Air 21 03/26/16 07:53 62 20 Room Air 21 03/26/16 04:00 63 03/26/16 04:00 97.0 55 16 131/74 90 Room Air 03/26/16 00:00 53 03/26/16 00:00 97.2 54 16 137/73 92 Room Air 03/25/16 21:48 63 119/69 03/25/16 20:00 62 03/25/16 20:00 97.3 63 17 119/69 96 Room Air 03/25/16 19:30 95 Room Air 21 03/25/16 19:30 Room Air 21 03/25/16 19:30 60 20 Room Air 21 Intake and Output 03/25/16 03/26/16 19:00 07:00 Intake Total 760 ml 400 ml Output Total 300 ml 1100 ml Balance 460 ml -700 ml Intake IV Total 760 ml 400 ml Output Urine Total 300 ml 1100 ml Objective General Appearance: WD/WN Lines, tubes and drains: peripheral HEENT: normocephalic, atraumatic Neck: non-tender, normal alignment Respiratory/Chest: chest wall non-tender, rhonchi - left, rhonchi - right Cardiovascular/Chest: normal peripheral pulses, normal rate Abdomen: normal bowel sounds, non tender Genitourinary/Rectal: normal genital exam Extremities: normal range of motion, non-tender, normal inspection, no calf tenderness, normal capillary refill Skin Exam: normal pigmentation Neurologic: secondary set up man II-XII grossly normal Laboratory Tests 03/26/16 05:45: White Blood Count 11.9H, Red Blood Count 4.37L, Hemoglobin 13.4L, Hematocrit 40.0L, Mean Corpuscular Volume 92, Mean Corpuscular Hemoglobin 30.6, Mean Corpuscular Hemoglobin Concent 33.5, Red Cell Distribution Width 11.8, Platelet Count 201, Mean Platelet Volume 6.7, Neutrophils (%) (Auto) , Lymphocytes (%) ( Auto) , Monocytes (%) (Auto) , Eosinophils (%) (Auto) , Basophils (%) (Auto) , Sodium Level 137, Potassium Level 3.7, Chloride Level 98, Carbon Dioxide Level 26, Anion Gap 13, Blood Urea Nitrogen 7, Creatinine 0.5L, Estimat Glomerular Filtration Rate , Glucose Level 101, Uric Acid 3.0, Calcium Level 8.1L, Phosphorus Level 1.7L, Magnesium Level 1.8, Total Bilirubin 0.8, Aspartate Amino Transf (AST/SGOT) 31, Alanine Aminotransferase (ALT/SGPT) 45H, Alkaline Phosphatase 87, C-Reactive Protein, Quantitative 5.7H, Pro-B-Type Natriuretic Peptide 856H, Total Protein 5.5L, Albumin 2.7L, Globulin 2.8, Albumin/Globulin Ratio 0.9L Current Medications Medications (Trade) Dose Ordered Sig/Lovely Route PRN Reason Start Time Stop Time Status Last Admin Dose Admin Acetaminophen (Tylenol) 650 mg Q4H PRN ORAL T>100.5 03/21/16 14:00 04/20/16 13:59 Heparin Sodium (Porcine) (Heparin 5000 units/ml) 5,000 units EVERY 12 HOURS SUBQ 03/21/16 21:00 04/20/16 20:59 03/26/16 08:48 Hydralazine HCl 10 mg 10 mg Q4H PRN IV For High Blood Pressure 03/22/16 21:30 04/21/16 21:29 Lorazepam (Ativan 2mg/ml 1ml) 2 mg Q2H PRN IV For Anxiety 03/21/16 14:00 03/28/16 13:59 Metoprolol Tartrate (Lopressor) 5 mg EVERY 12 HOURS IVP 03/21/16 21:00 04/20/16 20:59 03/25/16 21:48 Morphine Sulfate (Morphine Sulfate) 4 mg Q4H PRN IVP Severe Pain (Pain Scale 7-10) 03/21/16 14:00 03/28/16 13:59 03/26/16 08:47 Ondansetron HCl (Zofran) 4 mg Q6H PRN IVP Nausea & Vomiting 03/21/16 14:00 04/20/16 13:59 Polyethylene Glycol (Miralax) 17 gm DAILYPRN PRN ORAL Constipation 03/21/16 14:00 04/20/16 13:59 Potassium Phosphate 30 mm/ Sodium Chloride 285 ml @ 47.5 mls/hr ONCE ONCE IV 03/26/16 14:00 03/26/16 19:59 03/26/16 13:56 Vancomycin HCl/ Dextrose (Vancomycin/D5W) 110 ml @ 110 mls/hr ONCE ONCE IVPB 03/27/16 07:00 03/27/16 07:59 CAROLINA TORREZ Mar 26, 2016 18:00
[2016-03-26 20:00] VITALS: BP 149/77
--- NOTE | 2016-03-26 22:48 | General Progress Note ---
Assessment/Plan Assessment/Plan Assessment - Malnutrition - cachexia - dysphagia - dehydration , low phos - PNA - Large HH --> difficult NGT placement Recommendations - Hold po diet - video swallow - failed - Will place PEG Th am - Abx - IVF - replace lytes - per renal Subjective Allergies: Coded Allergies: PENICILLINS (Verified Allergy, Unknown, 03/19/16) SULFA (SULFONAMIDE ANTIBIOTICS) (Verified Allergy, Unknown, 03/19/16) Subjective uneventful day for PEG in am Objective Last 24 Hour Vital Signs Date Time Temp Pulse Resp B/P Pulse Ox O2 Delivery O2 Flow Rate FiO2 03/26/16 21:13 68 139/86 03/26/16 20:00 97.9 62 20 149/77 96 Nasal Cannula 2.0 03/26/16 16:00 66 03/26/16 16:00 97.4 66 20 122/63 97 Nasal Cannula 2.0 03/26/16 12:00 68 03/26/16 11:39 98.2 68 20 144/79 97 Room Air 03/26/16 08:47 62 164/88 03/26/16 08:26 97.5 62 20 164/88 95 Room Air 03/26/16 08:00 62 03/26/16 07:55 Room Air 21 03/26/16 07:54 95 Room Air 21 03/26/16 07:53 62 20 Room Air 21 03/26/16 04:00 63 03/26/16 04:00 97.0 55 16 131/74 90 Room Air 03/26/16 00:00 53 03/26/16 00:00 97.2 54 16 137/73 92 Room Air Intake and Output 03/25/16 03/26/16 19:00 07:00 Intake Total 760 ml 400 ml Output Total 300 ml 1100 ml Balance 460 ml -700 ml Intake IV Total 760 ml 400 ml Output Urine Total 300 ml 1100 ml Laboratory Tests 03/26/16 05:45: White Blood Count 11.9H, Red Blood Count 4.37L, Hemoglobin 13.4L, Hematocrit 40.0L, Mean Corpuscular Volume 92, Mean Corpuscular Hemoglobin 30.6, Mean Corpuscular Hemoglobin Concent 33.5, Red Cell Distribution Width 11.8, Platelet Count 201, Mean Platelet Volume 6.7, Neutrophils (%) (Auto) , Lymphocytes (%) ( Auto) , Monocytes (%) (Auto) , Eosinophils (%) (Auto) , Basophils (%) (Auto) , Sodium Level 137, Potassium Level 3.7, Chloride Level 98, Carbon Dioxide Level 26, Anion Gap 13, Blood Urea Nitrogen 7, Creatinine 0.5L, Estimat Glomerular Filtration Rate , Glucose Level 101, Uric Acid 3.0, Calcium Level 8.1L, Phosphorus Level 1.7L, Magnesium Level 1.8, Total Bilirubin 0.8, Aspartate Amino Transf (AST/SGOT) 31, Alanine Aminotransferase (ALT/SGPT) 45H, Alkaline Phosphatase 87, C-Reactive Protein, Quantitative 5.7H, Pro-B-Type Natriuretic Peptide 856H, Total Protein 5.5L, Albumin 2.7L, Globulin 2.8, Albumin/Globulin Ratio 0.9L Height (Feet): 5 Height (Inches): 9.00 Weight (Pounds): 140 Objective Thin WM NCAT supple CTA RRR Soft NT ND No edema OBS MAHNAZ GRIMES Mar 26, 2016 22:48
[2016-03-27] VITALS (10 sets, daily range): BP systolic 75–153; BP diastolic 56–84
[2016-03-27] MEDS ORDERED: ceFAZolin sod 0.5 GM in D5W 55 ML IV ONE (07:00)
[2016-03-27] MEDS ORDERED: Vancomycin 500mg in D5W 110ml IVPB ONE (07:00)
[2016-03-27 07:30] LABS: ALANINE AMINOTRANSFERASE 35 U/L (3-41); ALBUMIN/GLOBULIN RATIO 0.8 (1.0-2.7); ANION GAP 14 (5-15); ASPARTATE AMINO TRANSFERASE 29 U/L (5-40); CALCIUM 8.3 mg/dL (8.6-10.2); CARBON DIOXIDE 26 mEQ/L (20-30); CHLORIDE 101 mEQ/L (98-107); CREATININE 0.5 mg/dL (0.7-1.2); HEMOLYSIS 7; POTASSIUM 3.7 mEQ/L (3.4-4.9); SODIUM 141 mEQ/L (135-145); TOTAL PROTEIN 5.6 g/dL (6.6-8.7)
[2016-03-27] MEDS: Heparin 5000 units/ml inj SUBQ SCH ×2 (09:00→22:00)
[2016-03-27] MEDS: Metoprolol 5mg/5ml Inj IVP SCH (09:18)
[2016-03-27] MEDS ORDERED: Lidocaine 1% MPF 10mg/ml 5ml ONE (09:30)
[2016-03-27] MEDS ORDERED: LR 1000ml ONE (09:30)
[2016-03-27] MEDS ORDERED: Propofol 10mg/ml 20ml IV ONE (09:30)
--- NOTE | 2016-03-27 09:44 | Pre-Procedure Note/Attestation ---
Pre-Procedure Note/Attestation Complete Prior to Procedure Planned Procedure: not applicable Procedure Narrative: EGD PEG Indications for Procedure Pre-Operative Diagnosis: dyaphagia Attestation I attest that I discussed the nature of the procedure; its benefits; risks and complications; and alternatives (and the risks and benefits of such alternatives ), prior to the procedure, with the patient (or the patient's legal loss prevention representative). I attest that, if there was a reasonable possibility of needing a blood transfusion, the patient (or the patient's legal loss prevention representative) was given the [facility] standardized written summary, pursuant to the Ronen Kevin Blood Safety Act ([place] Health and Safety Code # 1645, as amended). I attest that I re-evaluated the patient just prior to the surgery and that there has been no change in the patient's H&P, except as documented below: MAHNAZ GRIMES Mar 27, 2016 09:44
--- NOTE | 2016-03-27 10:00 | Endoscopy Procedure Note ---
Endoscopy Procedure Note Indication for Procedure: dysphagia Procedures Performed: EGD, PEG Operative Findings/Diagnosis: dysphagia, HH Specimen: none Pt Tolerated Procedure Well: Yes Estimated Blood Loss: none Anesthesiologist: MAGALY Anesthesia: MAC Medication Given: see anesthesia record Implant(s) used?: No 50 yrs or older w/o bx or poly: Not Applicable 10yrs. F/U not recommended: Not Applicable If not recommended, why?: MAHNAZ GRIMES Mar 27, 2016 10:00
--- NOTE | 2016-03-27 10:04 | Brief Operative Note ---
Immediate Post Operative Note Operative Note Chief Complaint: Dysphagia Pre-op Diagnosis: dyaphagia Procedure: PEG Post-op Diagnosis: HH, PEG Surgeon: kristen Anesthesiologist: OMAR Anesthesia: moderate sedation Specimen: none Complications: none Condition: stable Estimated Blood Loss: none Drains: none Implant(s) used?: No MAHNAZ GRIMES Mar 27, 2016 10:04
--- NOTE | 2016-03-27 10:07 | General Progress Note ---
Assessment/Plan Assessment/Plan Assessment - Malnutrition - cachexia - dysphagia - PNA - Large HH --> difficult NGT placement Recommendations - Will place PEG Th am - Abx - IVF Subjective Allergies: Coded Allergies: PENICILLINS (Verified Allergy, Unknown, 03/19/16) SULFA (SULFONAMIDE ANTIBIOTICS) (Verified Allergy, Unknown, 03/19/16) Subjective uneventful night NPO for PEG today Objective Last 24 Hour Vital Signs Date Time Temp Pulse Resp B/P Pulse Ox O2 Delivery O2 Flow Rate FiO2 03/27/16 08:00 96.5 71 17 153/78 96 Room Air 03/27/16 07:24 65 17 Room Air 21 03/27/16 07:24 Room Air 21 03/27/16 07:24 96 Room Air 21 03/27/16 04:28 97.0 71 20 145/84 96 03/27/16 04:00 65 03/27/16 00:23 97.0 51 20 106/56 97 Nasal Cannula 2.0 03/27/16 00:00 53 03/26/16 21:13 68 139/86 03/26/16 20:00 97.9 62 20 149/77 96 Nasal Cannula 2.0 03/26/16 20:00 64 03/26/16 19:36 68 16 Room Air 21 03/26/16 19:36 Room Air 21 03/26/16 19:36 95 Room Air 21 03/26/16 16:00 66 03/26/16 16:00 97.4 66 20 122/63 97 Nasal Cannula 2.0 03/26/16 12:00 68 03/26/16 11:39 98.2 68 20 144/79 97 Room Air Intake and Output 03/26/16 03/27/16 19:00 07:00 Intake Total 320.83 ml Output Total 700 ml 1200 ml Balance -379.17 ml -1200 ml Intake IV Total 320.83 ml Output Urine Total 700 ml 1200 ml # Bowel Movements 1 Laboratory Tests 03/27/16 05:45: Sodium Level 141, Potassium Level 3.7, Chloride Level 101, Carbon Dioxide Level 26, Anion Gap 14, Blood Urea Nitrogen 8, Creatinine 0.5L, Estimat Glomerular Filtration Rate , Glucose Level 88, Calcium Level 8.3L, Phosphorus Level 2.6, Total Bilirubin 0.8, Aspartate Amino Transf (AST/SGOT) 29, Alanine Aminotransferase (ALT/SGPT) 35, Alkaline Phosphatase 92, Total Protein 5.6L, Albumin 2.5L, Globulin 3.1, Albumin/Globulin Ratio 0.8L Height (Feet): 5 Height (Inches): 8.00 Weight (Pounds): 110 Objective Thin WM NCAT supple CTA RRR Soft NT ND No edema OBS MAHNAZ GRIMES Mar 27, 2016 10:07
--- NOTE | 2016-03-27 10:39 | General Progress Note ---
Assessment/Plan Status: stable - from renal stand Status Narrative Phos WNL Assessment/Plan Status: - Acute Renal Failure- improved - Septic shock - Dehydration - Pneumonia - Multiple organ system failure - HCAP (healthcare-associated pneumonia) Plan: K & Phos supplement- as needed DC IV fluid Antibiotics- Monitor renal parameters- Avoid nephrotoxics urine studies per consultants- Subjective ROS Limited/Unobtainable: No Constitutional: Reports: malaise, weakness Allergies: Coded Allergies: PENICILLINS (Verified Allergy, Unknown, 03/19/16) SULFA (SULFONAMIDE ANTIBIOTICS) (Verified Allergy, Unknown, 03/19/16) Objective Last 24 Hour Vital Signs Date Time Temp Pulse Resp B/P Pulse Ox O2 Delivery O2 Flow Rate FiO2 03/27/16 10:30 63 26 134/65 100 Nasal Cannula 3.0 03/27/16 10:15 62 14 110/80 100 Nasal Cannula 3.0 03/27/16 10:10 60 27 108/75 100 Simple Mask 6.0 03/27/16 10:05 98.7 71 20 110/72 100 Simple Mask 6.0 03/27/16 09:18 71 153/78 03/27/16 08:00 96.5 71 17 153/78 96 Room Air 03/27/16 07:24 65 17 Room Air 21 03/27/16 07:24 Room Air 21 03/27/16 07:24 96 Room Air 21 03/27/16 04:28 97.0 71 20 145/84 96 03/27/16 04:00 65 03/27/16 00:23 97.0 51 20 106/56 97 Nasal Cannula 2.0 03/27/16 00:00 53 03/26/16 21:13 68 139/86 03/26/16 20:00 97.9 62 20 149/77 96 Nasal Cannula 2.0 03/26/16 20:00 64 03/26/16 19:36 68 16 Room Air 21 03/26/16 19:36 Room Air 21 03/26/16 19:36 95 Room Air 21 03/26/16 16:00 66 03/26/16 16:00 97.4 66 20 122/63 97 Nasal Cannula 2.0 03/26/16 12:00 68 03/26/16 11:39 98.2 68 20 144/79 97 Room Air Intake and Output 03/26/16 03/27/16 19:00 07:00 Intake Total 320.83 ml Output Total 700 ml 1200 ml Balance -379.17 ml -1200 ml Intake IV Total 320.83 ml Output Urine Total 700 ml 1200 ml # Bowel Movements 1 Laboratory Tests 03/27/16 05:45: Sodium Level 141, Potassium Level 3.7, Chloride Level 101, Carbon Dioxide Level 26, Anion Gap 14, Blood Urea Nitrogen 8, Creatinine 0.5L, Estimat Glomerular Filtration Rate , Glucose Level 88, Calcium Level 8.3L, Phosphorus Level 2.6, Total Bilirubin 0.8, Aspartate Amino Transf (AST/SGOT) 29, Alanine Aminotransferase (ALT/SGPT) 35, Alkaline Phosphatase 92, Total Protein 5.6L, Albumin 2.5L, Globulin 3.1, Albumin/Globulin Ratio 0.8L Height (Feet): 5 Height (Inches): 8.00 Weight (Pounds): 110 General Appearance: no apparent distress Objective physical exam not changed CLINT CARMEN Mar 27, 2016 10:39
--- NOTE | 2016-03-27 11:03 | General Progress Note ---
Assessment/Plan Problem List: (1) Septic shock ICD Codes: A41.9 - Sepsis, unspecified organism; R65.21 - Severe sepsis with septic shock SNOMED: 88282888 (2) Dehydration ICD Codes: E86.0 - Dehydration SNOMED: 59106263 (3) Renal failure ICD Codes: N19 - Unspecified kidney failure; R65.21 - Severe sepsis with septic shock SNOMED: 30120095 (4) Pneumonia ICD Codes: J18.9 - Pneumonia, unspecified organism SNOMED: 194752634 Qualifiers: Qualified Codes: J18.9 - Pneumonia, unspecified organism (5) Multiple organ system failure SNOMED: 64135434 (6) Respiratory failure requiring intubation ICD Codes: J96.90 - Respiratory failure, unspecified, unspecified whether with hypoxia or hypercapnia; R65.21 - Severe sepsis with septic shock SNOMED: 032159666 (7) Elevated transaminase level ICD Codes: R74.0 - Nonspecific elevation of levels of transaminase and lactic acid dehydrogenase [LDH] SNOMED: 371705680, 817836206 Status: progressing Assessment/Plan sepsis arf dehyration improved abx per id check lytes azotemia pna resp insuff Subjective ROS Limited/Unobtainable: Yes Constitutional: Reports: no symptoms Allergies: Coded Allergies: PENICILLINS (Verified Allergy, Unknown, 03/19/16) SULFA (SULFONAMIDE ANTIBIOTICS) (Verified Allergy, Unknown, 03/19/16) Objective Last 24 Hour Vital Signs Date Time Temp Pulse Resp B/P Pulse Ox O2 Delivery O2 Flow Rate FiO2 03/27/16 10:30 63 26 134/65 100 Nasal Cannula 3.0 03/27/16 10:15 62 14 110/80 100 Nasal Cannula 3.0 03/27/16 10:10 60 27 108/75 100 Simple Mask 6.0 03/27/16 10:05 98.7 71 20 110/72 100 Simple Mask 6.0 03/27/16 09:18 71 153/78 03/27/16 08:00 96.5 71 17 153/78 96 Room Air 03/27/16 07:24 65 17 Room Air 21 03/27/16 07:24 Room Air 21 03/27/16 07:24 96 Room Air 21 03/27/16 04:28 97.0 71 20 145/84 96 03/27/16 04:00 65 2/16/17 00:23 97.0 51 20 106/56 97 Nasal Cannula 2.0 03/27/16 00:00 53 03/26/16 21:13 68 139/86 03/26/16 20:00 97.9 62 20 149/77 96 Nasal Cannula 2.0 03/26/16 20:00 64 03/26/16 19:36 68 16 Room Air 21 03/26/16 19:36 Room Air 21 03/26/16 19:36 95 Room Air 21 03/26/16 16:00 66 03/26/16 16:00 97.4 66 20 122/63 97 Nasal Cannula 2.0 03/26/16 12:00 68 03/26/16 11:39 98.2 68 20 144/79 97 Room Air Intake and Output 03/26/16 03/27/16 19:00 07:00 Intake Total 320.83 ml Output Total 700 ml 1200 ml Balance -379.17 ml -1200 ml Intake IV Total 320.83 ml Output Urine Total 700 ml 1200 ml # Bowel Movements 1 Laboratory Tests 03/27/16 05:45: Sodium Level 141, Potassium Level 3.7, Chloride Level 101, Carbon Dioxide Level 26, Anion Gap 14, Blood Urea Nitrogen 8, Creatinine 0.5L, Estimat Glomerular Filtration Rate , Glucose Level 88, Calcium Level 8.3L, Phosphorus Level 2.6, Total Bilirubin 0.8, Aspartate Amino Transf (AST/SGOT) 29, Alanine Aminotransferase (ALT/SGPT) 35, Alkaline Phosphatase 92, Total Protein 5.6L, Albumin 2.5L, Globulin 3.1, Albumin/Globulin Ratio 0.8L Height (Feet): 5 Height (Inches): 8.00 Weight (Pounds): 110 General Appearance: confused EENT: PERRL/EOMI Neck: supple Cardiovascular: normal rate Respiratory/Chest: lungs clear Nahed Pizarro MD Mar 27, 2016 11:03
--- NOTE | 2016-03-27 11:25 | Anethesia Preoperative Eval ---
Anesthesia Pre-op PMH/ROS General Date of Evaluation: Mar 27, 2016 Time of Evaluation: 09:35 Anesthesiologist: adalid ASA Score: ASA 3 Mallampati Score Class I : Soft palate, uvula, fauces, pillars visible Class II: Soft palate, uvula, fauces visible Class III: Soft palate, base of uvula visible Class IV: Only hard plate visible Mallampati Classification: Class III Surgeon: pedro pablo Diagnosis: failure to thrive Surgical Procedure: EGD/PEG Family History: no anesthesia problems Allergies: Coded Allergies: PENICILLINS (Verified Allergy, Unknown, 03/19/16) SULFA (SULFONAMIDE ANTIBIOTICS) (Verified Allergy, Unknown, 03/19/16) Medications: see eMAR Past Medical History Cardiovascular: Reports: CAD, HTN, arrhythmia - in and out of AFIB on dig Pulmonary: Reports: other - respiratory failure Gastrointestinal/Genitourinary: Reports: GERD, other - acute renal Neurologic/Psychiatric: 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 History of BPH. History of hypertension PSxH Narrative: unknown Anesthesia Pre-op Phys. Exam Physician Exam Last Vital Signs Date Time Temp Pulse Resp B/P Pulse Ox O2 Delivery O2 Flow Rate FiO2 03/27/16 10:30 63 26 134/65 100 Nasal Cannula 3.0 03/27/16 10:05 98.7 03/27/16 07:24 21 Constitutional: NAD Neurologic: CN 2-12 intact Cardiovascular: RRR Respiratory: CTA Gastrointestinal: S/NT/ND Airway Exam Mallampati Classification 3 Mallampati Score: Class III MO: limited Neck: think TMD: 3b ROM: limited Dentures: no lower, no upper Anesthesia Pre-op A/P Labs Chemistry Test 03/27/16 05:45 Sodium Level 141 mEQ/L (135-145) Potassium Level 3.7 mEQ/L (3.4-4.9) Chloride Level 101 mEQ/L (98-107) Carbon Dioxide Level 26 mEQ/L (20-30) Anion Gap 14 (5-15) Blood Urea Nitrogen 8 mg/dL (7-23) Creatinine 0.5 mg/dL (0.7-1.2) L Estimat Glomerular Filtration Rate mL/min (>60) Glucose Level 88 mg/dL (74-106) Calcium Level 8.3 mg/dL (8.6-10.2) L Phosphorus Level 2.6 mg/dL (2.5-4.8) Total Bilirubin 0.8 mg/dL (0.0-1.2) Aspartate Amino Transf (AST/SGOT) 29 U/L (5-40) Alanine Aminotransferase (ALT/SGPT) 35 U/L (3-41) Alkaline Phosphatase 92 U/L (40-129) Total Protein 5.6 g/dL (6.6-8.7) L Albumin 2.5 g/dL (3.5-5.2) L Globulin 3.1 g/dL Albumin/Globulin Ratio 0.8 (1.0-2.7) L Studies Pre-op Studies: EKG - sr Risk Assessment & Plan Plan: mac Status Change Before Surgery: No Pre-Antibiotics Drug: vanc Given Within 1 Hr of Incision: Yes Time Given: 07:00 NUSRAT JAVED CRNA Mar 27, 2016 11:25
--- NOTE | 2016-03-27 11:26 | 48 Hour Post Anesthesia Eval ---
Post Anesthesia Evaluation Procedure: EGD/Peg placement Date of Evaluation: Mar 27, 2016 Time of Evaluation: 11:25 Blood Pressure Systolic: 134 0: 65 O2 Sat by Pulse Oximetry: 99 Airway: patent Nausea: No Vomiting: No Hydration Status: adequate Cardiopulmonary Status: normal Mental Status/LOC: patient returned to baseline Post-Anesthesia Complications: none NUSRAT JAVED CRNA Mar 27, 2016 11:26
--- NOTE | 2016-03-27 11:27 | Immediate Post-Op Evaluation ---
Immediate Post-Op Evalulation Immediate Post-Op Evalulation Procedure: EGD/Peg placement Date of Evaluation: Mar 27, 2016 Time of Evaluation: 10:08 IV Fluids: 300 Blood Pressure Systolic: 110 Blood Pressure Diastolic: 72 Pulse Rate: 62 Respiratory Rate: 14 O2 Sat by Pulse Oximetry: 100 Temperature (Fahrenheit): 97.7 Nausea: No Vomiting: No Patient Status: awake, patent Hydration Status: adequate Drug: vanc Given Within 1 Hr of Incision: Yes Time Given: 07:00 NUSRTA JAVED CRNA Mar 27, 2016 11:27
--- NOTE | 2016-03-27 14:28 | Cardiac Electrophysiology PN ---
Assessment/Plan Assessment/Plan 1. Troponin elevation , s/p three coronary stents. Follow up troponin were negative. No chest pain. On Betablocker. 2. Septic shock. Off pressors, on broad-spectrum abx 3. Atrial fibrillation with rapid ventricular response. NPO.In SR today. Change Lopressor 5 mg iv q12 hr to po. Echo EF 60-65% 4. Severe dehydration with hypernatremia and azotemia. Better on D5W and KCL. 5. S/P Respiratory failure.Self extubated. 6. Healthcare-associated pneumonia with right lower lobe infiltrate, on meropenem and Zyvox by Dr. Vera. 7. Elevated transaminase level. 8. Dysphagia. Failed swallow eval. S/P PEG today. HEATHER RN Subjective Subjective In SR. Confused in restraint. On iv Metoprolol. Had PEG today. Objective Last 24 Hour Vital Signs Date Time Temp Pulse Resp B/P Pulse Ox O2 Delivery O2 Flow Rate FiO2 03/27/16 12:00 97.4 86 17 136/75 96 Room Air 03/27/16 11:46 73 03/27/16 11:27 62 14 100 03/27/16 11:26 99 03/27/16 10:30 98.6 63 26 134/65 100 Nasal Cannula 3.0 03/27/16 10:15 62 14 110/80 100 Nasal Cannula 3.0 03/27/16 10:10 60 27 108/75 100 Simple Mask 6.0 03/27/16 10:05 98.7 71 20 110/72 100 Simple Mask 6.0 03/27/16 09:18 71 153/78 03/27/16 08:00 96.5 71 17 153/78 96 Room Air 03/27/16 07:34 70 03/27/16 07:24 65 17 Room Air 21 03/27/16 07:24 Room Air 21 03/27/16 07:24 96 Room Air 21 03/27/16 04:28 97.0 71 20 145/84 96 03/27/16 04:00 65 03/27/16 00:23 97.0 51 20 106/56 97 Nasal Cannula 2.0 03/27/16 00:00 53 03/26/16 21:13 68 139/86 03/26/16 20:00 97.9 62 20 149/77 96 Nasal Cannula 2.0 03/26/16 20:00 64 03/26/16 19:36 68 16 Room Air 21 03/26/16 19:36 Room Air 21 03/26/16 19:36 95 Room Air 21 03/26/16 16:00 66 03/26/16 16:00 97.4 66 20 122/63 97 Nasal Cannula 2.0 Intake and Output 03/26/16 03/27/16 19:00 07:00 Intake Total 320.83 ml Output Total 700 ml 1200 ml Balance -379.17 ml -1200 ml Intake IV Total 320.83 ml Output Urine Total 700 ml 1200 ml # Bowel Movements 1 Laboratory Tests Test 03/27/16 05:45 Sodium Level 141 mEQ/L (135-145) Potassium Level 3.7 mEQ/L (3.4-4.9) Chloride Level 101 mEQ/L (98-107) Carbon Dioxide Level 26 mEQ/L (20-30) Anion Gap 14 (5-15) Blood Urea Nitrogen 8 mg/dL (7-23) Creatinine 0.5 mg/dL (0.7-1.2) L Estimat Glomerular Filtration Rate mL/min (>60) Glucose Level 88 mg/dL (74-106) Calcium Level 8.3 mg/dL (8.6-10.2) L Phosphorus Level 2.6 mg/dL (2.5-4.8) Total Bilirubin 0.8 mg/dL (0.0-1.2) Aspartate Amino Transf (AST/SGOT) 29 U/L (5-40) Alanine Aminotransferase (ALT/SGPT) 35 U/L (3-41) Alkaline Phosphatase 92 U/L (40-129) Total Protein 5.6 g/dL (6.6-8.7) L Albumin 2.5 g/dL (3.5-5.2) L Globulin 3.1 g/dL Albumin/Globulin Ratio 0.8 (1.0-2.7) L Objective HEENT: NG tube out. No JVD LUNGS: Coarse rhonchi bilaterally. CARDIOVASCULAR: Regular S1 and S2 with no gallop or murmur. ABDOMEN: Soft.PEG in place EXTREMITIES: No pitting edema. ESTEE BREEN Mar 27, 2016 14:28
--- NOTE | 2016-03-27 15:49 | General Progress Note ---
Assessment/Plan Assessment/Plan Assessment: # Leukocytosis - is likely related to medication v underlying infection, has improved # Erythrocytosis was likely related to dehydration # Healthcare-acquired pna with right lower lobe infiltrate. Is on abx # Respiratory failure, required intubation. was on a mechanical ventilator -> self-extubated # Septic shock due to pna # Multiorgan system failure # Elevated transaminase level due to the sepsis and liver shock # Dehydration due to poor oral intake. # Acute renal failure due to sepsis. Recommendations: - Monitor counts - Peripheral smear reviewed - Followup on ID, pulm, cards, nephro recs - Abx as needed - DVT ppx with SCDs - GI ppx as needed - Peg for thurs - Staff Thank you, Jarod Keller MD Subjective Constitutional: Reports: no symptoms HEENT: Reports: no symptoms Cardiovascular: Reports: no symptoms Respiratory: Reports: no symptoms Gastrointestinal/Abdominal: Reports: poor appetite Genitourinary: Reports: no symptoms Neurologic/Psychiatric: Reports: no symptoms Endocrine: Reports: no symptoms Hematologic/Lymphatic: Reports: anemia Allergies: Coded Allergies: PENICILLINS (Verified Allergy, Unknown, 03/19/16) SULFA (SULFONAMIDE ANTIBIOTICS) (Verified Allergy, Unknown, 03/19/16) Subjective no events overnight, no bleeding, no hematochezia, s/p peg tube Objective Last 24 Hour Vital Signs Date Time Temp Pulse Resp B/P Pulse Ox O2 Delivery O2 Flow Rate FiO2 03/27/16 12:00 97.4 86 17 136/75 96 Room Air 03/27/16 11:46 73 03/27/16 11:27 62 14 100 03/27/16 11:26 99 03/27/16 10:30 98.6 63 26 134/65 100 Nasal Cannula 3.0 03/27/16 10:15 62 14 110/80 100 Nasal Cannula 3.0 03/27/16 10:10 60 27 108/75 100 Simple Mask 6.0 03/27/16 10:05 98.7 71 20 110/72 100 Simple Mask 6.0 03/27/16 09:18 71 153/78 03/27/16 08:00 96.5 71 17 153/78 96 Room Air 03/27/16 07:34 70 03/27/16 07:24 65 17 Room Air 21 03/27/16 07:24 Room Air 21 03/27/16 07:24 96 Room Air 21 03/27/16 04:28 97.0 71 20 145/84 96 03/27/16 04:00 65 03/27/16 00:23 97.0 51 20 106/56 97 Nasal Cannula 2.0 03/27/16 00:00 53 03/26/16 21:13 68 139/86 03/26/16 20:00 97.9 62 20 149/77 96 Nasal Cannula 2.0 03/26/16 20:00 64 03/26/16 19:36 68 16 Room Air 21 03/26/16 19:36 Room Air 21 03/26/16 19:36 95 Room Air 21 03/26/16 16:00 66 03/26/16 16:00 97.4 66 20 122/63 97 Nasal Cannula 2.0 Intake and Output 03/26/16 03/27/16 19:00 07:00 Intake Total 320.83 ml Output Total 700 ml 1200 ml Balance -379.17 ml -1200 ml Intake IV Total 320.83 ml Output Urine Total 700 ml 1200 ml # Bowel Movements 1 Laboratory Tests 03/27/16 05:45: Sodium Level 141, Potassium Level 3.7, Chloride Level 101, Carbon Dioxide Level 26, Anion Gap 14, Blood Urea Nitrogen 8, Creatinine 0.5L, Estimat Glomerular Filtration Rate , Glucose Level 88, Calcium Level 8.3L, Phosphorus Level 2.6, Total Bilirubin 0.8, Aspartate Amino Transf (AST/SGOT) 29, Alanine Aminotransferase (ALT/SGPT) 35, Alkaline Phosphatase 92, Total Protein 5.6L, Albumin 2.5L, Globulin 3.1, Albumin/Globulin Ratio 0.8L Height (Feet): 5 Height (Inches): 8.00 Weight (Pounds): 110 General Appearance: no apparent distress EENT: TMs normal Neck: supple Cardiovascular: regular rhythm Respiratory/Chest: no respiratory distress Abdomen: no organomegaly Extremities: normal inspection Edema: 1+ Leg (L), 1+ Leg (R) Edema: mild edema Neurologic: alert Skin: warm/dry Jarod Keller Mar 27, 2016 15:49
--- NOTE | 2016-03-27 17:18 | Pulmonology Progress Note ---
Assessment/Plan Problems: (1) Respiratory failure requiring intubation (2) Pneumonia (3) Atrial fibrillation (4) Hypertension (5) Septic shock (6) Dehydration Assessment/Plan improving bc negative no sputum yet, ordered induction again Peg is done today med/surg when ok with Cardio on digoxin Subjective ROS Limited/Unobtainable: No Constitutional: Reports: no symptoms Respiratory: Reports: no symptoms Allergies: Coded Allergies: PENICILLINS (Verified Allergy, Unknown, 03/19/16) SULFA (SULFONAMIDE ANTIBIOTICS) (Verified Allergy, Unknown, 03/19/16) Objective Last 24 Hour Vital Signs Date Time Temp Pulse Resp B/P Pulse Ox O2 Delivery O2 Flow Rate FiO2 03/27/16 16:00 97.6 83 20 129/75 94 Room Air 03/27/16 12:00 97.4 86 17 136/75 96 Room Air 03/27/16 11:46 73 03/27/16 11:27 62 14 100 03/27/16 11:26 99 03/27/16 10:30 98.6 63 26 134/65 100 Nasal Cannula 3.0 03/27/16 10:15 62 14 110/80 100 Nasal Cannula 3.0 03/27/16 10:10 60 27 108/75 100 Simple Mask 6.0 03/27/16 10:05 98.7 71 20 110/72 100 Simple Mask 6.0 03/27/16 09:18 71 153/78 03/27/16 08:00 96.5 71 17 153/78 96 Room Air 03/27/16 07:34 70 03/27/16 07:24 65 17 Room Air 21 03/27/16 07:24 Room Air 21 03/27/16 07:24 96 Room Air 21 03/27/16 04:28 97.0 71 20 145/84 96 03/27/16 04:00 65 03/27/16 00:23 97.0 51 20 106/56 97 Nasal Cannula 2.0 03/27/16 00:00 53 03/26/16 21:13 68 139/86 03/26/16 20:00 97.9 62 20 149/77 96 Nasal Cannula 2.0 03/26/16 20:00 64 03/26/16 19:36 68 16 Room Air 21 03/26/16 19:36 Room Air 21 03/26/16 19:36 95 Room Air 21 Intake and Output 03/26/16 03/27/16 19:00 07:00 Intake Total 320.83 ml Output Total 700 ml 1200 ml Balance -379.17 ml -1200 ml Intake IV Total 320.83 ml Output Urine Total 700 ml 1200 ml # Bowel Movements 1 Objective General Appearance: WD/WN Lines, tubes and drains: peripheral HEENT: normocephalic, atraumatic Neck: non-tender, normal alignment Respiratory/Chest: chest wall non-tender, rhonchi - left, rhonchi - right Cardiovascular/Chest: normal peripheral pulses, normal rate Abdomen: normal bowel sounds, non tender Genitourinary/Rectal: normal genital exam Extremities: normal range of motion, non-tender, normal inspection, no calf tenderness, normal capillary refill Skin Exam: normal pigmentation Neurologic: manager traffic II-XII grossly normal Laboratory Tests 03/27/16 05:45: Sodium Level 141, Potassium Level 3.7, Chloride Level 101, Carbon Dioxide Level 26, Anion Gap 14, Blood Urea Nitrogen 8, Creatinine 0.5L, Estimat Glomerular Filtration Rate , Glucose Level 88, Calcium Level 8.3L, Phosphorus Level 2.6, Total Bilirubin 0.8, Aspartate Amino Transf (AST/SGOT) 29, Alanine Aminotransferase (ALT/SGPT) 35, Alkaline Phosphatase 92, Total Protein 5.6L, Albumin 2.5L, Globulin 3.1, Albumin/Globulin Ratio 0.8L Current Medications Medications (Trade) Dose Ordered Sig/Lovely Route PRN Reason Start Time Stop Time Status Last Admin Dose Admin Acetaminophen (Tylenol) 650 mg Q4H PRN ORAL T>100.5 03/21/16 14:00 04/20/16 13:59 Heparin Sodium (Porcine) (Heparin 5000 units/ml) 5,000 units EVERY 12 HOURS SUBQ 03/21/16 21:00 04/20/16 20:59 03/26/16 21:06 Hydralazine HCl (Apresoline) 10 mg Q4H PRN IV For High Blood Pressure 03/22/16 21:30 04/21/16 21:29 Lorazepam (Ativan 2mg/ml 1ml) 2 mg Q2H PRN IV For Anxiety 03/21/16 14:00 03/28/16 13:59 Metoprolol Tartrate (Lopressor) 25 mg Q12HR PEG 03/27/16 21:00 3/18/17 20:59 Morphine Sulfate (Morphine Sulfate) 4 mg Q4H PRN IVP Severe Pain (Pain Scale 7-10) 03/21/16 14:00 03/28/16 13:59 03/26/16 08:47 Ondansetron HCl (Zofran) 4 mg Q6H PRN IVP Nausea & Vomiting 03/21/16 14:00 04/20/16 13:59 Polyethylene Glycol (Miralax) 17 gm DAILYPRN PRN ORAL Constipation 03/21/16 14:00 04/20/16 13:59 CAROLINA TORREZ Mar 27, 2016 17:18
--- NOTE | 2016-03-27 17:21 | Infectious Diseases Prog Note ---
Assessment/Plan Problems: (1) HCAP (healthcare-associated pneumonia) Assessment & Plan: with RLL infiltrates, possible aspiration related, improved on zyvox and meropenem , recieved 7 days already, off antibiotics now , blood culture and sputum culture are negative , screening for influenza is negative . for PEG tube placement by GI (2) Respiratory failure requiring intubation Assessment & Plan: improving, S/P self extubation , due to pneumonia and sepsis , pulmonary is following (3) Septic shock Assessment & Plan: due to pneumonia, complicated with organs failure, improved , on wide spectrum antibiotics therapy, blood culture is negative (4) Elevated transaminase level Assessment & Plan: improving, suspect liver shock due to sepsis , avoid hepatotoxic meds, monitor LFT, screen for hepatitis (5) Renal failure Assessment & Plan: due to sepsis, continue IVF and pressors, to keep SBP >100, nephrology is following (6) Multiple organ system failure Assessment & Plan: due to sepsis, improved. (7) ICH (intracerebral hemorrhage) Assessment & Plan: unclear whether he had recent trauma or fall, recommend neurology eval, and surgical consultation Subjective ROS Limited/Unobtainable: Yes Allergies: Coded Allergies: PENICILLINS (Verified Allergy, Unknown, 03/19/16) SULFA (SULFONAMIDE ANTIBIOTICS) (Verified Allergy, Unknown, 03/19/16) Subjective he is demented , up in bed, awake and alert, not in distress Objective Vital Signs Last 24 Hour Vital Signs Date Time Temp Pulse Resp B/P Pulse Ox O2 Delivery O2 Flow Rate FiO2 03/27/16 16:00 97.6 83 20 129/75 94 Room Air 03/27/16 12:00 97.4 86 17 136/75 96 Room Air 03/27/16 11:46 73 03/27/16 11:27 62 14 100 03/27/16 11:26 99 03/27/16 10:30 98.6 63 26 134/65 100 Nasal Cannula 3.0 03/27/16 10:15 62 14 110/80 100 Nasal Cannula 3.0 03/27/16 10:10 60 27 108/75 100 Simple Mask 6.0 03/27/16 10:05 98.7 71 20 110/72 100 Simple Mask 6.0 03/27/16 09:18 71 153/78 03/27/16 08:00 96.5 71 17 153/78 96 Room Air 03/27/16 07:34 70 03/27/16 07:24 65 17 Room Air 21 03/27/16 07:24 Room Air 21 03/27/16 07:24 96 Room Air 21 03/27/16 04:28 97.0 71 20 145/84 96 03/27/16 04:00 65 03/27/16 00:23 97.0 51 20 106/56 97 Nasal Cannula 2.0 03/27/16 00:00 53 03/26/16 21:13 68 139/86 03/26/16 20:00 97.9 62 20 149/77 96 Nasal Cannula 2.0 03/26/16 20:00 64 03/26/16 19:36 68 16 Room Air 21 03/26/16 19:36 Room Air 21 03/26/16 19:36 95 Room Air 21 Height (Feet): 5 Height (Inches): 8.00 Weight (Pounds): 110 General Appearance: WD/WN, no acute distress HEENT: normocephalic, atraumatic, anicteric, mucous membranes moist Respiratory/Chest: chest wall non-tender, lungs clear, normal breath sounds, no respiratory distress, decreased breath sounds, crackles/rales Cardiovascular: normal peripheral pulses, normal rate, regular rhythm Abdomen: normal bowel sounds, soft, non tender, no organomegaly, non distended , no mass Extremities: no cyanosis, no clubbing Skin: no rash Laboratory Tests Test 03/27/16 05:45 Sodium Level 141 mEQ/L (135-145) Potassium Level 3.7 mEQ/L (3.4-4.9) Chloride Level 101 mEQ/L (98-107) Carbon Dioxide Level 26 mEQ/L (20-30) Anion Gap 14 (5-15) Blood Urea Nitrogen 8 mg/dL (7-23) Creatinine 0.5 mg/dL (0.7-1.2) L Estimat Glomerular Filtration Rate mL/min (>60) Glucose Level 88 mg/dL (74-106) Calcium Level 8.3 mg/dL (8.6-10.2) L Phosphorus Level 2.6 mg/dL (2.5-4.8) Total Bilirubin 0.8 mg/dL (0.0-1.2) Aspartate Amino Transf (AST/SGOT) 29 U/L (5-40) Alanine Aminotransferase (ALT/SGPT) 35 U/L (3-41) Alkaline Phosphatase 92 U/L (40-129) Total Protein 5.6 g/dL (6.6-8.7) L Albumin 2.5 g/dL (3.5-5.2) L Globulin 3.1 g/dL Albumin/Globulin Ratio 0.8 (1.0-2.7) L Current Medications Medications (Trade) Dose Ordered Sig/Lovely Route PRN Reason Start Time Stop Time Status Last Admin Dose Admin Acetaminophen (Tylenol) 650 mg Q4H PRN ORAL T>100.5 03/21/16 14:00 04/20/16 13:59 Heparin Sodium (Porcine) (Heparin 5000 units/ml) 5,000 units EVERY 12 HOURS SUBQ 03/21/16 21:00 04/20/16 20:59 03/26/16 21:06 Hydralazine HCl (Apresoline) 10 mg Q4H PRN IV For High Blood Pressure 03/22/16 21:30 04/21/16 21:29 Lorazepam (Ativan 2mg/ml 1ml) 2 mg Q2H PRN IV For Anxiety 03/21/16 14:00 03/28/16 13:59 Metoprolol Tartrate (Lopressor) 25 mg Q12HR PEG 03/27/16 21:00 04/26/16 20:59 Morphine Sulfate (Morphine Sulfate) 4 mg Q4H PRN IVP Severe Pain (Pain Scale 7-10) 03/21/16 14:00 03/28/16 13:59 03/26/16 08:47 Ondansetron HCl (Zofran) 4 mg Q6H PRN IVP Nausea & Vomiting 03/21/16 14:00 04/20/16 13:59 Polyethylene Glycol (Miralax) 17 gm DAILYPRN PRN ORAL Constipation 03/21/16 14:00 04/20/16 13:59 Chantell Vera M.D. Mar 27, 2016 17:21
[2016-03-27] MEDS: Morphine Sulfate 4mg/ml Inj IVP PRN (22:11)
[2016-03-27] MEDS: Metoprolol 25mg tab PEG SCH (22:11)
[2016-03-28 00:31] VITALS: BP 136/82
[2016-03-28 04:25] VITALS: BP 140/78
[2016-03-28] MEDS: Morphine Sulfate 4mg/ml Inj IVP PRN ×2 (05:53→11:12)
[2016-03-28 08:00] VITALS: BP 124/75
[2016-03-28] MEDS: Heparin 5000 units/ml inj SUBQ SCH (09:00)
[2016-03-28] MEDS: Metoprolol 25mg tab PEG SCH ×2 (09:31→20:26)
--- NOTE | 2016-03-28 10:25 | General Progress Note ---
Assessment/Plan Problem List: (1) Septic shock ICD Codes: A41.9 - Sepsis, unspecified organism; R65.21 - Severe sepsis with septic shock SNOMED: 73752467 (2) Dehydration ICD Codes: E86.0 - Dehydration SNOMED: 12904893 (3) Renal failure ICD Codes: N19 - Unspecified kidney failure; R65.21 - Severe sepsis with septic shock SNOMED: 79402037 (4) Pneumonia ICD Codes: J18.9 - Pneumonia, unspecified organism SNOMED: 907911980 Qualifiers: Qualified Codes: J18.9 - Pneumonia, unspecified organism (5) Multiple organ system failure SNOMED: 27641525 (6) Respiratory failure requiring intubation ICD Codes: J96.90 - Respiratory failure, unspecified, unspecified whether with hypoxia or hypercapnia; R65.21 - Severe sepsis with septic shock SNOMED: 297497254 (7) Elevated transaminase level ICD Codes: R74.0 - Nonspecific elevation of levels of transaminase and lactic acid dehydrogenase [LDH] SNOMED: 351853164, 795261954 Status: progressing Assessment/Plan sepsis arf dehyration improved reviewed chart adn labs afebrile Subjective ROS Limited/Unobtainable: Yes Constitutional: Reports: no symptoms Allergies: Coded Allergies: PENICILLINS (Verified Allergy, Unknown, 03/19/16) SULFA (SULFONAMIDE ANTIBIOTICS) (Verified Allergy, Unknown, 03/19/16) Objective Last 24 Hour Vital Signs Date Time Temp Pulse Resp B/P Pulse Ox O2 Delivery O2 Flow Rate FiO2 03/28/16 09:31 91 124/75 03/28/16 08:00 96.9 120 17 124/75 95 Nasal Cannula 2.0 03/28/16 06:23 97.0 03/28/16 04:25 97.0 79 20 140/78 95 03/28/16 04:00 79 03/28/16 00:31 98.0 61 20 136/82 94 Room Air 03/28/16 00:00 60 03/27/16 22:11 83 126/72 03/27/16 20:00 97.4 83 20 126/72 95 Room Air 03/27/16 20:00 87 03/27/16 19:45 78 18 Room Air 21 03/27/16 16:00 81 03/27/16 16:00 97.6 83 20 129/75 94 Room Air 03/27/16 12:00 97.4 86 17 136/75 96 Room Air 03/27/16 11:46 73 03/27/16 11:27 62 14 100 03/27/16 11:26 99 03/27/16 10:30 98.6 63 26 134/65 100 Nasal Cannula 3.0 Intake and Output 03/27/16 03/28/16 19:00 07:00 Intake Total 300 ml Output Total 460 ml 550 ml Balance -160 ml -550 ml Intake IV Total 300 ml Output Urine Total 460 ml 550 ml # Bowel Movements 1 Height (Feet): 5 Height (Inches): 8.00 Weight (Pounds): 110 EENT: PERRL/EOMI Neck: supple Cardiovascular: normal rate Respiratory/Chest: lungs clear Abdomen: soft Nahed Pizarro MD Mar 28, 2016 10:25
[2016-03-28 12:00] VITALS: BP 116/53
--- NOTE | 2016-03-28 12:39 | Operative Note - Dictated ---
DATE OF OPERATION: 03/27/2016 GASTROENTEROLOGY PROCEDURE NOTE PROCEDURE: Upper gastrointestinal endoscopy with gastrostomy tube placement. SURGEON: Mayelin Rodriguez M.D. ANESTHESIA: Please see the separate anesthesiologist notes for details. PREOPERATIVE DIAGNOSES: 1. Dysphagia. 2. Malnutrition. POST-ENDOSCOPIC DIAGNOSES: 1. Status post gastrostomy tube placement. 2. Large hiatal hernia. PROCEDURE: The procedure, its risks, indications, alternatives, and possible complications were explained to the family and informed consent was obtained. The endoscope was introduced into oropharynx after the patient was sedated and advanced to the duodenum. The endoscope was gradually withdrawn. The mucosa examined carefully. Examination of the upper gastric mucosa revealed a large hiatal hernia. The location for placement of gastrostomy tube was identified by palpation and transillumination techniques. The splint hiatal hernia a safe window was identifiable from techniques. The outside skin was sterilely prepared, anesthetized and the trocar needle was used with a single pass gastrostomy tube using the standard push technique. The endoscope was removed. The patient was sent to recovery in good condition. COMPLICATIONS: None. RECOMMENDATIONS: Observer overnight and begin tube feedings tomorrow. Mayelin Rodriguez M.D. DR: Rosie JOB#: [id number] CC:
--- NOTE | 2016-03-28 12:57 | General Progress Note ---
Assessment/Plan Assessment/Plan Assessment: # Leukocytosis - is likely related to medication v underlying infection, has improved # Erythrocytosis was likely related to dehydration # Healthcare-acquired pna with right lower lobe infiltrate. Is on abx # Respiratory failure, required intubation. was on a mechanical vent -> self- extubated # Septic shock due to pna # Multiorgan system failure # Elevated transaminase level due to the sepsis/liver shock # Dehydration due to poor oral intake. # KATE # Sepsis Recommendations: - Monitor counts - Peripheral smear reviewed - Followup on ID, pulm, cards, nephro recs - Abx as needed - DVT ppx with SCDs - GI ppx as needed - DW Staff Thank you, Jarod Keller MD Subjective Constitutional: Reports: no symptoms HEENT: Reports: no symptoms Cardiovascular: Reports: no symptoms Respiratory: Reports: no symptoms Gastrointestinal/Abdominal: Reports: poor appetite Genitourinary: Reports: no symptoms Neurologic/Psychiatric: Reports: no symptoms Endocrine: Reports: unexplained weight loss Hematologic/Lymphatic: Reports: anemia Allergies: Coded Allergies: PENICILLINS (Verified Allergy, Unknown, 03/19/16) SULFA (SULFONAMIDE ANTIBIOTICS) (Verified Allergy, Unknown, 03/19/16) Subjective no events overnight, no bleeding, no hematochezia, s/p peg tube Objective Last 24 Hour Vital Signs Date Time Temp Pulse Resp B/P Pulse Ox O2 Delivery O2 Flow Rate FiO2 03/28/16 12:00 98.2 71 17 116/53 97 Nasal Cannula 2.0 03/28/16 09:31 91 124/75 03/28/16 08:00 96.9 120 17 124/75 95 Nasal Cannula 2.0 03/28/16 07:35 88 03/28/16 06:23 97.0 03/28/16 04:25 97.0 79 20 140/78 95 03/28/16 04:00 79 03/28/16 00:31 98.0 61 20 136/82 94 Room Air 03/28/16 00:00 60 03/27/16 22:11 83 126/72 03/27/16 20:00 97.4 83 20 126/72 95 Room Air 03/27/16 20:00 87 03/27/16 19:45 78 18 Room Air 21 03/27/16 16:00 81 03/27/16 16:00 97.6 83 20 129/75 94 Room Air Intake and Output 03/27/16 03/28/16 19:00 07:00 Intake Total 300 ml Output Total 460 ml 550 ml Balance -160 ml -550 ml Intake IV Total 300 ml Output Urine Total 460 ml 550 ml # Bowel Movements 1 Height (Feet): 5 Height (Inches): 8.00 Weight (Pounds): 110 General Appearance: no apparent distress EENT: TMs normal Neck: supple Cardiovascular: regular rhythm Respiratory/Chest: normal breath sounds Abdomen: non tender Extremities: non-tender Edema: no edema noted Leg (L), no edema noted Leg (R) Neurologic: alert Skin: normal pigmentation Jarod Keller Mar 28, 2016 12:57
--- NOTE | 2016-03-28 14:06 | General Progress Note ---
Assessment/Plan Status: stable Status Narrative has PEG now Assessment/Plan Status: - Acute Renal Failure- improved - Septic shock - Dehydration - Pneumonia - Multiple organ system failure - HCAP (healthcare-associated pneumonia) Plan: K & Phos supplement- as needed DC IV fluid Antibiotics- Monitor renal parameters- Avoid nephrotoxics urine studies per consultants- DC planning?? Subjective ROS Limited/Unobtainable: No Constitutional: Reports: malaise, weakness Allergies: Coded Allergies: PENICILLINS (Verified Allergy, Unknown, 03/19/16) SULFA (SULFONAMIDE ANTIBIOTICS) (Verified Allergy, Unknown, 03/19/16) Objective Last 24 Hour Vital Signs Date Time Temp Pulse Resp B/P Pulse Ox O2 Delivery O2 Flow Rate FiO2 03/28/16 12:00 98.2 71 17 116/53 97 Nasal Cannula 2.0 03/28/16 11:58 68 03/28/16 09:31 91 124/75 03/28/16 08:00 96.9 120 17 124/75 95 Nasal Cannula 2.0 03/28/16 07:35 88 03/28/16 06:23 97.0 03/28/16 04:25 97.0 79 20 140/78 95 03/28/16 04:00 79 03/28/16 00:31 98.0 61 20 136/82 94 Room Air 03/28/16 00:00 60 03/27/16 22:11 83 126/72 03/27/16 20:00 97.4 83 20 126/72 95 Room Air 03/27/16 20:00 87 03/27/16 19:45 78 18 Room Air 21 03/27/16 16:00 81 03/27/16 16:00 97.6 83 20 129/75 94 Room Air Intake and Output 03/27/16 03/28/16 19:00 07:00 Intake Total 300 ml Output Total 460 ml 550 ml Balance -160 ml -550 ml Intake IV Total 300 ml Output Urine Total 460 ml 550 ml # Bowel Movements 1 Height (Feet): 5 Height (Inches): 8.00 Weight (Pounds): 110 General Appearance: no apparent distress Objective physical exam not changed CLINT CARMEN Mar 28, 2016 14:06
--- NOTE | 2016-03-28 14:09 | Diagnostic Imaging Report ---
Indication: Abdominal pain Technique: Spiral acquisitions obtained through the abdomen and pelvis. No oral contrast, due to feeding tube being within a hiatal hernia, resting aspiration. No IV contrast utilized, per referring physician request.. Multiplanar reconstructions were generated. Total dose length product 465 mGycm. CTDIvol(s) 9 mGy Comparison: None Findings: There is a large hiatal hernia, incompletely visualized. Is a nasogastric tube, the shaft of which tips in the portion of the stomach below the diaphragm and then makes a hairpin loop with the tip within a hiatal hernia portion of the stomach above the diaphragm. The duodenum is unremarkable. Small bowel loops are mildly gas and fluid filled. This appears to the diffuse throughout the small bowel, and no definite collapsed distal small bowel loops are demonstrated. Evaluation of such is limited in the absence of enteric contrast, however. There is mild to moderate distention of the rectum by feces. There is colonic diverticulosis. No evidence of diverticulitis. The appendix is not definitely visualized, but there are no findings to suggest acute appendicitis. No free or loculated intraperitoneal air or fluid is evident. There is ventriculoperitoneal shunt tubing traversing the the right lower hemithorax and right upper abdomen, entering the peritoneal lateral to and above the umbilicus, with the tip in the right-sided pelvis. No fluid is seen surrounding the catheter tip. Fairly dense calcifications are seen in the peritoneal space on the right of the abdomen, and also seen posterior to the descending colon, between it and the left kidney. Lack of IV contrast limits assessment of solid organs. The gallbladder contains gallstones. The liver is unremarkable, no focal abnormalities. No biliary ductal dilatation. The pancreas, spleen, are unremarkable. The right kidney demonstrates minimal cortical scarring and a 2 cm upper pole cyst. The left kidney demonstrates multiple cysts. The largest of these is in the medial lower pole, 3.5 cm long axis dimension. Lower pole punctate calcifications may be calyceal or parenchymal. No hydronephrosis or hydroureter demonstrated. No retroperitoneal or mesenteric mass or adenopathy. No pelvic mass or adenopathy. There is a Kaplan catheter within the bladder, which nonetheless contains air and fluid. There are large bladder diverticula posteriorly bilaterally There is a right hip arthroplasty prosthesis. There are degenerative changes of lumbar spine. There is a nondisplaced fracture of the right L3 transverse, and a slightly displaced fracture of the right L2 transverse process. There is lumbar dextro scoliotic deformity. The lung bases demonstrate considerable posterior consolidation and atelectasis. There is trace bilateral pleural fluid. Impression: Nondisplaced fracture of the right L3 transverse process, slightly displaced fracture of the right L2 transverse process. These appear to be acute. Correlate with clinical history Large hiatal hernia, incompletely visualized. Weighted Dobbhoff feeding tube is coiled within the hiatal hernia sac. Bilateral basilar, right greater than left, pulmonary parenchymal consolidation and atelectasis and trace bilateral pleural effusions Mildly diffusely gas and fluid filled small bowel loops. No definite nondilated distal small bowel. Although findings could represent early or partial distal small bowel obstruction, suspect this is on the basis of ileus Mild to moderate distended rectum by feces, rectal fecal impaction a possibility Diverticulosis. No evidence of diverticulitis Ventriculoperitoneal shunt, as described. No free intraperitoneal fluid related to such In Cholelithiasis lower pole punctate calcification on the left kidney, may be calyceal or parenchymal. No associated hydronephrosis. Dense intraperitoneal consultation bilaterally, probably dystrophic Bilateral bladder divert -- icula, suggesting chronic bladder outlet obstruction Other findings as described, including right hip arthroplasty prosthesis, lumbar dextroscoliotic deformity, degenerative spondylosis, Kaplan catheter, bilateral renal cysts The CT scanner at [facility] is accredited by the [employer] and the scans are performed using protocols designed to limit radiation exposure to as low as reasonably achievable to attain images of sufficient resolution adequate for diagnostic evaluation.
--- NOTE | 2016-03-28 14:09 | Diagnostic Imaging Report ---
Indication: DYSPHAGIA Technique: One view of the chest Comparison: 03/19/2016 Findings: Interim removal of endotracheal tube. There is a weighted Dobbhoff type feeding tube coiled behind the heart, presumably within a hiatal hernia. As previously reported, right internal jugular venous catheter has its tip deep within the right atrium. Bilateral right greater than left mixed interstitial and alveolar infiltrates versus edema appears slightly improved that persists. Pleural spaces are clear Impression: Dobbhoff weighted feeding tube is coiled probably within a hiatal hernia Persistent low position of right jugular central venous catheter, tip deep within the right atrium. As previously reported, recommend withdrawal by about 5 cm to optimize tip position Persistent but somewhat improved bilateral right greater than left infiltrates versus edema Interim endotracheal tube removal
--- NOTE | 2016-03-28 14:09 | Diagnostic Imaging Report ---
Indications: Central venous catheter placement Technique: Portable AP chest at 09 100 Findings: Comparison: 0622 Centimeters catheter has been placed via right internal jugular vein, tip in right atrium. No pneumothorax, apical pleural cap, or mediastinal widening. No other change. IMPRESSION: Placement of central venous catheter, tip in right atrium, recommend withdrawal 5 cm; no evidence of acute complication No other change from 3 hours prior
[2016-03-28] MEDS ORDERED: Tubing IV Secondary IV ONE (15:26)
[2016-03-28] MEDS ORDERED: NS Irrig 2000ml IRRIG ONE (15:26)
[2016-03-28] MEDS ORDERED: NS 275ml ONE (15:26)
--- NOTE | 2016-03-28 15:36 | General Progress Note ---
Assessment/Plan Assessment/Plan Assessment - Malnutrition - cachexia - dysphagia - PNA - Large HH - s/p PEG Recommendations - Begin TF - Elevate HOB - GT care - d/c planning Subjective Allergies: Coded Allergies: PENICILLINS (Verified Allergy, Unknown, 03/19/16) SULFA (SULFONAMIDE ANTIBIOTICS) (Verified Allergy, Unknown, 03/19/16) Subjective uneventful night s/p PEG yesterday Objective Last 24 Hour Vital Signs Date Time Temp Pulse Resp B/P Pulse Ox O2 Delivery O2 Flow Rate FiO2 03/28/16 12:00 98.2 71 17 116/53 97 Nasal Cannula 2.0 03/28/16 11:58 68 03/28/16 09:31 91 124/75 03/28/16 08:00 96.9 120 17 124/75 95 Nasal Cannula 2.0 03/28/16 07:35 88 03/28/16 06:23 97.0 03/28/16 04:25 97.0 79 20 140/78 95 03/28/16 04:00 79 03/28/16 00:31 98.0 61 20 136/82 94 Room Air 03/28/16 00:00 60 03/27/16 22:11 83 126/72 03/27/16 20:00 97.4 83 20 126/72 95 Room Air 03/27/16 20:00 87 03/27/16 19:45 78 18 Room Air 21 03/27/16 16:00 81 03/27/16 16:00 97.6 83 20 129/75 94 Room Air Intake and Output 03/27/16 03/28/16 19:00 07:00 Intake Total 300 ml Output Total 460 ml 550 ml Balance -160 ml -550 ml Intake IV Total 300 ml Output Urine Total 460 ml 550 ml # Bowel Movements 1 Height (Feet): 5 Height (Inches): 8.00 Weight (Pounds): 110 Objective Thin WM NCAT supple CTA RRR Soft NT ND (+) PEG No edema OBS MAHNAZ GRIMES Mar 28, 2016 15:36
--- NOTE | 2016-03-28 15:37 | Pulmonology Progress Note ---
Assessment/Plan Problems: (1) Respiratory failure requiring intubation (2) Pneumonia (3) Atrial fibrillation (4) Hypertension (5) Septic shock (6) Dehydration Assessment/Plan improving bc negative no sputum yet, ordered induction again off antibiotics Peg is done , tolerating feeding med/surg when ok with Cardio Subjective ROS Limited/Unobtainable: Yes Interval Events: awake, comfortable Allergies: Coded Allergies: PENICILLINS (Verified Allergy, Unknown, 03/19/16) SULFA (SULFONAMIDE ANTIBIOTICS) (Verified Allergy, Unknown, 03/19/16) Objective Last 24 Hour Vital Signs Date Time Temp Pulse Resp B/P Pulse Ox O2 Delivery O2 Flow Rate FiO2 03/28/16 12:00 98.2 71 17 116/53 97 Nasal Cannula 2.0 03/28/16 11:58 68 03/28/16 09:31 91 124/75 03/28/16 08:00 96.9 120 17 124/75 95 Nasal Cannula 2.0 03/28/16 07:35 88 03/28/16 06:23 97.0 03/28/16 04:25 97.0 79 20 140/78 95 03/28/16 04:00 79 03/28/16 00:31 98.0 61 20 136/82 94 Room Air 03/28/16 00:00 60 03/27/16 22:11 83 126/72 03/27/16 20:00 97.4 83 20 126/72 95 Room Air 03/27/16 20:00 87 03/27/16 19:45 78 18 Room Air 21 03/27/16 16:00 81 03/27/16 16:00 97.6 83 20 129/75 94 Room Air Intake and Output 03/27/16 03/28/16 19:00 07:00 Intake Total 300 ml Output Total 460 ml 550 ml Balance -160 ml -550 ml Intake IV Total 300 ml Output Urine Total 460 ml 550 ml # Bowel Movements 1 Objective General Appearance: WD/WN Lines, tubes and drains: peripheral HEENT: normocephalic, atraumatic Neck: non-tender, normal alignment Respiratory/Chest: chest wall non-tender, rhonchi - left, rhonchi - right Cardiovascular/Chest: normal peripheral pulses, normal rate Abdomen: normal bowel sounds, non tender Genitourinary/Rectal: normal genital exam Extremities: normal range of motion, non-tender, normal inspection, no calf tenderness, normal capillary refill Skin Exam: normal pigmentation 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 Current Medications Medications (Trade) Dose Ordered Sig/Lovely Route PRN Reason Start Time Stop Time Status Last Admin Dose Admin Acetaminophen (Tylenol) 650 mg Q4H PRN ORAL T>100.5 03/21/16 14:00 04/20/16 13:59 Hydralazine HCl (Apresoline) 10 mg Q4H PRN IV For High Blood Pressure 03/22/16 21:30 04/21/16 21:29 Metoprolol Tartrate (Lopressor) 25 mg Q12HR PEG 03/27/16 21:00 04/26/16 20:59 03/28/16 09:31 Ondansetron HCl (Zofran) 4 mg Q6H PRN IVP Nausea & Vomiting 03/21/16 14:00 04/20/16 13:59 Polyethylene Glycol (Miralax) 17 gm DAILYPRN PRN ORAL Constipation 03/21/16 14:00 04/20/16 13:59 CAROLINA TORREZ Mar 28, 2016 15:37
[2016-03-28 16:00] VITALS: BP 122/72
--- NOTE | 2016-03-28 16:03 | Infectious Diseases Prog Note ---
Assessment/Plan Problems: (1) HCAP (healthcare-associated pneumonia) Assessment & Plan: possible aspiration related, improved on zyvox and meropenem , recieved 7 days already, off antibiotics now , blood culture and sputum culture are negative , screening for influenza is negative . S/P PEG tube placement by GI (2) Respiratory failure requiring intubation Assessment & Plan: improving, S/P self extubation , due to pneumonia and sepsis , pulmonary is following (3) Septic shock Assessment & Plan: due to pneumonia, complicated with organs failure, improved , on wide spectrum antibiotics therapy, blood culture is negative (4) Elevated transaminase level Assessment & Plan: improving, suspect liver shock due to sepsis , avoid hepatotoxic meds, monitor LFT, screen for hepatitis (5) Renal failure Assessment & Plan: due to sepsis, continue IVF and pressors, to keep SBP >100, nephrology is following (6) Multiple organ system failure Assessment & Plan: due to sepsis, improved. (7) ICH (intracerebral hemorrhage) Assessment & Plan: unclear whether he had recent trauma or fall, recommend neurology eval, and surgical consultation Subjective ROS Limited/Unobtainable: Yes Allergies: Coded Allergies: PENICILLINS (Verified Allergy, Unknown, 03/19/16) SULFA (SULFONAMIDE ANTIBIOTICS) (Verified Allergy, Unknown, 03/19/16) Subjective he is demented , up in bed, awake and alert, not in distress Objective Vital Signs Last 24 Hour Vital Signs Date Time Temp Pulse Resp B/P Pulse Ox O2 Delivery O2 Flow Rate FiO2 03/28/16 12:00 98.2 71 17 116/53 97 Nasal Cannula 2.0 03/28/16 11:58 68 03/28/16 09:31 91 124/75 03/28/16 08:00 96.9 120 17 124/75 95 Nasal Cannula 2.0 03/28/16 07:35 88 03/28/16 06:23 97.0 03/28/16 04:25 97.0 79 20 140/78 95 03/28/16 04:00 79 03/28/16 00:31 98.0 61 20 136/82 94 Room Air 03/28/16 00:00 60 03/27/16 22:11 83 126/72 03/27/16 20:00 97.4 83 20 126/72 95 Room Air 03/27/16 20:00 87 03/27/16 19:45 78 18 Room Air 21 Height (Feet): 5 Height (Inches): 8.00 Weight (Pounds): 110 General Appearance: WD/WN, no acute distress HEENT: normocephalic, atraumatic, anicteric, mucous membranes moist Respiratory/Chest: chest wall non-tender, lungs clear, normal breath sounds, no respiratory distress, no accessory muscle use Cardiovascular: normal peripheral pulses, normal rate, regular rhythm, no gallop/murmur Abdomen: normal bowel sounds, soft, non tender, no organomegaly, non distended , no mass, no scars Extremities: no cyanosis, no clubbing Skin: no rash, no lesions Current Medications Medications (Trade) Dose Ordered Sig/Lovely Route PRN Reason Start Time Stop Time Status Last Admin Dose Admin Acetaminophen (Tylenol) 650 mg Q4H PRN ORAL T>100.5 03/21/16 14:00 04/20/16 13:59 Hydralazine HCl (Apresoline) 10 mg Q4H PRN IV For High Blood Pressure 03/22/16 21:30 04/21/16 21:29 Metoprolol Tartrate (Lopressor) 25 mg Q12HR PEG 03/27/16 21:00 04/26/16 20:59 03/28/16 09:31 Ondansetron HCl (Zofran) 4 mg Q6H PRN IVP Nausea & Vomiting 03/21/16 14:00 04/20/16 13:59 Polyethylene Glycol (Miralax) 17 gm DAILYPRN PRN ORAL Constipation 03/21/16 14:00 04/20/16 13:59 Chantell Vera M.D. Mar 28, 2016 16:03
--- NOTE | 2016-03-28 16:50 | Diagnostic Imaging Report ---
Indications: DYSPHAGIA Technique: Patient ingested multiple substances under the supervision of speech pathology. Video fluoroscopic recording performed. Total fluoroscopy time 113 seconds. Total dose area product 0.40133 mGycm2 Comparison: none Findings: Ingestion of thin liquid barium demonstrates frequent penetration and at least one episode of aspiration. There is also aspiration of nectar thick liquid barium. Impression: Positive for aspiration of thin and nectar thick liquid barium. Please refer to speech pathology report for more detailed analysis
--- NOTE | 2016-03-28 17:20 | Cardiac Electrophysiology PN ---
Assessment/Plan Assessment/Plan 1. Troponin leak in a patient with three coronary stents. Follow up troponin were negative. No chest pain. Continue Lopressor. 2. S/P Septic shock. Off pressors now 3. Atrial fibrillation with rapid ventricular response. In SR on Lopressor 25 GT bid. Echo EF 60-65% 4. Severe dehydration with hypernatremia and azotemia. Better with iv fluid 5. S/P Respiratory failure.Self extubated. 6. Healthcare-associated pneumonia with right lower lobe infiltrate. Of Abx per Dr. Vera. 7. Elevated transaminase level. 8. Dysphagia. Failed swallow eval. S/P PEG DW RN Subjective Subjective In SR. Confused. GT feeding started. Objective Last 24 Hour Vital Signs Date Time Temp Pulse Resp B/P Pulse Ox O2 Delivery O2 Flow Rate FiO2 03/28/16 16:00 89 03/28/16 16:00 97.0 88 20 122/72 95 03/28/16 12:00 98.2 71 17 116/53 97 Nasal Cannula 2.0 03/28/16 11:58 68 03/28/16 09:31 91 124/75 03/28/16 08:00 96.9 120 17 124/75 95 Nasal Cannula 2.0 03/28/16 07:35 88 03/28/16 06:23 97.0 03/28/16 04:25 97.0 79 20 140/78 95 03/28/16 04:00 79 03/28/16 00:31 98.0 61 20 136/82 94 Room Air 03/28/16 00:00 60 03/27/16 22:11 83 126/72 03/27/16 20:00 97.4 83 20 126/72 95 Room Air 03/27/16 20:00 87 03/27/16 19:45 78 18 Room Air 21 Intake and Output 03/27/16 03/28/16 19:00 07:00 Intake Total 300 ml Output Total 460 ml 550 ml Balance -160 ml -550 ml Intake IV Total 300 ml Output Urine Total 460 ml 550 ml # Bowel Movements 1 Labs Test 03/27/16 05:45 Sodium Level 141 mEQ/L (135-145) Potassium Level 3.7 mEQ/L (3.4-4.9) Chloride Level 101 mEQ/L (98-107) Carbon Dioxide Level 26 mEQ/L (20-30) Anion Gap 14 (5-15) Blood Urea Nitrogen 8 mg/dL (7-23) Creatinine 0.5 mg/dL (0.7-1.2) Estimat Glomerular Filtration Rate mL/min (>60) Glucose Level 88 mg/dL (74-106) Calcium Level 8.3 mg/dL (8.6-10.2) Phosphorus Level 2.6 mg/dL (2.5-4.8) Total Bilirubin 0.8 mg/dL (0.0-1.2) Aspartate Amino Transf (AST/SGOT) 29 U/L (5-40) Alanine Aminotransferase (ALT/SGPT) 35 U/L (3-41) Alkaline Phosphatase 92 U/L (40-129) Total Protein 5.6 g/dL (6.6-8.7) Albumin 2.5 g/dL (3.5-5.2) Globulin 3.1 g/dL Albumin/Globulin Ratio 0.8 (1.0-2.7) Current Medications Medications (Trade) Dose Ordered Sig/Lovely Route PRN Reason Start Time Stop Time Status Last Admin Dose Admin Acetaminophen (Tylenol) 650 mg Q4H PRN ORAL T>100.5 03/21/16 14:00 04/20/16 13:59 Hydralazine HCl (Apresoline) 10 mg Q4H PRN IV For High Blood Pressure 03/22/16 21:30 04/21/16 21:29 Metoprolol Tartrate (Lopressor) 25 mg Q12HR PEG 03/27/16 21:00 04/26/16 20:59 03/28/16 09:31 Ondansetron HCl (Zofran) 4 mg Q6H PRN IVP Nausea & Vomiting 03/21/16 14:00 04/20/16 13:59 Polyethylene Glycol (Miralax) 17 gm DAILYPRN PRN ORAL Constipation 03/21/16 14:00 04/20/16 13:59 Objective HEENT: NG tube out. No JVD LUNGS: Coarse rhonchi bilaterally. CARDIOVASCULAR: Regular S1 and S2 with no gallop or murmur. ABDOMEN: Soft.PEG in place EXTREMITIES: No pitting edema. ESTEE BREEN Mar 28, 2016 17:20
[2016-03-28 20:00] VITALS: BP 136/81
[2016-03-29] VITALS (7 sets, daily range): BP systolic 129–148; BP diastolic 74–91
[2016-03-29] MEDS: Metoprolol 25mg tab PEG SCH ×2 (08:08→20:34)
--- NOTE | 2016-03-29 08:52 | Pulmonology Progress Note ---
Assessment/Plan Assessment/Plan ASSESSMENT/PLAN Acute respiratory failure requiring intubation s/p extubation - O 2, HHN prn , fup with CXR, stable respiratory status Septic shock -off pressors, multiorgan failure 2 to shock - resolved Pneumonia- s/p Rx, off abx as per ID , ID follows, blood cx negative, Atrial fibrillation-currently in SR, on BB, cardio follows Hypertension-BP management with BB, stable, ECHO with preserved EF 60-65% Dehydration -resolved ATN 2 to dehydration -renal parametrs down to normal, prerenal component elevated LFT - -down to normal , likely due to shocked liver due to sepsis dysphagia, s/p PEG - - failed swallow eval, s/p PEG, tolerates feeding,strict aspiration precautions ventriculoperitoneal shunt - CT head findings of Small acute to subacute intraparenchymal hematoma right frontal deep white matter surrounding ventriculoperitoneal shunt tube, recommend neuro evla . SCD for DVT prophylaxis, bowel regimen transfer to [place] if OK with cardio case discussed and evaluated by supervising physician Subjective Allergies: Coded Allergies: PENICILLINS (Verified Allergy, Unknown, 03/19/16) SULFA (SULFONAMIDE ANTIBIOTICS) (Verified Allergy, Unknown, 03/19/16) Subjective afebrile, no signs of respiratory distress pulse oximetry stable on 2L O2 via NC Objective Last 24 Hour Vital Signs Date Time Temp Pulse Resp B/P Pulse Ox O2 Delivery O2 Flow Rate FiO2 03/29/16 08:08 145 91/79 03/29/16 04:00 73 03/29/16 04:00 97.0 76 18 137/79 96 Room Air 03/29/16 00:00 96.8 93 16 133/75 93 Nasal Cannula 2.0 03/29/16 00:00 72 03/28/16 20:26 89 122/72 03/28/16 20:00 82 03/28/16 20:00 97.4 82 19 136/81 93 Room Air 03/28/16 16:00 89 03/28/16 16:00 97.0 88 20 122/72 95 03/28/16 12:00 98.2 71 17 116/53 97 Nasal Cannula 2.0 03/28/16 11:58 68 03/28/16 09:31 91 124/75 Intake and Output 03/28/16 03/29/16 19:00 07:00 Intake Total 320 ml Output Total 300 ml 400 ml Balance -300 ml -80 ml Intake Free Water 50 ml Tube Feeding 270 ml Output Urine Total 300 ml 400 ml General Appearance: no acute distress, cachetic, other - awake, alert, nonverbal, responsive, bedridden, chronically ill looking elderly male HEENT: normocephalic, atraumatic, anicteric Respiratory/Chest: lungs clear - with moderate air entry , no respiratory distress, no accessory muscle use Cardiovascular: normal rate, regular rhythm - SR on tele , no JVD Abdomen: normal bowel sounds, soft, non tender, non distended, other - G tube, abdominal binder Genitourinary: normal external genitalia Neurologic/Psychiatric: abnormal gait - bedridden , alert Musculoskeletal: atrophy - BLE, Current Medications Medications (Trade) Dose Ordered Sig/Lovely Route PRN Reason Start Time Stop Time Status Last Admin Dose Admin Acetaminophen (Tylenol) 650 mg Q4H PRN ORAL T>100.5 03/21/16 14:00 04/20/16 13:59 03/29/16 00:46 Hydralazine HCl (Apresoline) 10 mg Q4H PRN IV For High Blood Pressure 03/22/16 21:30 04/21/16 21:29 Metoprolol Tartrate (Lopressor) 25 mg Q12HR PEG 03/27/16 21:00 04/26/16 20:59 03/29/16 08:08 Ondansetron HCl (Zofran) 4 mg Q6H PRN IVP Nausea & Vomiting 03/21/16 14:00 04/20/16 13:59 Polyethylene Glycol (Miralax) 17 gm DAILYPRN PRN ORAL Constipation 03/21/16 14:00 04/20/16 13:59 Seema Joseph NP (Vanchtein) Mar 29, 2016 08:52
--- NOTE | 2016-03-29 11:23 | General Progress Note ---
Assessment/Plan Status: stable Assessment/Plan Status: - Acute Renal Failure- improved - Septic shock - Dehydration - Pneumonia - Multiple organ system failure - HCAP (healthcare-associated pneumonia) Plan: No labs today- K & Phos supplement- as needed Off IV fluid Antibiotics- Monitor renal parameters- Avoid nephrotoxics per consultants- DC planning?? Subjective ROS Limited/Unobtainable: No Allergies: Coded Allergies: PENICILLINS (Verified Allergy, Unknown, 03/19/16) SULFA (SULFONAMIDE ANTIBIOTICS) (Verified Allergy, Unknown, 03/19/16) Objective Last 24 Hour Vital Signs Date Time Temp Pulse Resp B/P Pulse Ox O2 Delivery O2 Flow Rate FiO2 03/29/16 08:08 145 91/79 03/29/16 08:00 97.5 79 17 145/91 95 Nasal Cannula 2.0 03/29/16 04:00 73 03/29/16 04:00 97.0 76 18 137/79 96 Room Air 03/29/16 00:00 96.8 93 16 133/75 93 Nasal Cannula 2.0 03/29/16 00:00 72 03/28/16 20:26 89 122/72 03/28/16 20:00 82 03/28/16 20:00 97.4 82 19 136/81 93 Room Air 03/28/16 16:00 89 03/28/16 16:00 97.0 88 20 122/72 95 03/28/16 12:00 98.2 71 17 116/53 97 Nasal Cannula 2.0 03/28/16 11:58 68 Intake and Output 03/28/16 03/29/16 19:00 07:00 Intake Total 320 ml Output Total 300 ml 400 ml Balance -300 ml -80 ml Intake Free Water 50 ml Tube Feeding 270 ml Output Urine Total 300 ml 400 ml Height (Feet): 5 Height (Inches): 8.00 Weight (Pounds): 110 General Appearance: no apparent distress Neck: stiff neck Cardiovascular: normal rate Respiratory/Chest: decreased breath sounds Abdomen: soft Pelvis: other - GT + Objective physical exam not changed CLINT CARMEN Mar 29, 2016 11:23
--- NOTE | 2016-03-29 13:51 | Cardiac Electrophysiology PN ---
Assessment/Plan Assessment/Plan 1. Troponin leak in a patient with three coronary stents. Follow up troponin were negative. No chest pain. Continue Lopressor 25 bid. 2. S/P Septic shock. Resolved. 3. Atrial fibrillation with rapid ventricular response. In SR on Lopressor 25 GT bid. Echo EF 60-65% 4. Severe dehydration with hypernatremia and azotemia. Better with iv fluid 5. S/P Respiratory failure.Self extubated. 6. Healthcare-associated pneumonia with right lower lobe infiltrate. 7. Elevated transaminase level. 8. Dysphagia. S/P PEG DW RN Subjective Subjective In SR. Confused. GT working.No new events. Objective Last 24 Hour Vital Signs Date Time Temp Pulse Resp B/P Pulse Ox O2 Delivery O2 Flow Rate FiO2 03/29/16 12:00 95.7 75 144/80 93 Nasal Cannula 2.0 03/29/16 12:00 73 03/29/16 08:08 145 91/79 03/29/16 08:00 97.5 79 17 145/91 95 Nasal Cannula 2.0 03/29/16 08:00 78 03/29/16 04:00 73 03/29/16 04:00 97.0 76 18 137/79 96 Room Air 03/29/16 00:00 96.8 93 16 133/75 93 Nasal Cannula 2.0 03/29/16 00:00 72 03/28/16 20:26 89 122/72 03/28/16 20:00 82 03/28/16 20:00 97.4 82 19 136/81 93 Room Air 03/28/16 16:00 89 03/28/16 16:00 97.0 88 20 122/72 95 Intake and Output 03/28/16 03/29/16 19:00 07:00 Intake Total 320 ml Output Total 300 ml 400 ml Balance -300 ml -80 ml Intake Free Water 50 ml Tube Feeding 270 ml Output Urine Total 300 ml 400 ml Current Medications Medications (Trade) Dose Ordered Sig/Lovely Route PRN Reason Start Time Stop Time Status Last Admin Dose Admin Acetaminophen (Tylenol) 650 mg Q4H PRN ORAL T>100.5 03/21/16 14:00 04/20/16 13:59 03/29/16 00:46 Hydralazine HCl (Apresoline) 10 mg Q4H PRN IV For High Blood Pressure 03/22/16 21:30 3/13/17 21:29 Metoprolol Tartrate (Lopressor) 25 mg Q12HR PEG 03/27/16 21:00 04/26/16 20:59 03/29/16 08:08 Ondansetron HCl (Zofran) 4 mg Q6H PRN IVP Nausea & Vomiting 03/21/16 14:00 04/20/16 13:59 Polyethylene Glycol (Miralax) 17 gm DAILYPRN PRN ORAL Constipation 03/21/16 14:00 04/20/16 13:59 Objective HEENT: NG tube out. No JVD LUNGS: Coarse rhonchi bilaterally. CARDIOVASCULAR: Regular S1 and S2 with no gallop or murmur. ABDOMEN: Soft.PEG in place EXTREMITIES: No pitting edema. ESTEE BREEN Mar 29, 2016 13:51
--- NOTE | 2016-03-29 14:06 | General Progress Note ---
Assessment/Plan Problem List: (1) Septic shock ICD Codes: A41.9 - Sepsis, unspecified organism; R65.21 - Severe sepsis with septic shock SNOMED: 80870918 (2) Dehydration ICD Codes: E86.0 - Dehydration SNOMED: 97465165 (3) Renal failure ICD Codes: N19 - Unspecified kidney failure; R65.21 - Severe sepsis with septic shock SNOMED: 22484394 (4) Pneumonia ICD Codes: J18.9 - Pneumonia, unspecified organism SNOMED: 174887877 Qualifiers: Qualified Codes: J18.9 - Pneumonia, unspecified organism (5) Multiple organ system failure SNOMED: 45460022 (6) Respiratory failure requiring intubation ICD Codes: J96.90 - Respiratory failure, unspecified, unspecified whether with hypoxia or hypercapnia; R65.21 - Severe sepsis with septic shock SNOMED: 970283073 (7) Elevated transaminase level ICD Codes: R74.0 - Nonspecific elevation of levels of transaminase and lactic acid dehydrogenase [LDH] SNOMED: 494286116, 361719015 Status: progressing Assessment/Plan pna sepsis abx per id arf and lyte abnormailty improved afebrile Subjective ROS Limited/Unobtainable: Yes Constitutional: Reports: no symptoms Allergies: Coded Allergies: PENICILLINS (Verified Allergy, Unknown, 03/19/16) SULFA (SULFONAMIDE ANTIBIOTICS) (Verified Allergy, Unknown, 03/19/16) Objective Last 24 Hour Vital Signs Date Time Temp Pulse Resp B/P Pulse Ox O2 Delivery O2 Flow Rate FiO2 03/29/16 12:00 95.7 75 144/80 93 Nasal Cannula 2.0 03/29/16 12:00 73 03/29/16 08:08 145 91/79 03/29/16 08:00 97.5 79 17 145/91 95 Nasal Cannula 2.0 03/29/16 08:00 78 03/29/16 04:00 73 03/29/16 04:00 97.0 76 18 137/79 96 Room Air 03/29/16 00:00 96.8 93 16 133/75 93 Nasal Cannula 2.0 03/29/16 00:00 72 03/28/16 20:26 89 122/72 03/28/16 20:00 82 03/28/16 20:00 97.4 82 19 136/81 93 Room Air 03/28/16 16:00 89 03/28/16 16:00 97.0 88 20 122/72 95 Intake and Output 03/28/16 03/29/16 19:00 07:00 Intake Total 320 ml Output Total 300 ml 400 ml Balance -300 ml -80 ml Intake Free Water 50 ml Tube Feeding 270 ml Output Urine Total 300 ml 400 ml Height (Feet): 5 Height (Inches): 8.00 Weight (Pounds): 110 General Appearance: confused EENT: PERRL/EOMI Neck: supple Cardiovascular: normal rate Respiratory/Chest: lungs clear Nahed Pizarro MD Mar 29, 2016 14:06
--- NOTE | 2016-03-29 15:08 | Infectious Diseases Prog Note ---
Assessment/Plan Problems: (1) HCAP (healthcare-associated pneumonia) Assessment & Plan: possible aspiration related, improved on zyvox and meropenem , received 7 days already, off antibiotics now , blood culture and sputum culture are negative , screening for influenza is negative . S/P PEG tube placement by GI (2) Respiratory failure requiring intubation Assessment & Plan: improving, S/P self extubation , due to pneumonia , pulmonary is following (3) Septic shock Assessment & Plan: due to pneumonia, complicated with organs failure, improved , on wide spectrum antibiotics therapy, blood culture is negative , received antibiotics for 7 days (4) Elevated transaminase level Assessment & Plan: improving, suspect liver shock due to sepsis , avoid hepatotoxic meds, monitor LFT, screen for hepatitis (5) Renal failure Assessment & Plan: due to sepsis, continue IVF and pressors, to keep SBP >100, nephrology is following (6) Multiple organ system failure Assessment & Plan: due to sepsis, improved. (7) ICH (intracerebral hemorrhage) Assessment & Plan: unclear whether he had recent trauma or fall, recommend neurology eval, and surgical consultation Subjective ROS Limited/Unobtainable: Yes Allergies: Coded Allergies: PENICILLINS (Verified Allergy, Unknown, 03/19/16) SULFA (SULFONAMIDE ANTIBIOTICS) (Verified Allergy, Unknown, 03/19/16) Subjective he is demented , up in bed, awake and alert, not in distress Objective Vital Signs Last 24 Hour Vital Signs Date Time Temp Pulse Resp B/P Pulse Ox O2 Delivery O2 Flow Rate FiO2 03/29/16 12:00 95.7 75 144/80 93 Nasal Cannula 2.0 03/29/16 12:00 73 03/29/16 08:08 145 91/79 03/29/16 08:00 97.5 79 17 145/91 95 Nasal Cannula 2.0 03/29/16 08:00 78 03/29/16 04:00 73 03/29/16 04:00 97.0 76 18 137/79 96 Room Air 03/29/16 00:00 96.8 93 16 133/75 93 Nasal Cannula 2.0 03/29/16 00:00 72 03/28/16 20:26 89 122/72 03/28/16 20:00 82 03/28/16 20:00 97.4 82 19 136/81 93 Room Air 03/28/16 16:00 89 03/28/16 16:00 97.0 88 20 122/72 95 Height (Feet): 5 Height (Inches): 8.00 Weight (Pounds): 110 General Appearance: WD/WN, no acute distress HEENT: normocephalic, atraumatic, anicteric, mucous membranes moist Respiratory/Chest: chest wall non-tender, no respiratory distress, no accessory muscle use, decreased breath sounds, crackles/rales Cardiovascular: normal peripheral pulses, normal rate, regular rhythm, no gallop/murmur, no JVD Abdomen: normal bowel sounds, soft, non tender, no organomegaly, non distended , no mass Extremities: no cyanosis, no clubbing Skin: no rash, no lesions Current Medications Medications (Trade) Dose Ordered Sig/Lovely Route PRN Reason Start Time Stop Time Status Last Admin Dose Admin Acetaminophen (Tylenol) 650 mg Q4H PRN ORAL T>100.5 03/21/16 14:00 04/20/16 13:59 03/29/16 00:46 Hydralazine HCl (Apresoline) 10 mg Q4H PRN IV For High Blood Pressure 03/22/16 21:30 04/21/16 21:29 Metoprolol Tartrate (Lopressor) 25 mg Q12HR PEG 03/27/16 21:00 04/26/16 20:59 03/29/16 08:08 Ondansetron HCl (Zofran) 4 mg Q6H PRN IVP Nausea & Vomiting 03/21/16 14:00 04/20/16 13:59 Polyethylene Glycol (Miralax) 17 gm DAILYPRN PRN ORAL Constipation 03/21/16 14:00 04/20/16 13:59 Chantell Vera M.D. Mar 29, 2016 15:08
[2016-03-29] MEDS ORDERED: Miralax 17gm pkt ORAL PRN (15:30)
--- NOTE | 2016-03-29 16:55 | General Progress Note ---
Assessment/Plan Assessment/Plan Assessment: # Leukocytosis - is likely related to medication v underlying infection # Erythrocytosis was likely related to dehydration # Healthcare-acquired pneumonia with right lower lobe infiltrate. On abx # Respiratory failure, required intubation. on a mechanical ventilator-->self- extubated # Septic shock due to pneumonia # Multiorgan system failure # Elevated transaminase level due to the sepsis and liver shock. # Dehydration due to poor oral intake. # Acute renal failure due to sepsis. Recommendations: - Monitor counts - Peripheral smear reviewed - Followup on ID, pulm, nephro recs - Abx as needed - DVT ppx with SCDs - GI ppx as needed - Vasopressor support - JAK2 pending - DW Staff Thank you, Tyrone Keller MD Subjective Constitutional: Reports: no symptoms HEENT: Reports: no symptoms Cardiovascular: Reports: no symptoms Respiratory: Reports: no symptoms Gastrointestinal/Abdominal: Reports: no symptoms Genitourinary: Reports: no symptoms Neurologic/Psychiatric: Reports: no symptoms Endocrine: Reports: no symptoms Hematologic/Lymphatic: Reports: no symptoms Allergies: Coded Allergies: PENICILLINS (Verified Allergy, Unknown, 03/19/16) SULFA (SULFONAMIDE ANTIBIOTICS) (Verified Allergy, Unknown, 03/19/16) Objective Last 24 Hour Vital Signs Date Time Temp Pulse Resp B/P Pulse Ox O2 Delivery O2 Flow Rate FiO2 03/29/16 16:01 97.0 56 16 134/76 92 Nasal Cannula 03/29/16 12:00 95.7 75 144/80 93 Nasal Cannula 2.0 03/29/16 12:00 73 03/29/16 08:08 145 91/79 03/29/16 08:00 97.5 79 17 145/91 95 Nasal Cannula 2.0 03/29/16 08:00 78 03/29/16 04:00 73 03/29/16 04:00 97.0 76 18 137/79 96 Room Air 03/29/16 00:00 96.8 93 16 133/75 93 Nasal Cannula 2.0 03/29/16 00:00 72 03/28/16 20:26 89 122/72 03/28/16 20:00 82 03/28/16 20:00 97.4 82 19 136/81 93 Room Air Intake and Output 03/28/16 03/29/16 19:00 07:00 Intake Total 360 ml Output Total 300 ml 400 ml Balance -300 ml -40 ml Intake Free Water 50 ml Tube Feeding 310 ml Output Urine Total 300 ml 400 ml Height (Feet): 5 Height (Inches): 8.00 Weight (Pounds): 110 General Appearance: no apparent distress EENT: TMs normal Neck: supple Cardiovascular: regular rhythm Respiratory/Chest: decreased breath sounds Abdomen: soft Extremities: non-tender Edema: no edema noted Arm (L), no edema noted Arm (R), no edema noted Leg (L), no edema noted Leg (R), no edema noted Pedal (L), no edema noted Pedal (R), no edema noted Generalized Edema: mild edema Neurologic: alert Skin: warm/dry Lymphatic: normal anterior cervical (L), normal anterior cervical (R), normal axillary (L), normal axillary (R), normal inguinal (L), normal inguinal (R), normal other, normal posterior cervical (L), normal posterior cervical (R), normal submandibular (L), normal submandibular (R), normal supraclavicular (L), normal supraclavicular (R) TYRONE KELLER Mar 29, 2016 16:55
[2016-03-30 04:00] VITALS: BP 146/69
[2016-03-30 08:15] VITALS: BP 135/79
[2016-03-30 08:19] LABS: MEAN CORPUSCULAR HEMOGLOBIN 30.3 PG (27.0-31.0); MEAN CORPUSCULAR HGB CONC 33.3 G/DL (32.0-36.0); MEAN CORPUSCULAR VOLUME 91 FL (80-99); MEAN PLATELET VOLUME 6.3 FL (6.5-10.1); PLATELET COUNT 322 K/UL (150-450); RED BLOOD COUNT 4.63 M/UL (4.70-6.10); RED CELL DISTRIBUTION WIDTH 12.9 % (11.6-14.8); WHITE BLOOD COUNT 12.4 K/UL (4.8-10.8)
[2016-03-30 08:39] LABS: ALANINE AMINOTRANSFERASE 24 U/L (3-41); ALBUMIN/GLOBULIN RATIO 0.6 (1.0-2.7); ANION GAP 13 (5-15); ASPARTATE AMINO TRANSFERASE 23 U/L (5-40); CALCIUM 8.4 mg/dL (8.6-10.2); CARBON DIOXIDE 29 mEQ/L (20-30); CHLORIDE 102 mEQ/L (98-107); CREATININE 0.6 mg/dL (0.7-1.2); HEMOLYSIS 1; SODIUM 144 mEQ/L (135-145); TOTAL PROTEIN 5.9 g/dL (6.6-8.7)
[2016-03-30 08:40] LABS: MAGNESIUM 1.9 mg/dL (1.7-2.5); PHOSPHORUS 2.1 mg/dL (2.5-4.8); URIC ACID 4.3 mg/dL (3.0-7.5)
[2016-03-30] MEDS: Metoprolol 25mg tab PEG SCH ×2 (09:45→21:18)
--- NOTE | 2016-03-30 10:33 | Infectious Diseases Prog Note ---
Assessment/Plan Problems: (1) HCAP (healthcare-associated pneumonia) Assessment & Plan: possible aspiration related, improved on zyvox and meropenem , received 7 days already, off antibiotics now , blood culture and sputum culture are negative , screening for influenza is negative . S/P PEG tube placement by GI (2) Respiratory failure requiring intubation Assessment & Plan: improving, S/P self extubation , due to pneumonia , pulmonary is following (3) Septic shock Assessment & Plan: due to pneumonia, complicated with organs failure, improved , on wide spectrum antibiotics therapy, blood culture is negative , received antibiotics for 7 days (4) Elevated transaminase level Assessment & Plan: improving, suspect liver shock due to sepsis , avoid hepatotoxic meds, monitor LFT, screen for hepatitis (5) Renal failure Assessment & Plan: due to sepsis, continue IVF and pressors, to keep SBP >100, nephrology is following (6) Multiple organ system failure Assessment & Plan: due to sepsis, improved. (7) ICH (intracerebral hemorrhage) Assessment & Plan: unclear whether he had recent trauma or fall, recommend neurology eval, and surgical consultation Subjective ROS Limited/Unobtainable: Yes Allergies: Coded Allergies: PENICILLINS (Verified Allergy, Unknown, 03/19/16) SULFA (SULFONAMIDE ANTIBIOTICS) (Verified Allergy, Unknown, 03/19/16) Subjective he is demented , up in bed, awake and alert, not in distress Objective Vital Signs Last 24 Hour Vital Signs Date Time Temp Pulse Resp B/P Pulse Ox O2 Delivery O2 Flow Rate FiO2 03/30/16 09:45 69 135/79 03/30/16 08:15 97.7 69 20 135/79 97 Room Air 03/30/16 04:00 98.7 75 20 146/69 93 Nasal Cannula 2.0 03/29/16 23:11 97.6 65 20 148/82 95 Room Air 03/29/16 20:34 78 129/71 03/29/16 20:00 98.1 78 20 129/74 96 Nasal Cannula 2.0 03/29/16 16:01 97.0 56 16 134/76 92 Nasal Cannula 03/29/16 12:00 95.7 75 144/80 93 Nasal Cannula 2.0 03/29/16 12:00 73 Height (Feet): 5 Height (Inches): 8.00 Weight (Pounds): 110 General Appearance: WD/WN, no acute distress HEENT: normocephalic, atraumatic, anicteric, mucous membranes moist Respiratory/Chest: chest wall non-tender, lungs clear, normal breath sounds, no respiratory distress, no accessory muscle use Cardiovascular: normal peripheral pulses, normal rate, regular rhythm, no gallop/murmur, no JVD Abdomen: normal bowel sounds, soft, non tender, no organomegaly, non distended , no mass Extremities: no cyanosis, no clubbing Skin: no rash Laboratory Tests Test 03/30/16 07:15 White Blood Count 12.4 K/UL (4.8-10.8) H Red Blood Count 4.63 M/UL (4.70-6.10) L Hemoglobin 14.0 G/DL (14.2-18.0) L Hematocrit 42.1 % (42.0-52.0) Mean Corpuscular Volume 91 FL (80-99) Mean Corpuscular Hemoglobin 30.3 PG (27.0-31.0) Mean Corpuscular Hemoglobin Concent 33.3 G/DL (32.0-36.0) Red Cell Distribution Width 12.9 % (11.6-14.8) Platelet Count 322 K/UL (150-450) Mean Platelet Volume 6.3 FL (6.5-10.1) L Neutrophils (%) (Auto) % (45.0-75.0) Lymphocytes (%) (Auto) % (20.0-45.0) Monocytes (%) (Auto) % (1.0-10.0) Eosinophils (%) (Auto) % (0.0-3.0) Basophils (%) (Auto) % (0.0-2.0) Neutrophils % (Manual) Pending Lymphocytes % (Manual) Pending Platelet Estimate Pending Platelet Morphology Pending Sodium Level 144 mEQ/L (135-145) Potassium Level 4.0 mEQ/L (3.4-4.9) Chloride Level 102 mEQ/L (98-107) Carbon Dioxide Level 29 mEQ/L (20-30) Anion Gap 13 (5-15) Blood Urea Nitrogen 20 mg/dL (7-23) Creatinine 0.6 mg/dL (0.7-1.2) L Estimat Glomerular Filtration Rate mL/min (>60) Glucose Level 121 mg/dL (74-106) H Uric Acid 4.3 mg/dL (3.0-7.5) Calcium Level 8.4 mg/dL (8.6-10.2) L Phosphorus Level 2.1 mg/dL (2.5-4.8) L Magnesium Level 1.9 mg/dL (1.7-2.5) Total Bilirubin 0.4 mg/dL (0.0-1.2) Aspartate Amino Transf (AST/SGOT) 23 U/L (5-40) Alanine Aminotransferase (ALT/SGPT) 24 U/L (3-41) Alkaline Phosphatase 127 U/L (40-129) Total Protein 5.9 g/dL (6.6-8.7) L Albumin 2.4 g/dL (3.5-5.2) L Globulin 3.5 g/dL Albumin/Globulin Ratio 0.6 (1.0-2.7) L Current Medications Medications (Trade) Dose Ordered Sig/Lovely Route PRN Reason Start Time Stop Time Status Last Admin Dose Admin Acetaminophen (Tylenol) 650 mg Q4H PRN ORAL T>100.5 03/29/16 15:30 04/28/16 15:29 Metoprolol Tartrate (Lopressor) 25 mg Q12HR PEG 03/29/16 21:00 04/28/16 20:59 03/30/16 09:45 Ondansetron HCl (Zofran) 4 mg Q6H PRN IVP Nausea & Vomiting 03/29/16 15:30 04/28/16 15:29 Polyethylene Glycol (Miralax) 17 gm DAILYPRN PRN ORAL Constipation 03/29/16 15:30 04/28/16 15:29 Chantell Vera M.D. Mar 30, 2016 10:33
[2016-03-30 11:09] LABS: BAND NEUTROPHILS % (MANUAL) 0 % (0-8); BASOPHILS % (MANUAL) 0 % (0-2); EOSINOPHILS % (MANUAL) 0 % (0-3); LYMPHOCYTES % (MANUAL) 7 % (20-45); NEUTROPHILS % (MANUAL) 87 % (45-75); PLATELET ESTIMATE ADEQUATE; PLATELET MORPHOLOGY NORMAL; TOTAL CELLS COUNTED 100
[2016-03-30 12:15] VITALS: BP 132/82
--- NOTE | 2016-03-30 12:22 | General Progress Note ---
Assessment/Plan Status: stable Assessment/Plan Status: - Acute Renal Failure- improved - Septic shock - Dehydration - Pneumonia - Multiple organ system failure - HCAP (healthcare-associated pneumonia) Plan: K & Phos supplement- as needed Off IV fluid Antibiotics- Monitor renal parameters- Avoid nephrotoxics per consultants- DC planning?? Subjective ROS Limited/Unobtainable: No Constitutional: Reports: malaise, weakness Allergies: Coded Allergies: PENICILLINS (Verified Allergy, Unknown, 03/19/16) SULFA (SULFONAMIDE ANTIBIOTICS) (Verified Allergy, Unknown, 03/19/16) Objective Last 24 Hour Vital Signs Date Time Temp Pulse Resp B/P Pulse Ox O2 Delivery O2 Flow Rate FiO2 03/30/16 09:45 69 135/79 03/30/16 08:15 97.7 69 20 135/79 97 Room Air 03/30/16 04:00 98.7 75 20 146/69 93 Nasal Cannula 2.0 03/29/16 23:11 97.6 65 20 148/82 95 Room Air 03/29/16 20:34 78 129/71 03/29/16 20:00 98.1 78 20 129/74 96 Nasal Cannula 2.0 03/29/16 16:01 97.0 56 16 134/76 92 Nasal Cannula Intake and Output 03/29/16 03/30/16 19:00 07:00 Intake Total 650 ml 800 ml Output Total 200 ml 800 ml Balance 450 ml 0 ml Intake Free Water 100 ml 200 ml Tube Feeding 550 ml 600 ml Output Urine Total 200 ml 800 ml Laboratory Tests 03/30/16 07:15: White Blood Count 12.4H, Red Blood Count 4.63L, Hemoglobin 14.0L, Hematocrit 42.1, Mean Corpuscular Volume 91, Mean Corpuscular Hemoglobin 30.3, Mean Corpuscular Hemoglobin Concent 33.3, Red Cell Distribution Width 12.9, Platelet Count 322, Mean Platelet Volume 6.3L, Neutrophils (%) (Auto) , Lymphocytes (%) ( Auto) , Monocytes (%) (Auto) , Eosinophils (%) (Auto) , Basophils (%) (Auto) , Differential Total Cells Counted 100, Neutrophils % (Manual) 87H, Lymphocytes % (Manual) 7L, Monocytes % (Manual) 6, Eosinophils % (Manual) 0, Basophils % ( Manual) 0, Band Neutrophils 0, Platelet Estimate Adequate, Platelet Morphology Normal, Red Blood Cell Morphology Normal, Sodium Level 144, Potassium Level 4.0 , Chloride Level 102, Carbon Dioxide Level 29, Anion Gap 13, Blood Urea Nitrogen 20, Creatinine 0.6L, Estimat Glomerular Filtration Rate , Glucose Level 121H, Uric Acid 4.3, Calcium Level 8.4L, Phosphorus Level 2.1L, Magnesium Level 1.9, Total Bilirubin 0.4, Aspartate Amino Transf (AST/SGOT) 23, Alanine Aminotransferase (ALT/SGPT) 24, Alkaline Phosphatase 127, Total Protein 5.9L, Albumin 2.4L, Globulin 3.5, Albumin/Globulin Ratio 0.6L Height (Feet): 5 Height (Inches): 8.00 Weight (Pounds): 110 General Appearance: no apparent distress Objective physical exam not changed CLINT CARMEN Mar 30, 2016 12:22
[2016-03-30] MEDS ORDERED: Sodium Phosphate 30 MM in NS 275 ML IVPB ONE (13:30)
--- NOTE | 2016-03-30 13:47 | General Progress Note ---
Assessment/Plan Assessment/Plan Assessment: # Leukocytosis - is likely related to medication v underlying infection, has improved # Erythrocytosis was likely related to dehydration # Healthcare-acquired pna with right lower lobe infiltrate. Is on abx # Respiratory failure, required intubation. was on a mechanical vent -> self- extubated # Septic shock due to pna # Multiorgan system failure # Elevated transaminase level due to the sepsis/liver shock # Dehydration due to poor oral intake. # KATE # Sepsis Recommendations: - Monitor counts - Peripheral smear reviewed - Followup on ID, pulm, cards, nephro recs - Abx as needed - DVT ppx with SCDs - GI ppx prn - DW Staff Thank you, Jarod Keller MD Subjective Constitutional: Reports: no symptoms HEENT: Reports: no symptoms Cardiovascular: Reports: no symptoms Respiratory: Reports: no symptoms Gastrointestinal/Abdominal: Reports: no symptoms Genitourinary: Reports: no symptoms Neurologic/Psychiatric: Reports: no symptoms Endocrine: Reports: no symptoms Hematologic/Lymphatic: Reports: anemia Allergies: Coded Allergies: PENICILLINS (Verified Allergy, Unknown, 03/19/16) SULFA (SULFONAMIDE ANTIBIOTICS) (Verified Allergy, Unknown, 03/19/16) Subjective no events overnight, no bleeding, no hematochezia, is s/p peg tube Objective Last 24 Hour Vital Signs Date Time Temp Pulse Resp B/P Pulse Ox O2 Delivery O2 Flow Rate FiO2 03/30/16 12:15 98.2 72 21 132/82 95 Room Air 03/30/16 09:45 69 135/79 03/30/16 08:15 97.7 69 20 135/79 97 Room Air 03/30/16 04:00 98.7 75 20 146/69 93 Nasal Cannula 2.0 03/29/16 23:11 97.6 65 20 148/82 95 Room Air 03/29/16 20:34 78 129/71 03/29/16 20:00 98.1 78 20 129/74 96 Nasal Cannula 2.0 03/29/16 16:01 97.0 56 16 134/76 92 Nasal Cannula Intake and Output 03/29/16 03/30/16 19:00 07:00 Intake Total 650 ml 800 ml Output Total 200 ml 800 ml Balance 450 ml 0 ml Intake Free Water 100 ml 200 ml Tube Feeding 550 ml 600 ml Output Urine Total 200 ml 800 ml Laboratory Tests 03/30/16 07:15: White Blood Count 12.4H, Red Blood Count 4.63L, Hemoglobin 14.0L, Hematocrit 42.1, Mean Corpuscular Volume 91, Mean Corpuscular Hemoglobin 30.3, Mean Corpuscular Hemoglobin Concent 33.3, Red Cell Distribution Width 12.9, Platelet Count 322, Mean Platelet Volume 6.3L, Neutrophils (%) (Auto) , Lymphocytes (%) ( Auto) , Monocytes (%) (Auto) , Eosinophils (%) (Auto) , Basophils (%) (Auto) , Differential Total Cells Counted 100, Neutrophils % (Manual) 87H, Lymphocytes % (Manual) 7L, Monocytes % (Manual) 6, Eosinophils % (Manual) 0, Basophils % ( Manual) 0, Band Neutrophils 0, Platelet Estimate Adequate, Platelet Morphology Normal, Red Blood Cell Morphology Normal, Sodium Level 144, Potassium Level 4.0 , Chloride Level 102, Carbon Dioxide Level 29, Anion Gap 13, Blood Urea Nitrogen 20, Creatinine 0.6L, Estimat Glomerular Filtration Rate , Glucose Level 121H, Uric Acid 4.3, Calcium Level 8.4L, Phosphorus Level 2.1L, Magnesium Level 1.9, Total Bilirubin 0.4, Aspartate Amino Transf (AST/SGOT) 23, Alanine Aminotransferase (ALT/SGPT) 24, Alkaline Phosphatase 127, Total Protein 5.9L, Albumin 2.4L, Globulin 3.5, Albumin/Globulin Ratio 0.6L Height (Feet): 5 Height (Inches): 8.00 Weight (Pounds): 110 General Appearance: no apparent distress EENT: TMs normal Neck: abnormal alignment Cardiovascular: regular rhythm Respiratory/Chest: chest wall non-tender Genitourinary/Rectal: heme negative stool Extremities: non-tender Edema: no edema noted Leg (L), no edema noted Leg (R) Edema: mild edema Neurologic: alert Skin: warm/dry Jarod Keller Mar 30, 2016 13:47
--- NOTE | 2016-03-30 14:22 | Pulmonology Progress Note ---
Assessment/Plan Assessment/Plan ASSESSMENT/PLAN Acute respiratory failure requiring intubation s/p extubation - O 2, HHN prn , fup with CXR, stable respiratory status Septic shock -off pressors, multiorgan failure 2 to shock - resolved Pneumonia- s/p Rx, off abx as per ID , ID follows, blood cx negative, Atrial fibrillation-currently in SR, on BB, cardio follows Hypertension-BP management with BB, stable, ECHO with preserved EF 60-65% Dehydration -resolved ATN 2 to dehydration -renal parametrs down to normal, prerenal component elevated LFT - -down to normal , likely due to shocked liver due to sepsis dysphagia, s/p PEG - - failed swallow eval, s/p PEG, tolerates feeding,strict aspiration precautions ventriculoperitoneal shunt - CT head findings of Small acute to subacute intraparenchymal hematoma right frontal deep white matter surrounding ventriculoperitoneal shunt tube, recommend neuro evla . SCD for DVT prophylaxis, bowel regimen dc plan as per PMD case discussed and evaluated by supervising physician Subjective Allergies: Coded Allergies: PENICILLINS (Verified Allergy, Unknown, 03/19/16) SULFA (SULFONAMIDE ANTIBIOTICS) (Verified Allergy, Unknown, 03/19/16) Subjective afebrile, no signs of respiratory distress pulse oximetry stable on 2L O2 via NC Objective Last 24 Hour Vital Signs Date Time Temp Pulse Resp B/P Pulse Ox O2 Delivery O2 Flow Rate FiO2 03/30/16 12:15 98.2 72 21 132/82 95 Room Air 03/30/16 09:45 69 135/79 03/30/16 08:15 97.7 69 20 135/79 97 Room Air 03/30/16 04:00 98.7 75 20 146/69 93 Nasal Cannula 2.0 03/29/16 23:11 97.6 65 20 148/82 95 Room Air 03/29/16 20:34 78 129/71 03/29/16 20:00 98.1 78 20 129/74 96 Nasal Cannula 2.0 03/29/16 16:01 97.0 56 16 134/76 92 Nasal Cannula Intake and Output 03/29/16 03/30/16 19:00 07:00 Intake Total 650 ml 800 ml Output Total 200 ml 800 ml Balance 450 ml 0 ml Intake Free Water 100 ml 200 ml Tube Feeding 550 ml 600 ml Output Urine Total 200 ml 800 ml Objective General Appearance: no acute distress, cachetic, other - awake, alert, nonverbal, responsive, bedridden, chronically ill looking elderly male HEENT: normocephalic, atraumatic, anicteric Respiratory/Chest: lungs clear with moderate air entry , no respiratory distress, no accessory muscle use Cardiovascular: normal rate, regular rhythm , no JVD Abdomen: normal bowel sounds, soft, non tender, non distended, G tube, abdominal binder Genitourinary: normal external genitalia Neurologic/Psychiatric: abnormal gait , bedridden , alert Musculoskeletal: atrophy - BLE, Laboratory Tests 03/30/16 07:15: White Blood Count 12.4H, Red Blood Count 4.63L, Hemoglobin 14.0L, Hematocrit 42.1, Mean Corpuscular Volume 91, Mean Corpuscular Hemoglobin 30.3, Mean Corpuscular Hemoglobin Concent 33.3, Red Cell Distribution Width 12.9, Platelet Count 322, Mean Platelet Volume 6.3L, Neutrophils (%) (Auto) , Lymphocytes (%) ( Auto) , Monocytes (%) (Auto) , Eosinophils (%) (Auto) , Basophils (%) (Auto) , Differential Total Cells Counted 100, Neutrophils % (Manual) 87H, Lymphocytes % (Manual) 7L, Monocytes % (Manual) 6, Eosinophils % (Manual) 0, Basophils % ( Manual) 0, Band Neutrophils 0, Platelet Estimate Adequate, Platelet Morphology Normal, Red Blood Cell Morphology Normal, Sodium Level 144, Potassium Level 4.0 , Chloride Level 102, Carbon Dioxide Level 29, Anion Gap 13, Blood Urea Nitrogen 20, Creatinine 0.6L, Estimat Glomerular Filtration Rate , Glucose Level 121H, Uric Acid 4.3, Calcium Level 8.4L, Phosphorus Level 2.1L, Magnesium Level 1.9, Total Bilirubin 0.4, Aspartate Amino Transf (AST/SGOT) 23, Alanine Aminotransferase (ALT/SGPT) 24, Alkaline Phosphatase 127, Total Protein 5.9L, Albumin 2.4L, Globulin 3.5, Albumin/Globulin Ratio 0.6L Current Medications Medications (Trade) Dose Ordered Sig/Lovely Route PRN Reason Start Time Stop Time Status Last Admin Dose Admin Acetaminophen (Tylenol) 650 mg Q4H PRN ORAL T>100.5 03/29/16 15:30 04/28/16 15:29 Metoprolol Tartrate (Lopressor) 25 mg Q12HR PEG 03/29/16 21:00 04/28/16 20:59 03/30/16 09:45 Ondansetron HCl (Zofran) 4 mg Q6H PRN IVP Nausea & Vomiting 03/29/16 15:30 04/28/16 15:29 Polyethylene Glycol 17 gm 17 gm DAILYPRN PRN ORAL Constipation 03/29/16 15:30 04/28/16 15:29 Sodium Phosphate/ Sodium Chloride (NaPO4/Sodium Chloride) 285 ml @ 47.5 mls/hr ONCE ONCE IVPB 03/30/16 13:30 03/30/16 19:29 Jake ([facility])Seema NP Mar 30, 2016 14:22
[2016-03-30] MEDS: Phospha 250 Neutral tab ORAL SCH ×3 (14:57→21:18)
[2016-03-30] MEDS ORDERED: Sterile Water Irrig 1000ml IRRIG ONE (16:00)
[2016-03-30 16:38] VITALS: BP 153/83
[2016-03-30 20:00] VITALS: BP 148/86
[2016-03-31 00:26] VITALS: BP 134/79
[2016-03-31 04:04] VITALS: BP 133/73
[2016-03-31 07:47] VITALS: BP 115/64
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
[2016-03-31] MEDS: Metoprolol 25mg tab PEG SCH (09:21)
--- NOTE | 2016-03-31 11:35 | General Progress Note ---
Assessment/Plan Problem List: (1) Septic shock ICD Codes: A41.9 - Sepsis, unspecified organism; R65.21 - Severe sepsis with septic shock SNOMED: 56257690 (2) Dehydration ICD Codes: E86.0 - Dehydration SNOMED: 33518055 (3) Renal failure ICD Codes: N19 - Unspecified kidney failure; R65.21 - Severe sepsis with septic shock SNOMED: 35857516 (4) Pneumonia ICD Codes: J18.9 - Pneumonia, unspecified organism SNOMED: 505842577 Qualifiers: Qualified Codes: J18.9 - Pneumonia, unspecified organism (5) Multiple organ system failure SNOMED: 44780662 (6) Respiratory failure requiring intubation ICD Codes: J96.90 - Respiratory failure, unspecified, unspecified whether with hypoxia or hypercapnia; R65.21 - Severe sepsis with septic shock SNOMED: 481232456 (7) Elevated transaminase level ICD Codes: R74.0 - Nonspecific elevation of levels of transaminase and lactic acid dehydrogenase [LDH] SNOMED: 854749843, 344406948 Status: progressing Assessment/Plan pna sepsis abx per id leukocytosis is getting worse dehydration arf resolved sepsis Subjective ROS Limited/Unobtainable: Yes Constitutional: Reports: no symptoms Allergies: Coded Allergies: PENICILLINS (Verified Allergy, Unknown, 03/19/16) SULFA (SULFONAMIDE ANTIBIOTICS) (Verified Allergy, Unknown, 03/19/16) Objective Last 24 Hour Vital Signs Date Time Temp Pulse Resp B/P Pulse Ox O2 Delivery O2 Flow Rate FiO2 03/31/16 09:21 68 115/64 03/31/16 07:47 98.1 68 20 115/64 94 Nasal Cannula 2.0 03/31/16 04:04 97.3 61 20 133/73 94 Nasal Cannula 2.0 03/31/16 00:26 97.7 59 20 134/79 Nasal Cannula 2.0 03/30/16 21:18 72 148/86 03/30/16 20:00 97.2 72 17 148/86 95 Room Air 03/30/16 16:38 97.2 65 14 153/83 94 Room Air 03/30/16 12:15 98.2 72 21 132/82 95 Room Air Intake and Output 03/30/16 03/31/16 19:00 07:00 Intake Total 350 ml 760 ml Output Total 550 ml 252 ml Balance -200 ml 508 ml Intake Free Water 100 ml 160 ml Tube Feeding 250 ml 600 ml Output Urine Total 550 ml 250 ml Stool Total 2 ml # Bowel Movements 2 3 Laboratory Tests 03/31/16 06:30: Phosphorus Level 3.9 Height (Feet): 5 Height (Inches): 8.00 Weight (Pounds): 110 General Appearance: confused EENT: PERRL/EOMI Respiratory/Chest: lungs clear Abdomen: soft Nahed Pizarro MD Mar 31, 2016 11:35
[2016-03-31 12:05] VITALS: BP 119/74
--- NOTE | 2016-03-31 12:46 | General Progress Note ---
Assessment/Plan Status Narrative stable from renal stand Assessment/Plan Status: - Acute Renal Failure- improved - Septic shock - Dehydration - Pneumonia - Multiple organ system failure - HCAP (healthcare-associated pneumonia) Plan: no labs today- K & Phos supplement- as needed Off IV fluid Antibiotics- Monitor renal parameters- Avoid nephrotoxics per consultants- DC planning?? Subjective ROS Limited/Unobtainable: No Constitutional: Reports: malaise, weakness Allergies: Coded Allergies: PENICILLINS (Verified Allergy, Unknown, 03/19/16) SULFA (SULFONAMIDE ANTIBIOTICS) (Verified Allergy, Unknown, 03/19/16) Objective Last 24 Hour Vital Signs Date Time Temp Pulse Resp B/P Pulse Ox O2 Delivery O2 Flow Rate FiO2 03/31/16 12:05 97.8 61 21 119/74 93 Nasal Cannula 2.0 03/31/16 09:21 68 115/64 03/31/16 07:47 98.1 68 20 115/64 94 Nasal Cannula 2.0 03/31/16 04:04 97.3 61 20 133/73 94 Nasal Cannula 2.0 03/31/16 00:26 97.7 59 20 134/79 Nasal Cannula 2.0 03/30/16 21:18 72 148/86 03/30/16 20:00 97.2 72 17 148/86 95 Room Air 03/30/16 16:38 97.2 65 14 153/83 94 Room Air Intake and Output 03/30/16 03/31/16 19:00 07:00 Intake Total 350 ml 760 ml Output Total 550 ml 252 ml Balance -200 ml 508 ml Intake Free Water 100 ml 160 ml Tube Feeding 250 ml 600 ml Output Urine Total 550 ml 250 ml Stool Total 2 ml # Bowel Movements 2 3 Laboratory Tests 03/31/16 06:30: Phosphorus Level 3.9 Height (Feet): 5 Height (Inches): 8.00 Weight (Pounds): 110 General Appearance: no apparent distress Objective physical exam not changed CLINT CARMEN Mar 31, 2016 12:46
[2016-03-31] MEDS ORDERED: TYLENOL650 MG/20. ORAL (15:05)
[2016-03-31] MEDS ORDERED: METOPROLOL TART25 MG GT (15:06)
[2016-03-31] MEDS ORDERED: ZOFRAN4 M1 IVP (15:07)
--- NOTE | 2016-03-31 15:25 | Cardiac Electrophysiology PN ---
Assessment/Plan Assessment/Plan 1. Troponin leak and hx of three coronary stents. Follow up troponin were negative. No chest pain. Continue Lopressor 25 bid. 2. S/P Septic shock. Resolved. 3. Atrial fibrillation with rapid ventricular response. In SR on Lopressor 25 GT bid. Echo EF 60-65% 4. Dehydration with hypernatremia and azotemia. Better with iv fluid 5. S/P Respiratory failure.Self extubated. 6. Healthcare-associated pneumonia with right lower lobe infiltrate. 7. Elevated transaminase level. 8. Dysphagia. S/P PEG DW RN Subjective Subjective Off tele.Confused. GT feeding in progress. No new events. Objective Last 24 Hour Vital Signs Date Time Temp Pulse Resp B/P Pulse Ox O2 Delivery O2 Flow Rate FiO2 03/31/16 12:05 97.8 61 21 119/74 93 Nasal Cannula 2.0 03/31/16 09:21 68 115/64 03/31/16 07:47 98.1 68 20 115/64 94 Nasal Cannula 2.0 03/31/16 04:04 97.3 61 20 133/73 94 Nasal Cannula 2.0 03/31/16 00:26 97.7 59 20 134/79 Nasal Cannula 2.0 03/30/16 21:18 72 148/86 03/30/16 20:00 97.2 72 17 148/86 95 Room Air 03/30/16 16:38 97.2 65 14 153/83 94 Room Air Intake and Output 03/30/16 03/31/16 19:00 07:00 Intake Total 350 ml 760 ml Output Total 550 ml 252 ml Balance -200 ml 508 ml Free Water 100 ml 160 ml Tube Feeding 250 ml 600 ml Output Urine Total 550 ml 250 ml Stool Total 2 ml # Bowel Movements 2 3 Laboratory Tests Test 03/31/16 06:30 Phosphorus Level 3.9 mg/dL (2.5-4.8) Objective HEENT: NG tube out. No JVD LUNGS: Coarse rhonchi bilaterally. CARDIOVASCULAR: Regular S1 and S2 with no gallop or murmur. ABDOMEN: Soft.PEG in place EXTREMITIES: No pitting edema. ESTEE BREEN Mar 31, 2016 15:25
[2016-03-31 16:00] VITALS: BP 140/80
[2016-03-31] MEDS ORDERED: Sterile Water Irrig 1000ml IRRIG ONE (16:19)
--- NOTE | 2016-03-31 17:20 | Infectious Diseases Prog Note ---
Assessment/Plan Problems: (1) HCAP (healthcare-associated pneumonia) Assessment & Plan: with possible aspiration , improved on zyvox and meropenem , received 7 days already, off antibiotics now , blood culture and sputum culture are negative , screening for influenza is negative . S/P PEG tube placement by GI (2) Respiratory failure requiring intubation Assessment & Plan: improving, S/P self extubation , due to pneumonia , pulmonary is following (3) Septic shock Assessment & Plan: improved, due to pneumonia, complicated with organs failure , improved, on wide spectrum antibiotics therapy, blood culture is negative , received wide spectrum antibiotics for 7 days (4) Elevated transaminase level Assessment & Plan: improving, suspect liver shock due to sepsis , avoid hepatotoxic meds, monitor LFT, screen for hepatitis (5) Renal failure Assessment & Plan: due to sepsis, continue IVF and pressors, to keep SBP >100, nephrology is following (6) Multiple organ system failure Assessment & Plan: due to sepsis, improved. (7) ICH (intracerebral hemorrhage) Assessment & Plan: unclear whether he had recent trauma or fall, recommend neurology eval, and surgical consultation Subjective ROS Limited/Unobtainable: Yes Allergies: Coded Allergies: PENICILLINS (Verified Allergy, Unknown, 03/19/16) SULFA (SULFONAMIDE ANTIBIOTICS) (Verified Allergy, Unknown, 03/19/16) Subjective he is demented , up in bed, awake and alert, not in distress Objective Vital Signs Last 24 Hour Vital Signs Date Time Temp Pulse Resp B/P Pulse Ox O2 Delivery O2 Flow Rate FiO2 03/31/16 16:00 97.3 66 21 140/80 98 Nasal Cannula 2.0 03/31/16 12:05 97.8 61 21 119/74 93 Nasal Cannula 2.0 03/31/16 09:21 68 115/64 03/31/16 07:47 98.1 68 20 115/64 94 Nasal Cannula 2.0 03/31/16 04:04 97.3 61 20 133/73 94 Nasal Cannula 2.0 03/31/16 00:26 97.7 59 20 134/79 Nasal Cannula 2.0 03/30/16 21:18 72 148/86 03/30/16 20:00 97.2 72 17 148/86 95 Room Air Height (Feet): 5 Height (Inches): 8.00 Weight (Pounds): 110 General Appearance: WD/WN, no acute distress HEENT: normocephalic, atraumatic, anicteric, mucous membranes moist Respiratory/Chest: chest wall non-tender, lungs clear, normal breath sounds, no respiratory distress, no accessory muscle use Cardiovascular: normal peripheral pulses, normal rate, regular rhythm, no gallop/murmur Abdomen: normal bowel sounds, soft, non tender, no organomegaly, non distended , no mass Extremities: no cyanosis, no clubbing Skin: no rash, no lesions Laboratory Tests Test 03/31/16 06:30 Phosphorus Level 3.9 mg/dL (2.5-4.8) Current Medications Medications (Trade) Dose Ordered Sig/Lovely Route PRN Reason Start Time Stop Time Status Last Admin Dose Admin Acetaminophen (Tylenol) 650 mg Q4H PRN ORAL T>100.5 03/29/16 15:30 04/28/16 15:29 Metoprolol Tartrate (Lopressor) 25 mg Q12HR PEG 03/29/16 21:00 04/28/16 20:59 03/31/16 09:21 Ondansetron HCl (Zofran) 4 mg Q6H PRN IVP Nausea & Vomiting 03/29/16 15:30 04/28/16 15:29 Polyethylene Glycol (Miralax) 17 gm DAILYPRN PRN ORAL Constipation 03/29/16 15:30 04/28/16 15:29 Chantell Vera M.D. Mar 31, 2016 17:19
--- NOTE | 2016-03-31 18:07 | General Progress Note ---
Assessment/Plan Assessment/Plan Assessment: # Leukocytosis - is likely related to medication v underlying infection # Erythrocytosis was likely related to dehydration # Healthcare-acquired pneumonia with right lower lobe infiltrate. On abx # Respiratory failure, required intubation. on a mechanical ventilator-->self- extubated # Septic shock due to pneumonia # Multiorgan system failure # Elevated transaminase level due to the sepsis and liver shock. # Dehydration due to poor oral intake. # Acute renal failure due to sepsis. Recommendations: - Monitor counts - Peripheral smear reviewed - Followup on ID, pulm, nephro recs - Abx as needed - DVT ppx with SCDs - GI ppx as needed - Vasopressor support - JAK2 pending - DW Staff Thank you, Tyrone Keller MD Subjective Constitutional: Reports: no symptoms HEENT: Reports: no symptoms Cardiovascular: Reports: no symptoms Respiratory: Reports: no symptoms Gastrointestinal/Abdominal: Reports: no symptoms Genitourinary: Reports: no symptoms Neurologic/Psychiatric: Reports: no symptoms Endocrine: Reports: no symptoms Hematologic/Lymphatic: Reports: no symptoms Allergies: Coded Allergies: PENICILLINS (Verified Allergy, Unknown, 03/19/16) SULFA (SULFONAMIDE ANTIBIOTICS) (Verified Allergy, Unknown, 03/19/16) Objective Last 24 Hour Vital Signs Date Time Temp Pulse Resp B/P Pulse Ox O2 Delivery O2 Flow Rate FiO2 03/31/16 16:00 97.3 66 21 140/80 98 Nasal Cannula 2.0 03/31/16 12:05 97.8 61 21 119/74 93 Nasal Cannula 2.0 03/31/16 09:21 68 115/64 03/31/16 07:47 98.1 68 20 115/64 94 Nasal Cannula 2.0 03/31/16 04:04 97.3 61 20 133/73 94 Nasal Cannula 2.0 03/31/16 00:26 97.7 59 20 134/79 Nasal Cannula 2.0 03/30/16 21:18 72 148/86 Intake and Output 03/30/16 03/31/16 17:00 05:00 Intake Total 350 ml 760 ml Output Total 600 ml 350 ml Balance -250 ml 410 ml Free Water 100 ml 160 ml Tube Feeding 250 ml 600 ml Output Urine Total 600 ml 350 ml # Bowel Movements 2 3 Laboratory Tests 03/31/16 06:30: Phosphorus Level 3.9 Height (Feet): 5 Height (Inches): 8.00 Weight (Pounds): 110 General Appearance: alert EENT: TMs normal Neck: supple Cardiovascular: regular rhythm Respiratory/Chest: lungs clear Abdomen: soft Pelvis: no masses Extremities: non-tender Edema: no edema noted Arm (L), no edema noted Arm (R), no edema noted Leg (L), no edema noted Leg (R), no edema noted Pedal (L), no edema noted Pedal (R), no edema noted Generalized Edema: mild edema Neurologic: alert Lymphatic: normal anterior cervical (L), normal anterior cervical (R), normal axillary (L), normal axillary (R), normal inguinal (L), normal inguinal (R), normal other, normal posterior cervical (L), normal posterior cervical (R), normal submandibular (L), normal submandibular (R), normal supraclavicular (L), normal supraclavicular (R) TYRONE KELLER Mar 31, 2016 18:07
[2016-03-31 19:48] VITALS: BP 137/89
--- NOTE | 2016-03-31 22:10 | General Progress Note ---
Assessment/Plan Assessment/Plan Assessment - Malnutrition - cachexia - dysphagia - PNA - Large HH - s/p PEG Recommendations - Continue TF - Elevate HOB - GT care - d/c planning Subjective Cardiovascular: Denies: lightheadedness Allergies: Coded Allergies: PENICILLINS (Verified Allergy, Unknown, 03/19/16) SULFA (SULFONAMIDE ANTIBIOTICS) (Verified Allergy, Unknown, 03/19/16) Subjective uneventful night tolerating TF Objective Last 24 Hour Vital Signs Date Time Temp Pulse Resp B/P Pulse Ox O2 Delivery O2 Flow Rate FiO2 03/31/16 19:48 97.9 72 18 137/89 94 Nasal Cannula 2.0 03/31/16 16:00 97.3 66 21 140/80 98 Nasal Cannula 2.0 03/31/16 12:05 97.8 61 21 119/74 93 Nasal Cannula 2.0 03/31/16 09:21 68 115/64 03/31/16 07:47 98.1 68 20 115/64 94 Nasal Cannula 2.0 03/31/16 04:04 97.3 61 20 133/73 94 Nasal Cannula 2.0 03/31/16 00:26 97.7 59 20 134/79 Nasal Cannula 2.0 Intake and Output 03/30/16 03/31/16 19:00 07:00 Intake Total 350 ml 760 ml Output Total 550 ml 252 ml Balance -200 ml 508 ml Free Water 100 ml 160 ml Tube Feeding 250 ml 600 ml Output Urine Total 550 ml 250 ml Stool Total 2 ml # Bowel Movements 2 3 Laboratory Tests 03/31/16 06:30: Phosphorus Level 3.9 Height (Feet): 5 Height (Inches): 8.00 Weight (Pounds): 110 Objective Thin WM NCAT supple CTA RRR Soft NT ND (+) PEG No edema OBS MAHNAZ GRIMES Mar 31, 2016 22:10
--- NOTE | 2016-04-01 12:08 | Discharge Summary ---
Discharge Summary Hospital Course Date of Admission Mar 19, 2016 at 06:41 Date of Discharge Mar 31, 2016 at 20:39 Admitting Diagnosis respiratory failure, sepsis, pneumonia HPI Cm Justice is a 76 year old male who was admitted on Mar 19, 2016 at 06:41 for Respiratory Failure, Sepsis, Pneumonia Hospital Course dc summary dictated #[id number] Discharge Medications Continued Medications: Acetaminophen (Acetaminophen) 650 Mg/20.3 Ml Solution 650 MG ORAL Q4HR PRN for Mild Pain/Temp > 100.5, ML 0 Refills Metoprolol Tartrate* (Metoprolol Tartrate*) 25 Mg Tablet 25 MG GT EVERY 12 HOURS, TAB Ondansetron (Zofran) 4 Mg Tablet 4 MG IVP Q6H PRN for Nausea & Vomiting, TAB Discharge Condition Upon Discharge: stable Discharge Disposition Patient was discharged to SNF/Subacute Facility(03) Discharge Diagnoses: Discharge Instructions Discharge Instructions Special Instructions I have been assigned to complete a D/C Summary on this account. I was not involved in the patient management Seema Joseph NP (Vanchtein) Apr 01, 2016 12:08
--- NOTE | 2016-04-01 23:47 | Discharge Summary 2 SIG ---
DATE OF ADMISSION: 03/19/2016 DATE OF DISCHARGE: 03/31/2016 The patient was admitted under Dr. Pizarro. REASON FOR ADMISSION: A 76-year-old male presented from the retirement facility with respiratory distress and altered mental status. The patient was unable to provide any information. Per paramedics, the patient looked toxic when they picked him up. Patient was subsequently placed him on non-rebreather mask. No other history was available. In the emergency department, the patient was unresponsive. Blood pressure was low- 86/63. The patient was tachypneic with respiratory rate in 40s and tachycardic. White blood count was 16.3. Lactic acid was 5.7. The patient had evidence of acute renal failure, with BUN 119 and creatinine of 3.1. Sodium -158. The patient required emergency intubation due to acute hypoxemia and septic shock, Chest x-ray revealed bilateral infiltrates. EKG demonstrated sinus tachycardia in 120s and no ischemic changes were noted. Troponin elevated at 0.4. Pro BNP was 7000. AST- 153 and ALT- 102. The patient was intubated. Septic workup was initiated. A central line was placed, started on pressors, and patient was transferred to ICU for further management. ADMITTING DIAGNOSES: 1. Acute respiratory failure, requiring intubation. 2. Multiorgan failure. 3. Septic shock. 4. Acute renal failure, likely secondary to sepsis. 5. Healthcare-associated pneumonia. 6. Dehydration. HOSPITAL STAY: The patient was admitted to ICU. The patient was on pressors. Cardiology followed up. Pressors eventually were able to be discontinued. Ventilator care was provided. Pulmonary toilet was provided. The patient was followed up with daily chest x-ray and ABG. The patient was self-extubated himself. The patient was closely followed for another 24 hours in the ICU after self extubation. However, respiratory status was stable and patient was transferred to telemetry and then to Med/Surg floor. Pulmonology followed. The patient was on antibiotics. ID followed. Culture colin, blood culture were negative. Influenza screen was negative. Not able to obtain sputum specimen. Leukocytosis, mild, afebrile. Per ID who followed, the patient received a total of 7 days of antibiotics of Zyvox and meropenem. Patient to be off antibiotics and observed. Electrical Designer Drafter followed the patient for acute renal failure. Per dry dip worker, acute renal failure likely secondary to sepsis. Renal parameters and electrolytes were closely monitored. Electrolytes were replaced as needed. Avoid nephrotoxics. Creatinine and BUN down to normal prior to discharge. The patient failed swallow evaluation and required placement of PEG. The GI follows. Strict aspiration precautions were maintained. The patient started on tube feeding after the PEG was inserted and slowly advanced to goal, was able to tolerate. G-tube site care was provided. Strict aspiration precautions were maintained. Elevated troponin likely due to troponin leak. The patient has a history of 3 coronary stents. Followup troponin were negative. No chest pain. The patient was on Lopressor b.i.d. 25 mg, per Cardiology, to be continued. The patient had episode of atrial fibrillation with rapid ventricular response, converted to sinus rhythm spontaneously. Echocardiogram with preserved ejection fraction of 60% to 65%. Again, the patient remained in sinus rhythm. The patient was on beta-fallon, continued. Blood pressure was stable with beta-fallon. LFTs down to normal,elevation likely due to shocked liver due to sepsis. The patient had a venous duplex bilateral lower extremities, which was negative. SCD was provided for DVTprophylaxis. CT of the head found small acute to subacute intraparenchymal hematoma, right frontal deep white matter, surrounding ventriculoperitoneal shunt tube. There was no evidence of bleeding. No evidence of neuro changes. No new focal neuro deficit. Recommended neuro evaluation as outpatient. Bowel regimen was instituted. Pain management was provided. The patient was stable for discharge to retirement facility, off antibiotics, to be observed. DISCHARGE DIAGNOSES: 1. Acute respiratory failure, requiring intubation. 2. Status post self-extubation. 3. Septic shock, resolved. 4. Multiorgan failure secondary to septic shock, resolved. 5. Healthcare-associated pneumonia, status post treatment. 6. Atrial fibrillation with rapid ventricular response, resolved. 7. Hypertension. 8. Dehydration, resolved. 9. Acute renal failure/acute tubular necrosis secondary to dehydration, resolved. 10. Elevated LFTs, resolved. 11. Dysphagia, status post PEG. DISCHARGE MEDICATIONS: See medication reconciliation list. DISCHARGE INSTRUCTIONS: The patient was discharged to retirement facility. FOLLOWUP: Follow up with medical doctor at the facility. Nahed Pizarro M.D. I have been assigned to dictate discharge summary on this account and I was not involved in the patient's management. Seema Joseph N.P. (Vanchtein) DR: CAMI JOB#: [id number] CC: JB
--- NOTE | 2016-04-11 09:10 | Consultation ---
DATE OF CONSULTATION: 03/19/2016 REFERRING PHYSICIAN: Nahed Pizarro M.D. REASON FOR CONSULTATION: Evaluation of erythrocytosis and leukocytosis. IDENTIFICATION: Dear Dr. Nahed Pizarro, The patient is a pleasant 76-year-old male with a past medical history significant for history of recent abdominal surgery, elevated LFTs, organic brain syndrome, history of GERD, BPH, hypertension, at this time presents to [facility] with hypernatremia, elevated LFTs, admitted to the ICU . The patient has poor prognosis. He had recently undergone abdominal surgery and difficult to obtain any further information from the patient. He is currently admitted to the ICU and he is toxic. PAST MEDICAL HISTORY: As noted above. PAST SURGICAL HISTORY: None noted. MEDICATIONS: Reviewed. ALLERGIES: Penicillin and sulfa. SOCIAL HISTORY: No alcohol, tobacco, or illicit drug use per review of the record. FAMILY HISTORY: Noncontributory. REVIEW OF SYSTEMS: Difficult to obtain given the patient's mental status. PHYSICAL EXAMINATION: GENERAL: The patient is in no acute distress. VITAL SIGNS: Temperature 98.4 degrees Fahrenheit, pulse of 85, respiratory rate 23, blood pressure 126/79, and pulse oximetry 93% on 50% vent. PULMONARY: Decreased breath sounds bilaterally. CARDIOVASCULAR: Regular rate and rhythm. No S3 or S4. ABDOMEN: Soft, nontender, and nondistended. EXTREMITIES: A 1+ edema. LABORATORY AND DIAGNOSTIC DATA: WBC 16.3, hemoglobin 18.6, and hematocrit 58, platelet count 296,000. BUN 119, creatinine 3.1. ASSESSMENT: 1. Erythrocytosis likely secondary to dehydration.; however, it can be secondary to paraneoplastic syndrome. We will need to rule out . 2. Leukocytosis likely secondary to underlying infection and septic shock. 3. Severe dehydration/septic shock. 4. Acute kidney injury. 5. Elevated liver function tests. 6. The patient does have healthcare-acquired pneumonia. 7. Benign prostatic hypertrophy. RECOMMENDATIONS: 1. Monitor counts. 2. Transfuse as needed. 3. . 4. Peripheral smear to be reviewed. 5. Antibiotics on board. Continue to monitor. 6. Deep venous thrombosis prophylaxis with heparin. 7. GI prophylaxis as needed. 8. The patient is currently in the ICU, critically ill. 9. Follow up on ID labs. 10. Monitor urine output. 11. Discussed with staff. Thank you, Dr. Nahed Pizarro, for this kind referral. Please do not hesitate to contact me with any further questions. Jarod Keller M.D. DR: Sierra JOB#: [id number] CC:
--- NOTE | 2016-04-16 09:43 | Diagnostic Imaging Report ---
APPROVED REPORT CPT Code: 51476 Present Symptoms Lower Extremity Pain: Bilateral BILATERAL: Imaging reveals a patent deep venous system bilaterally. There is no evidence of thrombus within the femoral, popliteal or tibial segments. The greater saphenous veins are also within normal limits. Doppler indicates normal spontaneous flow within these segments.
== END 2016-03-31 20:39 | DRG 871 ==
LOC: EDBD 05:48 → EMR 06:23 → ICU 06:41 → EDBEDREQ 10:37 → ICU 14:29 → 2E 03-21 12:50 → 4E 03-29 15:28
PROC: 5A1935Z Respiratory Ventilation, Less than 24 Consecutive Hours (ICD-10-PCS; principal; 2016-03-19)
PROC: 0BH17EZ Insertion of Endotracheal Airway into Trachea, Via Natural or Artificial Opening (ICD-10-PCS; principal; 2016-03-19)
PROC: 0DH63UZ Insertion of Feeding Device into Stomach, Percutaneous Approach (ICD-10-PCS; 2016-03-27)
DX: A41.9 Sepsis, unspecified organism (principal); R65.21 Severe sepsis with septic shock; J96.01 Acute respiratory failure with hypoxia; N17.0 Acute kidney failure with tubular necrosis; I61.9 Nontraumatic intracerebral hemorrhage, unspecified; K72.00 Acute and subacute hepatic failure without coma; J18.9 Pneumonia, unspecified organism; L89.151 Pressure ulcer of sacral region, stage 1; E87.0 Hyperosmolality and hypernatremia; G91.9 Hydrocephalus, unspecified; R64 Cachexia; E46 Unspecified protein-calorie malnutrition; Z68.1 Body mass index [BMI] 19.9 or less, adult; D75.1 Secondary polycythemia; R13.10 Dysphagia, unspecified; I48.91 Unspecified atrial fibrillation; E86.0 Dehydration; I25.10 Atherosclerotic heart disease of native coronary artery without angina pectoris; Z95.5 Presence of coronary angioplasty implant and graft; K44.9 Diaphragmatic hernia without obstruction or gangrene; N40.0 Benign prostatic hyperplasia without lower urinary tract symptoms; I10 Essential (primary) hypertension; Z88.0 Allergy status to penicillin; Z88.2 Allergy status to sulfonamides; Z98.2 Presence of cerebrospinal fluid drainage device
CPT/HCPCS: 36415; 36600; 70450; 71010; 74000; 74176; 74230; 80053; 80162; 81003; 81270; 82248; 82550; 82553; 82803; 82977; 83036; 83605; 83735; 83880; 84100; 84300; 84439; 84443; 84484; 84550; 85007; 85025; 85060; 85610; 85730; 86140; 86710; 87040; 87081; 93005; 93306; 93970; 94002; 94003; 94150; 94664; 94760; C9399